=== PATIENT | male | born 1945 | race Caucasian/White ===

== ENCOUNTER 2016-10-24 09:22 | Inpatient (IN) | payer OTHER, BC ==
[2016-10-24] MEDS ORDERED: ALBUTEROL SO4 2.5/IPRATROPIUM 0.5 INH SOL 3 ML VIAL.NEB. NEB ONE ×2 (10:28→11:02)
--- NOTE | 2016-10-24 10:45 | PDOC ---
History of Present Illness <Ava Wise - Last Filed: 10/24/16 13:32> - General History Source: Patient Exam Limitations: No Limitations - History of Present Illness Initial Comments: 10/24/16 10:46 The patient is a 70 year old male with a significant past medical history of anemia, hypertension, hodgkins lymphoma, DVT (1 year ago) not currently on blood thinners, presenting to the Emergency Department with shortness of breath , wheezing, and a productive cough. The patient reports that he saw an Urgent Care center about two weeks ago and was diagnosed with bronchitis and pneumonia , and was prescribed amoxicillin and prednisone. He admits that he finished both prescriptions one week ago though he still has wheezing, a cough producing white phlegm, nausea, and decreased appetite. He also admits to chest pain at the right side exacerbated with coughing, and back pain exacerbated by coughing. He admits to having DVT about one year ago, and admits to chronic left leg swelling. The patient denies fever, or chills. Patient denies palpitations, or diaphoresis. Patient denies vomiting, or diarrhea. Patient denies headache, or blurry vision. PCP: Dr. Surendra Pinon <Terra Fregoso - Last Filed: 10/24/16 14:05> - General Chief Complaint: Shortness of Breath Stated Complaint: SOB Past History - Past Medical History Anemia: Yes Cancer: Yes (hodgkins lymphomia) HTN: Yes Liver Disease: Yes (enlarged liver/spleen) Suicide Attempt (Hx): No - Psycho/Social/Smoking Cessation Hx Anxiety: No Suicidal Ideation: No Smoking Status: No Smoking History: Never smoked Have you smoked in the past 12 months: No Number of Cigarettes Smoked Daily: 40 If you are a former smoker, when did you quit?: 15 YRS AGO Information on smoking cessation initiated: No Hx Alcohol Use: No Substance Use Type: None <Ava Wise - Last Filed: 10/24/16 13:32> <Terra Fregoso - Last Filed: 10/24/16 14:05> - Past Medical History Allergies/Adverse Reactions: Allergies Allergy/AdvReac Type Severity Reaction Status Date / Time No Known Allergies Allergy Verified 10/24/16 09:34 Home Medications: Ambulatory Orders Cyanocobalamin (Vitamin B-12) [B-12] 500 mcg PO DAILY 10/24/16 Furosemide 20 mg PO DAILY 10/24/16 Review of Systems - Review of Systems Able to Perform ROS?: Yes Comments:: 10/24/16 10:46 CONSTITUTIONAL: Present: + decreased appetite Absent: fever, chills, diaphoresis, generalized weakness, malaise HEENT: Absent: rhinorrhea, nasal congestion, throat pain, throat swelling, difficulty swallowing, mouth swelling, ear pain, eye pain, visual Changes CARDIOVASCULAR: Absent: chest pain, syncope, palpitations, irregular heart rate, lightheadedness , peripheral edema RESPIRATORY: Present: + shortness of breath, + wheezing, + productive cough Absent: dyspnea with exertion, orthopnea, stridor, hemoptysis GASTROINTESTINAL: Present: + nausea Absent: abdominal pain, abdominal distension, vomiting, diarrhea, constipation, melena, hematochezia GENITOURINARY: Absent: dysuria, frequency, urgency, hesitancy, hematuria, flank pain, genital pain MUSCULOSKELETAL: Absent: myalgia, arthralgia, joint swelling SKIN: Absent: rash, itching, pallor HEMATOLOGIC/IMMUNOLOGIC: Absent: easy bleeding, easy bruising, lymphadenopathy, frequent infections ENDOCRINE: Absent: unexplained weight gain, unexplained weight loss, heat intolerance, cold intolerance NEUROLOGIC: Absent: headache, focal weakness or paresthesias, dizziness, unsteady gait, seizure, mental status changes, bladder or bowel incontinence PSYCHIATRIC: Absent: anxiety, depression, suicidal or homicidal ideation, hallucinations. <Terra Fregoso - Last Filed: 10/24/16 14:05> *Physical Exam - Vital Signs Last Vital Signs Temp Pulse Resp BP Pulse Ox 97.5 F L 80 20 101/50 98 10/24/16 09:29 10/24/16 09:29 10/24/16 09:29 10/24/16 09:29 10/24/16 09:29 <Ava Wise - Last Filed: 10/24/16 13:32> - Vital Signs Last Vital Signs Temp Pulse Resp BP Pulse Ox 97.5 F L 80 20 101/50 98 10/24/16 09:29 10/24/16 09:29 10/24/16 09:29 10/24/16 09:29 10/24/16 09:29 - Physical Exam Comments: 10/24/16 10:47 GENERAL: Well developed, well nourished. Awake and alert. In no acute distress. HEENT: Dry mucous membranes. Normocephalic, atraumatic. PERRLA, EOMI. No conjunctival pallor. Sclera are non-icteric. Oropharynx is clear. NECK: Supple. Full ROM. No JVD. Carotid pulses 2+ and symmetric, without bruits. No thyromegaly. No lymphadenopathy. CARDIOVASCULAR: Regular rate and rhythm. No murmurs, rubs, or gallops. Distal pulses are 2+ and symmetric. PULMONARY: Bilateral wheezing, crackles at left lung base. No rales or rhonchi. ABDOMINAL: Tenderness to right sided ribs, no crepitus, no step off. Abdominal obese but nontender. Soft. Non-distended. No rebound or guarding. No organomegaly. Normoactive bowel sounds. MUSCULOSKELETAL Normal range of motion at all joints. No bony deformities or tenderness. No CVA tenderness. EXTREMITIES: No cyanosis. No clubbing. No edema. No calf tenderness. SKIN: Warm and dry. Normal capillary refill. No rashes. No jaundice. NEUROLOGICAL: Alert, awake, appropriate. Cranial nerves 2-12 intact. No deficits to light touch and temperature in face, upper extremities and lower extremities. No motor deficits in the in face, upper extremities and lower extremities. Normoreflexic in the upper and lower extremities. Normal speech. Toes are downgoing bilaterally. PSYCHIATRIC: Cooperative. Good eye contact. Appropriate mood and affect. <Terra Fregoso - Last Filed: 10/24/16 14:05> Heart Score/ECG Review #1 General ECG Interpretation: Sinus Rhythm (sinus tachycardia 123 bpm), Normal Rate, Normal Intervals, No acute ischemic changes Compared to previous ECG there are: Other (RBB , TWI V1 - V3 old compared to ) <Ava Wise - Last Filed: 10/24/16 13:32> ED Treatment Course - LABORATORY CBC & Chemistry Diagram: 10/24/16 11:35 10/24/16 11:35 - RADIOLOGY Radiology Studies Ordered: Category Date Time Status CHEST PA & LAT [RAD] Stat Radiology 10/24/16 10:20 Ordered - Medications Given in the ED: ED Medications Discontinued Medications Generic Name Dose Route Start Last Admin Trade Name Freq PRN Reason Stop Dose Admin Albuterol/Ipratropium 1 amp 10/24/16 10:28 10/24/16 10:31 Duoneb - NEB 10/24/16 10:29 1 amp ONCE ONE Administration <Ava Wise - Last Filed: 10/24/16 13:32> - LABORATORY CBC & Chemistry Diagram: 10/24/16 11:35 10/24/16 11:35 - RADIOLOGY Radiograph Interpretation: 10/24/16 12:51 Chest XRay As reviewed by Dr. Felix Ann IMPRESSION: New fluid with questionable atelectasis at the right base. There is suggestion of minimal atelectasis at the left base. The right central line persists. The mediastinum is not widened. There is no sign of infiltrate or fracture. A pneumothorax is not seen. - Medications Given in the ED: ED Medications Discontinued Medications Generic Name Dose Route Start Last Admin Trade Name Freq PRN Reason Stop Dose Admin Albuterol/Ipratropium 1 amp 10/24/16 10:28 10/24/16 10:31 Duoneb - NEB 10/24/16 10:29 1 amp ONCE ONE Administration <Terra Fregoso - Last Filed: 10/24/16 14:05> Medical Decision Making - Medical Decision Making 10/24/16 10:40 70 yo M with h/o lymphoma ( NHL) in remission, prior dVT 1 year ago ( not anticoagulated) here with cough congestion sob. pt states was seen in urgentcare 2 weeks ago and given rx for amoxicillin and steroids, which he finished 7 days ago. stilll having persistant decreased appetite, nausea no vomiting, cough productive white phlegm. ad right sided chest pain with coughing. no chest pain between coughing. had left leg swelling which is chronic since his dvt. no fevers , no chills. no other complaints. on exam awake alert. lung exam with bilateral wheezing, crackles at left base. right sided rib tenderness, no step off. cardiac exam normal. skin warm and dry. legs bilat swelling, non pitting edema differential: pna, bronchitis, recurrent DVT, sepsis, effusion chf. plan ekg labs cultures lactate cxr us left leg likley admit will d/w dr. pinon <Ava Wise - Last Filed: 10/24/16 13:32> - Medical Decision Making 10/24/16 13:01 Dr. Pinon was called at the office at 12:31. Awaiting call back. Dr. Pinon was called at the office at 12:57. Awaiting call back. Dr. Pinon returned call at 12:[address] Wise about the patient's care. <Terra Fregoso - Last Filed: 10/24/16 14:05> *DC/Admit/Observation/Transfer - Discharge Dispostion Admit: Yes <Ava Wise - Last Filed: 10/24/16 13:32> - Attestations Scribe Attestion: 10/24/16 10:47 Documentation prepared by Terra Fregoso, acting as medical records administrator for Ava Wise MD. <Terra Fregoso - Last Filed: 10/24/16 14:05> Diagnosis at time of Disposition: Bronchitis
[2016-10-24 11:47] LABS: BASOPHIL 0.5 % (0-2.0); EOSINOPHIL 0.1 % (0-4.5); MCHC 32.1 g/dl (32.0-35.9); MEAN CELL VOLUME 90.4 fl (80-96); MEAN PLT VOLUME 7.2 fl (7.5-11.1); NEUTROPHILS 80.7 % (42.8-82.8); PLATELET COUNT 234 K/MM3 (134-434); RDW 17.4 % (11.9-15.9); WHITE BLOOD COUNT 11.1 K/mm3 (4.0-10.0)
[2016-10-24 12:08] LABS: INR 1.52 (0.82-1.09); PROTHROMBIN TIME (PATIENT) 16.9 SEC (9.98-11.88)
[2016-10-24 12:11] LABS: ACTIVATED PTT 37.4 SECONDS (26.9-34.4)
[2016-10-24 12:19] LABS: ALBUMIN 2.3 g/dl (3.4-5.0); BILIRUBIN,TOTAL 1.2 mg/dL (0.2-1.0); CALCIUM 8.6 mg/dL (8.5-10.1); COCKROFT - GAULT 101.42; CREATININE 1.2 mg/dL (0.7-1.3); TOT PROT 7.4 g/dl (6.4-8.2)
[2016-10-24 12:25] LABS: TROPONIN I < 0.02 ng/ml (0.00-0.05)
[2016-10-24] MEDS ORDERED: LEVOFLOXACIN 750 MG IVPB 150 ML IVPB ONE ×2 (12:57→13:01)
[2016-10-24 15:45] VITALS: BMI 39.6
[2016-10-24] MEDS ORDERED: PNEUMOC 13-VAL CONJ-DIP CRM/PF 0.5 ML DISP.SYRIN IM ONE (15:45)
[2016-10-24] MEDS ORDERED: ACETAMINOPHEN 325 MG TABLET (FP) PO PRN (17:06)
[2016-10-24] MEDS ORDERED: FUROSEMIDE 40 MG/4 ML INJECTABLE VIAL IVPB SCH (17:15)
[2016-10-24] MEDS ORDERED: CEFTRIAXONE 1 GM in DEXTROSE 5%-WATER - 100 ML IVPB SCH (17:15)
[2016-10-24] MEDS ORDERED: CEFTRIAXONE 50 ML IVPB SCH (17:42)
[2016-10-24] MEDS: ALBUTEROL SO4 2.5/IPRATROPIUM 0.5 INH SOL 3 ML VIAL.NEB. NEB SCH (18:07)
[2016-10-24] MEDS: HEPARIN NA (PORCINE) 5,000 UNITS/ML 1ML VIAL SQ SCH (21:19)
[2016-10-25] MEDS: ALBUTEROL SO4 2.5/IPRATROPIUM 0.5 INH SOL 3 ML VIAL.NEB. NEB SCH ×3 (06:40→12:09)
[2016-10-25 07:17] LABS: BASOPHIL 0.4 % (0-2.0); EOSINOPHIL 0.1 % (0-4.5); MCH 29.9 pg (25.7-33.7); MCHC 33.7 g/dl (32.0-35.9); MEAN CELL VOLUME 88.8 fl (80-96); MEAN PLT VOLUME 7.4 fl (7.5-11.1); NEUTROPHILS 79.4 % (42.8-82.8); PLATELET COUNT 195 K/MM3 (134-434); WHITE BLOOD COUNT 9.6 K/mm3 (4.0-10.0)
[2016-10-25 07:49] LABS: ANION GAP 9 (8-16); CO2 26 mmol/L (21-32); COCKROFT - GAULT 81.66; CREATININE 1.4 mg/dL (0.7-1.3); GLUCOSE,RANDOM 108 mg/dL (74-106); MAGNESIUM 2.1 mg/dL (1.8-2.4); SGOT/AST 30 U/L (15-37); SGPT/ALT 22 U/L (12-78); TOT PROT 6.7 g/dl (6.4-8.2)
[2016-10-25 07:52] LABS: ALK PHOS 127 U/L (45-117); TROPONIN I < 0.02 ng/ml (0.00-0.05)
--- NOTE | 2016-10-25 09:02 | HP ---
Admitting History and Physical - Admission History of Present Illness: 70 year old male with a significant past medical history of anemia, hypertension , hodgkins lymphoma, DVT (1 year ago) not currently on blood thinners, presenting to the Emergency Department with shortness of breath, wheezing, and a productive cough. The patient reports that he saw an Urgent Care center about two weeks ago and was diagnosed with bronchitis and pneumonia, and was prescribed amoxicillin and prednisone. He admits that he finished both prescriptions one week ago though he still has wheezing, a cough producing white phlegm, nausea, and decreased appetite. He also admits to chest pain at the right side exacerbated with coughing, and back pain exacerbated by coughing. He admits to having DVT about one year ago, and admits to chronic left leg swelling. this am pt c/o weakness of the lower extremities with increasing difficulty in moving the legs he ststes he was feeling weak for 2 weeks requiring a walker but was able to move around--as of last night loosing sensation below the waist and unable to move his legs abdominal wall pain from moving sob better with oxygen - Past Medical History Cardiovascular: Yes: CHF (Diastolic (nl EF on echo and MUGA from 2015) with hx of SARAH and lasix treatment up to 1 month ago), HTN, Hyperlipdemia Pulmonary: Yes: COPD Hepatobiliary: Yes: Other (hepatosplenomegaly) Heme/Onc: Yes: Anemia, Cancer (lymphoma), Hypercoaguable State (h/o dvt). No: B12 Deficiency Rheumatology: Yes: Other (spinal stenosis) Endocrine: Yes: Hyperthyroidism - Smoking History Smoking history: Former smoker Have you smoked in the past 12 months: No Aproximately how many cigarettes per day: 40 If you are a former smoker, when did you quit?: 15 YRS AGO - Alcohol/Substance Use Hx Alcohol Use: No History of Substance Use: reports: None - Social History ADL: Independent Occupation: retired History of Recent Travel: No (no pets) Home Medications - Allergies Allergies/Adverse Reactions: Allergies Allergy/AdvReac Type Severity Reaction Status Date / Time No Known Allergies Allergy Verified 10/24/16 09:34 - Home Medications Home Medications: Ambulatory Orders Cyanocobalamin (Vitamin B-12) [B-12] 500 mcg PO DAILY 10/24/16 Furosemide 20 mg PO DAILY 10/24/16 Family Disease History - Family Disease History Family Disease History: Heart Disease: Father (of throat), Mother, CA: Father, Other: Son (sarcoid- (has 2 other sons, including a twin of the one who )) Review of Systems - Review of Systems Cardiovascular: reports: Chest Pain (rt sided--improved), Shortness of Breath Respiratory: reports: Cough (resolving--minimal now), SOB, SOB on Exertion Gastrointestinal: reports: Abdominal Pain (--abdominal wall --pt states when he turns) Genitourinary: reports: No Symptoms Musculoskeletal: reports: Muscle Weakness Neurological: reports: Incoordination, Unsteady Gait Physical Examination Vital Signs: Vital Signs Temperature 97.9 F 10/25/16 08:00 Pulse Rate 111 H 10/25/16 08:00 Respiratory Rate 18 10/25/16 08:00 Blood Pressure 119/59 10/25/16 08:00 O2 Sat by Pulse Oximetry (%) 98 10/24/16 21:00 Cardiovascular: Yes: S1, S2 Respiratory: Yes: Regular, CTA Bilaterally Gastrointestinal: Yes: Normal Bowel Sounds, Soft. 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 (2) Positive blood culture Assessment/Plan: abx per dr llamas repeat cultures echo Code(s): R78.81 - BACTEREMIA (3) Acute on chronic renal insufficiency Assessment/Plan: monitor Code(s): N28.9 - DISORDER OF KIDNEY AND URETER, UNSPECIFIED N18.9 - CHRONIC KIDNEY DISEASE, UNSPECIFIED (4) CHF exacerbation Assessment/Plan: will hold off on lasix cardio Code(s): I50.9 - HEART FAILURE, UNSPECIFIED Qualifiers: Congestive heart failure type: diastolic Qualified Code(s): I50.33 - Acute on chronic diastolic (congestive) heart failure (5) Lymphoma Assessment/Plan: in remission Code(s): C85.90 - NON-HODGKIN LYMPHOMA, UNSPECIFIED, UNSPECIFIED SITE (6) Weakness of both lower extremities Assessment/Plan: as above r/o abscess--- ct of ls spine neuro and ns consult Code(s): R29.898 - OT SYMPTOMS AND SIGNS INVOLVING THE MUSCULOSKELETAL SYSTEM
[2016-10-25 09:27] LABS: THYROID STIMULATING HORMONE 0.79 uIU/ml (0.358-3.74)
[2016-10-25 09:32] LABS: C-REACTIVE PROTEIN 22.1 MG/DL (0.00-0.3)
--- NOTE | 2016-10-25 09:32 | PN ---
Progress Note, Physician Chief Complaint: ID Full note dictated Experiencing generalized weakness for about 2 weeks noting that 2 weeks ago he was taken to [facility] in a wheelchair and diagnosed with PNA and given Amoxicillin and prednisone. Has chest xray done at that time. Since then SOB somewhat improved but since admission for "weakness" yesterday says he cant feel his legs and is experience " muscle pains in his abd. Also weak in his upper extremities. Denies fever chill currently. No recent travel tick bite outdoor exposure. NO alcohol use HIV risks History of Lymphoma originally here but sent to [place] where diagnosis confirmed lymph node biopsy. - Current Medication List Current Medications: Active Medications Acetaminophen (Tylenol -) 650 mg PO Q4H PRN PRN Reason: FEVER OR PAIN Last Admin: 10/24/16 21:19 Dose: 650 mg Albuterol/Ipratropium (Duoneb -) 1 amp NEB QIDR [facility] Last Admin: 10/25/16 06:40 Dose: 1 amp Furosemide (Lasix Injection -) 40 mg IVPB DAILY [facility] Last Admin: 10/24/16 18:06 Dose: 40 mg Heparin Sodium (Porcine) (Heparin -) 5,000 unit SQ BID [facility] Last Admin: 10/24/16 21:19 Dose: 5,000 unit Ceftriaxone Sodium (Rocephin 1gm Ivpb (Pre-Docked)) 50 mls @ 100 mls/hr IVPB DAILY [facility] - Objective Vital Signs: Vital Signs Temperature 97.9 F 10/25/16 08:00 Pulse Rate 111 H 10/25/16 08:00 Respiratory Rate 18 10/25/16 08:00 Blood Pressure 119/59 10/25/16 08:00 O2 Sat by Pulse Oximetry (%) 98 10/24/16 21:00 Constitutional: Yes: Obese Cardiovascular: Yes: S1, S2 Respiratory: Yes: WNL, Regular, CTA Bilaterally Gastrointestinal: Yes: WNL, Normal Bowel Sounds, Soft, Tenderness. No: Tenderness, Rebound Edema: No Neurological: Yes: Other (LE weakness bilaterally and Upper ext sensation intact ) Labs: CBC, BMP 10/25/16 06:15 10/25/16 06:15 INR, PTT INR 1.52 (0.82-1.09) H D 10/24/16 11:35 Assessment/Plan Microbiology 10/24/16 11:46 Blood - Peripheral Venous Blood Culture - Preliminary Pending Organism Laboratory Tests 10/24/16 10/25/16 10/25/16 11:35 06:15 06:15 WBC 11.1 H D Hgb 12.0 D Plt Count 234 D Lymphocytes % 11.4 D Monocytes % 7.3 ESR BUN 24 H D Creatinine 1.4 H Creat Clearance w eGFR 49.96 Total Bilirubin 1.0 AST 30 D C-Reactive Protein 22.1 H D 10/25/16 06:15 WBC Hgb Plt Count Lymphocytes % Monocytes % ESR Pending BUN Creatinine Creat Clearance w eGFR Total Bilirubin AST C-Reactive Protein Assessment Recent episode of " PNEUMONIA" has pleural effusion on CT. Presents with weakness now acute since yesterday LE unable to move and possibly "ascending" to arms rasing question of GBS. Addtionally he has a high CRP and now report of positive blood culture for gram positive cocci chains alpha strep albeit 1 bottle right now but still could be significant and raises concern for endocarditis with emboli or involvement of spine Plan Neuro consult Spinal imaging for abscess myelitis ESR and repeat blood cultures Lyme serology though low risk HANNA Vancomcyin 1.75gr now and level in am Fritz DIAZ
[2016-10-25] MEDS: HEPARIN NA (PORCINE) 5,000 UNITS/ML 1ML VIAL SQ SCH (10:30)
--- NOTE | 2016-10-25 11:07 | CONS ---
DATE OF CONSULTATION: DATE OF DICTATION: 10/25/2016 This is a 70-year-old white male who I am asked to see at the request of Dr. Hanson for bacteremia. The patient was admitted with complaints of generalized weakness yesterday and, over the course of the evening in the hospital now complaining that he is unable to move his lower extremities! At the same time, he is experiencing weakness in his upper extremities. He has a history of lymphoma, originally suspected at [facility], but confirmed by lymph node biopsy at [facility] in 2014. He is thought currently to be in remission after treatment. He is a primary patient of Dr. Hanson, who mentioned that the patient has not been back for medical followup in perhaps, 1 years' time. Two weeks ago, the patient began to experience generalized weakness associated with shortness of breath. He noted, as a result of weakness, he had to be transported to an urgent care center in [facility] in a wheelchair, where normally he ambulates without assistance. There, a chest x-ray was done. He was not admitted, but he was diagnosed with "pneumonia" and treated with a course of amoxicillin and prednisone. He is a former smoker, but denies any history of asthma or COPD. Since then, he states he felt somewhat improved, though complained of weakness throughout the last 2 weeks, for which he was admitted yesterday for further evaluation. He had no fever on admission and his white count was minimally elevated. Subsequently he did have fever and Blood cultures were obtained and now has 1 bottle out of 4 positive for an alpha streptococcus gram-positive cocci in chains. He has no history of valvular heart disease, recent dental procedures, recent travel. He lives with his and is retired. He has no outdoor exposure or history of recent tick bites and no HIV risk factors. He is unable to move his legs. He denies headaches or visual complaints or rash. He has no diarrhea PAST MEDICAL HISTORY: Lymphoma diagnosed in 2014, hypertension, history of DVT 1 year ago. MEDICATIONS: Lasix. ALLERGIES: None known. SOCIAL HISTORY: Former smoker. No history of alcohol abuse, no recent travel. Retired. FAMILY HISTORY: Reviewed and noncontributory. REVIEW OF SYSTEMS: Respiratory: Positive shortness of breath. No cough, hemoptysis. Cardiac: No chest pain, palpitations, history of murmur. Gastrointestinal: No nausea, vomiting, diarrhea, abdominal pain. Genitourinary: No dysuria, hematuria, urinary frequency. PHYSICAL EXAMINATION: General: He was a heavyset male, weighing 263 pounds, who appeared in no acute distress. Alert and oriented. Vital Signs: Temperature was 100.6 temperature maximum, currently 97.9, pulse 111, blood pressure 120/59, respirations 18. Neck: Supple without adenopathy. Lungs: Clear to percussion and auscultation. Heart: S1, S2, regular rhythm without audible murmur. Abdomen: Soft without hepatosplenomegaly. Mild abdominal tenderness noted diffusely, but no guarding or rebound. Extremities: No clubbing, cyanosis, or edema. Neurologic: Sensation in the lower extremities, but no motor strength. Has strength in the upper extremities, but disparity between left and right side with weakness noted bilaterally. The white count is 11.1, hemoglobin 12.0, platelets of 234. INR 1.52. BUN 24, creatinine 1.4. Bilirubin 1.0, alkaline phosphatase 127, CRP 22.1, total protein 7.4, albumin 2.3. Urinalysis is pending. CT of the chest shows small to moderate right pleural effusion. ASSESSMENT: A 70-year-old man presents with generalized weakness, history of "pneumonia" 2 weeks ago, treated with antibiotics and steroids, admitted now with worsening generalized weakness and now with inability to move his lower extremities with complaints of abdominal muscle tenderness and weakness as well in his upper extremities. 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 Additional considerations, however, would include bacterial etiology such as spinal abscess as the patient now has at least 1 positive blood culture for an alpha streptococcus though this could be a contaminant. His CRP is elevated and he has low-grade fevers, all of which would also be consistent A spinal embolus secondary to endocarditis is considered. He has aright pleural effusion, which may be parapneumonic if, in fact, he had recent pneumonia. Discussed with Dr. Hanson, also the case was discussed with Neurology, Dr. Gonzalez, regarding the previously-mentioned concerns including need for lumbar puncture for diagnostic purposes for GBS as well as consideration of initiation of IVIg. With regard to the blood culture, he will have an echocardiogram ordered, repeat blood cultures obtained, and be given 1.75 mg of vancomycin as a STAT dose now, to be followed by a vancomycin level tomorrow morning. A urinalysis, ESR, and HANNA and anti-Campylobacter jejuni antibodies to be ordered. LISA BOATENG M.D. BRENDON/[id number] MTDD
[2016-10-25] MEDS ORDERED: VANCOMYCIN 1,750 MG in DEXTROSE 5%-WATER - 500 ML IVPB ONE (12:00)
--- NOTE | 2016-10-25 13:04 | CON.NEURO ---
Consult Consult Specialty:: Neurology Referred by:: Dr. 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: Other (Non Hodgkins Lymphoma involving Brain (chart says meningioma but he denies this)) Cardio/Vascular: Yes: CHF (Diastolic (nl EF on echo and MUGA from 2015) with hx of SARAH and lasix treatment up to 1 month ago), HTN, Hyperlipdemia Pulmonary: Yes: COPD Hepatobiliary: Yes: Other (hepatosplenomegaly) Musculoskeletal: Yes: Chronic low back pain (lumbar radiculopathy) Rheumatology: Yes: Other (spinal stenosis) Endocrine: Yes: Hyperthyroidism Additional Medical History: history of malaria when he was in [place] - Alcohol/Substance Use Hx Alcohol Use: No History of Substance Use: reports: None - Smoking History Smoking history: Former smoker Have you smoked in the past 12 months: No Aproximately how many cigarettes per day: 40 If you are a former smoker, when did you quit?: 15 YRS AGO - Social History Usual Living Arrangement: With Spouse ADL: Independent Occupation: retired History of Recent Travel: No (no pets) Home Medications - Allergies Allergies/Adverse Reactions: Allergies Allergy/AdvReac Type Severity Reaction Status Date / Time No Known Allergies Allergy Verified 10/24/16 09:34 - Home Medications Home Medications: Ambulatory Orders Cyanocobalamin (Vitamin B-12) [B-12] 500 mcg PO DAILY 10/24/16 Furosemide 20 mg PO DAILY 10/24/16 Family Disease History - Family Disease History Family Disease History: Heart Disease: Father (of throat), Mother, [place]: Father, Other: Son (sarcoid- (has 2 other sons, including a twin of the one who )) Review of Systems - Review of Systems Genitourinary: reports: Incontinence (Cannot feel himself urinated) Neurological: reports: Numbness, Weakness Physical Exam-Neuro Vital Signs: Vital Signs Temperature 97.9 F 10/25/16 08:00 Pulse Rate 111 H 10/25/16 08:00 Respiratory Rate 18 10/25/16 08:00 Blood Pressure 119/59 10/25/16 08:00 O2 Sat by Pulse Oximetry (%) 97 10/25/16 09:00 Labs: CBC, BMP 10/25/16 06:15 10/25/16 06:15 INR, PTT INR 1.52 (0.82-1.09) H D 10/24/16 11:35 NIH Stroke Scale - Total Score NIH Stroke Scale Score: 0 Imaging - Results Cat Scan: Report Reviewed (negative), Image Reviewed Problem List - 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 Attempted LP at bedside (unsuccessfully). Would start empiric treatment with IVIG 2 gm/kg over 5 days. Order LP under fluoroscopic guidance. Please also get cytology to r/o lymphomatous meningitis. EMG/NCV ( primarily to measure F waves). Transfer to ICU. Check FVC We'll follow up with you. Thank you. 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
--- NOTE | 2016-10-25 13:31 | PROC ---
Procedure Note Procedure: Lumbar puncture at bedside Indication: R/O Guillan [place] Syndrome Informed consent obtained with nursing staff present. Rationale, risks and alternatives explained and patient had had an LP in the past and understood the procedure well. Using nursing assistance as patient is paraplegic, patient was placed in lateral position and with flexed legs and he flexed his neck forward. He denied discomfort. Using 1 % lidocaine contained in the LP kit, local anesthesia was used, though patient was relatively anesthetized at that level from his primary illness and didn't feel discomfort from the introduction of the needle. 22 g spinal needle was introduced using usual external landmarks although multiple attempts were made no CSF was obtained. The patient tolerated the procedure well and the mutual decision was made to make the next attempt using Fluoroscopically guided LP.
--- NOTE | 2016-10-25 13:37 | CONSULT ---
Consult Consult Specialty:: PULM/CCM Referred by:: PETE Reason for Consultation:: Suspected GBS - History of Present Illness Chief Complaint: SOB / weakness History of Present Illness: 70 M, anemia, hypertension, hodgkins lymphoma, DVT (1 year ago) not currently on AC. Presented to an Urgent care about 2 weeks ago for "PNA". He was given Prednisone and Augmentin. No travel history or sick contacts. No hemoptysis. Reports weakness and sensory loss in both lower extremities. There is a clinical suspicion of Guillian [place], so an LP was attempted but not successful. He was seen by Neurology and ID and will be transferred to the ICU for closer monitoring. He does report chronic low back pain. 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 (Non Hodgkins Lymphoma involving Brain (chart says meningioma but he denies this)) Cardio/Vascular: Yes: CHF (Diastolic (nl EF on echo and MUGA from 2015) with hx of SARAH and lasix treatment up to 1 month ago), HTN, Hyperlipdemia Pulmonary: Yes: COPD Hepatobiliary: Yes: Other (hepatosplenomegaly) Musculoskeletal: Yes: Chronic low back pain (lumbar radiculopathy) Rheumatology: Yes: Other (spinal stenosis) Endocrine: Yes: Hyperthyroidism Additional Medical History: history of malaria when he was in [place] - Alcohol/Substance Use Hx Alcohol Use: No History of Substance Use: reports: None - Smoking History Smoking history: Former smoker Have you smoked in the past 12 months: No Aproximately how many cigarettes per day: 40 If you are a former smoker, when did you quit?: 15 YRS AGO - Social History Usual Living Arrangement: With Spouse ADL: Independent Occupation: retired History of Recent Travel: No (no pets) Home Medications - Allergies Allergies/Adverse Reactions: Allergies Allergy/AdvReac Type Severity Reaction Status Date / Time No Known Allergies Allergy Verified 10/24/16 09:34 - Home Medications Home Medications: Ambulatory Orders Cyanocobalamin (Vitamin B-12) [B-12] 500 mcg PO DAILY 10/24/16 Furosemide 20 mg PO DAILY 10/24/16 Family Disease History - Family Disease History Family Disease History: Heart Disease: Father (of throat), Mother, CA: Father, Other: Son (sarcoid- (has 2 other sons, including a twin of the one who )) Review of Systems - Review of Systems Constitutional: reports: Chills, Fever, Lethargy, Loss of Appetite, Malaise, Weakness. denies: Night Sweats, Unintentional Wgt. Loss Eyes: reports: No Symptoms HENT: reports: No Symptoms Neck: reports: No Symptoms Cardiovascular: reports: Palpitations, Shortness of Breath. denies: Chest Pain , Edema Respiratory: reports: Cough, Snoring, SOB, SOB on Exertion. denies: Hemoptysis , Wheezing Gastrointestinal: reports: No Symptoms Genitourinary: reports: No Symptoms Musculoskeletal: reports: Muscle Pain, Muscle Weakness Integumentary: reports: No Symptoms Neurological: reports: Numbness, Parasthesia, Weakness. denies: Change in Speech, Headache Endocrine: reports: No Symptoms Hematology/Lymphatic: reports: No Symptoms Psychiatric: reports: No Symptoms Physical Exam Vital Signs: Vital Signs Temperature 97.9 F 10/25/16 08:00 Pulse Rate 111 H 10/25/16 08:00 Respiratory Rate 18 10/25/16 08:00 Blood Pressure 119/59 10/25/16 08:00 O2 Sat by Pulse Oximetry (%) 97 10/25/16 09:00 Constitutional: Yes: No Distress, Obese Eyes: Yes: Conjunctiva Clear, EOM Intact HENT: Yes: Atraumatic, Normocephalic Neck: Yes: Supple, Trachea Midline Cardiovascular: Yes: Regular Rate and Rhythm Respiratory: Yes: Cough, Diminished, On Nasal O2, Rhonchi. No: Accessory Muscle Use, Rales, Stridor, Tachypnea, Wheezes Gastrointestinal: Yes: Normal Bowel Sounds, Soft, Abdomen, Obese ...Rectal Exam: Yes: Deferred Renal/: Yes: WNL Breast(s): Yes: WNL Musculoskeletal: Yes: WNL Extremities: Yes: WNL Edema: Yes Peripheral Pulses WNL: No Integumentary: Yes: WNL Neurological: Yes: Alert, Oriented, Numbness, Paresthesia, Weakness Psychiatric: Yes: WNL, Alert, Oriented Labs: CBC, BMP 10/25/16 06:15 10/25/16 06:15 Imaging - Results Chest X-ray: Report Reviewed, Image Reviewed Cat Scan: Report Reviewed, Image Reviewed Problem List - Problems (1) Bronchitis Code(s): J40 - BRONCHITIS, NOT SPECIFIED ACUTE OR CHRONIC (2) GBS (Guillain [place] syndrome) Code(s): 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 (3) Positive blood culture Code(s): R78.81 - BACTEREMIA (4) Weakness Code(s): R53.1 - WEAKNESS (5) Weakness of both lower extremities Code(s): R29.898 - OTH SYMPTOMS AND SIGNS INVOLVING THE MUSCULOSKELETAL SYSTEM (6) Diabetes Code(s): E11.9 - TYPE 2 DIABETES MELLITUS WITHOUT COMPLICATIONS (7) Dyspnea Code(s): R06.00 - DYSPNEA, UNSPECIFIED (8) Left leg DVT Code(s): I82.402 - ACUTE EMBOLISM AND THOMBOS UNSP DEEP VEINS OF L LOW EXTREM Qualifiers: Affected thrombotic vein of extremity: femoral Chronicity: acute Qualified Code(s): I82.412 - Acute embolism and thrombosis of left femoral vein (9) Lymphoma Code(s): C85.90 - NON-HODGKIN LYMPHOMA, UNSPECIFIED, UNSPECIFIED SITE (10) Pneumonia Code(s): J18.9 - PNEUMONIA, UNSPECIFIED ORGANISM Qualifiers: Pneumonia type: due to unspecified organism Laterality: left Lung location: lower lobe of lung Qualified Code(s): J18.9 - Pneumonia, unspecified organism Assessment/Plan Follow FVC / NIF ABX per ID Noted Neuro consult -> started on IVIG O2 as needed Follow final cultures Will need further imaging studies once stable Strict I&O Transfer to ICU. Thank you. Dr Garcia CCTime 35"
[2016-10-25] MEDS ORDERED: ACETAMINOPHEN 325 MG TABLET (FP) PO PRN (14:20)
--- NOTE | 2016-10-25 15:42 | PN ---
Progress Note (short form) - Note Progress Note: NEUROSURGERY Chart reviewed Pt examined Care d/e Dr Marino earlier, who opined CIDP Bedside LP not able to obtain CSF H/o anemia, hypertension, NHL s/p chemo, DVT not currently on AC, recent ? pneumonia/bronchitis (diagnosed by UC) 2 weeks ago s/p po abx and prednisone presented with shortness of breath, wheezing, and a productive cough. had fever 2 weeks ago x1. Still wheezing, cough, nausea, and decreased appetite. Back pain exacerbated by coughing. Chronic left leg swelling. had some back pain and sciatica in the past which limited his ambulation. Since about yesterday afternoon/;evening when arriving in his room c/o numbness and weakness of the lower extremities with difficulty in moving the legs. PE: Tmax 100.6, now 97.9, VSS HEENT- NC/AT; Neck- supple; Cor- RR; Lungs- CTA; Abd-obese; + BS; Ext- B LE ankle/distal edema, negative Kaitlynn's CN- intact; Motor- UE 4+ B; B LE 0/5; Sensation- decreased LT/PP/vibration below about T4 B, but not absent; DTR- hyporeflexia B; no LTS INR 1.52, PTT 37,4; BUN 24, Cr 1.2 (yesterday was 1.2); WBC 9.3 (yesterday 11); ESR 130; CRP 22.1 Blood culture- alpha hemolytic strep CT head- mild atrophy, mild periventricular small vessel dz; no bleed, no HCP CT LS spine- osteopenia, moderate spondylosis, no acute fx, chronic L5 vertebral compression fxd; no obvious paraspinal infection/mass of intraspinal involvement LE doppler- negative for DVT CTA chest Stat T spine MRI with/without gennaro (half dose contrast) including sagittal wildlife control operator images to count level and r/o gross C and LS disease r/othoracic intramedullary vs epidural compressive pathology/stenosis Given lack of antigravity strength prognosis is extremely poor unless this is from transverse myelitis or CIDP (which would carry slightly better prognosis for recovery) D/w radiology to approve emergency MRI; D/w ICU team; D/w Dr Marino
[2016-10-25] MEDS ORDERED: ALPRAZolam 0.25 MG TABLET PO ONE (15:45)
--- NOTE | 2016-10-25 16:05 | CON.CARD ---
Consult Consult Specialty:: Cardiology Referred by:: Dr Hanson Reason for Consultation:: chf - History of Present Illness Chief Complaint: sob, weakness History of Present Illness: 70M history of anemia, hypertension, hodgkins lymphoma, DVT (1 year ago) not on AC, admitted 10/24/16 with shortness of breath, wheezing, and a productive cough also leg weakness and numbness. Being seen by neurology to rule out GB syndrome. Also noted with mildly elevated bnp. No orthopnea pnd or edema. No chest pain. 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 (Non Hodgkins Lymphoma involving Brain (chart says meningioma but he denies this)) Cardio/Vascular: Yes: CHF (Diastolic (nl EF on echo and MUGA from 2015) with hx of SARAH and lasix treatment up to 1 month ago), HTN, Hyperlipdemia Pulmonary: Yes: COPD Hepatobiliary: Yes: Other (hepatosplenomegaly) Musculoskeletal: Yes: Chronic low back pain (lumbar radiculopathy) Rheumatology: Yes: Other (spinal stenosis) Endocrine: Yes: Hyperthyroidism Additional Medical History: history of malaria when he was in [place] - Alcohol/Substance Use Hx Alcohol Use: No History of Substance Use: reports: None - Smoking History Smoking history: Former smoker Have you smoked in the past 12 months: No Aproximately how many cigarettes per day: 40 If you are a former smoker, when did you quit?: 15 YRS AGO - Social History Usual Living Arrangement: With Spouse ADL: Independent Occupation: retired History of Recent Travel: No (no pets) Home Medications - Allergies Allergies/Adverse Reactions: Allergies Allergy/AdvReac Type Severity Reaction Status Date / Time No Known Allergies Allergy Verified 10/24/16 09:34 - Home Medications Home Medications: Ambulatory Orders Cyanocobalamin (Vitamin B-12) [B-12] 500 mcg PO DAILY 10/24/16 Furosemide 20 mg PO DAILY 10/24/16 Family Disease History - Family Disease History Family Disease History: Heart Disease: Father (of throat), Mother, [place]: Father, Other: Son (sarcoid- (has 2 other sons, including a twin of the one who )) Review of Systems - Review of Systems Constitutional: reports: Lethargy Eyes: reports: No Symptoms HENT: reports: No Symptoms Neck: reports: No Symptoms Cardiovascular: reports: Shortness of Breath Respiratory: reports: Cough Vital Signs: Vital Signs Temperature 97.9 F 10/25/16 08:00 Pulse Rate 88 10/25/16 15:13 Respiratory Rate 18 10/25/16 15:13 Blood Pressure 118/50 10/25/16 15:13 O2 Sat by Pulse Oximetry (%) 98 10/25/16 15:14 Constitutional: Yes: No Distress, Calm Eyes: Yes: Conjunctiva Clear HENT: Yes: Atraumatic, Normocephalic Neck: Yes: Supple, Trachea Midline Respiratory: Yes: CTA Bilaterally Gastrointestinal: Yes: Normal Bowel Sounds, Soft Cardiovascular: Yes: Regular Rate and Rhythm JVD: No Carotid Bruit: No PMI: Non-Displaced Heart Sounds: Yes: S1, S2 Extremities: Yes: WNL Edema: No Peripheral Pulses WNL: Yes - Other Data Labs, Other Data: CBC, BMP 10/25/16 06:15 10/25/16 06:15 INR, PTT INR 1.52 (0.82-1.09) H D 10/24/16 11:35 Troponin, BNP 10/25/16 06:15 Troponin I < 0.02 Troponin, BNP 10/25/16 06:15 Troponin I < 0.02 Imaging - Results Chest X-ray: Report Reviewed (bibasliar changes.) Cat Scan: Report Reviewed (atalectasis, small effusion, no PE.) EKG: Pending Problem List - Problems (1) CHF exacerbation Assessment/Plan: mildly elevated bnp, no symptoms. Defer diuresis at present for small effusions. ECG ordered ABX per ID. Echo pending. There are no cardiac contraindications to spine surgery if there is an emergent compressive syndrome. will follow with you. Code(s): I50.9 - HEART FAILURE, UNSPECIFIED Qualifiers: Congestive heart failure type: diastolic Qualified Code(s): I50.33 - Acute on chronic diastolic (congestive) heart failure
[2016-10-25] MEDS ORDERED: PHYTONADIONE 10 MG/1 ML AMP SQ ONE (16:33)
--- NOTE | 2016-10-25 17:08 | CONS ---
DATE OF CONSULTATION: DATE OF DICTATION: 10/25/2016 REQUESTING PHYSICIAN: Surendra Hanson MD CEMENT WORKER: Jose Guadalupe Smith MD, Neurosurgery CHIEF COMPLAINT: Bilateral complete motor paraplegia. 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 He was treated at urgent care center with amoxicillin and oral steroids. His fever improved but he still has a slight cough and wheeze. He came here to the hospital with worsening wheezing and coughing yesterday again. After being admitted to his room later in the evening, he complained of worsening bilateral lower extremity numbness and weakness. He used to have some difficulty with walking and was using a walker. He subsequently became extremely weak and could not ambulate. He denies bowel or bladder incontinence previously, and presently he has diminished sensation in perineal area. Past medical history is significant for congestive heart failure, COPD, chronic lower back pain, sciatica, spinal stenosis, hyperthyroidism, malaria, non-Hodgkin lymphoma with AIRWAYS OPERATIONS SPECIALIST involvement. Current medications include Tylenol, subcutaneous heparin, and DuoNeb. There is no known drug allergy. Family history is noncontributory. In terms of social history, he used to be a smoker but has quit smoking a couple years ago. He drinks alcohol socially. Review of systems is otherwise negative for other major cardiovascular, pulmonary, gastrointestinal, genitourinary, endocrinological, neurological, or psychological problem except for the above. PHYSICAL EXAMINATION: General: He is awake and alert. He is not in acute distress. He is lying down in bed in the ICU. Vital Signs: Temperature is 97.9, previously was 100.6, blood pressure 118/50, with pulse rate of 88, O2 saturation is 98% on 3 L. HEENT: Normocephalic, atraumatic. Anicteric. Neck: Supple with no carotid bruit. Coronary: Regular rhythm. Lungs: Decreased breath sound at the bases. Abdomen: Obese but benign. Extremities: Trace distal ankle and foot edema bilaterally. There is no other sign of DVT. He has a negative Homans sign. Neurologic: He is awake, alert, oriented x3. Cranial nerves examination is intact, 2-12. Motor examination shows 4/5 strength of the upper extremities bilaterally in general. Lower extremity strength is 0/5. Sensory examination shows diminished sensation below the nipple line bilaterally to pinprick, light touch, and vibratory sensation. Deep tendon reflexes are 1+ in the upper extremity and absent in bilateral extremities. There is no pathological lower tract sign. Gait cannot be tested. Laboratory examination shows a white blood cell count to be 9.6, previously was 11.1 yesterday. ESR is 130. Hemoglobin is 10.8 and hematocrit is 32, platelet count is 195,000. INR os 1.52 and PTT is 37.4. Serum sodium is 136 and potassium is 3.9. BUN is 24 and creatinine 1.4; previously it was BUN 19 and creatinine 1.2 a day earlier. C-reactive protein is 22.1. CT scan of the head demonstrated mild cerebral atrophy with mild periventricular vessel disease. There is no acute stroke or bleed. There is no fracture. CT scan of the lumbar spine demonstrated moderate spondylosis throughout. There is osteopenia. There appeared to be a chronic L5 compression fracture, compression deformity without canal compromise, without retropulsion. There is moderate stenosis at L4-5 level greater than L3-4 and L5-S1 secondary to spondylosis, ligament hypertrophy, and facet hypertrophy. There is no spondylolisthesis. There is no obvious paraspinal mass or obvious abscess. Lower extremity Doppler is negative. Blood culture showed 1 out of 2 bottles of alpha hemolytic streptococcus. IMPRESSION: 1. Progressive bilateral lower extremity paraplegia with partial sensory preservation around T4. 2. History of non-Hodgkin lymphoma with reported central nervous system involvement. 3. Chronic obstructive pulmonary disease. 4. History of left lower extremity deep vein thrombosis. 5. Lumbar spinal stenosis. 6. Congestive heart failure. 7. Obesity. 8. Reported recent bronchitis/pneumonia. RECOMMENDATIONS: The patient presents with chronic intermittent lower back pain and sciatica. He has difficulty with ambulation in the past couple weeks. He experienced sudden worsening of his lower extremity neurological function about 24 hours earlier and presently has 0/5 motor strength in the lower extremities bilaterally. He does have some partially preserved sensory function. He has presently a white blood cell count normal. His blood culture did grow out 1 or 2 of alpha hemolytic streptococcus, and vancomycin had been reportedly ordered. ID followup is recommended. His lumbar spine CT scan does not demonstrate significant compressive pathology other than from his chronic degenerative disk disease and slight depression of L5 vertebra. An MRI of thoracic spine is recommended, given his sensory level and bilateral complete paraplegia. The differential diagnosis consists of that of compressive lesion from intrathecal/intramedullary tumor, extrinsic/ epidural compression from abscess, versus CIDP/transverse myelitis. Stat MRI of the thoracic spine with and without gadolinium has been ordered by myself and I communicated with the treating neurologist Dr Marino. As LP did not obtain CSF despite reportedly being in the right space, CSF block and cord compression is suspected. Because of slightly abnormal renal function, half dose of gadolinium has been ordered per the radiologist. I did discuss the need for the emergency MRI with the oncology radiologist earlier this afternoon. The patient is on the way down to the MRI right now. Regardless, prognosis for neurological recovery, especially motor strength recovery, is extremely poor unless this is transverse myelitis or CIDP, which could potentially respond to further aggressive medical regimen. All questions were answered at the bedside. Continued DVT prophylaxis is recommended. I spent 80+ minutes at bedside and coordinating care of this patient and communicating with treating physicians. JOSE GUADALUPE SMITH M.D. [id number] MTDD
[2016-10-25] MEDS ORDERED: ROCURONIUM BROMIDE 50 MG/5 ML VIAL ONE (17:50)
[2016-10-25] MEDS ORDERED: PROPOFOL 20 ML ONE (17:50)
[2016-10-25] MEDS ORDERED: SUCCINYLCHOLINE CHLORIDE 200 MG/10 ML VIAL ONE (17:50)
[2016-10-25] MEDS ORDERED: LIDOCAINE HCL/PF 2% SDV 5ML VIAL ONE (17:50)
[2016-10-25] MEDS ORDERED: ALBUTEROL SO4 2.5/IPRATROPIUM 0.5 INH SOL 3 ML VIAL.NEB. NEB SCH (18:00)
[2016-10-25] MEDS ORDERED: BUPIVACAINE HCL/PF 0.25% (2.5MG/ML) 10 ML VIAL ONE (18:32)
[2016-10-25] MEDS ORDERED: BACITRACIN 15 GM TUBE TOPICAL OINTMENT ONE (18:33)
[2016-10-25] MEDS ORDERED: VANCOMYCIN 1,000 MG VIAL (RESTRICTED TO ID ONLY) ONE (19:24)
[2016-10-25] MEDS ORDERED: ceFAZolin SODIUM 1 GM VIAL IVPB ONE ×2 (19:41)
[2016-10-25] MEDS ORDERED: THROMBIN (BOVINE) 5,000 UNIT VIAL TP ONE (21:30)
[2016-10-25] MEDS ORDERED: GLYCOPYRROLATE 0.2 MG/1 ML VIAL ONE ×2 (21:34)
[2016-10-25] MEDS ORDERED: NEOSTIGMINE METHYLSULFATE 0.5 MG/ML - 10 ML MDV ONE (21:34)
[2016-10-25] MEDS ORDERED: BACITRACIN 15 GM TUBE TOPICAL OINTMENT TP ONE (21:46)
[2016-10-25] MEDS ORDERED: VANCOMYCIN 1,000 MG VIAL (RESTRICTED TO ID ONLY) IVPB ONE (21:47)
[2016-10-25] MEDS ORDERED: BACITRACIN 50,000 UNITS VIAL NR ONE (21:47)
--- NOTE | 2016-10-25 21:57 | OP ---
Operative Note - Note: Operative Date: 10/25/16 Pre-Operative Diagnosis: Thoracic posterior epidural abscess with cord compression; complete motor paraplegia Operation: Partial T2 and T5, and complete T3 and T4 L hemilaminectomies for decompression and drainage of abscess; cultures, microdissection, L T4-5 allograft Findings: Epidural purulent material with cord compression Implants: graft-on 1cc Post-Operative Diagnosis: Same as Pre-op Surgeon: Jose Guadalupe Wills Anesthesiologist/ASSISTANT HVAC MECHANIC: Felix Diaz Anesthesia: General Specimens Removed: epidural abscess, tissue; fluid for gram stain, bacterial aerobic and ananerobic culture, fungal, AFB Estimated Blood Loss (mls): 250 Drains & Tubes with Location: 10 flat GUILHERME to bulb epidural Drains, Volume Out (mls): 1 Blood Volume Replaced (mls): 2 (FFP) Operative Report Dictated: Yes
[2016-10-25] MEDS ORDERED: BISACODYL 10 MG SUPP.RECT RC PRN (22:00)
[2016-10-25] MEDS ORDERED: ONDANSETRON 4 MG/2 ML VIAL IVPB PRN (22:00)
[2016-10-25] MEDS ORDERED: HEPARIN NA (PORCINE) 5,000 UNITS/ML 1ML VIAL SQ SCH (22:00)
[2016-10-25] MEDS ORDERED: ONDANSETRON 4 MG/2 ML VIAL IVPUSH PRN (22:15)
[2016-10-25] MEDS ORDERED: PROMETHAZINE HCL 25 MG/1 ML VIAL IVPUSH PRN (22:15)
[2016-10-25] MEDS ORDERED: HYDROmorphone *PCA* 10MG/50ML DISP.SYRIN PCA SCH (22:30)
[2016-10-25 23:09] LABS: MCH 29.2 pg (25.7-33.7); MCHC 32.1 g/dl (32.0-35.9); MEAN PLT VOLUME 7.7 fl (7.5-11.1); PLATELET COUNT 167 K/MM3 (134-434); RDW 17.4 % (11.9-15.9); WHITE BLOOD COUNT 8.1 K/mm3 (4.0-10.0)
[2016-10-25] MEDS: DOCUSATE SODIUM 100 MG CAPSULE (FP) PO SCH (23:12)
[2016-10-25 23:21] LABS: INR 1.32 (0.82-1.09); PROTHROMBIN TIME (PATIENT) 14.6 SEC (9.98-11.88)
[2016-10-25] MEDS: diazePAM 5 MG TABLET PO SCH (23:21)
[2016-10-25 23:24] LABS: ACTIVATED PTT 33.5 SECONDS (26.9-34.4)
[2016-10-25 23:28] LABS: CALCIUM 7.8 mg/dL (8.5-10.1); COCKROFT - GAULT 81.66; CREATININE 1.4 mg/dL (0.7-1.3)
[2016-10-26] MEDS: ALBUTEROL SO4 2.5/IPRATROPIUM 0.5 INH SOL 3 ML VIAL.NEB. NEB SCH ×4 (00:21→18:08)
[2016-10-26 06:19] LABS: BASOPHIL 0.2 % (0-2.0); EOSINOPHIL 0.4 % (0-4.5); MCH 29.5 pg (25.7-33.7); MEAN CELL VOLUME 89.4 fl (80-96); MEAN PLT VOLUME 7.8 fl (7.5-11.1); NEUTROPHILS 79.8 % (42.8-82.8); PLATELET COUNT 181 K/MM3 (134-434); RDW 17.3 % (11.9-15.9); WHITE BLOOD COUNT 7.4 K/mm3 (4.0-10.0)
[2016-10-26] MEDS: DOCUSATE SODIUM 100 MG CAPSULE (FP) PO SCH ×3 (06:30→21:14)
[2016-10-26] MEDS: diazePAM 5 MG TABLET PO SCH ×3 (06:30→21:14)
[2016-10-26 06:45] LABS: CALCIUM 8.1 mg/dL (8.5-10.1)
[2016-10-26 06:49] LABS: BILIRUBIN,TOTAL 0.5 mg/dL (0.2-1.0); CREATININE 1.2 mg/dL (0.7-1.3); TOT PROT 6.4 g/dl (6.4-8.2)
[2016-10-26 07:35] LABS: ERYTHROCYTE SEDIMENTATION RATE 130 mm/hr (0-20)
--- NOTE | 2016-10-26 07:40 | PN ---
Physical Exam: SUBJECTIVE: Patient seen and examined c/o 09/07, in back when he coughs. denies trouble breathing, chest pain, palpitations, headache, fever, nausea. has appetite. cannot feel anything from his abdomen down. on reassessment: pt was in rapid afib (125-160's), new onset. c/o chest tightness in band like distribution in lower chest, nonradiating worse with inspiration. also c/o palpitations. EKG with afib and pulsus alternans. cardizem IVpush 10mg and started on digoxin. evaluated by Dr. Salas Hanson and Dr. Wills notified. OBJECTIVE: Vital Signs Period Temp Pulse Resp BP Sys/Lloyd Pulse Ox Last 24 Hr 97.9 F-99.6 F 77-111 14-20 97-124/45-95 94-98 GENERAL: The patient is awake, alert, and fully oriented, in no acute distress. HEAD: Normal with no signs of trauma. EYES: PERRL, extraocular movements intact, sclera anicteric, conjunctiva clear. No ptosis. ENT: nares patent, oropharynx clear without exudates, moist mucous membranes. NECK: Trachea midline, full range of motion, supple. LUNGS: Breath sounds equal, quiet at bases, diffuse rales. HEART: distant heart sounds, S1, S2 without murmur, rub or gallop. ABDOMEN: obese, Soft, nontender, nondistended, normoactive bowel sounds, no guarding, no rebound. EXTREMITIES: 2+ pulses, warm, well-perfused, no edema. NEUROLOGICAL: Sensation: intact on scalp, face, neck, arms, forearms, hands, and chest upto nipple line. says sensation is weaker on left side, feels the soles of his feet. denies sensation anywhere on abdomen, thighs, anterior lower legs. Strength: right hand commissioned fire officer/shoulder extension/bicep and tricep flexion and extension 5/5, left hand commissioned fire officer/shoulder extenson/bicep and tricep flexion and extension 4/5. Motor: range of motion full on fingers, wrists, elbows and shoulders. unable to move b/l le. pigtail in place draining sero-saginous fluid lim in place Laboratory Results - last 24 hr 10/25/16 10/25/16 10/25/16 06:15 06:15 06:15 WBC RBC Hgb Hct MCV MCHC RDW Plt Count MPV Neutrophils % Lymphocytes % Monocytes % Eosinophils % Basophils % Platelet Estimate ESR 130 H INR PTT (Actin FS) Sodium 136 Potassium 3.9 Chloride 101 Carbon Dioxide 26 Anion Gap 9 BUN 24 H D Creatinine 1.4 H Creat Clearance w eGFR 49.96 Random Glucose 108 H Calcium 8.0 L Magnesium 2.1 Total Bilirubin 1.0 AST 30 D ALT 22 D Alkaline Phosphatase 127 H Troponin I < 0.02 C-Reactive Protein 22.1 H D Total Protein 6.7 Albumin 2.0 L TSH 0.79 Blood Type Antibody Screen Crossmatch 10/25/16 10/25/16 10/25/16 17:00 23:00 23:00 WBC 8.1 RBC 3.26 L Hgb 9.5 L D Hct 29.7 L MCV 91.0 MCHC 32.1 RDW 17.4 H Plt Count 167 MPV 7.7 Neutrophils % Lymphocytes % Monocytes % Eosinophils % Basophils % Platelet Estimate ESR INR PTT (Actin FS) Sodium 139 Potassium 3.8 Chloride 101 Carbon Dioxide 26 Anion Gap 12 BUN 26 H Creatinine 1.4 H Creat Clearance w eGFR Random Glucose 118 H Calcium 7.8 L Magnesium Total Bilirubin AST ALT Alkaline Phosphatase Troponin I C-Reactive Protein Total Protein Albumin TSH Blood Type O POSITIVE Antibody Screen Negative Crossmatch See Detail 10/25/16 10/25/16 10/25/16 23:00 23:00 23:00 WBC RBC Hgb Hct MCV MCHC RDW Plt Count MPV Neutrophils % Lymphocytes % Monocytes % Eosinophils % Basophils % Platelet Estimate ESR 120 H INR 1.32 H PTT (Actin FS) 33.5 Sodium Potassium Chloride Carbon Dioxide Anion Gap BUN Creatinine Creat Clearance w eGFR Random Glucose Calcium Magnesium Total Bilirubin AST ALT Alkaline Phosphatase Troponin I C-Reactive Protein 19.6 H D Total Protein Albumin TSH Blood Type Antibody Screen Crossmatch 10/26/16 10/26/16 05:20 05:20 WBC 7.4 RBC 3.12 L Hgb 9.2 L Hct 27.9 L MCV 89.4 MCHC 33.0 RDW 17.3 H Plt Count 181 MPV 7.8 Neutrophils % 79.8 Lymphocytes % 13.4 Monocytes % 6.2 Eosinophils % 0.4 D Basophils % 0.2 Platelet Estimate ESR 130 H INR PTT (Actin FS) Sodium 139 Potassium 4.1 Chloride 103 Carbon Dioxide 27 Anion Gap 9 BUN 26 H Creatinine 1.2 Creat Clearance w eGFR 59.68 Random Glucose 100 Calcium 8.1 L Magnesium Total Bilirubin 0.5 D AST 39 H D ALT 25 Alkaline Phosphatase 123 H Troponin I C-Reactive Protein Total Protein 6.4 Albumin 2.0 L TSH Blood Type Antibody Screen Crossmatch Active Medications Generic Name Dose Route Start Last Admin Trade Name Freq PRN Reason Stop Dose Admin Acetaminophen 650 mg 10/25/16 23:30 Tylenol - PO Q4H PRN FEVER OR PAIN Albuterol/Ipratropium 1 amp 10/26/16 00:00 10/26/16 06:35 Duoneb - NEB 1 amp QIDR DAMIAN Administration Bisacodyl 10 mg 10/25/16 22:00 Dulcolax Suppository - RC DAILY PRN CONSTIPATION Diazepam 5 mg 10/25/16 22:00 10/26/16 06:30 Valium - PO 5 mg Q8H DAMIAN Administration Docusate Sodium 100 mg 10/25/16 22:00 10/26/16 06:30 Colace - PO 100 mg TID DAMIAN Administration Fentanyl 50 mcg 10/25/16 22:15 Sublimaze Injection - IVPUSH 10/28/16 22:16 [id number] PRN PAIN Hydromorphone HCl 10 mg 10/25/16 22:30 10/25/16 23:13 Dilaudid Food Service Coordinator - INSTALLATION COORDINATOR 11/01/16 22:16 10 mg INSTALLATION COORDINATOR DAMIAN Administration Protocol Ondansetron HCl 4 mg 10/25/16 22:00 Zofran Injection IVPB Q6H PRN NAUSEA AND/OR VOMITING ASSESSMENT/PLAN: 70 yr old man with anemia, HTN, hx of hodgkins lymphoma, hx of DVT (1 year ago ) not on anti-coagulation presents with lower extremity weakness found to have posterior epidural abscess with cord compression with complete motor paraplegia , s/p laminectomy (10/25). Neurological - epidural abscess laminectomy (10/25) - monitor pigtail output - neuro checks - INSTALLATION COORDINATOR pump for pain control -- dilaudid - fentanyl 50 mcq ivpush q5min prn - valium 5mg po q8h damian - pending EMG/nerve conduction consult: Dr. Wills Infectious disease Alpha hemolytic strep pos in bld cx and gram pos cocci in chains in gram stain from epidural abscess - zosyn 4.5gm IVPB q8 -- start 10/26 - wound cx pending, urine cx pending consult: Dr. Brewer Cardiovascular new onset rapid Afib spontaneously converted to NSR - digoxin (0.5 stat, 0.25 x2 q6 then 0.125 daily) - avoid beta sameer given COPD hx, avoid CCB due to BP normotensive to low - avoid full dose antiocoagulation for afib due to risk of bleeding - trend trops x3 - heparin for dvt prophylaxis is okay - echo pending to r/o pericardial effusion consult: Respiratory - aggressive incentive spirometery QID to decrease atelectasis - chest xray in the AM Hematological hx of DVT - no acute DVT seen on vascular study high risk for anticoagulation, defer for 6 weeks Renal elevated cr 1.2, (10/2015 Cr of 1.0) in setting of recent CTA and elevated BUN, likely poor po intake encourage oral hydration monitor urine output GI colace po TID given opiates zofran prn for nausea q6h prn prophylaxis DVT: heparin BID 5000 unit SQ Diet: regular Visit type - Emergency Visit Emergency Visit: No - New Patient This patient is new to me today: Yes Date on this admission: 10/26/16 - Critical Care Critical Care patient: No Total Critical Care Time (in minutes): 40 Critical Care Statement: The care of this patient involved high complexity decision making to prevent further life threatening deterioration of the patient 's condition and/or to evalute & treat vital organ system(s) failure or risk of failure.
--- NOTE | 2016-10-26 08:04 | EKG ---
Test Reason : Blood Pressure : / mmHG Vent. Rate : 098 BPM Atrial Rate : 098 BPM P-R Int : 142 ms QRS Dur : 136 ms QT Int : 370 ms P-R-T Axes : 045 -28 026 degrees QTc Int : 472 ms NORMAL SINUS RHYTHM LEFTWARD AXIS RIGHT BUNDLE BRANCH BLOCK ABNORMAL ECG WHEN COMPARED WITH ECG OF 24-OCT-2016 11:21, NO SIGNIFICANT CHANGE WAS FOUND Confirmed by CLAUDIA WU MD ([id number]) on 10/26/2016 8:03:56 AM Referred By: Jaylin DICKSON Confirmed By:CLAUDIA WU MD
--- NOTE | 2016-10-26 08:04 | EKG ---
Test Reason : Blood Pressure : / mmHG Vent. Rate : 123 BPM Atrial Rate : 123 BPM P-R Int : 146 ms QRS Dur : 130 ms QT Int : 336 ms P-R-T Axes : 066 -12 041 degrees QTc Int : 481 ms SINUS TACHYCARDIA RIGHT BUNDLE BRANCH BLOCK ABNORMAL ECG WHEN COMPARED WITH ECG OF 22-NOV-2015 09:14, MINIMAL CRITERIA FOR INFERIOR INFARCT ARE NO LONGER PRESENT Confirmed by CLAUDIA WU MD ([id number]) on 10/26/2016 8:03:34 AM Referred By: Confirmed By:CLAUDIA WU MD
--- NOTE | 2016-10-26 08:29 | PN ---
Progress Note (short form) - Note Progress Note: EVENTS NOTED, chart reviewed, patient interviewed and examined S/P OR last pm- drainage of thoracic epidural abscess T2 to T5 resting comfortably he continues to be unable to move his legs no fevers Vital Signs Period Temp Pulse Resp BP Sys/Lloyd Pulse Ox Last 24 Hr 98 F-99.6 F 77-103 14-20 97-124/45-95 94-98 cor-rrr lungs clear abd soft,nt ext no edema neuro- unable to move his legs sensory level above umbilicus but has dull sensation of his feet CBC, BMP 10/26/16 05:20 10/26/16 05:20 operative cultures in MICRO pending Microbiology 10/24/16 11:46 Blood - Peripheral Venous Blood Culture - Preliminary NO GROWTH OBTAINED AFTER 24 HOURS, INCUBATION TO CONTINUE FOR 4 DAYS. 10/24/16 11:46 Blood - Peripheral Venous Blood Culture - Preliminary Alpha Hemolytic Streptococcus a/p s/p drainage of epidural abscess with cord compression strep bacteremia- only one bottle, echo pending continue vancomycin, gram stain pending, will add empiric gram negative coverage with zosyn pending abscess culture results vanco level in am d/w Dr Wills history of Hodgekins LymphomaL- off chemo and RT for last one year over 35 minutes coordinating care of this patient including microbiology/NS
[2016-10-26 08:40] LABS: C-REACTIVE PROTEIN 18.6 MG/DL (0.00-0.3)
--- NOTE | 2016-10-26 08:48 | PN ---
Progress Note (short form) - Note Progress Note: NEUROSURGERY Still not moving legs PE: Tmax 99.6, VSS HEENT- NC/AT; Neck- supple; Cor- RR; Lungs- CTA; Abd-obese; + BS; Ext- B LE ankle/distal edema, negative Kaitlynn's CN- intact; Motor- UE 4+ B; B LE 0/5; Sensation- decreased LT/PP/vibration below about T4 B, but patchy and not completely absent; DTR- hyporeflexia B; no LTS Blood culture- alpha hemolytic strep Intra-op gram stain and culture pending WBC 7.4, Hgb 9.2, hct 27.4; ESR 130 S/p emergency laminectomies for debridement and decompression Given lack of antigravity strength prognosis in face of compressive is extremely poor Transfuse PRBC D/w Dr Brewer
[2016-10-26] MEDS ORDERED: PT OWN MED DRAWER 7, Y5N ONE (09:59)
[2016-10-26] MEDS ORDERED: VANCOMYCIN 1,500 MG in DEXTROSE 5%-WATER - 500 ML IVPB SCH (10:00)
[2016-10-26] MEDS: PIPERACILLIN/TAZOB 4.5 GM/100 ML PRE-DOCKED IVPB SCH ×3 (10:11→19:05)
--- NOTE | 2016-10-26 10:14 | PN ---
Progress Note, Physician History of Present Illness: S/P EMERGENCY LAMINECTOMY UNABLE TO MOVE LEGS - Current Medication List Current Medications: Active Medications Acetaminophen (Tylenol -) 650 mg PO Q4H PRN PRN Reason: FEVER OR PAIN Albuterol/Ipratropium (Duoneb -) 1 amp NEB QIDR [facility] Last Admin: 10/26/16 06:35 Dose: 1 amp Bisacodyl (Dulcolax Suppository -) 10 mg RC DAILY PRN PRN Reason: CONSTIPATION Diazepam (Valium -) 5 mg PO Q8H [facility] Last Admin: 10/26/16 06:30 Dose: 5 mg Docusate Sodium (Colace -) 100 mg PO TID [facility] Last Admin: 10/26/16 06:30 Dose: 100 mg Fentanyl (Sublimaze Injection -) 50 mcg IVPUSH [id number] PRN PRN Reason: PAIN Stop: 10/28/16 22:16 Hydromorphone HCl (Dilaudid Pantry Chef -) 10 mg MATERIALS PLANNING ANALYST MATERIALS PLANNING ANALYST [facility] PRN Reason: Protocol Stop: 11/01/16 22:16 Last Admin: 10/25/16 23:13 Dose: 10 mg Vancomycin HCl 1,500 mg/ (Dextrose) 500 mls @ 250 mls/hr IVPB BID [facility] PRN Reason: Protocol Ondansetron HCl (Zofran Injection) 4 mg IVPB Q6H PRN PRN Reason: NAUSEA AND/OR VOMITING Piperacillin Sod/Tazobactam Sod (Zosyn 4.5gm Ivpb (Pre-Docked)) 4.5 gm IVPB Q8H -IV [facility] - Objective Vital Signs: Vital Signs Temperature 98.7 F 10/26/16 08:00 Pulse Rate 82 10/26/16 08:00 Respiratory Rate 22 10/26/16 08:00 Blood Pressure 114/51 10/26/16 08:00 O2 Sat by Pulse Oximetry (%) 94 L 10/25/16 22:15 Cardiovascular: Yes: S1, S2 Respiratory: Yes: Regular, CTA Bilaterally Gastrointestinal: Yes: Normal Bowel Sounds, Soft Edema: No Neurological: Yes: Alert, Oriented, Weakness (OF LE SENSATION PRESENT) Labs: CBC, BMP 10/26/16 05:20 10/26/16 05:20 INR, PTT INR 1.32 (0.82-1.09) H 10/25/16 23:00 Problem List - Problems (1) Epidural abscess Assessment/Plan: abx per id d/w dr irma hand sq heparin Code(s): G06.2 - EXTRADURAL AND SUBDURAL ABSCESS, UNSPECIFIED (2) Positive blood culture Assessment/Plan: abx per dr llamas repeat cultures echo Code(s): R78.81 - BACTEREMIA (3) Acute on chronic renal insufficiency Assessment/Plan: monitor Code(s): N28.9 - DISORDER OF KIDNEY AND URETER, UNSPECIFIED N18.9 - CHRONIC KIDNEY DISEASE, UNSPECIFIED (4) CHF exacerbation Assessment/Plan: will hold off on lasix cardio noted Code(s): I50.9 - HEART FAILURE, UNSPECIFIED Qualifiers: Congestive heart failure type: diastolic Qualified Code(s): I50.33 - Acute on chronic diastolic (congestive) heart failure (5) Lymphoma Assessment/Plan: in remission Code(s): C85.90 - NON-HODGKIN LYMPHOMA, UNSPECIFIED, UNSPECIFIED SITE (6) Weakness of both lower extremities Assessment/Plan: as above r/o abscess--- ct of ls spine neuro and ns consult Code(s): R29.898 - OTH SYMPTOMS AND SIGNS INVOLVING THE MUSCULOSKELETAL SYSTEM
--- NOTE | 2016-10-26 11:15 | PN ---
Teaching Attending Note Name of Resident: Zhang Altamirano ATTENDING PHYSICIAN STATEMENT I saw and evaluated the patient. I reviewed the resident's note and discussed the case with the resident. I agree with the resident's findings and plan as documented. SUBJECTIVE: Awake and alert. No CP or SOB. Still unable to move legs. No pressors. On Dilaudid INTERIOR WALL ASSEMBLER Intake & Output 10/23/16 10/24/16 10/25/16 10/26/16 23:59 23:59 23:59 23:59 Intake Total 200 3243 475 Output Total 1250 920 Balance 200 1992 - Weight 280 lb 263 lb 261 lb 3.964 oz Last Vital Signs Temp Pulse Resp BP Pulse Ox 98.7 F 82 22 114/51 94 L 10/26/16 08:00 10/26/16 08:00 10/26/16 08:00 10/26/16 08:00 10/25/16 22:15 Active Medications Acetaminophen (Tylenol -) 650 mg PO Q4H PRN PRN Reason: FEVER OR PAIN Albuterol/Ipratropium (Duoneb -) 1 amp NEB QIDR [facility] Last Admin: 10/26/16 06:35 Dose: 1 amp Bisacodyl (Dulcolax Suppository -) 10 mg RC DAILY PRN PRN Reason: CONSTIPATION Diazepam (Valium -) 5 mg PO Q8H [facility] Last Admin: 10/26/16 06:30 Dose: 5 mg Docusate Sodium (Colace -) 100 mg PO TID [facility] Last Admin: 10/26/16 06:30 Dose: 100 mg Fentanyl (Sublimaze Injection -) 50 mcg IVPUSH [id number] PRN PRN Reason: PAIN Stop: 10/28/16 22:16 Heparin Sodium (Porcine) (Heparin -) 5,000 unit SQ BID DAMIAN Hydromorphone HCl (Dilaudid Cleat Blanker -) 10 mg INTERIOR WALL ASSEMBLER INTERIOR WALL ASSEMBLER [facility] PRN Reason: Protocol Stop: 11/01/16 22:16 Last Admin: 10/25/16 23:13 Dose: 10 mg Vancomycin HCl 1,500 mg/ (Dextrose) 500 mls @ 250 mls/hr IVPB BID [facility] PRN Reason: Protocol Last Admin: 10/26/16 10:55 Dose: 250 mls/hr Ondansetron HCl (Zofran Injection) 4 mg IVPB Q6H PRN PRN Reason: NAUSEA AND/OR VOMITING Piperacillin Sod/Tazobactam Sod (Zosyn 4.5gm Ivpb (Pre-Docked)) 4.5 gm IVPB Q8H -IV [facility] Last Admin: 10/26/16 10:11 Dose: 4.5 gm General: Awake and alert Cardiovascular: Yes: S1, S2 Respiratory: Yes: Diminished at the bases Gastrointestinal: Yes: Normal Bowel Sounds, Soft Edema: No Neurological: Yes: Alert, Oriented, Weakness/Sensory loss in LE Labs: Problem List - Problems (1) Epidural abscess Assessment/Plan: Code(s): G06.2 - EXTRADURAL AND SUBDURAL ABSCESS, UNSPECIFIED (2) Positive blood culture Assessment/Plan: Code(s): R78.81 - BACTEREMIA (3) Acute on chronic renal insufficiency Assessment/Plan: Code(s): N28.9 - DISORDER OF KIDNEY AND URETER, UNSPECIFIED N18.9 - CHRONIC KIDNEY DISEASE, UNSPECIFIED (4) CHF exacerbation Assessment/Plan: Code(s): I50.9 - HEART FAILURE, UNSPECIFIED Qualifiers: Congestive heart failure type: diastolic Qualified Code(s): I50.33 - Acute on chronic diastolic (congestive) heart failure (5) Lymphoma Assessment/Plan: Code(s): C85.90 - NON-HODGKIN LYMPHOMA, UNSPECIFIED, UNSPECIFIED SITE (6) Weakness of both lower extremities Assessment/Plan: Code(s): R29.898 - OTH SYMPTOMS AND SIGNS INVOLVING THE MUSCULOSKELETAL SYSTEM PLAN: ABX per ID Normal transfusion thresholds O2 as needed Incentive Spirometry Local wound care per surgery Pain control Dr Garcia Critical care time spent in reviewing chart, evaluating patient and formulating plan 40 min Problem List - Problems (1) Bronchitis Code(s): J40 - BRONCHITIS, NOT SPECIFIED ACUTE OR CHRONIC (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 (3) Positive blood culture Code(s): R78.81 - BACTEREMIA (4) Weakness Code(s): R53.1 - WEAKNESS (5) Weakness of both lower extremities Code(s): R29.898 - OTH SYMPTOMS AND SIGNS INVOLVING THE MUSCULOSKELETAL SYSTEM (6) Diabetes Code(s): E11.9 - TYPE 2 DIABETES MELLITUS WITHOUT COMPLICATIONS (7) Dyspnea Code(s): R06.00 - DYSPNEA, UNSPECIFIED (8) Left leg DVT Code(s): I82.402 - ACUTE EMBOLISM AND THOMBOS UNSP DEEP VEINS OF L LOW EXTREM Qualifiers: Affected thrombotic vein of extremity: femoral Chronicity: acute Qualified Code(s): I82.412 - Acute embolism and thrombosis of left femoral vein (9) Lymphoma Code(s): C85.90 - NON-HODGKIN LYMPHOMA, UNSPECIFIED, UNSPECIFIED SITE (10) Pneumonia Code(s): J18.9 - PNEUMONIA, UNSPECIFIED ORGANISM Qualifiers: Pneumonia type: due to unspecified organism Laterality: left Lung location: lower lobe of lung Qualified Code(s): J18.1 - Lobar pneumonia, unspecified organism
[2016-10-26] MEDS: HEPARIN NA (PORCINE) 5,000 UNITS/ML 1ML VIAL SQ SCH ×2 (11:22→21:14)
--- NOTE | 2016-10-26 11:46 | PN ---
Progress Note (short form) - Note Progress Note: ANESTHESIOLOGY POST-OP CHECK 70M s/p thoracic laminectomy and decompression under general anesthesia POD #1. No acute complaints. NPO,lim in place. Denies N/V, pain minimal /10 and tolerable. Vital Signs Temperature 98.7 F 10/26/16 08:00 Pulse Rate 76 10/26/16 11:39 Respiratory Rate 22 10/26/16 08:00 Blood Pressure 114/51 10/26/16 08:00 O2 Sat by Pulse Oximetry (%) 96 10/26/16 11:39 Active Medications Acetaminophen (Tylenol -) 650 mg PO Q4H PRN PRN Reason: FEVER OR PAIN Albuterol/Ipratropium (Duoneb -) 1 amp NEB QIDR [facility] Last Admin: 10/26/16 11:39 Dose: 1 amp Bisacodyl (Dulcolax Suppository -) 10 mg RC DAILY PRN PRN Reason: CONSTIPATION Diazepam (Valium -) 5 mg PO Q8H [facility] Last Admin: 10/26/16 06:30 Dose: 5 mg Docusate Sodium (Colace -) 100 mg PO TID [facility] Last Admin: 10/26/16 06:30 Dose: 100 mg Fentanyl (Sublimaze Injection -) 50 mcg IVPUSH [id number] PRN PRN Reason: PAIN Stop: 10/28/16 22:16 Heparin Sodium (Porcine) (Heparin -) 5,000 unit SQ BID [facility] Last Admin: 10/26/16 11:22 Dose: 5,000 unit Hydromorphone HCl (Dilaudid Menswear Salesperson -) 10 mg FEED AND FARM MANAGEMENT ADVISER FEED AND FARM MANAGEMENT ADVISER [facility] PRN Reason: Protocol Stop: 11/01/16 22:16 Last Admin: 10/25/16 23:13 Dose: 10 mg Vancomycin HCl 1,500 mg/ (Dextrose) 500 mls @ 250 mls/hr IVPB BID [facility] PRN Reason: Protocol Last Admin: 10/26/16 10:55 Dose: 250 mls/hr Ondansetron HCl (Zofran Injection) 4 mg IVPB Q6H PRN PRN Reason: NAUSEA AND/OR VOMITING Piperacillin Sod/Tazobactam Sod (Zosyn 4.5gm Ivpb (Pre-Docked)) 4.5 gm IVPB Q8H -IV [facility] Last Admin: 10/26/16 10:11 Dose: 4.5 gm Gen: Awake, alert No apparent anesthesia complications. Pain controlled on dilaudid FEED AND FARM MANAGEMENT ADVISER - september D/C when able to switch to PO analgesics. Continue management as per primary team.
[2016-10-26] MEDS ORDERED: dilTIAZem HCL 50 MG/10 ML - 10 ML VIAL IVPUSH ONE (13:44)
[2016-10-26] MEDS ORDERED: dilTIAZem HCL 125 MG/25 ML - 25 ML VIAL ONE (13:48)
[2016-10-26] MEDS ORDERED: DIGOXIN 0.25 MG TABLET (FP) PO ONE ×2 (14:03→20:00)
--- NOTE | 2016-10-26 15:12 | PN ---
Progress Note, Physician Chief Complaint: legs immobile, numbness improving. tele with afib/RVR converted to NSR. History of Present Illness: 70M history of anemia, hypertension, hodgkins lymphoma, DVT (1 year ago) not on AC, admitted 10/24/16 with shortness of breath, wheezing, and a productive cough also leg weakness and numbness. Being seen by neurology to rule out GB syndrome. Also noted with mildly elevated bnp. No orthopnea pnd or edema. No chest pain. Found with thoracic epidural abcess, seen by neurosurgery underwent drainage and placement of catheter 10/26/16. Tele today with atrial fib new onset with RVR spontaneously converted to nsr. Bcx positive for S. Mitis. - Current Medication List Current Medications: Active Medications Acetaminophen (Tylenol -) 650 mg PO Q4H PRN PRN Reason: FEVER OR PAIN Albuterol/Ipratropium (Duoneb -) 1 amp NEB QIDR [facility] Last Admin: 10/26/16 11:39 Dose: 1 amp Bisacodyl (Dulcolax Suppository -) 10 mg RC DAILY PRN PRN Reason: CONSTIPATION Diazepam (Valium -) 5 mg PO Q8H [facility] Last Admin: 10/26/16 14:30 Dose: 5 mg Digoxin (Lanoxin -) 0.25 mg PO ONCE ONE Stop: 10/26/16 20:01 Digoxin (Lanoxin -) 0.25 mg PO ONCE ONE Stop: 10/27/16 02:01 Digoxin (Lanoxin -) 0.125 mg PO DAILY [facility] Docusate Sodium (Colace -) 100 mg PO TID [facility] Last Admin: 10/26/16 14:30 Dose: 100 mg Fentanyl (Sublimaze Injection -) 50 mcg IVPUSH [id number] PRN PRN Reason: PAIN Stop: 10/28/16 22:16 Heparin Sodium (Porcine) (Heparin -) 5,000 unit SQ BID [facility] Last Admin: 10/26/16 11:22 Dose: 5,000 unit Hydromorphone HCl (Dilaudid Machining Technician -) 10 mg SNUFF DRIER SNUFF DRIER [facility] PRN Reason: Protocol Stop: 11/01/16 22:16 Last Admin: 10/25/16 23:13 Dose: 10 mg Ondansetron HCl (Zofran Injection) 4 mg IVPB Q6H PRN PRN Reason: NAUSEA AND/OR VOMITING Piperacillin Sod/Tazobactam Sod (Zosyn 4.5gm Ivpb (Pre-Docked)) 4.5 gm IVPB Q8H -IV [facility] Last Admin: 10/26/16 10:11 Dose: 4.5 gm - Objective Vital Signs: Vital Signs Temperature 98.7 F 10/26/16 08:00 Pulse Rate 92 H 10/26/16 14:30 Respiratory Rate 22 10/26/16 08:00 Blood Pressure 114/51 10/26/16 08:00 O2 Sat by Pulse Oximetry (%) 96 10/26/16 11:39 Constitutional: Yes: No Distress, Calm Eyes: Yes: Conjunctiva Clear, EOM Intact HENT: Yes: Atraumatic, Normocephalic Neck: Yes: Supple, Trachea Midline Cardiovascular: Yes: Tachycardia Respiratory: Yes: CTA Bilaterally Gastrointestinal: Yes: Normal Bowel Sounds, Soft Extremities: Yes: WNL Edema: No Peripheral Pulses WNL: Yes Labs: CBC, BMP 10/26/16 05:20 10/26/16 05:20 INR, PTT INR 1.32 (0.82-1.09) H 10/25/16 23:00 Problem List - Problems (1) CHF exacerbation Assessment/Plan: mildly elevated bnp, no symptoms. Defer diuresis at present. ABX per ID. Echo pending. will follow with you. Code(s): I50.9 - HEART FAILURE, UNSPECIFIED Qualifiers: Congestive heart failure type: diastolic Qualified Code(s): I50.33 - Acute on chronic diastolic (congestive) heart failure (2) PAF (paroxysmal atrial fibrillation) Assessment/Plan: ECG with AF/RVR LAD/RBBB converted to nsr. Alternans was also seen. Echo is pending. No evidence of pericarditis. Dig load 0.5mg now, then 0.25mg x 2 doses q6h, then 0.125mg daily. Would defer BB given his COPD and BP is soft, would hold off on calcium blockers. Not a candidate for AC until spinal issues are completely resolved, likely at least 6 weeks as the risk of further compression from bleeding is significant. I have explained to the patient that there is a small risk of stroke but that the risk of bleeding outweigh this at present. Code(s): I48.0 - PAROXYSMAL ATRIAL FIBRILLATION
[2016-10-26] MEDS ORDERED: cefTRIAXone 2 GM/100 ML BAG (PRE-DOCKED) IVPB SCH (19:00)
[2016-10-26] MEDS ORDERED: GENTAMICIN INJECTION 90 MG in SODIUM CHLORIDE 100 ML IVPB SCH ×2 (19:00→22:00)
[2016-10-26] MEDS: cefTRIAXone 2 GM/100 ML BAG (PRE-DOCKED) IVPB SCH (19:13)
[2016-10-26] MEDS ORDERED: GENTAMICIN INJECTION 90 MG in DEXTROSE 5%-WATER - 250 ML IVPB SCH (20:00)
--- NOTE | 2016-10-26 21:16 | PN ---
Progress Note, Physician Chief Complaint: acute paraplegia, with shading sensory level, initially felt to be possible AIDP , but imaging revealed epidural abscess. Patient went to OR last night and had abscess drained and cultured (S. Mitis), on antibiotic therapy. Has regained some sensation in his legs, though still cannot move them. - Current Medication List Current Medications: Active Medications Acetaminophen (Tylenol -) 650 mg PO Q4H PRN PRN Reason: FEVER OR PAIN Albuterol/Ipratropium (Duoneb -) 1 amp NEB QIDR [facility] Last Admin: 10/26/16 18:08 Dose: 1 amp Bisacodyl (Dulcolax Suppository -) 10 mg RC DAILY PRN PRN Reason: CONSTIPATION Ceftriaxone Sodium (Rocephin 2gm Ivpb (Pre-Docked)) 2 gm IVPB Q12H [facility] PRN Reason: Protocol Last Admin: 10/26/16 19:13 Dose: 2 gm Diazepam (Valium -) 5 mg PO Q8H [facility] Last Admin: 10/26/16 14:30 Dose: 5 mg Digoxin (Lanoxin -) 0.25 mg PO ONCE ONE Stop: 10/27/16 02:01 Digoxin (Lanoxin -) 0.125 mg PO DAILY [facility] Docusate Sodium (Colace -) 100 mg PO TID [facility] Last Admin: 10/26/16 14:30 Dose: 100 mg Fentanyl (Sublimaze Injection -) 50 mcg IVPUSH [id number] PRN PRN Reason: PAIN Stop: 10/28/16 22:16 Heparin Sodium (Porcine) (Heparin -) 5,000 unit SQ BID [facility] Last Admin: 10/26/16 11:22 Dose: 5,000 unit Hydromorphone HCl (Dilaudid Work Counselor -) 10 mg TECHNICAL WRITER TECHNICAL WRITER [facility] PRN Reason: Protocol Stop: 11/01/16 22:16 Last Admin: 10/25/16 23:13 Dose: 10 mg Ondansetron HCl (Zofran Injection) 4 mg IVPB Q6H PRN PRN Reason: NAUSEA AND/OR VOMITING - Objective Vital Signs: Vital Signs Temperature 98.7 F 10/26/16 16:00 Pulse Rate 89 10/26/16 20:17 Respiratory Rate 18 10/26/16 18:00 Blood Pressure 118/55 10/26/16 18:00 O2 Sat by Pulse Oximetry (%) 96 10/26/16 11:39 ...Motor Strength: LLE (0/5), RLE (0/5) Labs: CBC, BMP 10/26/16 05:20 10/26/16 05:20 INR, PTT INR 1.32 (0.82-1.09) H 10/25/16 23:00 - ....Imaging MRI: Report Reviewed (epidural abscess) Problem List - Problems (1) Epidural abscess Assessment/Plan: Status post surgical drainage and culture. On antibiotics. For ongoing treatment and PT. Dr. Marcano to assume care tomorrow. Code(s): G06.2 - EXTRADURAL AND SUBDURAL ABSCESS, UNSPECIFIED
[2016-10-26] MEDS ORDERED: DIGOXIN 0.25 MG TABLET (FP) ONE (23:13)
[2016-10-27] MEDS ORDERED: DIGOXIN 0.25 MG TABLET (FP) PO ONE (02:00)
[2016-10-27] MEDS: diazePAM 5 MG TABLET PO SCH ×3 (05:36→22:52)
[2016-10-27] MEDS: DOCUSATE SODIUM 100 MG CAPSULE (FP) PO SCH ×3 (05:36→22:52)
[2016-10-27] MEDS: cefTRIAXone 2 GM/100 ML BAG (PRE-DOCKED) IVPB SCH ×2 (06:02→18:33)
[2016-10-27 06:21] LABS: BASOPHIL 0.3 % (0-2.0); EOSINOPHIL 1.4 % (0-4.5); MCH 29.3 pg (25.7-33.7); MCHC 32.7 g/dl (32.0-35.9); MEAN CELL VOLUME 89.5 fl (80-96); MEAN PLT VOLUME 7.9 fl (7.5-11.1); NEUTROPHILS 70.7 % (42.8-82.8); PLATELET COUNT 174 K/MM3 (134-434); RDW 17.2 % (11.9-15.9); WHITE BLOOD COUNT 7.1 K/mm3 (4.0-10.0)
[2016-10-27] MEDS: ALBUTEROL SO4 2.5/IPRATROPIUM 0.5 INH SOL 3 ML VIAL.NEB. NEB SCH ×4 (06:35→17:15)
[2016-10-27 06:54] LABS: CALCIUM 7.9 mg/dL (8.5-10.1); CREATININE 0.9 mg/dL (0.7-1.3); MAGNESIUM 2.1 mg/dL (1.8-2.4); PHOSPHOROUS 3.4 mg/dL (2.5-4.9)
--- NOTE | 2016-10-27 07:27 | PN ---
Physical Exam: SUBJECTIVE: Patient seen and examined. c/o intermittent cough with thick white sputum lower chest/upper abdominal "tightness", worse with palpation and movement denies fevers, chest pain, nausea, vomiting, headache, changes in vision. OBJECTIVE: Vital Signs Period Temp Pulse Resp BP Sys/Lloyd Pulse Ox Last 24 Hr 98.5 F-100 F 76-148 18-24 99-144/43-100 96-96 GENERAL: The patient is awake, alert, and fully oriented, in no acute distress. HEAD: Normal with no signs of trauma. EYES: PERRL, extraocular movements intact, sclera anicteric, conjunctiva clear. No ptosis. ENT: nares patent, oropharynx clear without exudates, moist mucous membranes. NECK: Trachea midline, full range of motion, supple. LUNGS: few wheezes on right apex, diffuse rhonchi b/l HEART: distant heart sounds, S1, S2 ABDOMEN: obese, Soft, nondistended, normoactive bowel sounds EXTREMITIES: 2+ pulses, warm, well-perfused, no edema. NEUROLOGICAL: Sensation: intact on scalp, face, neck, arms, forearms, hands, and chest upto nipple line. says sensation is weaker on left side, feels the soles of his feet. patchy sensation on right leg denies sensation anywhere on abdomen, thighs, anterior left leg Strength: right hand autopsy assistant/shoulder extension/bicep and tricep flexion and extension 5/5, left hand autopsy assistant/shoulder extension/bicep and tricep flexion and extension 4/5. Motor: range of motion full on fingers, wrists, elbows and shoulders. unable to move b/l le. lim in place Laboratory Results - last 24 hr 10/25/16 10/26/16 10/26/16 17:00 05:20 05:20 WBC RBC Hgb Hct MCV MCHC RDW Plt Count MPV Neutrophils % Lymphocytes % Monocytes % Eosinophils % Basophils % ESR 130 H Sodium Potassium Chloride Carbon Dioxide Anion Gap BUN Creatinine POC Glucometer Random Glucose Calcium Phosphorus Magnesium Troponin I C-Reactive Protein 18.6 H D Vancomycin Trough Blood Type O POSITIVE Antibody Screen Negative Crossmatch See Detail 10/26/16 10/26/16 10/26/16 05:28 14:20 20:50 WBC RBC Hgb Hct MCV MCHC RDW Plt Count MPV Neutrophils % Lymphocytes % Monocytes % Eosinophils % Basophils % ESR Sodium Potassium Chloride Carbon Dioxide Anion Gap BUN Creatinine POC Glucometer [id number] Random Glucose Calcium Phosphorus Magnesium Troponin I < 0.02 C-Reactive Protein Vancomycin Trough 17.688 H* Blood Type Antibody Screen Crossmatch 10/26/16 10/27/16 10/27/16 20:50 05:20 05:20 WBC 7.1 RBC 3.26 L Hgb 9.5 L Hct 29.2 L MCV 89.5 MCHC 32.7 RDW 17.2 H Plt Count 174 MPV 7.9 Neutrophils % 70.7 Lymphocytes % 21.5 D Monocytes % 6.1 Eosinophils % 1.4 D Basophils % 0.3 ESR Sodium 138 Potassium 4.3 Chloride 102 Carbon Dioxide 27 Anion Gap 9 BUN 19 H D Creatinine 0.9 D POC Glucometer Random Glucose 106 Calcium 7.9 L Phosphorus 3.4 Magnesium 2.1 Troponin I < 0.02 C-Reactive Protein Vancomycin Trough Blood Type Antibody Screen Crossmatch Active Medications Generic Name Dose Route Start Last Admin Trade Name Deanq PRN Reason Stop Dose Admin Acetaminophen 650 mg 10/25/16 23:30 Tylenol - PO Q4H PRN FEVER OR PAIN Albuterol/Ipratropium 1 amp 10/26/16 00:00 10/27/16 06:35 Duoneb - NEB 1 amp QIDR [facility] Administration Bisacodyl 10 mg 10/25/16 22:00 Dulcolax Suppository - RC DAILY PRN CONSTIPATION Ceftriaxone Sodium 2 gm 10/26/16 18:50 10/27/16 06:02 Rocephin 2gm Ivpb (Pre-Docked) IVPB 2 gm Q12H [facility] Administration Protocol Diazepam 5 mg 10/25/16 22:00 10/27/16 05:36 Valium - PO 5 mg Q8H [facility] Administration Digoxin 0.125 mg 10/27/16 10:00 Lanoxin - PO DAILY [facility] Docusate Sodium 100 mg 10/25/16 22:00 10/27/16 05:36 Colace - PO 100 mg TID [facility] Administration Fentanyl 50 mcg 10/25/16 22:15 Sublimaze Injection - IVPUSH 10/28/16 22:16 [id number] PRN PAIN Heparin Sodium (Porcine) 5,000 unit 10/26/16 10:15 05/29/17 21:14 Heparin - SQ 5,000 unit BID [facility] Administration Hydromorphone HCl 10 mg 10/25/16 22:30 10/25/16 23:13 Dilaudid Washer Off - DIRECTOR WHOLESALE 11/01/16 22:16 10 mg DIRECTOR WHOLESALE [facility] Administration Protocol Ondansetron HCl 4 mg 10/25/16 22:00 Zofran Injection IVPB Q6H PRN NAUSEA AND/OR VOMITING ASSESSMENT/PLAN: 70 yr old man with anemia, HTN, hx of hodgkins lymphoma, hx of DVT (1 year ago ) not on anti-coagulation presents with lower extremity weakness found to have posterior epidural abscess with cord compression with complete motor paraplegia , s/p laminectomy (10/25). Neurological - epidural abscess laminectomy (10/25) - pigtail removed this morning - neuro checks - DIRECTOR WHOLESALE pump for pain control -- dilaudid - fentanyl 50 mcq ivpush q5min prn - valium 5mg po q8h [facility] - pending EMG/nerve conduction, evaluated by Dr. Kelly - repeat MRI to assess cord compression, thoracic w/w.o contrast consult: Dr. Marcano consult: Dr. Wills Infectious disease strep pneumon and Strep mitis in bld cx and gram pos cocci in pairs and chains in gram stain from epidural abscess, organism pending - rocephin 2gm q12hr IVPB -- start 10/26 - strep pneumo AG positive in urine consult: Dr. Brewer Cardiovascular new onset rapid Afib spontaneously converted to NSR 10/26 - digoxin 0.125 po daily, to check levels 09/29 - avoid beta sameer given COPD hx, avoid CCB due to BP normotensive to low - avoid full dose antiocoagulation for afib due to risk of bleeding - trend trops x3 - heparin for dvt prophylaxis is okay - echo pending to r/o pericardial effusion -- ekg without consult: Respiratory - aggressive incentive spirometery QID to decrease atelectasis - right pleural effusion with loculations, parapneumonic or malignant, to be discussed with ID regarding tap - chest xray in the AM Hematological hx of DVT - no acute DVT seen on vascular study high risk for anticoagulation, defer for 6 weeks Renal Cr 0.9 improved encourage oral hydration monitor urine output, lim in place GI colace po TID given opiates zofran prn for nausea q6h prn prophylaxis DVT: heparin BID 5000 unit SQ Diet: regular Visit type - Emergency Visit Emergency Visit: No - New Patient This patient is new to me today: No - Critical Care Critical Care patient: Yes Total Critical Care Time (in minutes): 39 Critical Care Statement: The care of this patient involved high complexity decision making to prevent further life threatening deterioration of the patient 's condition and/or to evalute & treat vital organ system(s) failure or risk of failure.
--- NOTE | 2016-10-27 08:02 | PN ---
Progress Note (short form) - Note Progress Note: NEUROSURGERY Still not moving legs Some chest /epigastric pain Cardiac enzymes being drawn PE: Tmax 100, now 98/8, VSS Drain 10cc output, d/c'd HEENT- NC/AT; Neck- supple; Cor- RR; Lungs- decreased BS at bases; Abd-obese; + BS; Ext- B LE ankle/distal edema, negative Kaitlynn's CN- intact; Motor- UE 4+ B; B LE 0/5; Sensation- decreased LT/PP/vibration below about T4-5 B, more consistent sensation today; DTR- hyporeflexia B; no LTS Blood culture- streop mitis Intra-op gram stain- gram positive cocci in pairs and chains; some PMN's WBC 7.1, Hgb 9.5 S/p emergency laminectomies for debridement of abscess and cord decompression Cont PT-ROM Turn side to side SCD's On SQ heparin D/w medical team
--- NOTE | 2016-10-27 08:40 | PN ---
Physical Exam: SUBJECTIVE: Patient seen and examined Patient was lying comfartably in bed states denies chills. Tmax 100 states have no change in breathing. Able to cough. States got sensations in b/l foot but denies sensation on abdomen. Still unable to move legs wbc 7.1, neutrophil 70.7 Tmax 100 OBJECTIVE: Vital Signs Period Temp Pulse Resp BP Sys/Lloyd Pulse Ox Last 24 Hr 98.5 F-100 F 76-148 18-24 99-144/43-100 96-96 GENERAL: The patient is awake, alert, and fully oriented, in no acute distress. ENT: Ears normal, nares patent, oropharynx clear without exudates, moist mucous membranes.. LUNGS: b/l rales, no wheez, decrease air at bases. HEART: Regular rate and rhythm, S1, S2 without murmur, rub or gallop. ABDOMEN: Soft, nontender, nondistended, normoactive bowel sounds, no guarding, no rebound, no sensation EXTREMITIES: 2+ pulses, warm, no edema. SKIN: Warm, dry, Laboratory Results - last 24 hr 10/25/16 10/26/16 10/26/16 17:00 05:20 05:28 WBC RBC Hgb Hct MCV MCHC RDW Plt Count MPV Neutrophils % Lymphocytes % Monocytes % Eosinophils % Basophils % Sodium Potassium Chloride Carbon Dioxide Anion Gap BUN Creatinine POC Glucometer [phone] Random Glucose Calcium Phosphorus Magnesium Troponin I C-Reactive Protein 18.6 H D Vancomycin Trough Blood Type O POSITIVE Antibody Screen Negative Crossmatch See Detail 10/26/16 10/26/16 10/26/16 14:20 20:50 20:50 WBC RBC Hgb Hct MCV MCHC RDW Plt Count MPV Neutrophils % Lymphocytes % Monocytes % Eosinophils % Basophils % Sodium Potassium Chloride Carbon Dioxide Anion Gap BUN Creatinine POC Glucometer Random Glucose Calcium Phosphorus Magnesium Troponin I < 0.02 < 0.02 C-Reactive Protein Vancomycin Trough 17.688 H* Blood Type Antibody Screen Crossmatch 10/27/16 10/27/16 05:20 05:20 WBC 7.1 RBC 3.26 L Hgb 9.5 L Hct 29.2 L MCV 89.5 MCHC 32.7 RDW 17.2 H Plt Count 174 MPV 7.9 Neutrophils % 70.7 Lymphocytes % 21.5 D Monocytes % 6.1 Eosinophils % 1.4 D Basophils % 0.3 Sodium 138 Potassium 4.3 Chloride 102 Carbon Dioxide 27 Anion Gap 9 BUN 19 H D Creatinine 0.9 D POC Glucometer Random Glucose 106 Calcium 7.9 L Phosphorus 3.4 Magnesium 2.1 Troponin I C-Reactive Protein Vancomycin Trough Blood Type Antibody Screen Crossmatch Laboratory Tests 10/25/16 10/25/16 10/26/16 23:00 23:00 05:20 ESR 120 H C-Reactive Protein 19.6 H D 18.6 H D 10/26/16 05:20 ESR 130 H C-Reactive Protein Active Medications Generic Name Dose Route Start Last Admin Trade Name Freq PRN Reason Stop Dose Admin Acetaminophen 650 mg 10/25/16 23:30 Tylenol - PO Q4H PRN FEVER OR PAIN Albuterol/Ipratropium 1 amp 10/26/16 00:00 10/27/16 06:35 Duoneb - NEB 1 amp QIDR [facility] Administration Bisacodyl 10 mg 10/25/16 22:00 Dulcolax Suppository - RC DAILY PRN CONSTIPATION Ceftriaxone Sodium 2 gm 10/26/16 18:50 10/27/16 06:02 Rocephin 2gm Ivpb (Pre-Docked) IVPB 2 gm Q12H [facility] Administration Protocol Diazepam 5 mg 10/25/16 22:00 10/27/16 05:36 Valium - PO 5 mg Q8H [facility] Administration Digoxin 0.125 mg 10/27/16 10:00 Lanoxin - PO DAILY [facility] Docusate Sodium 100 mg 10/25/16 22:00 10/27/16 05:36 Colace - PO 100 mg TID [facility] Administration Fentanyl 50 mcg 10/25/16 22:15 Sublimaze Injection - IVPUSH 10/28/16 22:16 [id number] PRN PAIN Heparin Sodium (Porcine) 5,000 unit 10/26/16 10:15 10/26/16 21:14 Heparin - SQ 5,000 unit BID [facility] Administration Hydromorphone HCl 10 mg 10/25/16 22:30 10/25/16 23:13 Dilaudid Management Information Systems Director - STEAM CONDITIONER FILLING 11/01/16 22:16 10 mg STEAM CONDITIONER FILLING [facility] Administration Protocol Ondansetron HCl 4 mg 10/25/16 22:00 Zofran Injection IVPB Q6H PRN NAUSEA AND/OR VOMITING Microbiology 10/24/16 11:46 Blood - Peripheral Venous Blood Culture - Preliminary Pending Organism 10/24/16 11:46 Blood - Peripheral Venous Blood Culture - Preliminary Streptococcus Mitis 10/25/16 13:25 Blood - Peripheral Venous Blood Culture - Preliminary NO GROWTH OBTAINED AFTER 24 HOURS, INCUBATION TO CONTINUE FOR 4 DAYS. 10/25/16 13:10 Blood - Peripheral Venous Blood Culture - Preliminary NO GROWTH OBTAINED AFTER 24 HOURS, INCUBATION TO CONTINUE FOR 4 DAYS. 10/25/16 21:43 Abscess SALVADOR Preparation - Preliminary 10/25/16 21:43 Abscess Fungal Culture - Preliminary 10/25/16 13:10 Blood - Peripheral Venous TB Test (QFT) (TABITHA) - Preliminary 10/25/16 20:00 Urine For Antigen Detection Legionella Antigen - Final 10/25/16 21:43 Abscess Gram Stain - Final 10/25/16 21:43 Abscess AFB Smear Concentration - Preliminary 10/25/16 21:43 Abscess Mycobacterial Culture - Preliminary ASSESSMENT/PLAN:70 yr old man with anemia, HTN, hx of hodgkins lymphoma, hx of DVT (1 year ago) not on anti-coagulation presents with lower extremity weakness found to have posterior epidural abscess with cord compression with complete motor paraplegia, s/p Partial T2 and T5, and complete T3 and T4 L hemilaminectomies for decompression and drainage of abscess; cultures, microdissection, L T4-5 allograft(10/25). wbc 7.1, neutrophil 70.7 Tmax 100 afb, fungal pending gram stain gram positive cocci in pairs and chain. Visit type - Emergency Visit Emergency Visit: Yes ED Registration Date: 10/24/16 Care time: The patient presented to the Emergency Department on the above date and was hospitalized for further evaluation of their emergent condition. - New Patient This patient is new to me today: Yes Date on this admission: 10/27/16 - Critical Care Critical Care patient: Yes Total Critical Care Time (in minutes): 45 Critical Care Statement: The care of this patient involved high complexity decision making to prevent further life threatening deterioration of the patient 's condition and/or to evalute & treat vital organ system(s) failure or risk of failure.
--- NOTE | 2016-10-27 09:02 | PN ---
Progress Note, Physician History of Present Illness: S/P EMERGENCY LAMINECTOMY UNABLE TO MOVE LEGS - Current Medication List Current Medications: Active Medications Acetaminophen (Tylenol -) 650 mg PO Q4H PRN PRN Reason: FEVER OR PAIN Albuterol/Ipratropium (Duoneb -) 1 amp NEB QIDR [facility] Last Admin: 10/27/16 06:35 Dose: 1 amp Bisacodyl (Dulcolax Suppository -) 10 mg RC DAILY PRN PRN Reason: CONSTIPATION Ceftriaxone Sodium (Rocephin 2gm Ivpb (Pre-Docked)) 2 gm IVPB Q12H [facility] PRN Reason: Protocol Last Admin: 10/27/16 06:02 Dose: 2 gm Diazepam (Valium -) 5 mg PO Q8H [facility] Last Admin: 10/27/16 05:36 Dose: 5 mg Digoxin (Lanoxin -) 0.125 mg PO DAILY [facility] Docusate Sodium (Colace -) 100 mg PO TID [facility] Last Admin: 10/27/16 05:36 Dose: 100 mg Fentanyl (Sublimaze Injection -) 50 mcg IVPUSH [id number] PRN PRN Reason: PAIN Stop: 10/28/16 22:16 Heparin Sodium (Porcine) (Heparin -) 5,000 unit SQ BID [facility] Last Admin: 10/26/16 21:14 Dose: 5,000 unit Hydromorphone HCl (Dilaudid Cashier Associate -) [address] ROUTE CARRIER ROUTE CAR[facility]ER [facility] PRN Reason: Protocol Stop: 11/01/16 22:16 Last Admin: 10/25/16 23:13 Dose: 10 mg Ondansetron HCl (Zofran Injection) 4 mg IVPB Q6H PRN PRN Reason: NAUSEA AND/OR VOMITING - Objective Vital Signs: Vital Signs Temperature 98.8 F 10/27/16 06:23 Pulse Rate 96 H 10/27/16 06:23 Respiratory Rate 22 10/27/16 06:23 Blood Pressure 122/58 10/27/16 06:23 O2 Sat by Pulse Oximetry (%) 96 10/26/16 22:00 Neck: Yes: Supple Cardiovascular: Yes: Regular Rate and Rhythm Respiratory: Yes: Regular, CTA Bilaterally Gastrointestinal: Yes: Normal Bowel Sounds, Soft Edema: No Neurological: Yes: Alert, Oriented, Weakness (of the le) Labs: CBC, BMP 10/27/16 05:20 10/27/16 05:20 INR, PTT INR 1.32 (0.82-1.09) H 10/25/16 23:00 Problem List - Problems (1) Epidural abscess Assessment/Plan: abx per id d/w dr irma hand sq heparin Code(s): G06.2 - EXTRADURAL AND SUBDURAL ABSCESS, UNSPECIFIED (2) Positive blood culture Assessment/Plan: abx per dr llamas repeat cultures echo Code(s): R78.81 - BACTEREMIA (3) Acute on chronic renal insufficiency Assessment/Plan: monitor Code(s): N28.9 - DISORDER OF KIDNEY AND URETER, UNSPECIFIED N18.9 - CHRONIC KIDNEY DISEASE, UNSPECIFIED (4) CHF exacerbation Assessment/Plan: will hold off on lasix cardio noted Code(s): I50.9 - HEART FAILURE, UNSPECIFIED Qualifiers: Congestive heart failure type: diastolic Qualified Code(s): I50.33 - Acute on chronic diastolic (congestive) heart failure (5) Lymphoma Assessment/Plan: in remission Code(s): C85.90 - NON-HODGKIN LYMPHOMA, UNSPECIFIED, UNSPECIFIED SITE (6) Weakness of both lower extremities Assessment/Plan: as above r/o abscess--- ct of ls spine neuro and ns consult Code(s): R29.898 - OTH SYMPTOMS AND SIGNS INVOLVING THE MUSCULOSKELETAL SYSTEM (7) Afib Assessment/Plan: ekg follow labs no ac due to spinal surgery Code(s): I48.91 - UNSPECIFIED ATRIAL FIBRILLATION Qualifiers: Atrial fibrillation type: paroxysmal Qualified Code(s): I48.0 - Paroxysmal atrial fibrillation
--- NOTE | 2016-10-27 09:37 | CONS ---
DATE OF CONSULTATION: 10/27/2016 HISTORY OF PRESENT ILLNESS: The patient is a 70-year-old male with an extensive past medical history which includes Hodgkin's lymphoma as well as DVT, anemia, hypertension, hyperlipidemia, lumbar stenosis, who had a recent pneumonia treated as an outpatient and was admitted with difficulty breathing on October 24. Patient underwent a chest CTA which showed no evidence of pulmonary embolism. Patient was admitted and developed severe weakness in his lower extremities, buckling, and underwent evaluation which included a CT of the lumbar spine which was negative for any epidural abscess but did show L4-5 stenosis. MRI of the thoracic spine, however, revealed an extensive epidural abscess from mid T2 level to the level of T5 superior endplate. Patient was emergently taken to the operating room, undergoing surgery performed by Dr. Jose Guadalupe Wills on October 25 including partial T2 and T5 and complete T3 and T4 hemilaminectomies on the left for decompression and drainage of the abscess, cultures, microdissection, T4-5 allograft. Patient is unable to move either of his lower extremities and per Dr. Wills's note has poor prognosis. He states he can start to feel things distally in his lower extremities. Patient's blood work on admission showed borderline WBCs 9.6, hemoglobin 10.8, platelet count 195. Repeat blood work done today showed WBCs 7.1, hemoglobin stable at 9.5, platelet count 174. Chemistry is stable. BUN 19, creatinine 0.9, sodium 138, potassium 4.3, chloride 102, CO2 of 27. Patient is on IV antibiotics. He has Venodyne compression stockings for DVT prophylaxis and is also on subcutaneous heparin for DVT prophylaxis. He has suppository and Colace for bowel regimen and states overall he has very little pain but continues to have little feeling and no movement throughout his lower extremities. He has no complaints of weakness, numbness, tingling in the upper extremities, although he notes his shoulders have limited range. Patient was seen by physical therapy for exercise and bed mobility, which he requires extensive assist. REVIEW OF PAST MEDICAL AND SURGICAL HISTORY: Hodgkin's lymphoma, DVT, congestive heart failure, hypertension, hyperlipidemia, L4-5 lumbar stenosis, anemia. SOCIAL HISTORY: Lived with family in an apartment. The patient has [address] Premorbidly he was able to ambulate about 2 blocks, limited by his back condition, without device. Current function as above, extensive assistance. REVIEW OF SYSTEMS: He denies any lightheadedness, dizziness, blurry vision, double vision, nausea, vomiting, difficulty swallowing, difficulty chewing, any chest pain. He is a little short of breath with exertion. No numbness or tingling in the upper extremities. Again, some restriction in shoulder range. He has a catheter, and again no movement in the lower extremities. No complaints of fever or chills, but he cannot control his bowel or urine. PHYSICAL EXAMINATION: General: Overweight man seen lying in bed. He is in no acute distress. HEENT: Normocephalic and atraumatic. Extraocular muscles appear intact. Neck: Supple. Extremities: Without any pitting edema or calf tenderness. Neuromuscular: He is awake, alert, oriented x3. Cranial nerves II through XII appear grossly intact. He has slight limitation in his shoulder girdle, only 110-120 degrees flexion but fairly good strength within his range. He has good elbow flexion, elbow extension, and blanker operator strength at least 5-/5, but the lower extremities he has no reflexes. Toes are equivocal, decreased tone, and 0/5 movement. He also has diminished sensation from about T6 xiphoid level distally to pinprick. Skin: Unable to examine his incision in the thoracic spine, but otherwise no breakdown. No pitting edema in the lower extremities. OVERALL IMPRESSION: 1. Deficits in mobility, activities of daily living, extensive. 2. T5-T6 paraplegia. 3. Epidural abscess status post surgery as above, including hemilaminectomy and drainage. 4. Pneumonia. 5. Deconditioning. 6. Bilateral shoulder capsulitis, rule out underlying osteoarthritis. 7. Anemia. 8. History of Hodgkin's lymphoma, last chemotherapy 6 months ago. 9. History of deep vein thrombosis in the past, 1 year ago. 10. History of congestive heart failure. 11. History of hypertension. 12. Hyperlipidemia. 13. L4-5 stenosis which limited his ambulation to about 2 blocks premorbidly. PLAN/SUGGESTIONS: 1. Physical therapy to continue bedside. 2. Sit up in bed as able. 3. Agree with SCDs and subcutaneous heparin for DVT prophylaxis. 4. Pain is well controlled. 5. Neurologic and neurosurgery followup. 6. Upper extremity strengthening will be important. 7. Bowel regimen. Monitor for constipation. 8. Kuhn catheter. 9. Skin precautions. 10. Will need acute rehabilitation in acute rehabilitation facility which has spinal cord injury treatment capabilities. Thank you for this referral. RON SRIVASTAVA M.D. YONATAN/[id number]
--- NOTE | 2016-10-27 09:56 | PN ---
Teaching Attending Note Name of Resident: Jos Luu ATTENDING PHYSICIAN STATEMENT I saw and evaluated the patient. I reviewed the resident's note and discussed the case with the resident. I agree with the resident's findings and plan as documented. SUBJECTIVE: no complaints OBJECTIVE: Vital Signs Period Temp Pulse Resp BP Sys/Lloyd Pulse Ox Last 24 Hr 98.5 F-100 F 80-148 18-24 99-144/43-100 95-96 cor-rrr lungs clear abd soft,nt ext no edema, cannot move legs CBC, BMP 10/27/16 05:20 10/27/ 05:20 ASSESSMENT AND PLAN: pod#2 drainage of epidural abscess-no neurologic improvement, being evaluated by neurology and physiatry strep mitis bacteremia r/o endocarditis f/u echo f/u blood cultures history of lymphoma- suggest oncology evaluation continue ceftriaxone repeat blood cultures spep/upep quantatative immunoglobulins oncology input
[2016-10-27] MEDS ORDERED: DIGOXIN 0.125 MG TABLET (FP) PO SCH (10:00)
[2016-10-27] MEDS: HEPARIN NA (PORCINE) 5,000 UNITS/ML 1ML VIAL SQ SCH ×2 (10:01→22:52)
[2016-10-27 10:58] LABS: TROPONIN I < 0.02 ng/ml (0.00-0.05)
--- NOTE | 2016-10-27 12:30 | PN ---
Teaching Attending Note Name of Resident: Zhang Altamirano ATTENDING PHYSICIAN STATEMENT I saw and evaluated the patient. I reviewed the resident's note and discussed the case with the resident. I agree with the resident's findings and plan as documented. SUBJECTIVE: Pt seen and examined in the ICU. Epidural drain removed this AM. Still no movement lower extremities. No fevers recorded. Does report discomfort right back/rib region. OBJECTIVE: Last Vital Signs Temp Pulse Resp BP Pulse Ox 98.8 F 92 H 18 138/60 96 10/27/16 06:23 10/27/16 11:19 10/27/16 08:00 10/27/16 08:00 10/27/16 11:19 Intake & Output 10/24/16 10/25/16 10/26/16 10/27/16 23:59 23:59 23:59 23:59 Intake Total 200 3243 1725 300 Output Total 1250 1950 1610 Balance 200 1992 -1309 Weight 280 lb 263 lb 261 lb 3.964 oz 265 lb 3.457 oz Gen: NAD at rest Heart: RRR Lung: decreased breath sounds right base Abd: soft, nontender Ext: no edema CBC, BMP 10/27/16 05:20 10/27/16 05:20 Active Medications Acetaminophen (Tylenol -) 650 mg PO Q4H PRN PRN Reason: FEVER OR PAIN Albuterol/Ipratropium (Duoneb -) 1 amp NEB QIDR [facility] Last Admin: 10/27/16 06:35 Dose: 1 amp Bisacodyl (Dulcolax Suppository -) 10 mg RC DAILY PRN PRN Reason: CONSTIPATION Ceftriaxone Sodium (Rocephin 2gm Ivpb (Pre-Docked)) 2 gm IVPB Q12H [facility] PRN Reason: Protocol Last Admin: 10/27/16 06:02 Dose: 2 gm Diazepam (Valium -) 5 mg PO Q8H [facility] Last Admin: 10/27/16 05:36 Dose: 5 mg Digoxin (Lanoxin -) 0.125 mg PO DAILY [facility] Last Admin: 10/27/16 10:00 Dose: 0.125 mg Docusate Sodium (Colace -) 100 mg PO TID [facility] Last Admin: 10/27/16 05:36 Dose: 100 mg Fentanyl (Sublimaze Injection -) 50 mcg IVPUSH [id number] PRN PRN Reason: PAIN Stop: 10/28/16 22:16 Heparin Sodium (Porcine) (Heparin -) 5,000 unit SQ BID [facility] Last Admin: 10/27/16 10:01 Dose: 5,000 unit Hydromorphone HCl (Dilaudid Political Science Professor -) 10 mg ASSEMBLER SEMICONDUCTOR ASSEMBLER SEMICONDUCTOR [facility] PRN Reason: Protocol Stop: 11/01/16 22:16 Last Admin: 10/25/16 23:13 Dose: 10 mg Ondansetron HCl (Zofran Injection) 4 mg IVPB Q6H PRN PRN Reason: NAUSEA AND/OR VOMITING ASSESSMENT AND PLAN: Strep Bacteremia Lower Extremity Weakness Epidural Abscess with Cord Compression s/p Hemilaminectomy Hodgkin's Lymphoma h/o DVT Right Pleural Effusion - continue antibiotics per ID - f/u cultures - neuro checks - will discuss with ID regarding sampling pleural fluid - pain control - incentive spirometry - DVT prophylaxis - rehab/PT critical care time spent in reviewing chart, evaluating patient and formulating plan 35 min
--- NOTE | 2016-10-27 13:50 | OP ---
DATE OF OPERATION: 10/25/2016 PREOPERATIVE DIAGNOSES: 1. Chronic obstructive pulmonary disease. 2. 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 3. History of left lower extremity deep venous thrombosis. 4. Obesity. 5. Progressive paraplegia secondary to posterior thoracic acute epidural abscess with cord compression. POSTOPERATIVE DIAGNOSES: 1. Chronic obstructive pulmonary disease. 2. 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 3. History of left lower extremity deep venous thrombosis. 4. Obesity. 5. Progressive paraplegia secondary to posterior thoracic acute epidural abscess with cord compression. ATTENDING SURGEON: Jose Guadalupe Wills MD PROCEDURE: 1. Posterior thoracic partial left-sided essential hemilaminectomy at T2 and T5 and left hemilaminectomy at T3 and T4 for spinal cord decompression and evacuation of epidural abscess ([id number], [id number], [id number], [id number]). 2. Microsurgical dissection with operative microscope and microsurgical technique (99109). 3. Operative fluoroscopy for localization (13798-15). 4. Posterior thoracic left-sided bony fusion with 1 cc of Giana (52988). ANESTHESIA: General endotracheal. ANESTHESIOLOGIST: Felix Diaz MD ESTIMATED BLOOD LOSS: Was 450 mL. TRANSFUSIONS: Two units FFP. FINDINGS: Posterior epidural abscess/purulent material, which was sent for Gram stain culture, fungal and AFB cultures as well as soft tissue for pathology. INDICATION: The patient is a 70-year-old male with a history of multiple medical issues including congestive heart failure, COPD, lower extremity DVT, non- Hodgkin lymphoma with EXPRESSIVE THERAPIST involvement, who was recently treated for presumed bronchitis/pneumonia at an outside facility with oral antibiotic and steroids, who has been experiencing difficulty with ambulation. He was admitted for recurrent cough. The patient also had prior lower back pain and sciatica. He started experiencing progressive weakness and numbness of bilateral lower extremities over the last 24 hours and was initially diagnosed with CIDP. Further evaluation included, after Neurosurgery input, a thoracic spine MRI with and without gadolinium. The MRI revealed paraspinal inflammation of the upper thoracic spine as well as an epidural abscess posteriorly from the bottom to the top of T5. The patient was completely paraplegic from a motor standpoint and had partial sensory preservation. Emergent surgery was recommended given the findings. The patient and the both understand that with emergency evacuation of the epidural abscess is carried out , he is not likely to regain neurological function. However, in order to treat this effectively, the abscess was recommended to be debrided and evacuated. The risks for the procedure include but were not limited to bleeding, infection, dural tear with CFS leak, neurological injury, persistent paralysis, increased thromboembolic risk such as DVT and MT and other risks of general anesthesia. The patient understands indications for the procedure, procedure in detail, risks, benefits and alternatives for his treatment and wished to proceed with surgery. PLan was to decompression the left side and central portion of the spinal canal without taking down much of spinous processes or interspenous ligament in order to preserve stabilization given the extent of infection, including anterior vertebral column. No guarantee was given for a favorable outcome. PROCEDURE IN DETAIL: After the patient was taken to the operating room, he was placed in supine position. After general anesthesia was induced, Kuhn catheter was also inserted. The patient was then turned into a prone position on the Pepe frame. All pressure points checked and padded. The posterior thoracic region was cleaned with alcohol and prepped with Betadine. Fluoroscopic images localized the incision to be approximately the bottom of T2 to the top of mid-T5. A skin incision was opened with a No. 10 blade, subperiosteal dissection was carried out with electrocautery and periosteal elevator. Paraspinal venous oozing and bleeding were noted, and were controlled with bipolar electrocautery. Two self-retaining retractors were inserted. AP fluoroscopic imaging was obtained, confirming the exposure to be on the top of T2-3 interlaminar space down to about mid-T5. At this point, a partial left T3 and T4 hemilaminectomy was carried out. Even before completing laminectomy, the purulent material started to ooze out, and specimen was sent for a Gram stain, culture, bacterial as well as fungal AFB cultures. Spot tissue was obtained for permanent pathology. The decompression consisted of the central portion of the spinal canal as well as left-sided hemilaminectomy. The spinous processes and interspinous ligaments were preserved to maintain stability of the thoracic spine. The epidural space was explored with a dental tool as well as a blunt nerve hook. Central portion of spinous processes at these levels were undercut with Kerrison rongeurs. After cultures were obtained and decompression was completed from the bottom of T2 to top mid- T5, the wound was irrigated with a copious amount of antibiotic-containing irrigation, which contained both bacitracin as well as vancomycin. Epidural hemostasis was obtained with bipolar electrocautery and thrombin-soaked powder Gelfoam. The wound was inspected and irrigated. Micorsurgical dissection was carried out with operating microscope and microsurgical techniques. Further exploration with microsugrical instruments did not discover additional epidural abscess material. Once the wound was thoroughly irrigated, hemostasis was then obtained with bipolar electrocautery. At this point, retractors were removed. A piece of Surgicel was laid at the epidural space. Because the patient had preoperative T2 hyperintensity at T2 toT4 vertebral body as well as paraspinal inflammation, 1 mL of Giana bone graft was placed on the left side over the T4 -5 proximal transverse processes. This was after the area was decorticated with drill. A No. 10 GUILHERME drain was left in the epidural space, which came out through a separate stab incision. Posterior thoracic fascia was closed with 0 Vicryl suture. Subcutaneous fascia was closed with 3-0 Vicryl sutures. Skin was closed with 4- 0 Vicryl subcuticuar. Steri-Strips and sterile occlusive dressing were applied. The patient tolerated the procedure well and was turned to supine position and extubated. He remained completely paraplegic from a motor standpoint and he had spotty sensory preservation below about T4. All needle and lap counts were correct. The OR timeout procedure was followed. Patient received 1 dose of 2gm of Ancef prior to the procedure. Kareem [id number] MTDD
--- NOTE | 2016-10-27 14:07 | EKG ---
Test Reason : Blood Pressure : / mmHG Vent. Rate : 085 BPM Atrial Rate : 085 BPM P-R Int : 156 ms QRS Dur : 132 ms QT Int : 356 ms P-R-T Axes : 017 -31 025 degrees QTc Int : 423 ms NORMAL SINUS RHYTHM LEFT AXIS DEVIATION RIGHT BUNDLE BRANCH BLOCK ABNORMAL ECG WHEN COMPARED WITH ECG OF 26-OCT-2016 13:39, SINUS RHYTHM HAS REPLACED ATRIAL FIBRILLATION VENT. RATE HAS DECREASED BY 61 BPM T WAVE VARIATION Confirmed by GANGA SEGURA MD ([id number]) on 10/27/2016 2:06:33 PM Referred By: INOCENTE MORRELL Confirmed By:GANGA SEGURA MD
--- NOTE | 2016-10-27 14:16 | EKG ---
Test Reason : Blood Pressure : / mmHG Vent. Rate : 146 BPM Atrial Rate : 129 BPM P-R Int : 000 ms QRS Dur : 134 ms QT Int : 342 ms P-R-T Axes : 000 -36 019 degrees QTc Int : 532 ms ATRIAL FIBRILLATION WITH RAPID VENTRICULAR RESPONSE LEFT AXIS DEVIATION RIGHT BUNDLE BRANCH BLOCK ABNORMAL ECG WHEN COMPARED WITH ECG OF 25-OCT-2016 10:24, ATRIAL FIBRILLATION HAS REPLACED SINUS RHYTHM VENT. RATE HAS INCREASED BY 48 BPM T WAVE VARIATION Confirmed by GANGA SEGURA MD ([id number]) on 10/27/2016 2:15:48 PM Referred By: Confirmed By:GANGA SEGURA MD
--- NOTE | 2016-10-27 16:34 | PN ---
Progress Note, Physician Chief Complaint: Telem Brief burst of regular SVT 130 BPM for a few sec. No further Afib. History of Present Illness: 70M history of anemia, hypertension, hodgkins lymphoma, DVT (1 year ago) not on AC, admitted 10/24/16 with shortness of breath, wheezing, and a productive cough also leg weakness and numbness. Being seen by neurology to rule out GB syndrome. Also noted with mildly elevated bnp. No orthopnea pnd or edema. No chest pain. Found with thoracic epidural abcess, seen by neurosurgery underwent drainage and placement of catheter 10/26/16. Tele with atrial fib new onset with RVR spontaneously converted to nsr. Bcx positive for S. Mitis. - Current Medication List Current Medications: Active Medications Acetaminophen (Tylenol -) 650 mg PO Q4H PRN PRN Reason: FEVER OR PAIN Albuterol/Ipratropium (Duoneb -) 1 amp NEB QIDR [facility] Last Admin: 10/27/16 11:10 Dose: 1 amp Bisacodyl (Dulcolax Suppository -) 10 mg RC DAILY PRN PRN Reason: CONSTIPATION Ceftriaxone Sodium (Rocephin 2gm Ivpb (Pre-Docked)) 2 gm IVPB Q12H [facility] PRN Reason: Protocol Last Admin: 10/27/16 06:02 Dose: 2 gm Diazepam (Valium -) 5 mg PO Q8H [facility] Last Admin: 10/27/16 05:36 Dose: 5 mg Digoxin (Lanoxin -) 0.125 mg PO DAILY [facility] Last Admin: 10/27/16 10:00 Dose: 0.125 mg Docusate Sodium (Colace -) 100 mg PO TID [facility] Last Admin: 10/27/16 05:36 Dose: 100 mg Fentanyl (Sublimaze Injection -) 50 mcg IVPUSH [id number] PRN PRN Reason: PAIN Stop: 10/28/16 22:16 Heparin Sodium (Porcine) (Heparin -) 5,000 unit SQ BID [facility] Last Admin: 10/27/16 10:01 Dose: 5,000 unit Hydromorphone HCl (Dilaudid Administrative Intern -) 10 mg MARKET RESEARCH SPECIALIST MARKET RESEARCH SPECIALIST [facility]IAN PRN Reason: Protocol Stop: 11/01/16 22:16 Last Admin: 10/25/16 23:13 Dose: 10 mg Ondansetron HCl (Zofran Injection) 4 mg IVPB Q6H PRN PRN Reason: NAUSEA AND/OR VOMITING - Objective Vital Signs: Vital Signs Temperature 98.8 F 10/27/16 06:23 Pulse Rate 90 10/27/16 13:53 Respiratory Rate 18 10/27/16 13:53 Blood Pressure 131/62 10/27/16 13:53 O2 Sat by Pulse Oximetry (%) 96 10/27/16 11:19 Constitutional: Yes: Well Nourished Eyes: Yes: WNL HENT: Yes: WNL Neck: Yes: WNL Cardiovascular: Yes: WNL Respiratory: Yes: WNL Gastrointestinal: Yes: WNL Edema: No Peripheral Pulses WNL: No Labs: CBC, BMP 10/27/16 05:20 10/27/16 05:20 INR, PTT INR 1.32 (0.82-1.09) H 10/25/16 23:00 - ....Imaging Chest X-ray: Report Reviewed MRI: Image Reviewed Problem List - Problems (1) PAF (paroxysmal atrial fibrillation) Assessment/Plan: converted to nsr. Alternans was also seen--Now resolved. Echo is pending. No evidence of pericarditis. Dig 0.125mg daily. Would defer BB given his COPD. Check Dig level in 4-5 days If Afib recurrs and poorly controlled-Options are IV Diltiazem drip or Amiodarone IV if rates are poorly controlled. Not a candidate for AC until spinal issues are completely resolved, likely at least 6 weeks as the risk of further compression from bleeding is significant. I have explained to the patient that there is a small risk of stroke but that the risk of bleeding outweigh this at present. Code(s): I48.0 - PAROXYSMAL ATRIAL FIBRILLATION (2) CHF exacerbation Assessment/Plan: (1) CHF exacerbation Assessment/Plan: mildly elevated bnp, no symptoms. Defer diuresis at present. Echo pending. will follow with you. Code(s): I50.9 - HEART FAILURE, UNSPECIFIED Qualifiers: Congestive heart failure type: diastolic Qualified Code(s): I50.33 - Acute on chronic diastolic (congestive) heart failure
[2016-10-28] MEDS: ALBUTEROL SO4 2.5/IPRATROPIUM 0.5 INH SOL 3 ML VIAL.NEB. NEB SCH ×4 (05:36→18:27)
[2016-10-28] MEDS: DOCUSATE SODIUM 100 MG CAPSULE (FP) PO SCH ×3 (06:20→22:04)
[2016-10-28] MEDS: diazePAM 5 MG TABLET PO SCH ×3 (06:20→22:04)
[2016-10-28] MEDS: cefTRIAXone 2 GM/100 ML BAG (PRE-DOCKED) IVPB SCH ×2 (06:21→18:36)
[2016-10-28 07:06] LABS: BASOPHIL 0.5 % (0-2.0); EOSINOPHIL 1.1 % (0-4.5); MCH 29.1 pg (25.7-33.7); MCHC 32.6 g/dl (32.0-35.9); MEAN CELL VOLUME 89.4 fl (80-96); MEAN PLT VOLUME 7.6 fl (7.5-11.1); NEUTROPHILS 64.5 % (42.8-82.8); PLATELET COUNT 165 K/MM3 (134-434); RDW 17.1 % (11.9-15.9); WHITE BLOOD COUNT 6.4 K/mm3 (4.0-10.0)
--- NOTE | 2016-10-28 07:07 | PN ---
Progress Note, Physician Chief Complaint: ID ICu followup for this 70 year old male who I saw in consult several days ago for fever and "paralysis" of the LE. 10/11 he had been seen in [facility] with diagnosis of acute bronchitis treated with Augmentin and steroids. I spoke wit the MD who saw him yesterday. Now day 3 multiple laminectomies for epidural abscesses secondary to gram positive bacteremia. He is on Ceftriaxone and unable to move his leg at this point. MRI yesterday shows spinal edema with fluid. Interestingly he has 2 differnt gram positives in blood Strep pneumoniae with positive urine antigen and Strep Mitis a definate abscess former. - Current Medication List Current Medications: Active Medications Acetaminophen (Tylenol -) 650 mg PO Q4H PRN PRN Reason: FEVER OR PAIN Albuterol/Ipratropium (Duoneb -) 1 amp NEB QIDR [facility] Last Admin: 10/28/16 05:36 Dose: 1 amp Bisacodyl (Dulcolax Suppository -) 10 mg RC DAILY PRN PRN Reason: CONSTIPATION Ceftriaxone Sodium (Rocephin 2gm Ivpb (Pre-Docked)) 2 gm IVPB Q12H [facility] PRN Reason: Protocol Last Admin: 10/28/16 06:21 Dose: 2 gm Diazepam (Valium -) 5 mg PO Q8H [facility] Last Admin: 10/28/16 06:20 Dose: 5 mg Digoxin (Lanoxin -) 0.125 mg PO DAILY [facility] Last Admin: 10/27/16 10:00 Dose: 0.125 mg Docusate Sodium (Colace -) 100 mg PO TID [facility] Last Admin: 10/28/16 06:20 Dose: 100 mg Fentanyl (Sublimaze Injection -) 50 mcg IVPUSH [id number] PRN PRN Reason: PAIN Stop: 10/28/16 22:16 Heparin Sodium (Porcine) (Heparin -) 5,000 unit SQ BID [facility] Last Admin: 10/27/16 22:52 Dose: 5,000 unit Hydromorphone HCl (Dilaudid Aerodynamicist -) 10 mg MEMBER SERVICE SPECIALIST MEMBER SERVICE SPECIALIST [facility]IAN PRN Reason: Protocol Stop: 11/01/16 22:16 Last Admin: 10/25/16 23:13 Dose: 10 mg Ondansetron HCl (Zofran Injection) 4 mg IVPB Q6H PRN PRN Reason: NAUSEA AND/OR VOMITING - Objective Vital Signs: Vital Signs Temperature 99.2 F 10/28/16 02:00 Pulse Rate 86 10/28/16 04:00 Respiratory Rate 22 10/28/16 04:00 Blood Pressure 102/51 10/28/16 04:00 O2 Sat by Pulse Oximetry (%) 94 L 10/27/16 22:00 Constitutional: Yes: No Distress, Other (Congested) Neck: Yes: WNL, Supple Cardiovascular: Yes: Regular Rate and Rhythm, S1, S2. No: Murmur Respiratory: Yes: Rhonchi Gastrointestinal: Yes: WNL, Normal Bowel Sounds, Soft. No: Tenderness, Tenderness, Rebound Edema: No Neurological: Yes: Other (Compete paralysis of LE) Labs: INR, PTT INR 1.32 (0.82-1.09) H 10/25/16 23:00 Problem List - Problems (1) Epidural abscess Code(s): G06.2 - EXTRADURAL AND SUBDURAL ABSCESS, UNSPECIFIED (2) Weakness of both lower extremities Code(s): R29.898 - OTH SYMPTOMS AND SIGNS INVOLVING THE MUSCULOSKELETAL SYSTEM (3) Pneumococcal bacteremia Code(s): R78.81 - BACTEREMIA Assessment/Plan Microbiology 10/25/16 21:43 Abscess Gram Stain - Final 10/24/16 11:46 Blood - Peripheral Venous Blood Culture - Final Streptococcus Mitis 10/25/16 21:43 Abscess Wound Culture - Preliminary Pending Organism 10/25/16 13:25 Blood - Peripheral Venous Blood Culture - Preliminary NO GROWTH OBTAINED AFTER 48 HOURS, INCUBATION TO CONTINUE FOR 3 DAYS. 10/25/16 13:10 Blood - Peripheral Venous Blood Culture - Preliminary NO GROWTH OBTAINED AFTER 48 HOURS, INCUBATION TO CONTINUE FOR 3 DAYS. 10/24/16 11:46 Blood - Peripheral Venous Blood Culture - Preliminary Streptococcus Pneumoniae Pending Organism Laboratory Tests 10/25/16 10/26/16 10/27/16 23:00 05:20 05:20 WBC 7.1 Hgb 9.5 L Hct 29.2 L Plt Count 174 ESR 130 H INR 1.32 H BUN Creatinine IgG IgA IgM MCKENZIE M-Dale 10/27/16 10/28/16 05:20 05:50 WBC Hgb Hct Plt Count ESR INR BUN 19 H D Creatinine 0.9 D IgG Pending IgA Pending IgM Pending MCKENZIE M-Dale Pending Assessment Non Hodgkins lymphoma post chemo 6 months ago Gram positive bacteremia Pneumococcal and Strep Mitis infection Right plerual effusion Paralysis Plan Continue Ceftriaxone 1 gram q12H Check gammaglobulins levels Hematology evaluation for residual chemotherapy Await spinal culture ? Fritz DIAZ ICU critical care time 40 minutes spent talking with [facility] care MD resident and reviewing chart examining patient Fritz DIAZ
[2016-10-28] MEDS ORDERED: AMIODARONE HCL 150 MG/3 ML VIAL IVPUSH ONE ×2 (07:32→08:36)
--- NOTE | 2016-10-28 07:34 | PN ---
Physical Exam: SUBJECTIVE: Patient seen and examined resting comfortably in bed. s/o cough with phlegm but feels unable to clear his throat or bring it up. denies chest pain, palpitations, abdominal pain. Underwent repeat MRI yesterday showing edema TTecho; cannot r/o vegetation. no pericardial effusion. This morning had rapid afib started at 7AM, HR 140-160's Pt asymptomatic. Amiodarone 150mg IVpush x2, Dig 0.25ivpush x2 with transient improvement, HR avg 130-145's OBJECTIVE: Vital Signs Period Temp Pulse Resp BP Sys/Lloyd Pulse Ox Last 24 Hr 99 F-99.3 F 84-112 18-28 99-139/51-99 94-96 GENERAL: The patient is awake, alert, and fully oriented, in no acute distress. HEAD: Normal with no signs of trauma. EYES: PERRL, extraocular movements intact, sclera anicteric, conjunctiva clear. No ptosis. ENT: , oropharynx clear without exudates, moist mucous membranes. NECK: Trachea midline, full range of motion, supple. LUNGS: quiet at bases, diffuse rhonchi b/l apices. HEART: distant heart sounds, S1, S2 ABDOMEN: obese, Soft, nondistended, normoactive bowel sounds EXTREMITIES: 2+ pulses, warm, well-perfused, no edema. NEUROLOGICAL: Sensation: intact on scalp, face, neck, arms, forearms, hands, and chest upto nipple line. says sensation is weaker on left side, feels the soles of his b/l feet. patchy sensation on right and left leg by knee denies sensation anywhere on abdomen Strength: right hand anodiser/shoulder extension/bicep and tricep flexion and extension 4/5, left hand anodiser/shoulder extension/bicep and tricep flexion and extension 4/5. Motor: range of motion full on fingers, wrists, elbows and shoulders. unable to move b/l le. lim in place Laboratory Results - last 24 hr 10/26/16 10/26/16 10/27/16 05:20 05:20 10:15 WBC RBC Hgb Hct MCV MCHC RDW Plt Count MPV Neutrophils % Lymphocytes % Monocytes % Eosinophils % Basophils % Creatine Kinase Creatine Kinase Index CK-MB (CK-2) CK-MB (CK-2) Rel Index Troponin I Random Vancomycin 10.703 HANNA Screen Negative Lyme Screen IgG & IgM <0.91 10/27/16 10/27/16 10/28/16 10:15 10:15 05:50 WBC 6.4 RBC 3.46 L Hgb 10.1 L Hct 31.0 L MCV 89.4 MCHC 32.6 RDW 17.1 H Plt Count 165 MPV 7.6 Neutrophils % 64.5 Lymphocytes % 26.2 D Monocytes % 7.7 Eosinophils % 1.1 Basophils % 0.5 Creatine Kinase 290 D Creatine Kinase Index 0.9 CK-MB (CK-2) 2.486 CK-MB (CK-2) Rel Index Cancelled Troponin I < 0.02 Random Vancomycin HANNA Screen Lyme Screen IgG & IgM Active Medications Generic Name Dose Route Start Last Admin Trade Name Freq PRN Reason Stop Dose Admin Acetaminophen 650 mg 10/25/16 23:30 Tylenol - PO Q4H PRN FEVER OR PAIN Albuterol/Ipratropium 1 amp 10/26/16 00:00 10/28/16 05:36 Duoneb - NEB 1 amp QIDR [facility]ELLEY Administration Amiodarone HCl 150 mg 10/28/16 07:32 Cordarone Injection - IVPUSH 10/28/16 07:33 ONCE ONE Bisacodyl 10 mg 10/25/16 22:00 Dulcolax Suppository - RC DAILY PRN CONSTIPATION Ceftriaxone Sodium 2 gm 10/26/16 18:50 10/28/16 06:21 Rocephin 2gm Ivpb (Pre-Docked) IVPB 2 gm Q12H [facility] Administration Protocol Diazepam 5 mg 10/25/16 22:00 10/28/16 06:20 Valium - PO 5 mg Q8H [facility] Administration Digoxin 0.125 mg 10/27/16 10:00 10/27/16 10:00 Lanoxin - PO 0.125 mg DAILY [facility]LEY Administration Docusate Sodium 100 mg 10/25/16 22:00 10/28/16 06:20 Colace - PO 100 mg TID [facility] Administration Fentanyl 50 mcg 10/25/16 22:15 Sublimaze Injection - IVPUSH 10/28/16 22:16 [id number] PRN PAIN Heparin Sodium (Porcine) 5,000 unit 10/26/16 10:15 10/27/16 22:52 Heparin - SQ 5,000 unit BID [facility] Administration Hydromorphone HCl 10 mg 10/25/16 22:30 10/25/16 23:13 Dilaudid Co Founder And Chairman - CARGO BROKER 11/01/16 22:16 10 mg CARGO BROKER KELLEY Administration Protocol Ondansetron HCl 4 mg 10/25/16 22:00 Zofran Injection IVPB Q6H PRN NAUSEA AND/OR VOMITING ASSESSMENT/PLAN: 70 yr old man with anemia, HTN, hx of hodgkins lymphoma, hx of DVT (1 year ago ) not on anti-coagulation presents with lower extremity weakness found to have posterior epidural abscess with cord compression with complete motor paraplegia , s/p laminectomy (10/25). Neurological - epidural abscess laminectomy (10/25) - neuro checks pain control - fentanyl 50 mcq ivpush q5min prn - valium 5mg po q8h kelley - oxycodone - pending EMG/nerve conduction, evaluated by Dr. Kelly - repeat MRI with spinal cord edema within left lateral half of spinal canal, recurrent epideural fluid at T4. no furhter neurosurgical intervention at this time consult: Dr. Marcano consult: Dr. Wills Infectious disease strep pneumon and Strep mitis in bld cx and gram pos cocci in pairs and chains in gram stain from epidural abscess, organism pending - rocephin 2gm q12hr IVPB -- start 10/26 - strep pneumo AG positive in urine consult: Dr. Brewer Cardiovascular new onset rapid Afib again this morning, recurrent paroxysmal -- amdiodarone drip 1mg/min for 6hr, 0.5mg/min for 18 hours - was on diltiaziam drip from 12pm - 5pm - digoxin 0.125 po - dc'd due to interaction with amiodarone - avoid beta sameer given COPD hx, - avoid full dose antiocoagulation for afib due to risk of bleeding - heparin for dvt prophylaxis is okay - echo without pericardial effusion/cannot r/o vegetation, -- would defer JILL due to labile saturation and afib, likely unstable consult: Respiratory - aggressive incentive spirometery QID to decrease atelectasis, chest PT, 2lpm nasal cannula - maintian sat O2 >90% - right pleural effusion with loculations, parapneumonic or malignant, to be discussed with ID regarding tap - chest xray in the AM Hematological hx of DVT - no acute DVT seen on vascular study high risk for anticoagulation, defer for [address] Cheney consulted regarding chemotherapy Renal Cr 0.9 improved encourage oral hydration monitor urine output, lim in place GI colace po TID given opiates zofran prn for nausea q6h prn prophylaxis DVT: heparin BID 5000 unit SQ Diet: regular Visit type - Emergency Visit Emergency Visit: No - New Patient This patient is new to me today: No - Critical Care Critical Care patient: Yes Total Critical Care Time (in minutes): 45 Critical Care Statement: The care of this patient involved high complexity decision making to prevent further life threatening deterioration of the patient 's condition and/or to evalute & treat vital organ system(s) failure or risk of failure.
[2016-10-28 07:38] LABS: ALBUMIN 1.8 g/dl (3.4-5.0); ANION GAP 6 (8-16); BILIRUBIN,TOTAL 0.2 mg/dL (0.2-1.0); CALCIUM 7.7 mg/dL (8.5-10.1); CO2 28 mmol/L (21-32); COCKROFT - GAULT 128; CREATININE 0.9 mg/dL (0.7-1.3); GLUCOSE,RANDOM 126 mg/dL (74-106); SGOT/AST 67 U/L (15-37); SGPT/ALT 33 U/L (12-78); TOT PROT 6.3 g/dl (6.4-8.2)
[2016-10-28 07:39] LABS: ALK PHOS 158 U/L (45-117)
--- NOTE | 2016-10-28 08:10 | PN ---
Progress Note (short form) - Note Progress Note: NEUROSURGERY POD #2 In Afib PE: Tmax 99.2, now 98/8, VSS Drain out HEENT- NC/AT; Neck- supple; Cor- RR; Lungs- decreased BS at bases; Abd-obese; + BS; Ext- B LE ankle/distal edema, negative Kaitlynn's CN- intact; Motor- UE 4+ B; B LE 0/5; Sensation- decreased LT/PP below about T4- 5 B, but more consistent sensation and somewhat improved; DTR- hyporeflexia B; no LTS WBC 6.4 Blood culture- strep mitis/strep pneumo Intra-op gram stain- gram positive cocci in pairs and chains; some PMN's; organism pending MRI: postop changes as expected; some edema of cord; T4 osteo and T4-5 discitis S/p emergency laminectomies for debridement of abscess and cord decompression In AFib Cardiology f/u Cont PT-ROM; encourage pt movements Turn side to side SCD's On SQ heparin Prognosis for motor recovery extremely poor as advised pre-operatively given complete motor paraplegia pre-op
--- NOTE | 2016-10-28 09:02 | PN ---
Progress Note, Physician History of Present Illness: S/P EMERGENCY LAMINECTOMY UNABLE TO MOVE LEGS - Current Medication List Current Medications: Active Medications Acetaminophen (Tylenol -) 650 mg PO Q4H PRN PRN Reason: FEVER OR PAIN Albuterol/Ipratropium (Duoneb -) 1 amp NEB QIDR [facility] Last Admin: 10/28/16 05:36 Dose: 1 amp Bisacodyl (Dulcolax Suppository -) 10 mg RC DAILY PRN PRN Reason: CONSTIPATION Ceftriaxone Sodium (Rocephin 2gm Ivpb (Pre-Docked)) 2 gm IVPB Q12H [facility] PRN Reason: Protocol Last Admin: 10/28/16 06:21 Dose: 2 gm Diazepam (Valium -) 5 mg PO Q8H [facility] Last Admin: 10/28/16 06:20 Dose: 5 mg Digoxin (Lanoxin -) 0.125 mg PO DAILY [facility] Last Admin: 10/27/16 10:00 Dose: 0.125 mg Docusate Sodium (Colace -) 100 mg PO TID [facility] Last Admin: 10/28/16 06:20 Dose: 100 mg Fentanyl (Sublimaze Injection -) 50 mcg IVPUSH [id number] PRN PRN Reason: PAIN Stop: 10/28/16 22:16 Heparin Sodium (Porcine) (Heparin -) 5,000 unit SQ BID [facility] Last Admin: 10/27/16 22:52 Dose: 5,000 unit Hydromorphone HCl (Dilaudid Cook Seafood -) 10 mg PARADICHLOROBENZENE MACHINE OPERATOR PARADICHLOROBENZENE MACHINE OPERATOR [facility] PRN Reason: Protocol Stop: 11/01/16 22:16 Last Admin: 10/25/16 23:13 Dose: 10 mg Ondansetron HCl (Zofran Injection) 4 mg IVPB Q6H PRN PRN Reason: NAUSEA AND/OR VOMITING - Objective Vital Signs: Vital Signs Temperature 99 F 10/28/16 06:00 Pulse Rate 143 H 10/28/16 07:30 Respiratory Rate 18 10/28/16 07:30 Blood Pressure 94/59 10/28/16 07:30 O2 Sat by Pulse Oximetry (%) 94 L 10/27/16 22:00 Neck: Yes: Supple Cardiovascular: Yes: Tachycardia, S1, S2 Respiratory: Yes: Regular, On Nasal O2, Rhonchi Gastrointestinal: Yes: Normal Bowel Sounds, Soft Edema: No Neurological: Yes: Alert, Oriented, Other (unable to move legs) Labs: CBC, BMP 10/28/16 05:50 10/28/16 05:50 INR, PTT INR 1.32 (0.82-1.09) H 10/25/16 23:00 Problem List - Problems (1) Epidural abscess Assessment/Plan: abx per id d/w dr solis start sq heparin continue with iv abx Code(s): G06.2 - EXTRADURAL AND SUBDURAL ABSCESS, UNSPECIFIED (2) Positive blood culture Assessment/Plan: abx per dr llamas repeat cultures echo noted--will d/w cardio Code(s): R78.81 - BACTEREMIA (3) Acute on chronic renal insufficiency Assessment/Plan: monitor Code(s): N28.9 - DISORDER OF KIDNEY AND URETER, UNSPECIFIED N18.9 - CHRONIC KIDNEY DISEASE, UNSPECIFIED (4) CHF exacerbation Assessment/Plan: will hold off on lasix cardio noted Code(s): I50.9 - HEART FAILURE, UNSPECIFIED Qualifiers: Congestive heart failure type: diastolic Qualified Code(s): I50.33 - Acute on chronic diastolic (congestive) heart failure (5) Lymphoma Assessment/Plan: in remission oncology consult Code(s): C85.90 - NON-HODGKIN LYMPHOMA, UNSPECIFIED, UNSPECIFIED SITE (6) Weakness of both lower extremities Assessment/Plan: as above due abscess---abx ct of ls spine neuro and ns consult Code(s): R29.898 - OTH SYMPTOMS AND SIGNS INVOLVING THE MUSCULOSKELETAL SYSTEM (7) Afib Assessment/Plan: ekg follow labs no ac due to spinal surgery dig now s/p amiodorone x 2--may need drip Code(s): I48.91 - UNSPECIFIED ATRIAL FIBRILLATION Qualifiers: Atrial fibrillation type: paroxysmal Qualified Code(s): I48.0 - Paroxysmal atrial fibrillation
[2016-10-28] MEDS ORDERED: DIGOXIN 0.5 MG/2 ML AMPUL ONE (09:11)
[2016-10-28] MEDS ORDERED: DIGOXIN 0.5 MG/2 ML AMPUL IVPUSH ONE (09:15)
[2016-10-28 09:25] LABS: ERYTHROCYTE SEDIMENTATION RATE 124 mm/hr (0-20)
[2016-10-28] MEDS ORDERED: dilTIAZem HCL 50 MG/10 ML - 10 ML VIAL IVPUSH ONE ×3 (11:26→11:45)
[2016-10-28] MEDS ORDERED: dilTIAZem HCL 125 MG/25 ML - 25 ML VIAL ONE (11:26)
--- NOTE | 2016-10-28 13:28 | PATH ---
Surgical Pathology Report Patient Name: DON CHADWICK Med. Rec. #: [id number] /Age/Gender: 1945 (Age: 70) / M Account: [id number] Location: ICU FINANCIAL ANALYST ACCOUNTANT Taken: 10/23/2016 Received: 10/27/2016 Reported: 10/28/2016 Physicians: Kareem Faustin M.D. Specimen(s) Received EPIDURAL TISSUE ABSCESS Clinical History Epidural abscess paraplegia Final Diagnosis EPIDURAL TISSUE ABSCESS: BENIGN FIBROFATTY TISSUE WITH ACUTE AND CHRONIC INFLAMMATION. SMALL FRAGMENTS OF NECROTIC APPEARING BONE. Electronically Signed Steve Caba M.D. Gross Description Received in formalin labeled "epidural tissue abscess" is a 1.0 x 0.8 x 0.3 cm aggregate of doyle soft tissue fragments. The specimen is entirely submitted in one cassette. /10/27/201610/27/2016
[2016-10-28] MEDS ORDERED: DILTIAZEM INJECTION 125 MG in DEXTROSE 5%-WATER - 100 ML IVPB SCH (13:30)
[2016-10-28] MEDS: HEPARIN NA (PORCINE) 5,000 UNITS/ML 1ML VIAL SQ SCH ×2 (13:33→22:04)
--- NOTE | 2016-10-28 13:45 | PN ---
Teaching Attending Note Name of Resident: Zhang Altamirano ATTENDING PHYSICIAN STATEMENT I saw and evaluated the patient. I reviewed the resident's note and discussed the case with the resident. I agree with the resident's findings and plan as documented. SUBJECTIVE: Pt seen and examined in the ICU. Back in rapid atrial fibrillation this AM. Denies shortness of breath, chest pain or palpitations. No improvement in bilateral LE motor deficits, sensation intact. OBJECTIVE: Last Vital Signs Temp Pulse Resp BP Pulse Ox 98.4 F 126 H 22 110/65 94 L 10/28/16 10:00 10/28/16 13:34 10/28/16 12:00 10/28/16 13:34 10/27/16 22:00 Intake & Output 10/25/16 10/26/16 10/27/16 10/28/16 23:59 23:59 23:59 23:59 Intake Total 3243 1725 800 600 Output Total 1250 1950 2910 900 Balance 1992 -225 -2109 Weight 263 lb 261 lb 3.964 oz 265 lb 3.457 oz 269 lb 13.533 oz Gen: NAD at rest Heart: tachycardic, irregular Lung: decreased breath sounds at bases Abd: soft, nontender Ext: no edema CBC, BMP 10/28/16 05:50 10/28/16 05:50 Active Medications Acetaminophen (Tylenol -) 650 mg PO Q4H PRN PRN Reason: FEVER OR PAIN Albuterol/Ipratropium (Duoneb -) 1 amp NEB QIDR [facility] Last Admin: 10/28/16 11:20 Dose: 1 amp Bisacodyl (Dulcolax Suppository -) 10 mg RC DAILY PRN PRN Reason: CONSTIPATION Ceftriaxone Sodium (Rocephin 2gm Ivpb (Pre-Docked)) 2 gm IVPB Q12H [facility] PRN Reason: Protocol Last Admin: 10/28/16 06:21 Dose: 2 gm Diazepam (Valium -) 5 mg PO Q8H [facility] Last Admin: 10/28/16 06:20 Dose: 5 mg Digoxin (Lanoxin -) 0.125 mg PO DAILY [facility] Last Admin: 10/27/16 10:00 Dose: 0.125 mg Docusate Sodium (Colace -) 100 mg PO TID [facility] Last Admin: 10/28/16 06:20 Dose: 100 mg Fentanyl (Sublimaze Injection -) 50 mcg IVPUSH [id number] PRN PRN Reason: PAIN Stop: 10/28/16 22:16 Heparin Sodium (Porcine) (Heparin -) 5,000 unit SQ BID [facility] Last Admin: 10/28/16 13:33 Dose: 5,000 unit Hydromorphone HCl (Dilaudid Cage Tender -) 10 mg COMMUNITY OUTREACH SPECIALIST COMMUNITY OUTREACH SPECIALIST [facility] PRN Reason: Protocol Stop: 11/01/16 22:16 Last Admin: 10/25/16 23:13 Dose: 10 mg Diltiazem HCl 125 mg/ Dextrose 125 mls @ 5 mls/hr IVPB TITR DAMIAN; 5 MG/HR PRN Reason: Protocol Last Admin: 10/28/16 13:34 Dose: 15 mls/hr Ondansetron HCl (Zofran Injection) 4 mg IVPB Q6H PRN PRN Reason: NAUSEA AND/OR VOMITING ASSESSMENT AND PLAN: Strep Bacteremia Lower Extremity Weakness Epidural Abscess with Cord Compression s/p Hemilaminectomy Hodgkin's Lymphoma h/o DVT Right Pleural Effusion - minimal response to cardizem IVP, will start cardizem gtt - continue antibiotics per ID - f/u cultures - neuro checks - performed bedside ultrasound, small right sided pleural effusion present, can sample pleural fluid if pt febrile or with persistent leukocytosis - ?JILL - pain control - incentive spirometry - DVT prophylaxis - rehab/PT - continue ICU monitoring critical care time spent in reviewing chart, evaluating patient and formulating plan 35 min
[2016-10-28] MEDS ORDERED: oxyCODONE HCL 5 MG TABLET PO PRN (14:23)
--- NOTE | 2016-10-28 14:25 | PN ---
Progress Note (short form) - Note Progress Note: Pain Management Note: Patient is s/p T 2-5 laminectomy evacuation of abscess under general anesthesia post op day 3, ROVING TECHNICIAN for post op pain. Patient is tolerating PO, will discontinue ROVING TECHNICIAN and initiate oral analgesics. Dept of anesthesia will sign off care at this time.
--- NOTE | 2016-10-28 15:53 | PN ---
Progress Note, Physician Chief Complaint: Rapid Afib this AM. Hemodynamically well tolerated with mild Chest pain. Now on Diltiazem drip 15mg/hr with HR 90-110 Echo with TDS but probably normal EF. History of Present Illness: 70M history of anemia, hypertension, hodgkins lymphoma, DVT (1 year ago) not on AC, admitted 10/24/16 with shortness of breath, wheezing, and a productive cough also leg weakness and numbness. Being seen by neurology to rule out GB syndrome. Also noted with mildly elevated bnp. No orthopnea pnd or edema. No chest pain. Found with thoracic epidural abcess, seen by neurosurgery underwent drainage and placement of catheter 10/26/16. Tele with atrial fib new onset with RVR spontaneously converted to nsr. Bcx positive for S. Mitis. - Current Medication List Current Medications: Active Medications Acetaminophen (Tylenol -) 650 mg PO Q4H PRN PRN Reason: FEVER OR PAIN Albuterol/Ipratropium (Duoneb -) 1 amp NEB QIDR [facility] Last Admin: 10/28/16 11:20 Dose: 1 amp Bisacodyl (Dulcolax Suppository -) 10 mg RC DAILY PRN PRN Reason: CONSTIPATION Ceftriaxone Sodium (Rocephin 2gm Ivpb (Pre-Docked)) 2 gm IVPB Q12H [facility] PRN Reason: Protocol Last Admin: 10/28/16 06:21 Dose: 2 gm Diazepam (Valium -) 5 mg PO Q8H [facility] Last Admin: 10/28/16 15:27 Dose: 5 mg Digoxin (Lanoxin -) 0.125 mg PO DAILY [facility] Last Admin: 10/27/16 10:00 Dose: 0.125 mg Docusate Sodium (Colace -) 100 mg PO TID [facility] Last Admin: 10/28/16 15:27 Dose: 100 mg Fentanyl (Sublimaze Injection -) 50 mcg IVPUSH [id number] PRN PRN Reason: PAIN Stop: 10/28/16 22:16 Heparin Sodium (Porcine) (Heparin -) 5,000 unit SQ BID [facility] Last Admin: 10/28/16 13:33 Dose: 5,000 unit Diltiazem HCl 125 mg/ Dextrose 125 mls @ 5 mls/hr IVPB TITR DAMIAN; 5 MG/HR PRN Reason: Protocol Last Admin: 10/28/16 13:34 Dose: 15 mls/hr Ondansetron HCl (Zofran Injection) 4 mg IVPB Q6H PRN PRN Reason: NAUSEA AND/OR VOMITING Oxycodone HCl (Roxicodone -) 5 mg PO Q3H PRN PRN Reason: MODERATE PAIN Oxycodone HCl (Roxicodone -) 10 mg PO Q3H PRN PRN Reason: SEVERE PAIN - Objective Vital Signs: Vital Signs Temperature 99.4 F 10/28/16 15:00 Pulse Rate 110 H 10/28/16 14:00 Respiratory Rate 23 10/28/16 14:00 Blood Pressure 105/74 10/28/16 14:00 O2 Sat by Pulse Oximetry (%) 88 L 10/28/16 09:00 Constitutional: Yes: Well Nourished, No Distress Neck: Yes: WNL Cardiovascular: Yes: Tachycardia Respiratory: Yes: WNL Gastrointestinal: Yes: WNL Edema: Yes Labs: CBC, BMP 10/28/16 05:50 10/28/16 05:50 INR, PTT INR 1.32 (0.82-1.09) H 10/25/16 23:00 - ....Imaging Chest X-ray: Report Reviewed Problem List - Problems (1) PAF (paroxysmal atrial fibrillation) Assessment/Plan: Recurrent Afib now rate controlled. New onset. Start IV Amiodarone IV 1mg/min x 6 hours then 0.5mg/min x18 hours. DC digoxin. Not a candidate for AC until spinal issues are completely resolved, likely at least 6 weeks as the risk of further compression from bleeding is significant. I have explained to the patient that there is a small risk of stroke but that the risk of bleeding outweigh this at present. Code(s): I48.0 - PAROXYSMAL ATRIAL FIBRILLATION (2) CHF exacerbation Assessment/Plan: Previous Echocardiogram and MUGA scan showed normal LV function. Current echo limited but likely normal. Mildly hypoxic and CXR with atelectasis. Code(s): I50.9 - HEART FAILURE, UNSPECIFIED Qualifiers: Congestive heart failure type: diastolic Qualified Code(s): I50.33 - Acute on chronic diastolic (congestive) heart failure
[2016-10-28] MEDS ORDERED: AMIODARONE HCL INJECTION 450 MG in DEXTROSE 5%-WATER - 241 ML IVPB SCH ×2 (16:30→22:30)
[2016-10-28] MEDS: oxyCODONE HCL 5 MG TABLET PO PRN (22:04)
[2016-10-29] MEDS: oxyCODONE HCL 5 MG TABLET PO PRN ×4 (01:38→21:48)
[2016-10-29] MEDS: ALBUTEROL SO4 2.5/IPRATROPIUM 0.5 INH SOL 3 ML VIAL.NEB. NEB SCH ×4 (05:39→17:00)
[2016-10-29] MEDS: diazePAM 5 MG TABLET PO SCH ×3 (06:03→21:47)
[2016-10-29] MEDS: DOCUSATE SODIUM 100 MG CAPSULE (FP) PO SCH ×3 (06:04→21:46)
[2016-10-29] MEDS: cefTRIAXone 2 GM/100 ML BAG (PRE-DOCKED) IVPB SCH ×2 (06:04→18:28)
--- NOTE | 2016-10-29 07:07 | PN ---
Physical Exam: SUBJECTIVE: Patient seen and examined lying comfortably in bed states breathing has improved. no movement in legs. tmax 99.4 OBJECTIVE: Vital Signs Period Temp Pulse Resp BP Sys/Lloyd Pulse Ox Last 24 Hr 98.4 F-99.4 F 92-162 18-24 94-130/42-74 88-89 GENERAL: The patient is awake, alert, and fully oriented, in no acute distress. ENT: oropharynx clear without exudates, moist mucous membranes.. LUNGS: b/l rales, no wheez, b/l air entry present HEART:s1s2 normal irregular ABDOMEN: Soft, nontender, nondistended, normoactive bowel sounds, no guarding, no rebound, no sensation EXTREMITIES: 2+ pulses, warm, no edema. SKIN: Warm, dry, Laboratory Results - last 24 hr 10/25/16 10/28/16 10/28/16 17:00 05:50 05:50 WBC 6.4 RBC 3.46 L Hgb 10.1 L Hct 31.0 L MCV 89.4 MCHC 32.6 RDW 17.1 H Plt Count 165 MPV 7.6 Neutrophils % 64.5 Lymphocytes % 26.2 D Monocytes % 7.7 Eosinophils % 1.1 Basophils % 0.5 ESR 124 H Sodium 136 Potassium 4.2 Chloride 102 Carbon Dioxide 28 Anion Gap 6 L BUN 19 H Creatinine 0.9 Creat Clearance w eGFR > 60 Random Glucose 126 H Calcium 7.7 L Total Bilirubin 0.2 D AST 67 H D ALT 33 D Alkaline Phosphatase 158 H D Total Protein 6.3 L Albumin 1.8 L Sihbr-7-Ozcomdipn (%) Eqoqx-8-Iojtybcmz (%) Beta Globulins (%) Gamma Globulins (%) M-Dale % Ref Test Comments Crossmatch See Detail 10/28/16 05:50 WBC RBC Hgb Hct MCV MCHC RDW Plt Count MPV Neutrophils % Lymphocytes % Monocytes % Eosinophils % Basophils % ESR Sodium Potassium Chloride Carbon Dioxide Anion Gap BUN Creatinine Creat Clearance w eGFR Random Glucose Calcium Total Bilirubin AST ALT Alkaline Phosphatase Total Protein Albumin Sisbb-9-Ddmurroeo (%) Cancelled Igngi-8-Jintzbksl (%) Cancelled Beta Globulins (%) Cancelled Gamma Globulins (%) Cancelled M-Dale % Cancelled Ref Test Comments Cancelled Crossmatch Active Medications Generic Name Dose Route Start Last Admin Trade Name Freq PRN Reason Stop Dose Admin Acetaminophen 650 mg 10/25/16 23:30 Tylenol - PO Q4H PRN FEVER OR PAIN Albuterol/Ipratropium 1 amp 10/26/16 00:00 10/29/16 05:39 Duoneb - NEB 1 amp QIDR [facility] Administration Bisacodyl 10 mg 10/25/16 22:00 Dulcolax Suppository - RC DAILY PRN CONSTIPATION Ceftriaxone Sodium 2 gm 10/26/16 18:50 10/29/16 06:04 Rocephin 2gm Ivpb (Pre-Docked) IVPB 2 gm Q12H [facility] Administration Protocol Diazepam 5 mg 10/25/16 22:00 10/29/16 06:03 Valium - PO 5 mg Q8H [facility] Administration Docusate Sodium 100 mg 10/25/16 22:00 10/29/16 06:04 Colace - PO Not Given TID [facility] Heparin Sodium (Porcine) 5,000 unit 10/26/16 10:15 10/28/16 22:04 Heparin - SQ 5,000 unit BID [facility] Administration Amiodarone HCl 450 mg/ 250 mls @ 16.66 mls/hr 10/28/16 22:30 10/29/16 01:39 Dextrose IVPB 10/29/16 16:29 16.66 mls/hr TITR [facility] Administration 0.5 MG/MIN Ondansetron HCl 4 mg 10/25/16 22:00 Zofran Injection IVPB Q6H PRN NAUSEA AND/OR VOMITING Oxycodone HCl 5 mg 10/28/16 14:23 10/29/16 01:38 Roxicodone - PO 5 mg Q3H PRN Administration MODERATE PAIN Oxycodone HCl 10 mg 10/28/16 14:23 Roxicodone - PO Q3H PRN SEVERE PAIN Microbiology 10/28/16 06:16 Blood - Peripheral Venous Blood Culture - Preliminary NO GROWTH OBTAINED AFTER 24 HOURS, INCUBATION TO CONTINUE FOR 4 DAYS. 10/28/16 05:50 Blood - Peripheral Venous Blood Culture - Preliminary NO GROWTH OBTAINED AFTER 24 HOURS, INCUBATION TO CONTINUE FOR 4 DAYS. 10/24/16 11:46 Blood - Peripheral Venous Blood Culture - Preliminary Streptococcus Pneumoniae Streptococcus Pneumoniae#2 10/25/16 21:43 Abscess Gram Stain - Final 10/25/16 21:43 Abscess Wound Culture - Preliminary Streptococcus Pneumoniae 10/25/16 13:25 Blood - Peripheral Venous Blood Culture - Preliminary NO GROWTH OBTAINED AFTER 72 HOURS, INCUBATION TO CONTINUE FOR 2 DAYS. 10/25/16 13:10 Blood - Peripheral Venous Blood Culture - Preliminary NO GROWTH OBTAINED AFTER 72 HOURS, INCUBATION TO CONTINUE FOR 2 DAYS. 10/25/16 21:43 Abscess AFB Smear Concentration - Final 10/25/16 21:43 Abscess Mycobacterial Culture - Preliminary 10/24/16 11:46 Blood - Peripheral Venous Blood Culture - Final Streptococcus Mitis 10/25/16 21:03 Urine - Urine Kuhn Urine Culture - Final NO GROWTH OBTAINED 10/26/16 14:00 Urine - Urine Kuhn Legionella Antigen - Final 10/26/16 14:00 Urine - Urine Kuhn Streptococcus pneumoniae Antigen (M - Final 10/25/16 21:43 Abscess SALVADOR Preparation - Preliminary 10/25/16 21:43 Abscess Fungal Culture - Preliminary 10/25/16 13:10 Blood - Peripheral Venous TB Test (QFT) (TABITHA) - Preliminary 10/25/16 20:00 Urine For Antigen Detection Legionella Antigen - Final ASSESSMENT/PLAN: 70 yr old man with anemia, HTN, hx of lymphoma, hx of DVT (1 year ago) not on anti-coagulation presents with lower extremity weakness found to have posterior epidural abscess Streptococcal bacteremia Strep Mitis/ Pneumoniae Epidural abscess Non hodghkin lymphoma Atrial fibrillation Plan Continue on IV ceftriaxone 2gm daily Hematology evaluation Check gamma globulins Visit type - Emergency Visit Emergency Visit: Yes ED Registration Date: 10/24/16 Care time: The patient presented to the Emergency Department on the above date and was hospitalized for further evaluation of their emergent condition. - New Patient This patient is new to me today: No - Critical Care Critical Care patient: No
--- NOTE | 2016-10-29 07:18 | PN ---
Teaching Attending Note Name of Resident: Jos Luu ATTENDING PHYSICIAN STATEMENT I saw and evaluated the patient. I reviewed the resident's note and discussed the case with the resident. I agree with the resident's findings and plan as documented. SUBJECTIVE:Continues on Ceftriaxone Not much change if any in his recovery of neurologic function Amazingly both the blood and his spinal culture Strep Pneumo! Though not reportable quite rare OBJECTIVE: ASSESSMENT AND PLAN: Selected Entries 10/28/16 10/28/16 15:00 18:00 Temperature 99.4 F Pulse Rate 109 H Respiratory 20 Rate Blood Pressure 130/42 Microbiology 10/25/16 21:43 Abscess Gram Stain - Final 10/24/16 11:46 Blood - Peripheral Venous Blood Culture - Final Streptococcus Mitis 10/25/16 21:43 Abscess Wound Culture - Preliminary Streptococcus Pneumoniae 10/24/16 11:46 Blood - Peripheral Venous Blood Culture - Preliminary Streptococcus Pneumoniae Streptococcus Pneumoniae#2 Laboratory Tests 10/28/16 10/28/16 10/28/16 05:50 05:50 05:50 WBC 6.4 Hgb 10.1 L Hct 31.0 L ESR 124 H Total Bilirubin 0.2 D Alkaline Phosphatase 158 H D Urine Total Protein Pending Urine PEP Interpret Pending IgG Pending IgA Pending IgM Pending MCKENZIE M-Dale Pending Assessment Streptocococcal bacteremia Strep Mitis/ Pneumoniae Epidural abscess Non Hodgkins Lymphoma Atrial fibrillation Plan Continue antibiotics Hematology evaluation Moniter neuro status Check gamma globulins ? Significance of MRI brain findings persistant lymphoma vs residual Fritz DIAZ Problem List - Problems (1) Epidural abscess Code(s): G06.2 - EXTRADURAL AND SUBDURAL ABSCESS, UNSPECIFIED (2) Weakness of both lower extremities Code(s): R29.898 - OTH SYMPTOMS AND SIGNS INVOLVING THE MUSCULOSKELETAL SYSTEM (3) Pneumococcal bacteremia Code(s): R78.81 - BACTEREMIA
[2016-10-29 08:43] LABS: MCHC 32.4 g/dl (32.0-35.9); MEAN CELL VOLUME 89.5 fl (80-96); MEAN PLT VOLUME 7.2 fl (7.5-11.1); PLATELET COUNT 186 K/MM3 (134-434); RDW 17.2 % (11.9-15.9); WHITE BLOOD COUNT 6.7 K/mm3 (4.0-10.0)
--- NOTE | 2016-10-29 09:18 | PN ---
Progress Note (short form) - Note Progress Note: NEUROSURGERY POD #3 In Afib PE: Tmax 99.2, VSS HEENT- NC/AT; Neck- supple; Cor- RR; Lungs- decreased BS at bases; Abd-obese; + BS; Ext- B LE ankle/distal edema, negative Kaitlynn's Wound- some serosangrenous drainage- changed per RN CN- intact; Motor- UE 4+ B; B LE 0/5; Sensation- decreased LT/PP below about T4- 5 B, but more consistent sensation; DTR- hyporeflexia B; no LTS WBC 6.7 Blood culture- strep mitis/strep pneumo Intra-op gram stain- strep pneumoniae WBC 6.7; Hgb 10.5 MRI: postop changes as expected; some edema of cord; T4 osteo and T4-5 discitis S/p emergency laminectomies for debridement of abscess and cord decompression In AFib Cardiology f/u Cont PT-ROM; encourage pt movements Turn side to side SCD's Cont SQ heparin Prognosis for motor recovery extremely poor Care d/w ID
[2016-10-29 09:24] LABS: CALCIUM 8.2 mg/dL (8.5-10.1); COCKROFT - GAULT 118.91; MAGNESIUM 1.9 mg/dL (1.8-2.4); PHOSPHOROUS 3.1 mg/dL (2.5-4.9)
[2016-10-29] MEDS: HEPARIN NA (PORCINE) 5,000 UNITS/ML 1ML VIAL SQ SCH ×2 (09:46→21:47)
--- NOTE | 2016-10-29 10:33 | PN ---
Progress Note, Physician Chief Complaint: awake alert in ICU on amiodarone drip for afib alert talking not able to move legs has sensation in legs no sensation for bowel and bladder movements - Current Medication List Current Medications: Active Medications Acetaminophen (Tylenol -) 650 mg PO Q4H PRN PRN Reason: FEVER OR PAIN Albuterol/Ipratropium (Duoneb -) 1 amp NEB QIDR [facility] Last Admin: 10/29/16 05:39 Dose: 1 amp Bisacodyl (Dulcolax Suppository -) 10 mg RC DAILY PRN PRN Reason: CONSTIPATION Ceftriaxone Sodium (Rocephin 2gm Ivpb (Pre-Docked)) 2 gm IVPB Q12H [facility] PRN Reason: Protocol Last Admin: 10/29/16 06:04 Dose: 2 gm Diazepam (Valium -) 5 mg PO Q8H [facility] Last Admin: 10/29/16 06:03 Dose: 5 mg Docusate Sodium (Colace -) 100 mg PO TID [facility] Last Admin: 10/29/16 06:04 Dose: Not Given Heparin Sodium (Porcine) (Heparin -) 5,000 unit SQ BID [facility] Last Admin: 10/29/16 09:46 Dose: 5,000 unit Amiodarone HCl 450 mg/ (Dextrose) 250 mls @ 16.66 mls/hr IVPB TITR [facility] PRN Reason: 0.5 MG/MIN Stop: 10/29/16 16:29 Last Admin: 10/29/16 01:39 Dose: 16.66 mls/hr Ondansetron HCl (Zofran Injection) 4 mg IVPB Q6H PRN PRN Reason: NAUSEA AND/OR VOMITING Oxycodone HCl (Roxicodone -) 5 mg PO Q3H PRN PRN Reason: MODERATE PAIN Last Admin: 10/29/16 07:57 Dose: 5 mg Oxycodone HCl (Roxicodone -) 10 mg PO Q3H PRN PRN Reason: SEVERE PAIN - Objective Vital Signs: Vital Signs Temperature 99.0 F 10/29/16 10:00 Pulse Rate 97 H 10/29/16 10:00 Respiratory Rate 24 10/29/16 10:00 Blood Pressure 110/54 10/29/16 10:00 O2 Sat by Pulse Oximetry (%) 96 10/29/16 08:00 Constitutional: Yes: Calm Cardiovascular: Yes: Regular Rate and Rhythm, Pulse Irregular, S1, S2 Respiratory: Yes: CTA Bilaterally Gastrointestinal: Yes: Normal Bowel Sounds, Soft Genitourinary: Yes: Kuhn Present Extremities: Yes: Other (scd) Edema: No Neurological: Yes: Weakness, Other (no motor strenght in LE has sensation in legs upper motor strength intact hyporeflexia) Labs: CBC, BMP 10/29/16 08:25 10/29/16 08:25 INR, PTT INR 1.32 (0.82-1.09) H 10/25/16 23:00 Problem List - Problems (1) Afib Assessment/Plan: icu monitoring for now for rate control while on iv drip iv amiodarone cardio on board Code(s): I48.91 - UNSPECIFIED ATRIAL FIBRILLATION Qualifiers: Atrial fibrillation type: paroxysmal Qualified Code(s): I48.0 - Paroxysmal atrial fibrillation (2) Epidural abscess Assessment/Plan: s/p emergent laminectomies for cord compression iv abx Code(s): G06.2 - EXTRADURAL AND SUBDURAL ABSCESS, UNSPECIFIED (3) Pneumococcal bacteremia Assessment/Plan: iv abx rocephin ID on board tmax 99.1 ESR elevated Code(s): R78.81 - BACTEREMIA (4) Lymphoma Assessment/Plan: heme consult pending Code(s): C85.90 - NON-HODGKIN LYMPHOMA, UNSPECIFIED, UNSPECIFIED SITE (5) Weakness of both lower extremities Assessment/Plan: PT for ROM exercises of legs frequent turn and position] scd and dvt ppx will need acute rehab possible [facility] eval when ready for discharge Code(s): R29.898 - OTH SYMPTOMS AND SIGNS INVOLVING THE MUSCULOSKELETAL SYSTEM
--- NOTE | 2016-10-29 12:13 | PN ---
Teaching Attending Note Name of Resident: Zhang Altamirano ATTENDING PHYSICIAN STATEMENT I saw and evaluated the patient. I reviewed the resident's note and discussed the case with the resident. I agree with the resident's findings and plan as documented. SUBJECTIVE: Pt seen and examined in the ICU. Remains in atrial fibrillation but rates better controlled. Denies shortness of breath, chest pain or palpitations. Started on amiodarone load by cardiology. No improvement in lower extremity motor function but he reports increased sensation. OBJECTIVE: Last Vital Signs Temp Pulse Resp BP Pulse Ox 99.0 F 104 H 26 H 124/71 96 10/29/16 12:00 10/29/16 12:00 10/29/16 12:00 10/29/16 12:00 10/29/16 08:00 Intake & Output 10/26/16 10/27/16 10/28/16 10/29/16 23:59 23:59 23:59 23:59 Intake Total 5827 421 0273 615.4 Output Total 1950 2910 1800 500 Balance -225 -2110 446 115.4 Weight 261 lb 3.964 oz 265 lb 3.457 oz 269 lb 13.533 oz 273 lb 9 oz Gen: NAD at rest Heart: tachycardic, irregular Lung: bilateral rhonchi Abd: soft, nontender Ext: no edema CBC, BMP 10/29/16 08:25 10/29/16 08:25 Active Medications Acetaminophen (Tylenol -) 650 mg PO Q4H PRN PRN Reason: FEVER OR PAIN Albuterol/Ipratropium (Duoneb -) 1 amp NEB QIDR [facility] Last Admin: 10/29/16 05:39 Dose: 1 amp Bisacodyl (Dulcolax Suppository -) 10 mg RC DAILY PRN PRN Reason: CONSTIPATION Ceftriaxone Sodium (Rocephin 2gm Ivpb (Pre-Docked)) 2 gm IVPB Q12H [facility] PRN Reason: Protocol Last Admin: 10/29/16 06:04 Dose: 2 gm Diazepam (Valium -) 5 mg PO Q8H [facility] Last Admin: 10/29/16 06:03 Dose: 5 mg Docusate Sodium (Colace -) 100 mg PO TID [facility] Last Admin: 10/29/16 06:04 Dose: Not Given Heparin Sodium (Porcine) (Heparin -) 5,000 unit SQ BID [facility] Last Admin: 10/29/16 09:46 Dose: 5,000 unit Amiodarone HCl 450 mg/ (Dextrose) 250 mls @ 16.66 mls/hr IVPB TITR [facility] PRN Reason: 0.5 MG/MIN Stop: 10/29/16 16:29 Last Admin: 10/29/16 01:39 Dose: 16.66 mls/hr Ondansetron HCl (Zofran Injection) 4 mg IVPB Q6H PRN PRN Reason: NAUSEA AND/OR VOMITING Oxycodone HCl (Roxicodone -) 5 mg PO Q3H PRN PRN Reason: MODERATE PAIN Last Admin: 10/29/16 07:57 Dose: 5 mg Oxycodone HCl (Roxicodone -) 10 mg PO Q3H PRN PRN Reason: SEVERE PAIN ASSESSMENT AND PLAN: Strep Bacteremia Lower Extremity Paralysis Epidural Abscess with Cord Compression s/p Hemilaminectomy Hodgkin's Lymphoma h/o DVT Right Pleural Effusion - rate/rhythm control per cardiology - continue antibiotics per ID - neuro checks - performed bedside ultrasound, small right sided pleural effusion present, can sample pleural fluid if pt febrile or with persistent leukocytosis - pain control - incentive spirometry - DVT prophylaxis - rehab/PT - can monitor on telemetry critical care time spent in reviewing chart, evaluating patient and formulating plan 35 min
[2016-10-29 12:48] LABS: PLATELET ESTIMATE ADEQUATE (NORMAL)
--- NOTE | 2016-10-29 13:34 | CONSULT ---
Consult - text type - Consultation Consultation Note: 70 M, anemia, hypertension, hodgkins lymphoma, DVT (1 year ago) not currently on AC. Presented to Urgent care about 2 weeks ago for "PNA". He was given Prednisone and Augmentin. Reports weakness and sensory loss in both lower extremities. He underwent emergent laminectomies T2-5 for epidural abscess from strep. pneumoniae He is currently still not able to move his lower extremities. Denies any pain/gi/gu/resp. 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) s/p chemotherapy [facility] Cardio/Vascular: Yes: CHF (Diastolic (nl EF on echo and MUGA from 2015) with hx of SARAH and lasix treatment up to 1 month ago), HTN, Hyperlipdemia Pulmonary: Yes: COPD Hepatobiliary: Yes: Other (hepatosplenomegaly) Musculoskeletal: Yes: Chronic low back pain (lumbar radiculopathy) Rheumatology: Yes: Other (spinal stenosis) Endocrine: Yes: Hyperthyroidism Additional Medical History: history of malaria when he was in [place] - Smoking History Smoking history: Former smoker - Social History Usual Living Arrangement: With Spouse ADL: Independent Occupation: retired Home Medications - Allergies Allergies/Adverse Reactions: Allergies Allergy/AdvReac Type Severity Reaction Status Date / Time No Known Allergies Allergy Verified 10/24/16 09:34 - Home Medications Home Medications: Ambulatory Orders Cyanocobalamin (Vitamin B-12) [B-12] 500 mcg PO DAILY 10/24/16 Furosemide 20 mg PO DAILY 10/24/16 Active Medications Generic Name Dose Route Start Last Admin Trade Name Freq PRN Reason Stop Dose Admin Acetaminophen 650 mg 10/25/16 23:30 Tylenol - PO Q4H PRN FEVER OR PAIN Albuterol/Ipratropium 1 amp 10/26/16 00:00 10/29/16 17:00 Duoneb - NEB 1 amp QIDR [facility] Administration Amiodarone HCl 400 mg 10/29/16 17:30 10/29/16 17:31 Cordarone - PO 400 mg TID [facility] Administration Bisacodyl 10 mg 10/25/16 22:00 Dulcolax Suppository - RC DAILY PRN CONSTIPATION Ceftriaxone Sodium 2 gm 10/26/16 18:50 10/29/16 18:28 Rocephin 2gm Ivpb (Pre-Docked) IVPB 2 gm Q12H [facility] Administration Protocol Diazepam 5 mg 10/25/16 22:00 10/29/16 13:33 Valium - PO 5 mg Q8H [facility] Administration Docusate Sodium 100 mg 10/25/16 22:00 10/29/16 13:35 Colace - PO Not Given TID [facility] Heparin Sodium (Porcine) 5,000 unit 10/26/16 10:15 10/29/16 09:46 Heparin - SQ 5,000 unit BID [facility] Administration Ondansetron HCl 4 mg 10/25/16 22:00 Zofran Injection IVPB Q6H PRN NAUSEA AND/OR VOMITING Oxycodone HCl 5 mg 10/28/16 14:23 10/29/16 13:33 Roxicodone - PO 5 mg Q3H PRN Administration MODERATE PAIN Oxycodone HCl 10 mg 10/28/16 14:23 Roxicodone - PO Q3H PRN SEVERE PAIN Family Disease History - Family Disease History Family Disease History: Heart Disease: Father (of throat), Mother, CA: Father, Other: Son (sarcoid- (has 2 other sons, including a twin of the one who )) Physical Exam Vital Signs: Last Vital Signs Temp Pulse Resp BP Pulse Ox 99.0 F 88 19 117/50 97 10/29/16 18:00 10/29/16 18:00 10/29/16 18:00 10/29/16 18:00 10/29/16 13:40 Neck: Supple Cor: RSR, No murmurs, No gallops Lungs: Clear to P&A Abd: Soft, Normal bowel sounds, No organomegaly Ext:No significant edema Abnormal Lab Results 10/25/16 10/28/16 10/29/16 17:00 05:50 08:25 RBC 3.61 L Hgb 10.5 L Hct 32.3 L RDW 17.2 H MPV 7.2 L Eosinophils % 5.0 H D Anion Gap BUN Random Glucose Calcium IgG 1696 H IgM 194 H Crossmatch See Detail 10/29/16 08:25 RBC Hgb Hct RDW MPV Eosinophils % Anion Gap 6 L BUN 20 H Random Glucose 124 H Calcium 8.2 L IgG IgM Crossmatch Imaging - Results Chest X-ray: Report Reviewed, Image Reviewed Cat Scan: Report Reviewed, Image Reviewed A/P 70 y/o patient with Hodgkins lymphoma with h/o cavernous sinus, pituitary involvement, s//p chemotherapy completed > 6months ago, also with h/o DVT, not on a/c, obesity, CHF comes in with paralysis, spidural abscessses, s/ p laminectomies, strep. pneumonia bacterremia and abscesses h/o hodgkins with cavenous sinus and pituitary involvement in 2014, s/p ABVD/ .SCAR. CT scans show improved retroperitoneal adenopathy/small mediastinal nodes. RML lung nodules and sclerosis of bones no obvious active disease -- will needs PET- CT outpatient given CT findings s/ o residual vs treated disease immunosuppressed due to prior chemotherapy ? cellular/humoral deficiencies related to hodgkins h/o DVT 1yr. ago. Was not on a/c and currenly unable to initiate due to spine surgery [id number]--not flushed for > 6months. will getIR study --fluoroscopy , to check its patency prior to use. Will need to check cx from [place]
--- NOTE | 2016-10-29 13:51 | PN ---
Physical Exam: SUBJECTIVE: Patient seen and examined denies palpitations, chest pain, headache, changes in vision. Has good appetite. c/o intermittent productive cough and trouble clearing his throat. OBJECTIVE: Vital Signs Period Temp Pulse Resp BP Sys/Lloyd Pulse Ox Last 24 Hr 99.0 F-99.4 F 92-115 20-30 101-130/42-74 89-97 GENERAL: The patient is awake, alert, and fully oriented, in no acute distress. HEAD: Normal with no signs of trauma. EYES: PERRL, extraocular movements intact, sclera anicteric, conjunctiva clear. No ptosis. ENT: , oropharynx clear without exudates, moist mucous membranes. NECK: Trachea midline, full range of motion, supple. LUNGS: quiet at bases, diffuse rhonchi throughout. HEART: distant heart sounds, S1, S2 ABDOMEN: obese, Soft, nondistended, normoactive bowel sounds EXTREMITIES: 2+ DP and radial pulses, warm, well-perfused, no edema. NEUROLOGICAL: Sensation: intact on scalp, face, neck, arms, forearms, hands, and chest upto nipple line. says sensation is weaker on left side, feels the soles of his b/l feet. 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 Motor: range of motion full on fingers, wrists, elbows and shoulders. unable to move b/l le. lim in place SKIN: erythemaous sacrum, incision dressing changed today, site is CDI without drainage, mild erythema, steristrips in place Laboratory Results - last 24 hr 10/25/16 10/28/16 10/29/16 17:00 05:50 08:25 WBC 6.7 RBC 3.61 L Hgb 10.5 L Hct 32.3 L MCV 89.5 MCHC 32.4 RDW 17.2 H Plt Count 186 MPV 7.2 L Neutrophils % 66.0 Lymphocytes % 24.0 Monocytes % 4.0 Eosinophils % 5.0 H D Myelocytes 1 D Differential Comment Manual diff done Platelet Estimate Adequate Sodium Potassium Chloride Carbon Dioxide Anion Gap BUN Creatinine Random Glucose Calcium Phosphorus Magnesium Divrw-1-Qnhnqwgex (%) Cancelled Mwwje-3-Orjnzcpfk (%) Cancelled Beta Globulins (%) Cancelled Gamma Globulins (%) Cancelled M-Dale % Cancelled IgG 1696 H IgA 405 IgM 194 H Ref Test Comments Cancelled Crossmatch See Detail 10/29/16 08:25 WBC RBC Hgb Hct MCV MCHC RDW Plt Count MPV Neutrophils % Lymphocytes % Monocytes % Eosinophils % Myelocytes Differential Comment Platelet Estimate Sodium 137 Potassium 4.3 Chloride 100 Carbon Dioxide 31 Anion Gap 6 L BUN 20 H Creatinine 1.0 Random Glucose 124 H Calcium 8.2 L Phosphorus 3.1 Magnesium 1.9 Rnwle-1-Lkjqxbpat (%) Fmilu-5-Jyhnnfczf (%) Beta Globulins (%) Gamma Globulins (%) M-Dale % IgG IgA IgM Ref Test Comments Crossmatch Active Medications Generic Name Dose Route Start Last Admin Trade Name Freq PRN Reason Stop Dose Admin Acetaminophen 650 mg 10/25/16 23:30 Tylenol - PO Q4H PRN FEVER OR PAIN Albuterol/Ipratropium 1 amp 10/26/16 00:00 10/29/16 11:40 Duoneb - NEB 1 amp QIDR [facility] Administration Bisacodyl 10 mg 10/25/16 22:00 Dulcolax Suppository - RC DAILY PRN CONSTIPATION Ceftriaxone Sodium 2 gm 10/26/16 18:50 10/29/16 06:04 Rocephin 2gm Ivpb (Pre-Docked) IVPB 2 gm Q12H [facility] Administration Protocol Diazepam 5 mg 10/25/16 22:00 10/29/16 13:33 Valium - PO 5 mg Q8H [facility] Administration Docusate Sodium 100 mg 10/25/16 22:00 10/29/16 13:35 Colace - PO Not Given TID [facility] Heparin Sodium (Porcine) 5,000 unit 10/26/16 10:15 10/29/16 09:46 Heparin - SQ 5,000 unit BID [facility] Administration Amiodarone HCl 450 mg/ 250 mls @ 16.66 mls/hr 10/28/16 22:30 10/29/16 01:39 Dextrose IVPB 10/29/16 16:29 16.66 mls/hr TITR [facility] Administration 0.5 MG/MIN Ondansetron HCl 4 mg 10/25/16 22:00 Zofran Injection IVPB Q6H PRN NAUSEA AND/OR VOMITING Oxycodone HCl 5 mg 10/28/16 14:23 10/29/16 13:33 Roxicodone - PO 5 mg Q3H PRN Administration MODERATE PAIN Oxycodone HCl 10 mg 10/28/16 14:23 Roxicodone - PO Q3H PRN SEVERE PAIN Microbiology 10/25/16 13:25 Blood Culture - Preliminary Blood - Peripheral Venous NO GROWTH OBTAINED AFTER 96 HOURS, INCUBATION TO CONTINUE FOR 1 DAYS. 10/25/16 13:10 Blood Culture - Preliminary Blood - Peripheral Venous NO GROWTH OBTAINED AFTER 96 HOURS, INCUBATION TO CONTINUE FOR 1 DAYS. 10/25/16 21:43 Gram Stain - Final Abscess Wound Culture - Final Streptococcus Pneumoniae 10/24/16 11:46 Blood Culture - Preliminary Blood - Peripheral Venous Streptococcus Pneumoniae Streptococcus Pneumoniae#2 10/25/16 13:10 TB Test (QFT) (TABITHA) - Final Blood - Peripheral Venous 10/28/16 06:16 Blood Culture - Preliminary Blood - Peripheral Venous NO GROWTH OBTAINED AFTER 24 HOURS, INCUBATION TO CONTINUE FOR 4 DAYS. 10/28/16 05:50 Blood Culture - Preliminary Blood - Peripheral Venous NO GROWTH OBTAINED AFTER 24 HOURS, INCUBATION TO CONTINUE FOR 4 DAYS. 10/25/16 21:43 AFB Smear Concentration - Final Abscess Mycobacterial Culture - Preliminary ASSESSMENT/PLAN: 70 yr old man with anemia, HTN, hx of hodgkins lymphoma, hx of DVT (1 year ago ) not on anti-coagulation presents with lower extremity weakness found to have posterior epidural abscess with cord compression with complete motor paraplegia , s/p laminectomy (10/25). - EMG will not be conducted, not indicated Neurological - epidural abscess laminectomy (10/25) - neuro checks - Physical therapy pain control - fentanyl 50 mcq ivpush q5min prn - valium 5mg po q8h kelley - oxycodone consult: Dr. Marcano consult: Dr. Wills Infectious disease strep pneumon and Strep mitis in bld cx and epidural abscess - rocephin 2gm q12hr IVPB -- start 10/26 consult: Dr. Brewer Cardiovascular new onset Afib, recurrent paroxysmal -- amdiodarone drip 0.5mg/min for 18 hours - to be completed later today, appears to have converted on the monitor this afternoon. - avoid beta sameer given COPD hx - avoid full dose antiocoagulation for afib due to risk of bleeding - heparin for dvt prophylaxis is okay - echo without pericardial effusion/cannot r/o vegetation, -- would defer JILL due to labile oxygen saturation and afib, likely unstable consult: Respiratory - aggressive incentive spirometery QID to decrease atelectasis, chest PT with caution to avoid incision site and spine, - 2lpm nasal cannula, titr to maintian sat O2 >90% - right pleural effusion with loculations, parapneumonic or malignant, to be discussed with ID regarding tap - chest xray in the AM Hematological hx of DVT - no acute DVT seen on vascular study high risk of bleed for anticoagulation, defer for [address] Cheney consulted regarding chemotherapy Renal encourage oral hydration monitor urine output, lim in place to prevent contact dermatitis from urinary incontinence GI colace po TID given opiates zofran prn for nausea q6h prn prophylaxis DVT: heparin BID 5000 unit SQ Diet: regular Visit type - Emergency Visit Emergency Visit: No - New Patient This patient is new to me today: No - Critical Care Critical Care patient: Yes Total Critical Care Time (in minutes): 36 Critical Care Statement: The care of this patient involved high complexity decision making to prevent further life threatening deterioration of the patient 's condition and/or to evalute & treat vital organ system(s) failure or risk of failure.
--- NOTE | 2016-10-29 15:45 | PN ---
Progress Note, Physician Chief Complaint: Cardiology follow up Afib converted to NSR today. Echo with TDS but probably normal EF. Prior MUGA [id number] was normal History of Present Illness: 70M history of anemia, hypertension, hodgkins lymphoma, DVT (1 year ago) not on AC, admitted 10/24/16 with shortness of breath, wheezing, and a productive cough also leg weakness and numbness. Being seen by neurology to rule out GB syndrome. Also noted with mildly elevated bnp. No orthopnea pnd or edema. No chest pain. Found with thoracic epidural abcess, seen by neurosurgery underwent drainage and placement of catheter 10/26/16. Tele with atrial fib new onset with RVR spontaneously converted to nsr. Bcx positive for Strep Pneumo. - Current Medication List Current Medications: Active Medications Acetaminophen (Tylenol -) 650 mg PO Q4H PRN PRN Reason: FEVER OR PAIN Albuterol/Ipratropium (Duoneb -) 1 amp NEB QIDR [facility] Last Admin: 10/29/16 11:40 Dose: 1 amp Bisacodyl (Dulcolax Suppository -) 10 mg RC DAILY PRN PRN Reason: CONSTIPATION Ceftriaxone Sodium (Rocephin 2gm Ivpb (Pre-Docked)) 2 gm IVPB Q12H [facility] PRN Reason: Protocol Last Admin: 10/29/16 06:04 Dose: 2 gm Diazepam (Valium -) 5 mg PO Q8H [facility] Last Admin: 10/29/16 13:33 Dose: 5 mg Docusate Sodium (Colace -) 100 mg PO TID [facility] Last Admin: 10/29/16 13:35 Dose: Not Given Heparin Sodium (Porcine) (Heparin -) 5,000 unit SQ BID [facility] Last Admin: 10/29/16 09:46 Dose: 5,000 unit Amiodarone HCl 450 mg/ (Dextrose) 250 mls @ 16.66 mls/hr IVPB TITR [facility] PRN Reason: 0.5 MG/MIN Stop: 10/29/16 16:29 Last Admin: 10/29/16 01:39 Dose: 16.66 mls/hr Ondansetron HCl (Zofran Injection) 4 mg IVPB Q6H PRN PRN Reason: NAUSEA AND/OR VOMITING Oxycodone HCl (Roxicodone -) 5 mg PO Q3H PRN PRN Reason: MODERATE PAIN Last Admin: 10/29/16 13:33 Dose: 5 mg Oxycodone HCl (Roxicodone -) 10 mg PO Q3H PRN PRN Reason: SEVERE PAIN - Objective Vital Signs: Vital Signs Temperature 99.1 F 10/29/16 14:00 Pulse Rate 89 10/29/16 14:00 Respiratory Rate 24 10/29/16 14:00 Blood Pressure 76/64 10/29/16 14:00 O2 Sat by Pulse Oximetry (%) 97 10/29/16 13:40 Constitutional: Yes: No Distress Eyes: Yes: WNL HENT: Yes: WNL Neck: Yes: WNL Cardiovascular: Yes: WNL, Regular Rate and Rhythm Respiratory: Yes: On Nasal O2, Rhonchi Gastrointestinal: Yes: WNL Edema: No Labs: CBC, BMP 10/29/16 08:25 10/29/16 08:25 INR, PTT INR 1.32 (0.82-1.09) H 10/25/16 23:00 - ....Imaging Chest X-ray: Report Reviewed Problem List - Problems (1) PAF (paroxysmal atrial fibrillation) Assessment/Plan: Converted to NSR. Complete Amiodarone IV followed by Amiodarone 400mg PO TID. Follow LFT Continue telemetry monitoring Not a candidate for AC until spinal issues are completely resolved, and ok with neurosurgery/neurology. Code(s): I48.0 - PAROXYSMAL ATRIAL FIBRILLATION (2) CHF exacerbation Assessment/Plan: Previous Echocardiogram and MUGA scan showed normal LV function. Current echo limited but likely normal. Mildly hypoxic and CXR with atelectasis. Code(s): I50.9 - HEART FAILURE, UNSPECIFIED Qualifiers: Congestive heart failure type: diastolic Qualified Code(s): I50.33 - Acute on chronic diastolic (congestive) heart failure
[2016-10-29] MEDS: AMIODARONE HCL 200 MG TABLET (FP) PO SCH ×2 (17:31→21:47)
[2016-10-29] MEDS ORDERED: AMIODARONE HCL 200 MG TABLET (FP) PO SCH (18:00)
[2016-10-29] MEDS: ACETAMINOPHEN 325 MG TABLET (FP) PO PRN (21:48)
[2016-10-30 00:07] LABS: A/G RATIO 0.5 (0.7-1.7); ALBUMIN 2.1 g/dL (2.9-4.4); GLOBULIN, TOTAL 4.2 g/dL (2.2-3.9); TOTAL PROTEIN 6.3 g/dL (6.0-8.5)
[2016-10-30] MEDS: ALBUTEROL SO4 2.5/IPRATROPIUM 0.5 INH SOL 3 ML VIAL.NEB. NEB SCH ×5 (00:10→23:57)
[2016-10-30] MEDS: DOCUSATE SODIUM 100 MG CAPSULE (FP) PO SCH ×3 (05:45→21:28)
[2016-10-30] MEDS: AMIODARONE HCL 200 MG TABLET (FP) PO SCH ×3 (05:45→21:28)
[2016-10-30] MEDS: diazePAM 5 MG TABLET PO SCH ×3 (05:46→21:29)
[2016-10-30] MEDS: cefTRIAXone 2 GM/100 ML BAG (PRE-DOCKED) IVPB SCH ×2 (06:02→18:33)
[2016-10-30 06:28] LABS: BASOPHIL 0.6 % (0-2.0); EOSINOPHIL 3.1 % (0-4.5); MCH 29.3 pg (25.7-33.7); MCHC 32.6 g/dl (32.0-35.9); MEAN CELL VOLUME 89.8 fl (80-96); MEAN PLT VOLUME 7.4 fl (7.5-11.1); NEUTROPHILS 65.2 % (42.8-82.8); PLATELET COUNT 170 K/MM3 (134-434); RDW 16.7 % (11.9-15.9); WHITE BLOOD COUNT 5.3 K/mm3 (4.0-10.0)
[2016-10-30 06:57] LABS: ALBUMIN 1.7 g/dl (3.4-5.0); ANION GAP 8 (8-16); CALCIUM 8.2 mg/dL (8.5-10.1); CO2 30 mmol/L (21-32); COCKROFT - GAULT 119.49; GLUCOSE,RANDOM 128 mg/dL (74-106); MAGNESIUM 1.9 mg/dL (1.8-2.4); PHOSPHOROUS 3.7 mg/dL (2.5-4.9); SGOT/AST 50 U/L (15-37); SGPT/ALT 33 U/L (12-78)
[2016-10-30 06:58] LABS: ALK PHOS 127 U/L (45-117); BILIRUBIN,TOTAL 0.3 mg/dL (0.2-1.0); TOT PROT 6.3 g/dl (6.4-8.2)
[2016-10-30] MEDS: oxyCODONE HCL 5 MG TABLET PO PRN ×2 (07:25→12:09)
--- NOTE | 2016-10-30 07:25 | PN ---
Progress Note, Physician Chief Complaint: ID Congested bust no SOB Rate controlled Hematology note reviewed regarding immunosurpression of lymphoma and chemotherapy as predisposing factor for infection with encapsulated bacteria Strep Pneumo. Ceftriaxone - Current Medication List Current Medications: Active Medications Acetaminophen (Tylenol -) 650 mg PO Q4H PRN PRN Reason: FEVER OR PAIN Last Admin: 10/29/16 21:48 Dose: 650 mg Albuterol/Ipratropium (Duoneb -) 1 amp NEB QIDR [facility] Last Admin: 10/30/16 06:24 Dose: 1 amp Amiodarone HCl (Cordarone -) 400 mg PO TID [facility] Last Admin: 10/30/16 05:45 Dose: 400 mg Bisacodyl (Dulcolax Suppository -) 10 mg RC DAILY PRN PRN Reason: CONSTIPATION Ceftriaxone Sodium (Rocephin 2gm Ivpb (Pre-Docked)) 2 gm IVPB Q12H [facility] PRN Reason: Protocol Last Admin: 10/30/16 06:02 Dose: 2 gm Diazepam (Valium -) 5 mg PO Q8H [facility] Last Admin: 10/30/16 05:46 Dose: 5 mg Docusate Sodium (Colace -) 100 mg PO TID [facility] Last Admin: 10/30/16 05:45 Dose: 100 mg Heparin Sodium (Porcine) (Heparin -) 5,000 unit SQ BID [facility] Last Admin: 10/29/16 21:47 Dose: 5,000 unit Ondansetron HCl (Zofran Injection) 4 mg IVPB Q6H PRN PRN Reason: NAUSEA AND/OR VOMITING Oxycodone HCl (Roxicodone -) 5 mg PO Q3H PRN PRN Reason: MODERATE PAIN Last Admin: 10/29/16 21:48 Dose: 5 mg Oxycodone HCl (Roxicodone -) 10 mg PO Q3H PRN PRN Reason: SEVERE PAIN - Objective Vital Signs: Vital Signs Temperature 98.2 F 10/30/16 06:00 Pulse Rate 80 10/30/16 06:00 Respiratory Rate 18 10/30/16 06:00 Blood Pressure 109/54 10/30/16 06:00 O2 Sat by Pulse Oximetry (%) 97 10/29/16 20:00 Constitutional: Yes: Well Nourished, No Distress, Obese HENT: Yes: WNL, Atraumatic Neck: Yes: WNL, Supple Cardiovascular: Yes: Regular Rate and Rhythm, S1, S2. No: Murmur Respiratory: Yes: WNL, Regular, CTA Bilaterally, Rhonchi. No: SOB Gastrointestinal: Yes: WNL, Normal Bowel Sounds, Soft. No: Tenderness, Tenderness, Rebound Edema: No Neurological: Yes: Other (Some sensation but no obvius motor function LE) Labs: CBC, BMP 10/30/16 05:10 10/30/16 05:10 INR, PTT INR 1.32 (0.82-1.09) H 10/25/16 23:00 Problem List - Problems (1) Epidural abscess Code(s): G06.2 - EXTRADURAL AND SUBDURAL ABSCESS, UNSPECIFIED (2) Weakness of both lower extremities Code(s): R29.898 - OTH SYMPTOMS AND SIGNS INVOLVING THE MUSCULOSKELETAL SYSTEM (3) Pneumococcal bacteremia Code(s): R78.81 - BACTEREMIA Assessment/Plan Laboratory Tests 10/28/16 10/30/16 10/30/16 05:50 05:10 05:10 WBC 5.3 Hgb 10.2 L Hct 31.4 L Plt Count 170 BUN 22 H Creatinine 1.0 Total Bilirubin 0.3 D Alkaline Phosphatase 127 H Total Protein 6.3 L Albumin 1.7 L IgG 1696 H IgA 405 IgM 194 H Assessment Polymicrobial bacteremia gram positive Strep Mitis and Strep Pneumo with seeding to spine Epidural abscess thoracic level strep Pneumo S?P multiple laminectomies day 5 post PAF rate controlled Chemotherapy for Lymphoma in the recent past Chest congestion Plan Continue IV therapy Ceftriaxone will obviously require assisted treatment probably total 8 weeks. Monitoring neuro status for return motor function Critical care time spent 35 minutes Fritz DIAZ
--- NOTE | 2016-10-30 07:30 | PN ---
Progress Note (short form) - Note Progress Note: NEUROSURGERY POD #4 Some incisional pain Sitting up in bed PE: Tmax 99.1, VSS HEENT- NC/AT; Neck- supple; Cor- RR; Lungs- decreased BS at bases; Abd-obese; + BS; Ext- B LE ankle/distal edema, negative Kaitlynn's Wound- some serosangrenous drainage- changed per RN CN- intact; Motor- UE 4+ B; B LE 0/5; Sensation- decreased LT/PP below about T4- 5 B, but more consistent sensation; DTR- hyporeflexia B Blood culture- strep mitis/strep pneumo Intra-op gram stain/cx- strep pneumoniae WBC 5.3; Hgb 10.2 S/p emergency laminectomies for debridement of abscess and cord decompression In sinus Cont PT-ROM; encourage pt movements On ceftriaxone - 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
[2016-10-30] MEDS ORDERED: ACETAMINOPHEN 1000 MG/100 ML VIAL (NON FORMULARY) IVPB PRN (09:04)
--- NOTE | 2016-10-30 09:04 | PN ---
Progress Note, Physician History of Present Illness: S/P EMERGENCY LAMINECTOMY UNABLE TO MOVE LEGS C/O CHEST PAIN 10/07 NO SOB ON OXYGEN - Current Medication List Current Medications: Active Medications Acetaminophen (Tylenol -) 650 mg PO Q4H PRN PRN Reason: FEVER OR PAIN Last Admin: 10/29/16 21:48 Dose: 650 mg Albuterol/Ipratropium (Duoneb -) 1 amp NEB QIDR [facility] Last Admin: 10/30/16 06:24 Dose: 1 amp Amiodarone HCl (Cordarone -) 400 mg PO TID [facility] Last Admin: 10/30/16 05:45 Dose: 400 mg Bisacodyl (Dulcolax Suppository -) 10 mg RC DAILY PRN PRN Reason: CONSTIPATION Ceftriaxone Sodium (Rocephin 2gm Ivpb (Pre-Docked)) 2 gm IVPB Q12H [facility] PRN Reason: Protocol Last Admin: 10/30/16 06:02 Dose: 2 gm Diazepam (Valium -) 5 mg PO Q8H [facility] Last Admin: 10/30/16 05:46 Dose: 5 mg Docusate Sodium (Colace -) 100 mg PO TID [facility] Last Admin: 10/30/16 05:45 Dose: 100 mg Heparin Sodium (Porcine) (Heparin -) 5,000 unit SQ BID [facility] Last Admin: 10/29/16 21:47 Dose: 5,000 unit Ondansetron HCl (Zofran Injection) 4 mg IVPB Q6H PRN PRN Reason: NAUSEA AND/OR VOMITING Oxycodone HCl (Roxicodone -) 5 mg PO Q3H PRN PRN Reason: MODERATE PAIN Last Admin: 10/30/16 07:25 Dose: 5 mg Oxycodone HCl (Roxicodone -) 10 mg PO Q3H PRN PRN Reason: SEVERE PAIN - Objective Vital Signs: Vital Signs Temperature 98.2 F 10/30/16 06:00 Pulse Rate 80 10/30/16 06:00 Respiratory Rate 18 10/30/16 06:00 Blood Pressure 109/54 10/30/16 06:00 O2 Sat by Pulse Oximetry (%) 97 10/29/16 20:00 Cardiovascular: Yes: Regular Rate and Rhythm Respiratory: Yes: Diminished, On Nasal O2 Gastrointestinal: Yes: Normal Bowel Sounds, Soft Edema: No Neurological: Yes: Alert, Oriented, Weakness (UNABLE TO MOVE LEGS ABLE TO FEEL) Labs: CBC, BMP 10/30/16 05:10 10/30/16 05:10 INR, PTT INR 1.32 (0.82-1.09) H 10/25/16 23:00 Problem List - Problems (1) Epidural abscess Assessment/Plan: abx per id d/w dr solis start sq heparin continue with iv abx Code(s): G06.2 - EXTRADURAL AND SUBDURAL ABSCESS, UNSPECIFIED (2) Positive blood culture Assessment/Plan: abx per dr llamas repeat cultures echo noted--will d/w cardio Code(s): R78.81 - BACTEREMIA (3) Acute on chronic renal insufficiency Assessment/Plan: monitor Code(s): N28.9 - DISORDER OF KIDNEY AND URETER, UNSPECIFIED N18.9 - CHRONIC KIDNEY DISEASE, UNSPECIFIED (4) CHF exacerbation Assessment/Plan: will hold off on lasix cardio noted Code(s): I50.9 - HEART FAILURE, UNSPECIFIED Qualifiers: Congestive heart failure type: diastolic Qualified Code(s): I50.33 - Acute on chronic diastolic (congestive) heart failure (5) Lymphoma Assessment/Plan: in remission oncology consult Code(s): C85.90 - NON-HODGKIN LYMPHOMA, UNSPECIFIED, UNSPECIFIED SITE (6) Weakness of both lower extremities Assessment/Plan: as above due abscess---abx ct of ls spine neuro and ns consult Code(s): R29.898 - OTH SYMPTOMS AND SIGNS INVOLVING THE MUSCULOSKELETAL SYSTEM (7) Afib Assessment/Plan: follow labs no ac due to spinal surgery ON amiodorone Code(s): I48.91 - UNSPECIFIED ATRIAL FIBRILLATION Qualifiers: Atrial fibrillation type: paroxysmal Qualified Code(s): I48.0 - Paroxysmal atrial fibrillation (8) Chest pain Assessment/Plan: follow ce ekg d-dimer duplex of le Code(s): R07.9 - CHEST PAIN, UNSPECIFIED
--- NOTE | 2016-10-30 09:38 | EKG ---
Test Reason : Blood Pressure : / mmHG Vent. Rate : 079 BPM Atrial Rate : 079 BPM P-R Int : 172 ms QRS Dur : 136 ms QT Int : 388 ms P-R-T Axes : 022 -26 034 degrees QTc Int : 444 ms NORMAL SINUS RHYTHM RIGHT BUNDLE BRANCH BLOCK ABNORMAL ECG WHEN COMPARED WITH ECG OF 27-OCT-2016 09:18, NO SIGNIFICANT CHANGE WAS FOUND Confirmed by TERESA PEARCE MD ([id number]) on 10/30/2016 9:37:45 AM Referred By: Confirmed By:TERESA PEARCE MD
[2016-10-30] MEDS: HEPARIN NA (PORCINE) 5,000 UNITS/ML 1ML VIAL SQ SCH ×2 (10:04→21:29)
--- NOTE | 2016-10-30 14:34 | PN ---
Teaching Attending Note Name of Resident: Niya Blakely ATTENDING PHYSICIAN STATEMENT I saw and evaluated the patient. I reviewed the resident's note and discussed the case with the resident. I agree with the resident's findings and plan as documented. SUBJECTIVE: Patient seen and examined in the ICU. Awake and alert. Denies shortness of breath, chest pain or palpitations. No improvement in lower extremity motor function. OBJECTIVE: Intake & Output 10/27/16 10/28/16 10/29/16 10/30/16 23:59 23:59 23:59 23:59 Intake Total 800 2246 1805.3 500 Output Total 2910 1800 1000 800 Balance -2110 446 805.3 -300 Weight 265 lb 3.457 oz 269 lb 13.533 oz 273 lb 9 oz 274 lb 14.4 oz Last Vital Signs Temp Pulse Resp BP Pulse Ox 98.0 F 80 22 104/52 99 10/30/16 14:00 10/30/16 14:00 10/30/16 14:00 10/30/16 14:00 10/30/16 08:00 Active Medications Acetaminophen (Tylenol -) 650 mg PO Q4H PRN PRN Reason: FEVER OR PAIN Last Admin: 10/29/16 21:48 Dose: 650 mg Acetaminophen (Ofirmev Injection -) 1,000 mg IVPB Q6H PRN PRN Reason: FEVER OR PAIN Stop: 10/31/16 03:05 Albuterol/Ipratropium (Duoneb -) 1 amp NEB QIDR [facility] Last Admin: 10/30/16 11:15 Dose: 1 amp Amiodarone HCl (Cordarone -) 400 mg PO TID [facility] Last Admin: 10/30/16 13:29 Dose: 400 mg Bisacodyl (Dulcolax Suppository -) 10 mg RC DAILY PRN PRN Reason: CONSTIPATION Ceftriaxone Sodium (Rocephin 2gm Ivpb (Pre-Docked)) 2 gm IVPB Q12H [facility] PRN Reason: Protocol Last Admin: 10/30/16 06:02 Dose: 2 gm Diazepam (Valium -) 5 mg PO Q8H [facility] Last Admin: 10/30/16 05:46 Dose: 5 mg Docusate Sodium (Colace -) 100 mg PO TID [facility] Last Admin: 10/30/16 13:30 Dose: 100 mg Heparin Sodium (Porcine) (Heparin -) 5,000 unit SQ BID [facility] Last Admin: 10/30/16 10:04 Dose: 5,000 unit Ondansetron HCl (Zofran Injection) 4 mg IVPB Q6H PRN PRN Reason: NAUSEA AND/OR VOMITING Oxycodone HCl (Roxicodone -) 5 mg PO Q3H PRN PRN Reason: MODERATE PAIN Last Admin: 10/30/16 12:09 Dose: 5 mg Oxycodone HCl (Roxicodone -) 10 mg PO Q3H PRN PRN Reason: SEVERE PAIN Gen: Awake and alert Heart: tachycardic, irregular Lung: bilateral rhonchi Abd: soft, nontender Ext: (+) edema Laboratory Results - last 24 hr 10/28/16 10/30/16 10/30/16 05:50 05:10 05:10 WBC 5.3 RBC 3.49 L Hgb 10.2 L Hct 31.4 L MCV 89.8 MCHC 32.6 RDW 16.7 H Plt Count 170 MPV 7.4 L Neutrophils % 65.2 Lymphocytes % 22.9 Monocytes % 8.2 D Eosinophils % 3.1 Basophils % 0.6 D-Dimer Sodium 137 Potassium 4.5 Chloride 99 Carbon Dioxide 30 Anion Gap 8 BUN 22 H Creatinine 1.0 Creat Clearance w eGFR > 60 Random Glucose 128 H Calcium 8.2 L Phosphorus 3.7 Magnesium 1.9 Total Bilirubin 0.3 D AST 50 H D ALT 33 Alkaline Phosphatase 127 H Troponin I Prot Electrophoresis Serum Total Protein 6.3 Total Protein 6.3 L Albumin 2.1 L 1.7 L Globulin 4.2 H Albumin/Globulin Ratio 0.5 L Tphgw-5-Iluvatktx 0.5 H Nrvri-3-Sxfbgaaex 0.9 Beta Globulins 1.0 Gamma Globulins 1.9 H [facility]CK[facility] M-Dale 10/30/16 10/30/16 09:50 09:50 WBC RBC Hgb Hct MCV MCHC RDW Plt Count MPV Neutrophils % Lymphocytes % Monocytes % Eosinophils % Basophils % D-Dimer 5200 H Sodium Potassium Chloride Carbon Dioxide Anion Gap BUN Creatinine Creat Clearance w eGFR Random Glucose Calcium Phosphorus Magnesium Total Bilirubin AST ALT Alkaline Phosphatase Troponin I < 0.02 Prot Electrophoresis Serum Total Protein Total Protein Albumin Globulin Albumin/Globulin Ratio Dnrax-7-Lpqxpupdz Idcku-5-Wydjfpxwb Beta Globulins Gamma Globulins [facility] M-Dale ASSESSMENT AND PLAN: Strep Bacteremia Lower Extremity Paralysis Epidural Abscess with Cord Compression s/p Hemilaminectomy Hodgkin's Lymphoma h/o DVT Right Pleural Effusion - rate/rhythm control per cardiology - continue antibiotics per ID - neuro checks - pain control - incentive spirometry - DVT prophylaxis - rehab/PT - Telemetry monitoring - Check LE US - For CT chest Dr Garcia critical care time spent in reviewing chart, evaluating patient and formulating plan 35 min Problem List - Problems (1) Bronchitis Code(s): J40 - BRONCHITIS, NOT SPECIFIED ACUTE OR CHRONIC (2) Positive blood culture Code(s): R78.81 - BACTEREMIA (3) Weakness Code(s): R53.1 - WEAKNESS (4) Weakness of both lower extremities Code(s): R29.898 - OTH SYMPTOMS AND SIGNS INVOLVING THE MUSCULOSKELETAL SYSTEM (5) Diabetes Code(s): E11.9 - TYPE 2 DIABETES MELLITUS WITHOUT COMPLICATIONS (6) Dyspnea Code(s): R06.00 - DYSPNEA, UNSPECIFIED (7) Left leg DVT Code(s): I82.402 - ACUTE EMBOLISM AND THOMBOS UNSP DEEP VEINS OF L LOW EXTREM Qualifiers: Qualified Code(s): I82.412 - Acute embolism and thrombosis of left femoral vein (8) Lymphoma Code(s): C85.90 - NON-HODGKIN LYMPHOMA, UNSPECIFIED, UNSPECIFIED SITE (9) Pneumonia Code(s): J18.9 - PNEUMONIA, UNSPECIFIED ORGANISM Qualifiers: Qualified Code(s): J18.1 - Lobar pneumonia, unspecified organism
--- NOTE | 2016-10-30 14:53 | PN ---
Physical Exam: SUBJECTIVE: Patient seen and examined. He is complaining of pain of left side of the back and shoulder, radiating to chest. He states it started overnight, it 's constant, dull, 5/10. He denies SOB, palpitations, abdominal pain. OBJECTIVE: Vital Signs Period Temp Pulse Resp BP Sys/Lloyd Pulse Ox Last 24 Hr 97.5 F-99.0 F 80-90 18-24 104-133/50-73 97-99 GENERAL: The patient is awake, alert, and fully oriented, in no acute distress. HEAD: Normal with no signs of trauma. EYES: PERRL, extraocular movements intact, sclera anicteric, conjunctiva clear. No ptosis. ENT: oropharynx clear without exudates, moist mucous membranes. NECK: Trachea midline, full range of motion, supple. LUNGS: coarse breath sounds bilaterally, no accessory muscle use. HEART: normal S1, S2, no murmurs, rubs ABDOMEN: obese, soft, nondistended, normoactive bowel sounds, no guarding EXTREMITIES: warm, well-perfused, no edema. NEUROLOGICAL: No facial asymmetry, no tongue deviation, Sensation:decreased in lower extremities, no sensation in lower back Strength: 5/5 in upper extremities, 0/5 in LE B/L. Not able to hold urine/BMs. SKIN: erythemaous sacrum, incision dressing applied, no drainage Laboratory Results - last 24 hr 10/28/16 10/30/16 10/30/16 05:50 05:10 05:10 WBC 5.3 RBC 3.49 L Hgb 10.2 L Hct 31.4 L MCV 89.8 MCHC 32.6 RDW 16.7 H Plt Count 170 MPV 7.4 L Neutrophils % 65.2 Lymphocytes % 22.9 Monocytes % 8.2 D Eosinophils % 3.1 Basophils % 0.6 D-Dimer Sodium 137 Potassium 4.5 Chloride 99 Carbon Dioxide 30 Anion Gap 8 BUN 22 H Creatinine 1.0 Creat Clearance w eGFR > 60 Random Glucose 128 H Calcium 8.2 L Phosphorus 3.7 Magnesium 1.9 Total Bilirubin 0.3 D AST 50 H D ALT 33 Alkaline Phosphatase 127 H Troponin I Prot Electrophoresis Serum Total Protein 6.3 Total Protein 6.3 L Albumin 2.1 L 1.7 L Globulin 4.2 H Albumin/Globulin Ratio 0.5 L Lskna-6-Mtyylhbvn 0.5 H Wghrm-3-Bfxkpgfle 0.9 Beta Globulins 1.0 Gamma Globulins 1.9 H MCKENZIE M-Dale 10/30/16 10/30/16 09:50 09:50 WBC RBC Hgb Hct MCV MCHC RDW Plt Count MPV Neutrophils % Lymphocytes % Monocytes % Eosinophils % Basophils % D-Dimer 5200 H Sodium Potassium Chloride Carbon Dioxide Anion Gap BUN Creatinine Creat Clearance w eGFR Random Glucose Calcium Phosphorus Magnesium Total Bilirubin AST ALT Alkaline Phosphatase Troponin I < 0.02 Prot Electrophoresis Serum Total Protein Total Protein Albumin Globulin Albumin/Globulin Ratio Brtkj-4-Vlzqtyprq Xktbl-8-Cwezswtil Beta Globulins Gamma Globulins [facility] M-Dale Active Medications Generic Name Dose Route Start Last Admin Trade Name Freq PRN Reason Stop Dose Admin Acetaminophen 650 mg 10/25/16 23:30 10/29/16 21:48 Tylenol - PO 650 mg Q4H PRN Administration FEVER OR PAIN Acetaminophen 1,000 mg 10/30/16 09:04 Ofirmev Injection - IVPB 10/31/16 03:05 Q6H PRN FEVER OR PAIN Albuterol/Ipratropium 1 amp 10/26/16 00:00 10/30/16 11:15 Duoneb - NEB 1 amp QIDR [facility] Administration Amiodarone HCl 400 mg 10/29/16 17:30 10/30/16 13:29 Cordarone - PO 400 mg TID [facility] Administration Bisacodyl 10 mg 10/25/16 22:00 Dulcolax Suppository - RC DAILY PRN CONSTIPATION Ceftriaxone Sodium 2 gm 10/26/16 18:50 10/30/16 06:02 Rocephin 2gm Ivpb (Pre-Docked) IVPB 2 gm Q12H [facility] Administration Protocol Diazepam 5 mg 10/25/16 22:00 10/30/16 05:46 Valium - PO 5 mg Q8H [facility] Administration Docusate Sodium 100 mg 10/25/16 22:00 10/30/16 13:30 Colace - PO 100 mg TID [facility] Administration Heparin Sodium (Porcine) 5,000 unit 10/26/16 10:15 10/30/16 10:04 Heparin - SQ 5,000 unit BID [facility] Administration Ondansetron HCl 4 mg 10/25/16 22:00 Zofran Injection IVPB Q6H PRN NAUSEA AND/OR VOMITING Oxycodone HCl 5 mg 10/28/16 14:23 10/30/16 12:09 Roxicodone - PO 5 mg Q3H PRN Administration MODERATE PAIN Oxycodone HCl 10 mg 10/28/16 14:23 Roxicodone - PO Q3H PRN SEVERE PAIN Microbiology 10/24/16 11:46 Blood - Peripheral Venous Blood Culture - Final Streptococcus Pneumoniae Streptococcus Pneumoniae#2 10/25/16 13:25 Blood - Peripheral Venous Blood Culture - Final NO GROWTH AFTER 5 DAYS INCUBATION 10/25/16 13:10 Blood - Peripheral Venous Blood Culture - Final NO GROWTH AFTER 5 DAYS INCUBATION 10/28/16 06:16 Blood - Peripheral Venous Blood Culture - Preliminary NO GROWTH OBTAINED AFTER 48 HOURS, INCUBATION TO CONTINUE FOR 3 DAYS. 10/28/16 05:50 Blood - Peripheral Venous Blood Culture - Preliminary NO GROWTH OBTAINED AFTER 48 HOURS, INCUBATION TO CONTINUE FOR 3 DAYS. 10/25/16 21:43 Abscess Gram Stain - Final 10/25/16 21:43 Abscess Wound Culture - Final Streptococcus Pneumoniae 10/25/16 13:10 Blood - Peripheral Venous TB Test (QFT) (TABITHA) - Final 10/25/16 21:43 Abscess AFB Smear Concentration - Final 10/25/16 21:43 Abscess Mycobacterial Culture - Preliminary 10/24/16 11:46 Blood - Peripheral Venous Blood Culture - Final Streptococcus Mitis 10/25/16 21:03 Urine - Urine Lim Urine Culture - Final NO GROWTH OBTAINED 10/26/16 14:00 Urine - Urine Lim Legionella Antigen - Final 10/26/16 14:00 Urine - Urine Lim Streptococcus pneumoniae Antigen (M - Final 10/25/16 21:43 Abscess SALVADOR Preparation - Preliminary 10/25/16 21:43 Abscess Fungal Culture - Preliminary 10/25/16 20:00 Urine For Antigen Detection Legionella Antigen - Final ASSESSMENT/PLAN: 70 yr old man with anemia, HTN, hx of hodgkins lymphoma, hx of DVT (1 year ago ) not on anti-coagulation presents with lower extremity weakness found to have posterior epidural abscess with cord compression with complete motor paraplegia , s/p laminectomy (10/25). Neurological epidural abscess s/p laminectomy (10/25) neuro checks valium 5mg po q8h [facility] oxycodone for pain Neurosurgery consulted Infectious disease blood cultures Strep Pneumoniae and Strep mitis cont rocephin 2gm q12hr IVPB no fever, chills, leukocytosis Cardiovascular new onset paroxysmal Afib: continue Amiodarone 400 mg TID avoid beta blockers due to h/o COPD avoid AC for afib due to risk of bleeding, Heparin SQ only CTA chest done today to r/o PE, visualized possible partial SVC obstruction, Vascular surgery: Dr Castillo consultation ordered troponins ordered today negative, EKG no changes when compared to previous one Echocardiogram and MUGA scan no gross abnormalities continue cardiac monitoring Respiratory CXR: pleural effusion and atelectasis continue abx, incentive spirometry, PT, duoneb continue Oxygen Supplementation Hematological hx of DVT, repeated dupplex US of lower extremities which was negative for DVT Onclogy consulted h/o of Hodgkin Lymphoma treated with chemotherapy Renal monitor urine output lim in place GI colace po TID given opiates zofran prn for nausea q6h prn DVT PPX: heparin BID 5000 unit SQ Diet: regular Disposition: monitor in ICU today, possible transfer to telemetry tomorrow Visit type - Emergency Visit Emergency Visit: Yes ED Registration Date: 10/24/16 Care time: The patient presented to the Emergency Department on the above date and was hospitalized for further evaluation of their emergent condition. - New Patient This patient is new to me today: Yes Date on this admission: 10/30/16 - Critical Care Critical Care patient: Yes Total Critical Care Time (in minutes): 45 Critical Care Statement: The care of this patient involved high complexity decision making to prevent further life threatening deterioration of the patient 's condition and/or to evalute & treat vital organ system(s) failure or risk of failure.
--- NOTE | 2016-10-30 16:52 | PN ---
Progress Note, Physician Chief Complaint: Cardiology follow up Afib converted to NSR Echo with TDS but probably normal EF. Prior MUGA [id number] was normal History of Present Illness: 70M history of anemia, hypertension, hodgkins lymphoma, DVT (1 year ago) not on AC, admitted 10/24/16 with shortness of breath, wheezing, and a productive cough also leg weakness and numbness. Being seen by neurology to rule out GB syndrome. Also noted with mildly elevated bnp. No orthopnea pnd or edema. No chest pain. Found with thoracic epidural abcess, seen by neurosurgery underwent drainage and placement of catheter 10/26/16. Tele with atrial fib new onset with RVR Bcx positive for Strep Pneumo. - Current Medication List Current Medications: Active Medications Acetaminophen (Tylenol -) 650 mg PO Q4H PRN PRN Reason: FEVER OR PAIN Last Admin: 10/29/16 21:48 Dose: 650 mg Acetaminophen (Ofirmev Injection -) 1,000 mg IVPB Q6H PRN PRN Reason: FEVER OR PAIN Stop: 10/31/16 03:05 Albuterol/Ipratropium (Duoneb -) 1 amp NEB QIDR [facility] Last Admin: 10/30/16 11:15 Dose: 1 amp Amiodarone HCl (Cordarone -) 400 mg PO TID [facility] Last Admin: 10/30/16 13:29 Dose: 400 mg Bisacodyl (Dulcolax Suppository -) 10 mg [facility] DAILY PRN PRN Reason: CONSTIPATION Ceftriaxone Sodium (Rocephin 2gm Ivpb (Pre-Docked)) 2 gm IVPB Q12H [facility] PRN Reason: Protocol Last Admin: 10/30/16 06:02 Dose: 2 gm Diazepam (Valium -) 5 mg PO Q8H [facility] Last Admin: 10/30/16 05:46 Dose: 5 mg Docusate Sodium (Colace -) 100 mg PO TID [facility] Last Admin: 10/30/16 13:30 Dose: 100 mg Heparin Sodium (Porcine) (Heparin -) 5,000 unit SQ BID [facility] Last Admin: 10/30/16 10:04 Dose: 5,000 unit Ondansetron HCl (Zofran Injection) 4 mg IVPB Q6H PRN PRN Reason: NAUSEA AND/OR VOMITING Oxycodone HCl (Roxicodone -) 5 mg PO Q3H PRN PRN Reason: MODERATE PAIN Last Admin: 10/30/16 12:09 Dose: 5 mg Oxycodone HCl (Roxicodone -) 10 mg PO Q3H PRN PRN Reason: SEVERE PAIN - Objective Vital Signs: Vital Signs Temperature 97.1 F L 10/30/16 16:00 Pulse Rate 80 10/30/16 16:00 Respiratory Rate 22 10/30/16 16:00 Blood Pressure 116/52 10/30/16 16:00 O2 Sat by Pulse Oximetry (%) 99 10/30/16 08:00 Constitutional: Yes: No Distress Eyes: Yes: WNL HENT: Yes: Atraumatic, Normocephalic Neck: Yes: Supple, Trachea Midline Cardiovascular: Yes: Regular Rate and Rhythm Respiratory: Yes: Regular, CTA Bilaterally Gastrointestinal: Yes: Normal Bowel Sounds, Soft Extremities: Yes: WNL Edema: No Labs: CBC, BMP 10/30/16 05:10 10/30/16 05:10 INR, PTT INR 1.32 (0.82-1.09) H 10/25/16 23:00 - ....Imaging Cat Scan: Report Reviewed Problem List - Problems (1) PAF (paroxysmal atrial fibrillation) Assessment/Plan: Remains in NSR. Continue Amiodarone 400mg TID for 5 days followed by Amiodarone 400mg daily. Follow LFT Continue telemetry monitoring Not a candidate for AC until spinal issues are completely resolved, and ok with neurosurgery/neurology. Code(s): I48.0 - PAROXYSMAL ATRIAL FIBRILLATION (2) CHF exacerbation Assessment/Plan: CT chest from 10/30/16 reviewed No PE but possible partial SVC obstruction. Previous Echocardiogram and MUGA scan showed normal LV function. Current echo limited but likely normal. Pleural effusion with atelectasis and possible PNA. Code(s): I50.9 - HEART FAILURE, UNSPECIFIED Qualifiers: Qualified Code(s): I50.33 - Acute on chronic diastolic (congestive) heart failure
[2016-10-31] MEDS: ACETAMINOPHEN 325 MG TABLET (FP) PO PRN (02:36)
[2016-10-31] MEDS: oxyCODONE HCL 5 MG TABLET PO PRN ×2 (02:37→09:45)
[2016-10-31] MEDS: ALBUTEROL SO4 2.5/IPRATROPIUM 0.5 INH SOL 3 ML VIAL.NEB. NEB SCH ×3 (06:07→17:50)
[2016-10-31] MEDS: AMIODARONE HCL 200 MG TABLET (FP) PO SCH ×3 (06:21→22:43)
[2016-10-31] MEDS: diazePAM 5 MG TABLET PO SCH ×3 (06:21→22:43)
[2016-10-31] MEDS: DOCUSATE SODIUM 100 MG CAPSULE (FP) PO SCH ×3 (06:22→22:42)
[2016-10-31] MEDS: cefTRIAXone 2 GM/100 ML BAG (PRE-DOCKED) IVPB SCH ×2 (06:22→18:30)
[2016-10-31 06:32] LABS: BASOPHIL 0.6 % (0-2.0); EOSINOPHIL 2.3 % (0-4.5); MCHC 32.3 g/dl (32.0-35.9); MEAN CELL VOLUME 89.8 fl (80-96); MEAN PLT VOLUME 7.6 fl (7.5-11.1); NEUTROPHILS 65.9 % (42.8-82.8); PLATELET COUNT 215 K/MM3 (134-434); WHITE BLOOD COUNT 5.4 K/mm3 (4.0-10.0)
[2016-10-31 06:54] LABS: CALCIUM 8.4 mg/dL (8.5-10.1)
[2016-10-31 06:56] LABS: COCKROFT - GAULT 120.32; PHOSPHOROUS 4.1 mg/dL (2.5-4.9)
--- NOTE | 2016-10-31 08:20 | PN ---
Progress Note, Physician History of Present Illness: S/P EMERGENCY LAMINECTOMY UNABLE TO MOVE LEGS NO CHEST PAIN NO SOB ON OXYGEN - Current Medication List Current Medications: Active Medications Acetaminophen (Tylenol -) 650 mg PO Q4H PRN PRN Reason: FEVER OR PAIN Last Admin: 10/31/16 02:36 Dose: 650 mg Albuterol/Ipratropium (Duoneb -) 1 amp NEB QIDR [facility] Last Admin: 10/31/16 06:07 Dose: 1 amp Amiodarone HCl (Cordarone -) 400 mg PO TID [facility] Last Admin: 10/31/16 06:21 Dose: 400 mg Bisacodyl (Dulcolax Suppository -) 10 mg RC DAILY PRN PRN Reason: CONSTIPATION Ceftriaxone Sodium (Rocephin 2gm Ivpb (Pre-Docked)) 2 gm IVPB Q12H [facility] PRN Reason: Protocol Last Admin: 10/31/16 06:22 Dose: 2 gm Diazepam (Valium -) 5 mg PO Q8H [facility] Last Admin: 10/31/16 06:21 Dose: 5 mg Docusate Sodium (Colace -) 100 mg PO TID [facility] Last Admin: 10/31/16 06:22 Dose: 100 mg Furosemide (Lasix Injection -) 40 mg IVPUSH DAILY [facility] Heparin Sodium (Porcine) (Heparin -) 5,000 unit SQ BID [facility] Last Admin: 10/30/16 21:29 Dose: 5,000 unit Ondansetron HCl (Zofran Injection) 4 mg IVPB Q6H PRN PRN Reason: NAUSEA AND/OR VOMITING Oxycodone HCl (Roxicodone -) 5 mg PO Q3H PRN PRN Reason: MODERATE PAIN Last Admin: 10/31/16 02:37 Dose: 5 mg Oxycodone HCl (Roxicodone -) 10 mg PO Q3H PRN PRN Reason: SEVERE PAIN - Objective Vital Signs: Vital Signs Temperature 99 F 10/31/16 06:00 Pulse Rate 94 H 10/31/16 06:00 Respiratory Rate 18 10/31/16 06:00 Blood Pressure 121/68 10/31/16 06:00 O2 Sat by Pulse Oximetry (%) 99 10/30/16 20:00 Cardiovascular: Yes: S1, S2 Respiratory: Yes: Diminished, Rales (AT THE BASES), Rhonchi Gastrointestinal: Yes: Normal Bowel Sounds, Soft Edema: Yes Labs: CBC, BMP 10/31/16 05:20 10/31/16 05:20 INR, PTT INR 1.32 (0.82-1.09) H 10/25/16 23:00 Problem List - Problems (1) Epidural abscess Assessment/Plan: abx per id d/w dr solis start sq heparin continue with iv abx Code(s): G06.2 - EXTRADURAL AND SUBDURAL ABSCESS, UNSPECIFIED (2) Positive blood culture Assessment/Plan: abx per dr llamas repeat cultures echo noted-- Microbiology 10/24/16 11:46 Blood - Peripheral Venous Blood Culture - Final Streptococcus Pneumoniae Streptococcus Pneumoniae#2 10/24/16 11:46 Blood - Peripheral Venous Blood Culture - Final Streptococcus Mitis 10/28/16 06:16 Blood - Peripheral Venous Blood Culture - Preliminary NO GROWTH OBTAINED AFTER 72 HOURS, INCUBATION TO CONTINUE FOR 2 DAYS. 10/28/16 05:50 Blood - Peripheral Venous Blood Culture - Preliminary NO GROWTH OBTAINED AFTER 72 HOURS, INCUBATION TO CONTINUE FOR 2 DAYS. Code(s): R78.81 - BACTEREMIA (3) Acute on chronic renal insufficiency Assessment/Plan: monitor Laboratory Tests 10/25/16 10/28/16 10/31/16 06:15 05:50 05:20 Creatinine 1.4 H 0.9 1.0 Code(s): N28.9 - DISORDER OF KIDNEY AND URETER, UNSPECIFIED N18.9 - CHRONIC KIDNEY DISEASE, UNSPECIFIED (4) CHF exacerbation Assessment/Plan: LASIX --START TODAY cardio noted Code(s): I50.9 - HEART FAILURE, UNSPECIFIED Qualifiers: Qualified Code(s): I50.33 - Acute on chronic diastolic (congestive) heart failure (5) Lymphoma Assessment/Plan: in remission oncology consult Code(s): C85.90 - NON-HODGKIN LYMPHOMA, UNSPECIFIED, UNSPECIFIED SITE (6) Weakness of both lower extremities Assessment/Plan: as above due abscess---abx ct of ls spine neuro and ns consult Code(s): R29.898 - OTH SYMPTOMS AND SIGNS INVOLVING THE MUSCULOSKELETAL SYSTEM (7) Afib Assessment/Plan: follow labs no ac due to spinal surgery ON amiodorone Code(s): I48.91 - UNSPECIFIED ATRIAL FIBRILLATION Qualifiers: Qualified Code(s): I48.0 - Paroxysmal atrial fibrillation (8) Chest pain Assessment/Plan: PARTIAL SVC OBSTRUCTION DIURETICS CTA NEGATIVE FOR PE--PARTIAL SVC CE NEG Code(s): R07.9 - CHEST PAIN, UNSPECIFIED
--- NOTE | 2016-10-31 08:47 | PN ---
Progress Note (short form) - Note Progress Note: NEUROSURGERY POD #5 Some incisional pain Tolerating po + BM PE: Tmax 99, VSS HEENT- NC/AT; Neck- supple; Cor- RR; Lungs- decreased BS at bases; Abd-obese; + BS; Ext- B LE ankle/distal edema, negative Kaitlynn's Wound- some serosangrenous drainage- changed per RN CN- intact; Motor- UE 4+ B; B LE 0/5; Sensation- decreased LT/PP below about T4- 5 B; DTR- hyporeflexia B Blood culture- strep mitis/strep pneumo Intra-op cx- strep pneumoniae WBC 5.4, blood culture 5-31 negative to date S/p emergency laminectomies for debridement of abscess and cord decompression Cont PT-ROM; encourage pt movements On ceftriaxone - prison tx needed DVT prophylaxis: SCD's and SQ heparin Prognosis for motor recovery extremely poor Floor care Incentive spirometry
--- NOTE | 2016-10-31 09:07 | PN ---
Progress Note (short form) - Note Progress Note: Seen and examined in the ICU afebrile Still w/ LE weakness CTA and LE dopplers negative for DVT/PE large effusion on right lasix started Active Medications Acetaminophen (Tylenol -) 650 mg PO Q4H PRN PRN Reason: FEVER OR PAIN Last Admin: 10/31/16 02:36 Dose: 650 mg Albuterol/Ipratropium (Duoneb -) 1 amp NEB QIDR [facility] Last Admin: 10/31/16 06:07 Dose: 1 amp Amiodarone HCl (Cordarone -) 400 mg PO TID [facility] Last Admin: 10/31/16 06:21 Dose: 400 mg Bisacodyl (Dulcolax Suppository -) 10 mg RC DAILY PRN PRN Reason: CONSTIPATION Ceftriaxone Sodium (Rocephin 2gm Ivpb (Pre-Docked)) 2 gm IVPB Q12H [facility] PRN Reason: Protocol Last Admin: 10/31/16 06:22 Dose: 2 gm Diazepam (Valium -) 5 mg PO Q8H [facility] Last Admin: 10/31/16 06:21 Dose: 5 mg Docusate Sodium (Colace -) 100 mg PO TID [facility] Last Admin: 10/31/16 06:22 Dose: 100 mg Furosemide (Lasix Injection -) 40 mg IVPUSH DAILY [facility] Heparin Sodium (Porcine) (Heparin -) 5,000 unit SQ BID [facility] Last Admin: 10/30/16 21:29 Dose: 5,000 unit Ondansetron HCl (Zofran Injection) 4 mg IVPB Q6H PRN PRN Reason: NAUSEA AND/OR VOMITING Oxycodone HCl (Roxicodone -) 5 mg PO Q3H PRN PRN Reason: MODERATE PAIN Last Admin: 10/31/16 02:37 Dose: 5 mg Oxycodone HCl (Roxicodone -) 10 mg PO Q3H PRN PRN Reason: SEVERE PAIN Vital Signs Period Temp Pulse Resp BP Sys/Lloyd Pulse Ox Last 24 Hr 97.1 F-99 F 80-100 18-23 104-133/52-78 99-99 Intake & Output 10/28/16 10/29/16 10/30/16 10/31/16 23:59 23:59 23:59 23:59 Intake Total 2246 1805.3 1250 50 Output Total 1800 1000 1700 800 Balance 446 805.3 -450 -750 Weight 122.4 kg 124.086 kg 124.693 kg 125.554 kg Exam: Neuro: awake, alert. unable to move LE. + sensation HEENT: PERRL CV: RRR Pulm: diminished in bases Abd: obese, SNTND, +BS Ext: WWP +2 pulses CBCD WBC 5.4 K/mm3 (4.0-10.0) 10/31/16 05:20 RBC 3.54 M/mm3 (4.00-5.60) L 10/31/16 05:20 Hgb 10.3 GM/dL (11.7-16.9) L 10/31/16 05:20 Hct 31.8 % (35.4-49) L 10/31/16 05:20 MCV 89.8 fl (80-96) 10/31/16 05:20 MCHC 32.3 g/dl (32.0-35.9) 10/31/16 05:20 RDW 17.0 % (11.9-15.9) H 10/31/16 05:20 Plt Count 215 K/MM3 (134-434) D 10/31/16 05:20 MPV 7.6 fl (7.5-11.1) 10/31/16 05:20 CMP Sodium 136 mmol/L (136-145) 10/31/16 05:20 Potassium 4.6 mmol/L (3.5-5.1) 10/31/16 05:20 Chloride 100 mmol/L (98-107) 10/31/16 05:20 Carbon Dioxide 30 mmol/L (21-32) 10/31/16 05:20 Anion Gap 6 (8-16) L 10/31/16 05:20 BUN 24 mg/dL (7-18) H 10/31/16 05:20 Creatinine 1.0 mg/dL (0.7-1.3) 10/31/16 05:20 Creat Clearance w eGFR > 60 (>60) 10/30/16 05:10 Random Glucose 115 mg/dL (74-106) H 10/31/16 05:20 Calcium 8.4 mg/dL (8.5-10.1) L 10/31/16 05:20 Total Bilirubin 0.3 mg/dL (0.2-1.0) D 10/30/16 05:10 AST 50 U/L (15-37) H D 10/30/16 05:10 ALT 33 U/L (12-78) 10/30/16 05:10 Alkaline Phosphatase 127 U/L (45-117) H 10/30/16 05:10 Total Protein 6.3 g/dl (6.4-8.2) L 10/30/16 05:10 Albumin 1.7 g/dl (3.4-5.0) L 10/30/16 05:10 CARDIAC ENZYMES Creatine Kinase 290 IU/L (39-308) D 10/27/16 10:15 Troponin I < 0.02 ng/ml (0.00-0.05) 10/30/16 09:50 Microbiology 10/28/16 06:16 Blood - Peripheral Venous Blood Culture - Preliminary NO GROWTH OBTAINED AFTER 72 HOURS, INCUBATION TO CONTINUE FOR 2 DAYS. 10/28/16 05:50 Blood - Peripheral Venous Blood Culture - Preliminary NO GROWTH OBTAINED AFTER 72 HOURS, INCUBATION TO CONTINUE FOR 2 DAYS. 10/24/16 11:46 Blood - Peripheral Venous Blood Culture - Final Streptococcus Pneumoniae Streptococcus Pneumoniae#2 10/25/16 13:25 Blood - Peripheral Venous Blood Culture - Final NO GROWTH AFTER 5 DAYS INCUBATION 10/25/16 13:10 Blood - Peripheral Venous Blood Culture - Final NO GROWTH AFTER 5 DAYS INCUBATION 10/25/16 21:43 Abscess Gram Stain - Final 10/25/16 21:43 Abscess Wound Culture - Final Streptococcus Pneumoniae 10/25/16 13:10 Blood - Peripheral Venous TB Test (QFT) (TABITHA) - Final 10/25/16 21:43 Abscess AFB Smear Concentration - Final 10/25/16 21:43 Abscess Mycobacterial Culture - Preliminary 10/24/16 11:46 Blood - Peripheral Venous Blood Culture - Final Streptococcus Mitis 10/25/16 21:03 Urine - Urine Kuhn Urine Culture - Final NO GROWTH OBTAINED 10/26/16 14:00 Urine - Urine Kuhn Legionella Antigen - Final 10/26/16 14:00 Urine - Urine Kuhn Streptococcus pneumoniae Antigen (M - Final 10/25/16 21:43 Abscess SALVADOR Preparation - Preliminary 10/25/16 21:43 Abscess Fungal Culture - Preliminary 10/25/16 20:00 Urine For Antigen Detection Legionella Antigen - Final CTA: reviewed -- neg PE, right effusion ? SVT narrowing CXR: reviewed -- right effusion LE dopplers reviewed-- neg DVT ASSESSMENT AND PLAN: Strep Bacteremia Lower Extremity Paralysis Epidural Abscess with Cord Compression s/p Hemilaminectomy Hodgkin's Lymphoma h/o DVT Right Pleural Effusion - rate/rhythm control per cardiology - continue antibiotics per ID - neuro checks - pain control - incentive spirometry - DVT prophylaxis - rehab/PT - Telemetry monitoring Stable for surgical floor transfer Kathy SMARTP Pulm/CCM CCT: 35m
--- NOTE | 2016-10-31 09:35 | PN ---
Progress Note, Physician History of Present Illness: Awake, alert C/O back pain, relieved with analgesics No c/o fever/ chills Afebrile WBC WNL - Current Medication List Current Medications: Active Medications Acetaminophen (Tylenol -) 650 mg PO Q4H PRN PRN Reason: FEVER OR PAIN Last Admin: 10/31/16 02:36 Dose: 650 mg Albuterol/Ipratropium (Duoneb -) 1 amp NEB QIDR [facility] Last Admin: 10/31/16 06:07 Dose: 1 amp Amiodarone HCl (Cordarone -) 400 mg PO TID [facility] Last Admin: 10/31/16 06:21 Dose: 400 mg Bisacodyl (Dulcolax Suppository -) 10 mg RC DAILY PRN PRN Reason: CONSTIPATION Ceftriaxone Sodium (Rocephin 2gm Ivpb (Pre-Docked)) 2 gm IVPB Q12H [facility] PRN Reason: Protocol Last Admin: 10/31/16 06:22 Dose: 2 gm Diazepam (Valium -) 5 mg PO Q8H [facility] Last Admin: 10/31/16 06:21 Dose: 5 mg Docusate Sodium (Colace -) 100 mg PO TID [facility] Last Admin: 10/31/16 06:22 Dose: 100 mg Furosemide (Lasix Injection -) 40 mg IVPUSH DAILY [facility] Heparin Sodium (Porcine) (Heparin -) 5,000 unit SQ BID [facility] Last Admin: 10/30/16 21:29 Dose: 5,000 unit Ondansetron HCl (Zofran Injection) 4 mg IVPB Q6H PRN PRN Reason: NAUSEA AND/OR VOMITING Oxycodone HCl (Roxicodone -) 5 mg PO Q3H PRN PRN Reason: MODERATE PAIN Last Admin: 10/31/16 02:37 Dose: 5 mg Oxycodone HCl (Roxicodone -) 10 mg PO Q3H PRN PRN Reason: SEVERE PAIN - Objective Vital Signs: Vital Signs Temperature 99 F 10/31/16 06:00 Pulse Rate 94 H 10/31/16 06:00 Respiratory Rate 18 10/31/16 06:00 Blood Pressure 121/68 10/31/16 06:00 O2 Sat by Pulse Oximetry (%) 99 10/30/16 20:00 Constitutional: Yes: No Distress, Obese Eyes: Yes: Conjunctiva Clear Cardiovascular: Yes: Regular Rate and Rhythm, S1, S2 Respiratory: Yes: Diminished Gastrointestinal: Yes: Normal Bowel Sounds, Soft, Abdomen, Obese. No: Tenderness Edema: Yes Edema: LUE: 1+, RUE: 1+, LLE: 1+, RLE: 1+ Labs: CBC, BMP 10/31/16 05:20 10/31/16 05:20 INR, PTT INR 1.32 (0.82-1.09) H 10/25/16 23:00 Assessment/Plan Polymicrobial bacteremia Epidural abscess s/p laminectomy POD #6 Paraplegia Hx Hodgkin's lymphoma Continue ceftriaxone 2gm IVPB q24h
[2016-10-31] MEDS ORDERED: PT OWN MED DRAWER 7, Y5N ONE (09:44)
[2016-10-31] MEDS: HEPARIN NA (PORCINE) 5,000 UNITS/ML 1ML VIAL SQ SCH ×2 (09:45→22:43)
[2016-10-31] MEDS: FUROSEMIDE 40 MG/4 ML INJECTABLE VIAL IVPUSH SCH (09:45)
[2016-10-31] MEDS: POLYETHYLENE GLYCOL 3350 119 GM BTL PO SCH ×2 (13:16→22:43)
--- NOTE | 2016-10-31 14:02 | PN ---
Progress Note (short form) - Note Progress Note: 70 M, anemia, hypertension, hodgkins lymphoma, DVT (1 year ago) not currently on AC. Presented to Urgent care about 2 weeks ago for "PNA". He was given Prednisone and Augmentin. 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) s/p chemotherapy at [place] Cardio/Vascular: Yes: CHF (Diastolic (nl EF on echo and MUGA from 2015) with hx of SARAH and lasix treatment up to 1 month ago), HTN, Hyperlipdemia Pulmonary: Yes: COPD Hepatobiliary: Yes: Other (hepatosplenomegaly) Musculoskeletal: Yes: Chronic low back pain (lumbar radiculopathy) Rheumatology: Yes: Other (spinal stenosis) Endocrine: Yes: Hyperthyroidism Additional Medical History: history of malaria when he was in [place] - Smoking History Smoking history: Former smoker - Social History Usual Living Arrangement: With Spouse ADL: Independent Occupation: retired Home Medications - Allergies Allergies/Adverse Reactions: Allergies Allergy/AdvReac Type Severity Reaction Status Date / Time No Known Allergies Allergy Verified 10/24/16 09:34 - Home Medications Home Medications: Ambulatory Orders Cyanocobalamin (Vitamin B-12) [B-12] 500 mcg PO DAILY 10/24/16 Furosemide 20 mg PO DAILY 10/24/16 Active Medications Generic Name Dose Route Start Last Admin Trade Name Freq PRN Reason Stop Dose Admin Acetaminophen 650 mg 10/25/16 23:30 Tylenol - PO Q4H PRN FEVER OR PAIN Albuterol/Ipratropium 1 amp 10/26/16 00:00 10/29/16 17:00 Duoneb - NEB 1 amp QIDR [facility] Administration Amiodarone HCl 400 mg 10/29/16 17:30 10/29/16 17:31 Cordarone - PO 400 mg TID [facility] Administration Bisacodyl 10 mg 10/25/16 22:00 Dulcolax Suppository - RC DAILY PRN CONSTIPATION Ceftriaxone Sodium 2 gm 10/26/16 18:50 10/29/16 18:28 Rocephin 2gm Ivpb (Pre-Docked) IVPB 2 gm Q12H [facility] Administration Protocol Diazepam 5 mg 10/25/16 22:00 10/29/16 13:33 Valium - PO 5 mg Q8H [facility] Administration Docusate Sodium 100 mg 10/25/16 22:00 10/29/16 13:35 Colace - PO Not Given TID [facility] Heparin Sodium (Porcine) 5,000 unit 10/26/16 10:15 10/29/16 09:46 Heparin - SQ 5,000 unit BID [facility] Administration Ondansetron HCl 4 mg 10/25/16 22:00 Zofran Injection IVPB Q6H PRN NAUSEA AND/OR VOMITING Oxycodone HCl 5 mg 10/28/16 14:23 10/29/16 13:33 Roxicodone - PO 5 mg Q3H PRN Administration MODERATE PAIN Oxycodone HCl 10 mg 10/28/16 14:23 Roxicodone - PO Q3H PRN SEVERE PAIN Family Disease History - Family Disease History Family Disease History: Heart Disease: Father (of throat), Mother, CA: Father, Other: Son (sarcoid- (has 2 other sons, including a twin of the one who )) Physical Exam Vital Signs: Vital Signs Period Temp Pulse Resp BP Sys/Lloyd Pulse Ox Last 24 Hr 97.1 F-99 F 80-104 18-26 93-141/52-78 94-100 Neck: Supple Cor: RSR, No murmurs, No gallops Lungs: Clear to P&A Abd: Soft, Normal bowel sounds, No organomegaly Ext:No significant edema CBC, BMP 10/31/16 05:20 10/31/16 05:20 Imaging - Results Chest X-ray: Report Reviewed, Image Reviewed Cat Scan: Report Reviewed, Image Reviewed A/P 70 y/o patient with Hodgkins lymphoma with h/o cavernous sinus, pituitary involvement, s//p chemotherapy completed > 6months ago, also with h/o DVT, not on a/c, obesity, CHF comes in with paralysis, spidural abscessses, s/ p laminectomies, strep. pneumonia bacterremia and abscesses h/o hodgkins with cavenous sinus and pituitary involvement in 2014, s/p ABVD/ .SCAR. CT scans show improved retroperitoneal adenopathy/small mediastinal nodes. RML lung nodules and sclerosis of bones no obvious active disease -- will needs PET- CT outpatient given CT findings s/ o residual vs treated disease immunosuppressed due to prior chemotherapy ? cellular/humoral deficiencies related to hodgkins h/o DVT 1yr. ago. Was not on a/c and currently unable to initiate due to spine surgery recent CT shows SVC narrowing/ partial occlusion with no evidence of mass or compression or clots ?port-a-cath please consult vascular surgery to see whether needs to be removed.
[2016-11-01] MEDS: ALBUTEROL SO4 2.5/IPRATROPIUM 0.5 INH SOL 3 ML VIAL.NEB. NEB SCH ×5 (00:13→23:34)
[2016-11-01 06:06] LABS: BASOPHIL 0.6 % (0-2.0); EOSINOPHIL 2.2 % (0-4.5); MCH 29.1 pg (25.7-33.7); MCHC 32.5 g/dl (32.0-35.9); MEAN CELL VOLUME 89.7 fl (80-96); MEAN PLT VOLUME 7.2 fl (7.5-11.1); NEUTROPHILS 64.4 % (42.8-82.8); PLATELET COUNT 217 K/MM3 (134-434); RDW 17.6 % (11.9-15.9); WHITE BLOOD COUNT 5.9 K/mm3 (4.0-10.0)
[2016-11-01] MEDS: DOCUSATE SODIUM 100 MG CAPSULE (FP) PO SCH ×3 (06:09→21:43)
[2016-11-01] MEDS: AMIODARONE HCL 200 MG TABLET (FP) PO SCH ×3 (06:09→21:43)
[2016-11-01] MEDS: diazePAM 5 MG TABLET PO SCH ×3 (06:09→21:44)
[2016-11-01] MEDS: cefTRIAXone 2 GM/100 ML BAG (PRE-DOCKED) IVPB SCH ×2 (06:10→17:56)
[2016-11-01 06:34] LABS: CALCIUM 8.1 mg/dL (8.5-10.1); CREATININE 1.2 mg/dL (0.7-1.3); PHOSPHOROUS 5.4 mg/dL (2.5-4.9)
[2016-11-01] MEDS ORDERED: PT OWN MED DRAWER 7, Y5N ONE (08:27)
[2016-11-01] MEDS: HEPARIN NA (PORCINE) 5,000 UNITS/ML 1ML VIAL SQ SCH ×2 (09:10→21:43)
[2016-11-01] MEDS: FUROSEMIDE 40 MG/4 ML INJECTABLE VIAL IVPUSH SCH (09:10)
--- NOTE | 2016-11-01 09:39 | PN ---
Progress Note (short form) - Note Progress Note: NEUROSURGERY POD #6 Some incisional pain Tolerating po No new complaint PE: AF, VSS HEENT- NC/AT; Neck- supple; Cor- RR; Lungs- decreased BS at bases; Abd-obese; + BS; Ext- B LE ankle/distal edema Wound- no drainage, dressing c/d/i CN- intact; Motor- UE 4+ B; B LE 0/5; Sensation- decreased LT/PP below about T4- 5 B; DTR- hyporeflexia B Blood culture- strep mitis/strep pneumo Intra-op cx- strep pneumoniae Blood culture - negative to date S/p emergency laminectomies for debridement of abscess and cord decompression Cont PT-ROM; encourage pt movements On ceftriaxone per ID- group home tx needed DVT prophylaxis: SCD's and SQ heparin Prognosis for motor recovery extremely poor Incentive spirometry D/w Dr Beal Floor care
--- NOTE | 2016-11-01 10:14 | PN ---
Progress Note, Physician History of Present Illness: S/P EMERGENCY LAMINECTOMY UNABLE TO MOVE LEGS NO CHEST PAIN NO SOB ON OXYGEN C/O COUGH - Current Medication List Current Medications: Active Medications Acetaminophen (Tylenol -) 650 mg PO Q4H PRN PRN Reason: FEVER OR PAIN Last Admin: 10/31/16 02:36 Dose: 650 mg Albuterol/Ipratropium (Duoneb -) 1 amp NEB QIDR [facility] Last Admin: 11/01/16 06:00 Dose: 1 amp Amiodarone HCl (Cordarone -) 400 mg PO TID [facility] Last Admin: 11/01/16 06:09 Dose: 400 mg Bisacodyl (Dulcolax Suppository -) 10 mg RC DAILY PRN PRN Reason: CONSTIPATION Last Admin: 10/31/16 22:44 Dose: 10 mg Ceftriaxone Sodium (Rocephin 2gm Ivpb (Pre-Docked)) 2 gm IVPB Q12H [facility] PRN Reason: Protocol Last Admin: 11/01/16 06:10 Dose: 2 gm Diazepam (Valium -) 5 mg PO Q8H [facility] Last Admin: 11/01/16 06:09 Dose: 5 mg Docusate Sodium (Colace -) 100 mg PO TID [facility] Last Admin: 11/01/16 06:09 Dose: 100 mg Furosemide (Lasix Injection -) 40 mg IVPUSH DAILY [facility] Last Admin: 11/01/16 09:10 Dose: 40 mg Heparin Sodium (Porcine) (Heparin -) 5,000 unit SQ BID [facility] Last Admin: 11/01/16 09:10 Dose: 5,000 unit Ondansetron HCl (Zofran Injection) 4 mg IVPB Q6H PRN PRN Reason: NAUSEA AND/OR VOMITING Last Admin: 10/31/16 18:53 Dose: 4 mg Oxycodone HCl (Roxicodone -) 5 mg PO Q3H PRN PRN Reason: MODERATE PAIN Last Admin: 10/31/16 09:45 Dose: 5 mg Oxycodone HCl (Roxicodone -) 10 mg PO Q3H PRN PRN Reason: SEVERE PAIN Last Admin: 10/31/16 18:11 Dose: 10 mg Polyethylene Glycol (Miralax (For Daily Use) -) 17 gm PO BID [facility] Last Admin: 10/31/16 22:43 Dose: 17 grams - Objective Vital Signs: Vital Signs Temperature 97.9 F 11/01/16 09:48 Pulse Rate 94 H 11/01/16 09:48 Respiratory Rate 24 11/01/16 09:48 Blood Pressure 102/55 11/01/16 08:00 O2 Sat by Pulse Oximetry (%) 90 L 11/01/16 08:00 Cardiovascular: Yes: S1, S2 Respiratory: Yes: Diminished, Rhonchi Gastrointestinal: Yes: Normal Bowel Sounds, Soft Edema: Yes Labs: CBC, BMP 11/01/16 05:15 11/01/16 05:15 INR, PTT INR 1.32 (0.82-1.09) H 10/25/16 23:00 Problem List - Problems (1) Epidural abscess Assessment/Plan: abx per id ON sq heparin continue with iv abx Code(s): G06.2 - EXTRADURAL AND SUBDURAL ABSCESS, UNSPECIFIED (2) Positive blood culture Assessment/Plan: abx per dr llamas repeat cultures echo noted-- Microbiology 10/24/16 11:46 Blood - Peripheral Venous Blood Culture - Final Streptococcus Pneumoniae Streptococcus Pneumoniae#2 10/24/16 11:46 Blood - Peripheral Venous Blood Culture - Final Streptococcus Mitis 10/28/16 06:16 Blood - Peripheral Venous Blood Culture - Preliminary NO GROWTH OBTAINED AFTER 72 HOURS, INCUBATION TO CONTINUE FOR 2 DAYS. 10/28/16 05:50 Blood - Peripheral Venous Blood Culture - Preliminary NO GROWTH OBTAINED AFTER 72 HOURS, INCUBATION TO CONTINUE FOR 2 DAYS. Code(s): R78.81 - BACTEREMIA (3) Acute on chronic renal insufficiency Assessment/Plan: monitor Laboratory Tests 10/25/16 10/28/16 10/31/16 06:15 05:50 05:20 Creatinine 1.4 H 0.9 1.0 Code(s): N28.9 - DISORDER OF KIDNEY AND URETER, UNSPECIFIED N18.9 - CHRONIC KIDNEY DISEASE, UNSPECIFIED (4) CHF exacerbation Assessment/Plan: LASIX --START TODAY FOLLOW CXR Code(s): I50.9 - HEART FAILURE, UNSPECIFIED Qualifiers: Qualified Code(s): I50.33 - Acute on chronic diastolic (congestive) heart failure (5) Lymphoma Assessment/Plan: in remission oncology consult Code(s): C85.90 - NON-HODGKIN LYMPHOMA, UNSPECIFIED, UNSPECIFIED SITE (6) Weakness of both lower extremities Assessment/Plan: as above due abscess---abx ct of ls spine neuro and ns consult Code(s): R29.898 - OTH SYMPTOMS AND SIGNS INVOLVING THE MUSCULOSKELETAL SYSTEM (7) Afib Assessment/Plan: follow labs no ac due to spinal surgery ON amiodorone Code(s): I48.91 - UNSPECIFIED ATRIAL FIBRILLATION Qualifiers: Qualified Code(s): I48.0 - Paroxysmal atrial fibrillation (8) Chest pain Assessment/Plan: PARTIAL SVC OBSTRUCTION DIURETICS CTA NEGATIVE FOR PE--PARTIAL SVC CE NEG Code(s): R07.9 - CHEST PAIN, UNSPECIFIED
[2016-11-01] MEDS: POLYETHYLENE GLYCOL 3350 119 GM BTL PO SCH ×2 (10:31→21:43)
[2016-11-01] MEDS: oxyCODONE HCL 5 MG TABLET PO PRN ×2 (10:40→23:05)
--- NOTE | 2016-11-01 11:32 | PN ---
Progress Note, Physician History of Present Illness: Awake, alert Seated in bed C/O back pain, relieved with analgesics Afebrile WBC WNL - Current Medication List Current Medications: Active Medications Acetaminophen (Tylenol -) 650 mg PO Q4H PRN PRN Reason: FEVER OR PAIN Last Admin: 10/31/16 02:36 Dose: 650 mg Albuterol/Ipratropium (Duoneb -) 1 amp NEB QIDR [facility] Last Admin: 11/01/16 06:00 Dose: 1 amp Amiodarone HCl (Cordarone -) 400 mg PO TID [facility] Last Admin: 11/01/16 06:09 Dose: 400 mg Bisacodyl (Dulcolax Suppository -) 10 mg RC DAILY PRN PRN Reason: CONSTIPATION Last Admin: 10/31/16 22:44 Dose: 10 mg Ceftriaxone Sodium (Rocephin 2gm Ivpb (Pre-Docked)) 2 gm IVPB Q12H [facility] PRN Reason: Protocol Last Admin: 11/01/16 06:10 Dose: 2 gm Diazepam (Valium -) 5 mg PO Q8H [facility] Last Admin: 11/01/16 06:09 Dose: 5 mg Docusate Sodium (Colace -) 100 mg PO TID [facility] Last Admin: 11/01/16 06:09 Dose: 100 mg Furosemide (Lasix Injection -) 40 mg IVPUSH DAILY [facility] Last Admin: 11/01/16 09:10 Dose: 40 mg Heparin Sodium (Porcine) (Heparin -) 5,000 unit SQ BID [facility] Last Admin: 11/01/16 09:10 Dose: 5,000 unit Ondansetron HCl (Zofran Injection) 4 mg IVPB Q6H PRN PRN Reason: NAUSEA AND/OR VOMITING Last Admin: 10/31/16 18:53 Dose: 4 mg Oxycodone HCl (Roxicodone -) 5 mg PO Q3H PRN PRN Reason: MODERATE PAIN Last Admin: 11/01/16 10:40 Dose: 5 mg Oxycodone HCl (Roxicodone -) 10 mg PO Q3H PRN PRN Reason: SEVERE PAIN Last Admin: 10/31/16 18:11 Dose: 10 mg Polyethylene Glycol (Miralax (For Daily Use) -) 17 gm PO BID [facility] Last Admin: 11/01/16 10:31 Dose: 17 grams - Objective Vital Signs: Vital Signs Temperature 97.9 F 11/01/16 10:44 Pulse Rate 96 H 11/01/16 10:44 Respiratory Rate 16 11/01/16 10:44 Blood Pressure 115/76 11/01/16 10:44 O2 Sat by Pulse Oximetry (%) 95 11/01/16 10:34 Constitutional: Yes: No Distress, Obese Eyes: Yes: Conjunctiva Clear Cardiovascular: Yes: Regular Rate and Rhythm, S1 Respiratory: Yes: CTA Bilaterally Gastrointestinal: Yes: Normal Bowel Sounds, Soft, Abdomen, Obese. No: Tenderness Edema: Yes Integumentary: Yes: Other (Surgical wound no erythema/ drainage) Labs: CBC, BMP 11/01/16 05:15 11/01/16 05:15 INR, PTT INR 1.32 (0.82-1.09) H 10/25/16 23:00 Assessment/Plan Polymicrobial bacteremia Epidural abscess s/p laminectomy POD # 7 Paraplegia Hx Hodgkin's lymphoma Continue ceftriaxone 2gm IVPB q24h
[2016-11-01] MEDS ORDERED: PNEUMOC 13-VAL CONJ-DIP CRM/PF 0.5 ML DISP.SYRIN IM ONE (12:03)
[2016-11-01] MEDS ORDERED: SODIUM PHOSPHATE/NA BIPHOS 133 ML ENEMA PR ONE ×4 (12:03→18:23)
[2016-11-01] MEDS ORDERED: SENNOSIDES 8.6MG TABLET (FP) PO PRN ×2 (12:05→18:23)
--- NOTE | 2016-11-01 12:10 | PN ---
Progress Note (short form) - Note Progress Note: PULM / CCM POD#7: s/p Hemilaminectomy -Seen and examined in the ICU -a-febrile -NAD -Cheery -Remains unable to move LE Active Medications Acetaminophen (Tylenol -) 650 mg PO Q4H PRN PRN Reason: FEVER OR PAIN Last Admin: 10/31/16 02:36 Dose: 650 mg Albuterol/Ipratropium (Duoneb -) 1 amp NEB QIDR [facility] Last Admin: 11/01/16 11:35 Dose: 1 amp Amiodarone HCl (Cordarone -) 400 mg PO TID [facility] Last Admin: 11/01/16 06:09 Dose: 400 mg Bisacodyl (Dulcolax Suppository -) 10 mg RC DAILY PRN PRN Reason: CONSTIPATION Last Admin: 10/31/16 22:44 Dose: 10 mg Ceftriaxone Sodium (Rocephin 2gm Ivpb (Pre-Docked)) 2 gm IVPB Q12H [facility] PRN Reason: Protocol Last Admin: 11/01/16 06:10 Dose: 2 gm Diazepam (Valium -) 5 mg PO Q8H [facility] Last Admin: 11/01/16 06:09 Dose: 5 mg Docusate Sodium (Colace -) 100 mg PO TID [facility] Last Admin: 11/01/16 06:09 Dose: 100 mg Furosemide (Lasix Injection -) 40 mg IVPUSH DAILY [facility] Last Admin: 11/01/16 09:10 Dose: 40 mg Heparin Sodium (Porcine) (Heparin -) 5,000 unit SQ BID [facility] Last Admin: 11/01/16 09:10 Dose: 5,000 unit Ondansetron HCl (Zofran Injection) 4 mg IVPB Q6H PRN PRN Reason: NAUSEA AND/OR VOMITING Last Admin: 10/31/16 18:53 Dose: 4 mg Oxycodone HCl (Roxicodone -) 5 mg PO Q3H PRN PRN Reason: MODERATE PAIN Last Admin: 11/01/16 10:40 Dose: 5 mg Oxycodone HCl (Roxicodone -) 10 mg PO Q3H PRN PRN Reason: SEVERE PAIN Last Admin: 10/31/16 18:11 Dose: 10 mg Pneumococcal 13-Valent Conj Vacc (Prevnar 13 Syringe -) 0.5 ml IM .ONCE ONE Stop: 11/01/16 12:04 Polyethylene Glycol (Miralax (For Daily Use) -) 17 gm PO BID [facility] Last Admin: 11/01/16 10:31 Dose: 17 grams Senna (Senna -) 2 tab PO HS PRN PRN Reason: CONSTIPATION V/S Period Temp Pulse Resp BP Sys/Lloyd Pulse Ox Last 24 Hr 97.7 F-99.4 F 84-102 16-24 94-119/52-83 90-100 I's & O's 10/29/16 10/30/16 10/31/16 11/01/16 23:59 23:59 23:59 23:59 Intake Total 1805.3 1250 1360 150 Output Total 1000 1700 2500 1000 Balance 805.3 -450 -1140 -850 Weight 124.086 kg 124.693 kg 125.554 kg 125.6 kg EXAM: GEN: Elderly man, CA+OX3, NAD, Friendly HEENT: PERRL, an-icteric, MMM Pulm: coarse, diminished in bases CV: nml S1 S2, RRR, unable to appreciate any G/M/R Abd: + BS, obese, S/S N/T N/D X4Q Ext: + Pulses, WPPX4, trace peripheral edema Neuro: awake, alert. unable to move LE. + sensation CBC, BMP 11/01/16 05:15 11/01/16 05:15 MICRO 10/28/16 06:16 Blood - Peripheral Venous Blood Culture - Preliminary NO GROWTH OBTAINED AFTER 96 HOURS, INCUBATION TO CONTINUE FOR 1 DAYS. 10/28/16 05:50 Blood - Peripheral Venous Blood Culture - Preliminary NO GROWTH OBTAINED AFTER 96 HOURS, INCUBATION TO CONTINUE FOR 1 DAYS. 10/24/16 11:46 Blood - Peripheral Venous Blood Culture - Final Streptococcus Pneumoniae Streptococcus Pneumoniae#2 10/25/16 13:25 Blood - Peripheral Venous Blood Culture - Final NO GROWTH AFTER 5 DAYS INCUBATION 10/25/16 13:10 Blood - Peripheral Venous Blood Culture - Final NO GROWTH AFTER 5 DAYS INCUBATION 10/25/16 21:43 Abscess Gram Stain - Final 10/25/16 21:43 Abscess Wound Culture - Final Streptococcus Pneumoniae 10/25/16 13:10 Blood - Peripheral Venous TB Test (QFT) (TABITHA) - Final 10/25/16 21:43 Abscess AFB Smear Concentration - Final 10/25/16 21:43 Abscess Mycobacterial Culture - Preliminary 10/24/16 11:46 Blood - Peripheral Venous Blood Culture - Final Streptococcus Mitis 10/25/16 21:03 Urine - Urine Kuhn Urine Culture - Final NO GROWTH OBTAINED 10/26/16 14:00 Urine - Urine Kuhn Legionella Antigen - Final 10/26/16 14:00 Urine - Urine Kuhn Streptococcus pneumoniae Antigen (M - Final 10/25/16 21:43 Abscess SALVADOR Preparation - Preliminary 10/25/16 21:43 Abscess Fungal Culture - Preliminary 10/25/16 20:00 Urine For Antigen Detection Legionella Antigen - Final STUDIES TO NOTE: CXR 6/: R side Basilar effusion, otherwise clear (MY Read). CTA /2: reviewed--> neg PE, right effusion ? SVT narrowing LE dopplers /2: reviewed--> neg DVT ASSESS: POD#7: s/p Hemilaminectomy Lower Extremity Paralysis Epidural Abscess with Cord Compression Strep Bacteremia Hodgkin's Lymphoma Right Pleural Effusion PLAN: - IS - CPT - NEBS - rate/rhythm control per cardiology - continue antibiotics per ID - neuro checks - pain control - incentive spirometry - Gentle diuresis - Aggressive BR: colace, Senna, Dulcolax & Fleet enema's QD - rehab/PT - Telemetry monitoring - Transfer --> Med Surg - DVT prophylaxis Kennedy Trevizo, [facility] [id number] Pulm/[facility] CCT: 36m
--- NOTE | 2016-11-01 13:19 | PN ---
Progress Note (short form) - Note Progress Note: 70 M, anemia, hypertension, hodgkins lymphoma, DVT (1 year ago) not currently on AC. Presented to Urgent care about 2 weeks ago for "PNA". He was given Prednisone and Augmentin. 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) s/p chemotherapy at [facility]/Vascular: Yes: CHF (Diastolic (nl EF on echo and MUGA from 2015) with hx of SARAH and lasix treatment up to 1 month ago), HTN, Hyperlipdemia Pulmonary: Yes: COPD Hepatobiliary: Yes: Other (hepatosplenomegaly) Musculoskeletal: Yes: Chronic low back pain (lumbar radiculopathy) Rheumatology: Yes: Other (spinal stenosis) Endocrine: Yes: Hyperthyroidism Additional Medical History: history of malaria when he was in [place] Home Medications - Allergies Allergies/Adverse Reactions: Allergies Allergy/AdvReac Type Severity Reaction Status Date / Time No Known Allergies Allergy Verified 10/24/16 09:34 - Home Medications Home Medications: Ambulatory Orders Cyanocobalamin (Vitamin B-12) [B-12] 500 mcg PO DAILY 10/24/16 Furosemide 20 mg PO DAILY 10/24/16 Active Medications Generic Name Dose Route Start Last Admin Trade Name Freq PRN Reason Stop Dose Admin Acetaminophen 650 mg 10/25/16 23:30 10/31/16 02:36 Tylenol - PO 650 mg Q4H PRN Administration FEVER OR PAIN Albuterol/Ipratropium 1 amp 10/26/16 00:00 11/01/16 11:35 Duoneb - NEB 1 amp QIDR [facility] Administration Amiodarone HCl 400 mg 10/29/16 17:30 11/01/16 06:09 Cordarone - PO 400 mg TID [facility] Administration Bisacodyl 10 mg 10/25/16 22:00 10/31/16 22:44 Dulcolax Suppository - RC 10 mg DAILY PRN Administration CONSTIPATION Ceftriaxone Sodium 2 gm 10/26/16 18:50 11/01/16 06:10 Rocephin 2gm Ivpb (Pre-Docked) IVPB 2 gm Q12H [facility] Administration Protocol Diazepam 5 mg 10/25/16 22:00 11/01/16 06:09 Valium - PO 5 mg Q8H [facility] Administration Docusate Sodium 100 mg 10/25/16 22:00 11/01/16 06:09 Colace - PO 100 mg TID [facility] Administration Furosemide 40 mg 10/31/16 10:00 11/01/16 09:10 Lasix Injection - IVPUSH 40 mg DAILY [facility] Administration Heparin Sodium (Porcine) 5,000 unit 10/26/16 10:15 11/01/16 09:10 Heparin - SQ 5,000 unit BID [facility] Administration Ondansetron HCl 4 mg 10/25/16 22:00 10/31/16 18:53 Zofran Injection IVPB 4 mg Q6H PRN Administration NAUSEA AND/OR VOMITING Oxycodone HCl 5 mg 10/28/16 14:23 11/01/16 10:40 Roxicodone - PO 5 mg Q3H PRN Administration MODERATE PAIN Oxycodone HCl 10 mg 10/28/16 14:23 10/31/16 18:11 Roxicodone - PO 10 mg Q3H PRN Administration SEVERE PAIN Pneumococcal 13-Valent Conj Vacc 0.5 ml 11/01/16 12:03 Prevnar 13 Syringe - IM 11/01/16 12:04 .ONCE ONE Polyethylene Glycol 17 gm 10/31/16 11:15 11/01/16 10:31 Miralax (For Daily Use) - PO 17 grams BID [facility] Administration Senna 2 tab 11/01/16 12:05 Senna - PO HS PRN CONSTIPATION Physical Exam Vital Signs: Vital Signs Period Temp Pulse Resp BP Sys/Lloyd Pulse Ox Last 24 Hr 97.7 F-99.4 F 84-102 16-24 94-119/52-83 90-100 Neck: Supple Cor: RSR, No murmurs, No gallops Lungs: Clear to P&A Abd: Soft, Normal bowel sounds, No organomegaly Ext:No significant edema CBC, BMP 11/01/16 05:15 11/01/16 05:15 A/P 70 y/o patient with Hodgkins lymphoma with h/o cavernous sinus, pituitary involvement, s//p chemotherapy completed > 6months ago, also with h/o DVT, not on a/c, obesity, CHF comes in with paralysis, spidural abscessses, s/ p laminectomies, strep. pneumonia bacterremia and abscesses h/o hodgkins with cavenous sinus and pituitary involvement in 2015, s/p ABVD/ .SCAR. CT scans show improved retroperitoneal adenopathy/small mediastinal nodes. RML lung nodules and sclerosis of bones no obvious active disease -- will needs PET- CT outpatient given CT findings s/ o residual vs treated disease immunosuppressed due to prior chemotherapy ? cellular/humoral deficiencies related to hodgkins h/o DVT 1yr. ago. Was not on a/c and currently unable to initiate due to spine surgery recent CT shows SVC narrowing/ partial occlusion with no evidence of mass or compression or clots - ?port-a-cath presence please consult vascular surgery to see whether needs to be removed.
[2016-11-01] MEDS ORDERED: ACETAMINOPHEN 325 MG TABLET (FP) PO PRN (18:23)
[2016-11-01] MEDS ORDERED: ONDANSETRON 4 MG/2 ML VIAL IVPB PRN (18:23)
[2016-11-01] MEDS ORDERED: oxyCODONE HCL 5 MG TABLET PO PRN (18:23)
[2016-11-01] MEDS ORDERED: BISACODYL 10 MG SUPP.RECT RC PRN (18:23)
[2016-11-02] MEDS: diazePAM 5 MG TABLET PO SCH ×3 (05:35→21:12)
[2016-11-02] MEDS: AMIODARONE HCL 200 MG TABLET (FP) PO SCH ×3 (05:35→21:12)
[2016-11-02] MEDS: DOCUSATE SODIUM 100 MG CAPSULE (FP) PO SCH ×3 (05:35→21:12)
[2016-11-02 06:16] LABS: MCH 29.1 pg (25.7-33.7); MCHC 32.6 g/dl (32.0-35.9); MEAN CELL VOLUME 89.3 fl (80-96); MEAN PLT VOLUME 7.1 fl (7.5-11.1); PLATELET COUNT 211 K/MM3 (134-434); RDW 16.9 % (11.9-15.9); WHITE BLOOD COUNT 5.7 K/mm3 (4.0-10.0)
[2016-11-02] MEDS: ALBUTEROL SO4 2.5/IPRATROPIUM 0.5 INH SOL 3 ML VIAL.NEB. NEB SCH ×3 (06:36→17:22)
[2016-11-02 06:41] LABS: CALCIUM 8.1 mg/dL (8.5-10.1); COCKROFT - GAULT 115.73; PHOSPHOROUS 3.9 mg/dL (2.5-4.9)
--- NOTE | 2016-11-02 07:32 | PN ---
Progress Note, Physician Chief Complaint: ID Today is day 8 post op multiple thoracic laminectomies for thoracic epidural abscesses hematogenous origin Strep polymicrobial bacteremia in the setting of Lymphoma and chemotherapy this past year. Currently stable post op and Getting Ceftriaxone 2 grs daily He is afebrile in no distress and no complaints - Current Medication List Current Medications: Active Medications Acetaminophen (Tylenol -) 650 mg PO Q4H PRN PRN Reason: FEVER OR PAIN Albuterol/Ipratropium (Duoneb -) 1 amp NEB QIDR [facility] Last Admin: 11/02/16 06:36 Dose: 1 amp Amiodarone HCl (Cordarone -) 400 mg PO TID [facility] Last Admin: 11/02/16 05:35 Dose: 400 mg Bisacodyl (Dulcolax Suppository -) 10 mg RC DAILY PRN PRN Reason: CONSTIPATION Ceftriaxone Sodium (Rocephin 2gm Ivpb (Pre-Docked)) 2 gm IVPB BID [facility] PRN Reason: Protocol Diazepam (Valium -) 5 mg PO TID [facility] Last Admin: 11/02/16 05:35 Dose: 5 mg Docusate Sodium (Colace -) 100 mg PO TID [facility] Last Admin: 11/02/16 05:35 Dose: 100 mg Furosemide (Lasix Injection -) 40 mg IVPUSH DAILY [facility] Heparin Sodium (Porcine) (Heparin -) 5,000 unit SQ BID [facility] Last Admin: 11/01/16 21:43 Dose: 5,000 unit Ondansetron HCl (Zofran Injection) 4 mg IVPB Q6H PRN PRN Reason: NAUSEA AND/OR VOMITING Oxycodone HCl (Roxicodone -) 5 mg PO Q3H PRN PRN Reason: MODERATE PAIN Last Admin: 11/01/16 23:05 Dose: 5 mg Oxycodone HCl (Roxicodone -) 10 mg PO Q3H PRN PRN Reason: SEVERE PAIN Polyethylene Glycol (Miralax (For Daily Use) -) 17 gm PO BID [facility] Last Admin: 11/01/16 21:43 Dose: 17 grams Senna (Senna -) 2 tab PO HS PRN PRN Reason: CONSTIPATION - Objective Vital Signs: Vital Signs Temperature 98 F 11/02/16 06:00 Pulse Rate 81 11/02/16 06:00 Respiratory Rate 18 11/02/16 06:00 Blood Pressure 118/60 11/02/16 06:00 O2 Sat by Pulse Oximetry (%) 97 11/01/16 22:00 Constitutional: Yes: No Distress, Calm, Obese Eyes: Yes: WNL, Conjunctiva Clear, EOM Intact HENT: Yes: WNL, Atraumatic Cardiovascular: Yes: Regular Rate and Rhythm, S1, S2. No: Gallop, Murmur, Rub Respiratory: Yes: WNL, Regular, CTA Bilaterally, Diminished. No: Rales, Rhonchi Gastrointestinal: Yes: WNL, Soft. No: Hepatomegaly, Splenomegaly, Tenderness, Tenderness, Rebound Extremities: No: Cold, Cool, Cyanosis Edema: Yes Labs: CBC, BMP 11/02/16 05:20 11/02/16 05:20 INR, PTT INR 1.32 (0.82-1.09) H 10/25/16 23:00 Problem List - Problems (1) Epidural abscess Code(s): G06.2 - EXTRADURAL AND SUBDURAL ABSCESS, UNSPECIFIED (2) Weakness of both lower extremities Code(s): R29.898 - OTH SYMPTOMS AND SIGNS INVOLVING THE MUSCULOSKELETAL SYSTEM (3) Pneumococcal bacteremia Code(s): R78.81 - BACTEREMIA Assessment/Plan Microbiology 10/28/16 06:16 Blood - Peripheral Venous Blood Culture - Final NO GROWTH AFTER 5 DAYS INCUBATION 10/28/16 05:50 Blood - Peripheral Venous Blood Culture - Final NO GROWTH AFTER 5 DAYS INCUBATION 10/25/16 21:43 Abscess Gram Stain - Final 10/25/16 21:43 Abscess Wound Culture - Final Streptococcus Pneumoniae 10/24/16 11:46 Blood - Peripheral Venous Blood Culture - Final Streptococcus Pneumoniae Streptococcus Pneumoniae#2 10/24/16 11:46 Blood - Peripheral Venous Blood Culture - Final Streptococcus Mitis Laboratory Tests 10/28/16 11/02/16 11/02/16 05:50 05:20 05:20 WBC 5.7 Hgb 9.8 L Plt Count 211 ESR 124 H BUN 26 H Creatinine 1.0 Assessment Multiple epidural absesses with neuro deficit paralysis LE Polymicrobial gram positive bacteremia Strep pneumo and Strep Mitis History of lymphoma Hodgkins post chemotherapy pituitary and intrabd involvement Day 8 post laminectomies Plan Ceftriaxone 2 grs daily to complete 8 total weeks treatment with antibiotic 39 minutes spent providing critical care review of management Fritz DIAZ
--- NOTE | 2016-11-02 08:25 | PN ---
Progress Note (short form) - Note Progress Note: NEUROSURGERY POD #7 Some incisional pain Tolerating po No new complaint PE: Tmax 98.4, AF, VSS HEENT- NC/AT; Neck- supple; Cor- RR; Lungs- decreased BS at bases; Abd-obese; + BS; Ext- B LE ankle/distal edema Wound- no drainage, dressing c/d/i CN- intact; Motor- UE 4+ B; B LE 0/5; Sensation- decreased LT/PP below about T4- 5 B; DTR- hyporeflexia B WBC 5.4 Blood culture- strep mitis/strep pneumo Intra-op cx- strep pneumoniae Initial blood cutlure- strep mitis and strep pneumo Blood culture 5- negative to date S/p emergency laminectomies for debridement of abscess and cord decompression Cont PT-ROM; encourage pt movements On ceftriaxone per ID- 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
[2016-11-02] MEDS ORDERED: PT OWN MED DRAWER 7, Y5N ONE (08:53)
[2016-11-02] MEDS: CEFTRIAXONE 100 ML IVPB SCH (09:22)
[2016-11-02] MEDS: POLYETHYLENE GLYCOL 3350 119 GM BTL PO SCH ×2 (09:22→21:13)
[2016-11-02] MEDS: FUROSEMIDE 40 MG/4 ML INJECTABLE VIAL IVPUSH SCH (09:22)
[2016-11-02] MEDS: HEPARIN NA (PORCINE) 5,000 UNITS/ML 1ML VIAL SQ SCH ×2 (09:22→21:12)
--- NOTE | 2016-11-02 09:34 | PN ---
Progress Note, Physician History of Present Illness: S/P EMERGENCY LAMINECTOMY UNABLE TO MOVE LEGS NO CHEST PAIN NO SOB ON OXYGEN C/O COUGH - Current Medication List Current Medications: Active Medications Acetaminophen (Tylenol -) 650 mg PO Q4H PRN PRN Reason: FEVER OR PAIN Albuterol/Ipratropium (Duoneb -) 1 amp NEB QIDR [facility] Last Admin: 11/02/16 06:36 Dose: 1 amp Amiodarone HCl (Cordarone -) 400 mg PO TID [facility] Stop: 11/06/16 21:59 Bisacodyl (Dulcolax Suppository -) 10 mg RC DAILY PRN PRN Reason: CONSTIPATION Diazepam (Valium -) 5 mg PO TID [facility] Last Admin: 11/02/16 05:35 Dose: 5 mg Docusate Sodium (Colace -) 100 mg PO TID [facility] Last Admin: 11/02/16 05:35 Dose: 100 mg Furosemide (Lasix Injection -) 40 mg IVPUSH DAILY [facility] Last Admin: 11/02/16 09:22 Dose: 40 mg Heparin Sodium (Porcine) (Heparin -) 5,000 unit SQ BID [facility] Last Admin: 11/02/16 09:22 Dose: 5,000 unit Ceftriaxone Sodium (Rocephin 2gm Ivpb (Pre-Docked)) 100 mls @ 200 mls/hr IVPB DAILY [facility] Last Admin: 11/02/16 09:22 Dose: 200 mls/hr Ondansetron HCl (Zofran Injection) 4 mg IVPB Q6H PRN PRN Reason: NAUSEA AND/OR VOMITING Oxycodone HCl (Roxicodone -) 5 mg PO Q3H PRN PRN Reason: MODERATE PAIN Last Admin: 11/01/16 23:05 Dose: 5 mg Oxycodone HCl (Roxicodone -) 10 mg PO Q3H PRN PRN Reason: SEVERE PAIN Polyethylene Glycol (Miralax (For Daily Use) -) 17 gm PO BID [facility] Last Admin: 11/02/16 09:22 Dose: 17 grams Senna (Senna -) 2 tab PO HS PRN PRN Reason: CONSTIPATION - Objective Vital Signs: Vital Signs Temperature 98.6 F 11/02/16 08:45 Pulse Rate 88 11/02/16 08:45 Respiratory Rate 26 H 11/02/16 08:45 Blood Pressure 117/53 11/02/16 08:45 O2 Sat by Pulse Oximetry (%) 97 11/01/16 22:00 Cardiovascular: Yes: Regular Rate and Rhythm Respiratory: Yes: On Nasal O2, Rhonchi Gastrointestinal: Yes: Normal Bowel Sounds, Soft Neurological: Yes: Weakness, Other (UNABLE TO MOVE LEGS) Labs: CBC, BMP 11/02/16 05:20 11/02/16 05:20 INR, PTT INR 1.32 (0.82-1.09) H 10/25/16 23:00 Problem List - Problems (1) Epidural abscess Assessment/Plan: abx per id--on ceftriaxone ON sq heparin continue with iv abx Code(s): G06.2 - EXTRADURAL AND SUBDURAL ABSCESS, UNSPECIFIED (2) Positive blood culture Assessment/Plan: abx per dr llamas repeat cultures echo noted-- Microbiology 10/24/16 11:46 Blood - Peripheral Venous Blood Culture - Final Streptococcus Pneumoniae Streptococcus Pneumoniae#2 10/24/16 11:46 Blood - Peripheral Venous Blood Culture - Final Streptococcus Mitis 10/28/16 06:16 Blood - Peripheral Venous Blood Culture - Preliminary NO GROWTH OBTAINED AFTER 72 HOURS, INCUBATION TO CONTINUE FOR 2 DAYS. 10/28/16 05:50 Blood - Peripheral Venous Blood Culture - Preliminary NO GROWTH OBTAINED AFTER 72 HOURS, INCUBATION TO CONTINUE FOR 2 DAYS. Code(s): R78.81 - BACTEREMIA (3) Acute on chronic renal insufficiency Assessment/Plan: monitor Laboratory Tests 10/25/16 10/28/16 10/31/16 06:15 05:50 05:20 Creatinine 1.4 H 0.9 1.0 Code(s): N28.9 - DISORDER OF KIDNEY AND URETER, UNSPECIFIED N18.9 - CHRONIC KIDNEY DISEASE, UNSPECIFIED (4) CHF exacerbation Assessment/Plan: LASIX --START TODAY FOLLOW CXR Code(s): I50.9 - HEART FAILURE, UNSPECIFIED Qualifiers: Qualified Code(s): I50.33 - Acute on chronic diastolic (congestive) heart failure (5) Lymphoma Assessment/Plan: in remission oncology consult Code(s): C85.90 - NON-HODGKIN LYMPHOMA, UNSPECIFIED, UNSPECIFIED SITE (6) Weakness of both lower extremities Assessment/Plan: as above due abscess---abx ct of ls spine neuro and ns consult Code(s): R29.898 - OTH SYMPTOMS AND SIGNS INVOLVING THE MUSCULOSKELETAL SYSTEM (7) Afib Assessment/Plan: follow labs no ac due to spinal surgery ON amiodorone Code(s): I48.91 - UNSPECIFIED ATRIAL FIBRILLATION Qualifiers: Qualified Code(s): I48.0 - Paroxysmal atrial fibrillation (8) Chest pain Assessment/Plan: PARTIAL SVC OBSTRUCTION DIURETICS CTA NEGATIVE FOR PE--PARTIAL SVC CE NEG Code(s): R07.9 - CHEST PAIN, UNSPECIFIED
[2016-11-02] MEDS ORDERED: cefTRIAXone 2 GM/100 ML BAG (PRE-DOCKED) IVPB SCH (10:00)
--- NOTE | 2016-11-02 12:12 | PN ---
Teaching Attending Note Name of Resident: Zhang Altamirano ATTENDING PHYSICIAN STATEMENT I saw and evaluated the patient. I reviewed the resident's note and discussed the case with the resident. I agree with the resident's findings and plan as documented. SUBJECTIVE: Patient seen and examined in the ICU. Awake and alert. Denies shortness of breath, chest pain or palpitations. No improvement in lower extremity motor function. Reports having some mild improvement in sensation on his abdominal wall. Intake & Output 10/30/16 10/31/16 11/01/16 11/02/16 23:59 23:59 23:59 23:59 Intake Total 1250 1360 1270 200 Output Total 1700 2500 3000 500 Balance -450 -1140 -1730 -300 Weight 274 lb 14.4 oz 276 lb 12.8 oz 276 lb 14.4 oz 266 lb 4 oz Last Vital Signs Temp Pulse Resp BP Pulse Ox 98.6 F 90 24 112/55 95 11/02/16 08:45 11/02/16 11:59 11/02/16 11:30 11/02/16 11:30 11/02/16 11:59 Active Medications Acetaminophen (Tylenol -) 650 mg PO Q4H PRN PRN Reason: FEVER OR PAIN Albuterol/Ipratropium (Duoneb -) 1 amp NEB QIDR [facility] Last Admin: 11/02/16 11:57 Dose: 1 amp Amiodarone HCl (Cordarone -) 400 mg PO TID [facility] Stop: 11/06/16 21:59 Bisacodyl (Dulcolax Suppository -) 10 mg RC DAILY PRN PRN Reason: CONSTIPATION Diazepam (Valium -) 5 mg PO TID [facility] Last Admin: 11/02/16 05:35 Dose: 5 mg Docusate Sodium (Colace -) 100 mg PO TID [facility] Last Admin: 11/02/16 05:35 Dose: 100 mg Furosemide (Lasix Injection -) 40 mg IVPUSH DAILY [facility] Last Admin: 11/02/16 09:22 Dose: 40 mg Heparin Sodium (Porcine) (Heparin -) 5,000 unit SQ BID [facility] Last Admin: 11/02/16 09:22 Dose: 5,000 unit Ceftriaxone Sodium (Rocephin 2gm Ivpb (Pre-Docked)) 100 mls @ 200 mls/hr IVPB DAILY [facility] Last Admin: 11/02/16 09:22 Dose: 200 mls/hr Ondansetron HCl (Zofran Injection) 4 mg IVPB Q6H PRN PRN Reason: NAUSEA AND/OR VOMITING Oxycodone HCl (Roxicodone -) 5 mg PO Q3H PRN PRN Reason: MODERATE PAIN Last Admin: 11/01/16 23:05 Dose: 5 mg Oxycodone HCl (Roxicodone -) 10 mg PO Q3H PRN PRN Reason: SEVERE PAIN Polyethylene Glycol (Miralax (For Daily Use) -) 17 gm PO BID [facility] Last Admin: 11/02/16 09:22 Dose: 17 grams Senna (Senna -) 2 tab PO HS PRN PRN Reason: CONSTIPATION Gen: Awake and alert Heart: tachycardic, irregular Lung: bilateral rhonchi Abd: soft, obese, nontender Ext: (+) edema Laboratory Results - last 24 hr 11/02/16 11/02/16 05:20 05:20 WBC 5.7 RBC 3.37 L Hgb 9.8 L Hct 30.1 L MCV 89.3 MCHC 32.6 RDW 16.9 H Plt Count 211 MPV 7.1 L Sodium 136 Potassium 4.2 Chloride 95 L Carbon Dioxide 32 Anion Gap 9 BUN 26 H Creatinine 1.0 Random Glucose 131 H Calcium 8.1 L Phosphorus 3.9 D Magnesium 2.0 Problem List - Problems (1) Bronchitis Code(s): J40 - BRONCHITIS, NOT SPECIFIED ACUTE OR CHRONIC (2) Positive blood culture Code(s): R78.81 - BACTEREMIA (3) Weakness Code(s): R53.1 - WEAKNESS (4) Weakness of both lower extremities Code(s): R29.898 - OTH SYMPTOMS AND SIGNS INVOLVING THE MUSCULOSKELETAL SYSTEM (5) Diabetes Code(s): E11.9 - TYPE 2 DIABETES MELLITUS WITHOUT COMPLICATIONS (6) Dyspnea Code(s): R06.00 - DYSPNEA, UNSPECIFIED (7) Left leg DVT Code(s): I82.402 - ACUTE EMBOLISM AND THOMBOS UNSP DEEP VEINS OF L LOW EXTREM Qualifiers: Qualified Code(s): I82.412 - Acute embolism and thrombosis of left femoral vein (8) Lymphoma Code(s): C85.90 - NON-HODGKIN LYMPHOMA, UNSPECIFIED, UNSPECIFIED SITE (9) Pneumonia Code(s): J18.9 - PNEUMONIA, UNSPECIFIED ORGANISM Qualifiers: Qualified Code(s): J18.1 - Lobar pneumonia, unspecified organism ASSESSMENT AND PLAN: Strep Bacteremia Lower Extremity Paralysis Epidural Abscess with Cord Compression s/p Hemilaminectomy Hodgkin's Lymphoma h/o DVT Right Pleural Effusion - rate/rhythm control per cardiology - continue antibiotics per ID - neuro checks - pain control - incentive spirometry - DVT prophylaxis - rehab/PT - Telemetry monitoring Dr Garcia critical care time spent in reviewing chart, evaluating patient and formulating plan 35 min Problem List - Problems (1) Bronchitis Code(s): J40 - BRONCHITIS, NOT SPECIFIED ACUTE OR CHRONIC (2) Positive blood culture Code(s): R78.81 - BACTEREMIA (3) Weakness Code(s): R53.1 - WEAKNESS (4) Weakness of both lower extremities Code(s): R29.898 - OTH SYMPTOMS AND SIGNS INVOLVING THE MUSCULOSKELETAL SYSTEM (5) Diabetes Code(s): E11.9 - TYPE 2 DIABETES MELLITUS WITHOUT COMPLICATIONS (6) Dyspnea Code(s): R06.00 - DYSPNEA, UNSPECIFIED (7) Left leg DVT Code(s): I82.402 - ACUTE EMBOLISM AND THOMBOS UNSP DEEP VEINS OF L LOW EXTREM Qualifiers: Qualified Code(s): I82.412 - Acute embolism and thrombosis of left femoral vein (8) Lymphoma Code(s): C85.90 - NON-HODGKIN LYMPHOMA, UNSPECIFIED, UNSPECIFIED SITE (9) Pneumonia Code(s): J18.9 - PNEUMONIA, UNSPECIFIED ORGANISM Qualifiers: Qualified Code(s): J18.1 - Lobar pneumonia, unspecified organism
[2016-11-02] MEDS: oxyCODONE HCL 5 MG TABLET PO PRN (14:21)
--- NOTE | 2016-11-02 18:16 | PN ---
Progress Note, Physician Chief Complaint: Remains in sinus rhythm History of Present Illness: 70M history of anemia, hypertension, hodgkins lymphoma, DVT (1 year ago) not on AC, admitted 10/24/16 with shortness of breath, wheezing, and a productive cough also leg weakness and numbness. Being seen by neurology to rule out GB syndrome. Also noted with mildly elevated bnp. No orthopnea pnd or edema. No chest pain. Found with thoracic epidural abcess, seen by neurosurgery underwent drainage and placement of catheter 10/26/16. Tele with atrial fib new onset with RVR Bcx positive for Strep Pneumo. Afib converted to NSR Echo with TDS but probably normal EF. Prior MUGA [id number] was normal - Current Medication List Current Medications: Active Medications Acetaminophen (Tylenol -) 650 mg PO Q4H PRN PRN Reason: FEVER OR PAIN Last Admin: 11/02/16 14:20 Dose: 650 mg Albuterol/Ipratropium (Duoneb -) 1 amp NEB QIDR [facility] Last Admin: 11/02/16 17:22 Dose: 1 amp Amiodarone HCl (Cordarone -) 400 mg PO TID [facility] Stop: 11/06/16 21:59 Last Admin: 11/02/16 14:03 Dose: 400 mg Bisacodyl (Dulcolax Suppository -) 10 mg RC DAILY PRN PRN Reason: CONSTIPATION Diazepam (Valium -) 5 mg PO TID [facility] Last Admin: 11/02/16 14:03 Dose: 5 mg Docusate Sodium (Colace -) 100 mg PO TID [facility] Last Admin: 11/02/16 14:03 Dose: 100 mg Furosemide (Lasix Injection -) 40 mg IVPUSH DAILY [facility] Last Admin: 11/02/16 09:22 Dose: 40 mg Heparin Sodium (Porcine) (Heparin -) 5,000 unit SQ BID [facility] Last Admin: 11/02/16 09:22 Dose: 5,000 unit Ceftriaxone Sodium (Rocephin 2gm Ivpb (Pre-Docked)) 100 mls @ 200 mls/hr IVPB DAILY [facility] Last Admin: 11/02/16 09:22 Dose: 200 mls/hr Ondansetron HCl (Zofran Injection) 4 mg IVPB Q6H PRN PRN Reason: NAUSEA AND/OR VOMITING Oxycodone HCl (Roxicodone -) 5 mg PO Q3H PRN PRN Reason: MODERATE PAIN Last Admin: 11/02/16 14:21 Dose: 5 mg Oxycodone HCl (Roxicodone -) 10 mg PO Q3H PRN PRN Reason: SEVERE PAIN Polyethylene Glycol (Miralax (For Daily Use) -) 17 gm PO BID [facility] Last Admin: 11/02/16 09:22 Dose: 17 grams Senna (Senna -) 2 tab PO HS PRN PRN Reason: CONSTIPATION - Objective Vital Signs: Vital Signs Temperature 98.4 F 11/02/16 15:36 Pulse Rate 78 11/02/16 15:36 Respiratory Rate 21 11/02/16 15:36 Blood Pressure 125/60 11/02/16 15:36 O2 Sat by Pulse Oximetry (%) 95 11/02/16 11:59 Constitutional: Yes: No Distress HENT: Yes: Atraumatic Neck: Yes: Supple, Trachea Midline Cardiovascular: Yes: Regular Rate and Rhythm, S1, S2. No: JVD, Murmur Respiratory: Yes: Diminished (bibasilar rales) Gastrointestinal: Yes: Normal Bowel Sounds, Soft Edema: No Labs: CBC, BMP 11/02/16 05:20 11/02/16 05:20 INR, PTT INR 1.32 (0.82-1.09) H 10/25/16 23:00 Assessment/Plan 70M history of anemia, hypertension, hodgkins lymphoma, DVT (1 year ago) not on AC, admitted 10/24/16 with shortness of breath, wheezing, and a productive cough also leg weakness and numbness. Being seen by neurology to rule out GB syndrome. Also noted with mildly elevated bnp. No orthopnea pnd or edema. No chest pain. Found with thoracic epidural abcess, seen by neurosurgery underwent drainage and placement of catheter 10/26/16. Tele with atrial fib new onset with RVR Bcx positive for Strep Pneumo. Afib converted to NSR Echo with TDS but probably normal EF. Prior MUGA [id number] was normal 1) Afib remains in sinus rhythm On amiodarone 400mg po tid. Would clarify how many days has been on this regimen and after 5 days change to daily. No AC at this time. Would be started on anticoagulation in the future when deemed safe from neurosurgery perspective 2) CHF on daily IV lasix
--- NOTE | 2016-11-02 20:09 | PN ---
Physical Exam: SUBJECTIVE: Patient seen and examined c/o productive cough of thick white sputum, continues to have trouble initiating strong cough. improved sensation on abdomen. positional pain in back. denies chest pain, fever, n/v, difficulty breathing. OBJECTIVE: Vital Signs Period Temp Pulse Resp BP Sys/Lloyd Pulse Ox Last 24 Hr 97.9 F-98.6 F 78-98 18-26 108-131/47-68 92-97 EYES: PERRL, extraocular movements intact, sclera anicteric, conjunctiva clear. No ptosis. ENT: oropharynx clear without exudates, moist mucous membranes. NECK: Trachea midline, full range of motion, supple. LUNGS: quiet at bases, diffuse rhonchi throughout. HEART: distant heart sounds, S1, S2 ABDOMEN: obese, Soft, nondistended, normoactive bowel sounds EXTREMITIES: 2+ DP and radial pulses, warm, well-perfused, no edema. NEUROLOGICAL: Sensation: intact on scalp, face, neck, arms, forearms, hands, chest, abdomen upto umbilicus, feels the soles of his b/l feet. patchy sensation on right and left leg throughout Strength: right hand cage manager/shoulder extension/bicep and tricep flexion and extension 4/5, left hand cage manager/shoulder extension/bicep and tricep flexion and extension 4/5. Motor: range of motion full on fingers, wrists, elbows and shoulders. unable to move b/l le at hip/knee/ankle/toes. lim in place SKIN: erythemaous sacrum and back without skin breakdown, incision dressing is CDI covered in tegaderm, Laboratory Results - last 24 hr 11/02/16 11/02/16 05:20 05:20 WBC 5.7 RBC 3.37 L Hgb 9.8 L Hct 30.1 L MCV 89.3 MCHC 32.6 RDW 16.9 H Plt Count 211 MPV 7.1 L Sodium 136 Potassium 4.2 Chloride 95 L Carbon Dioxide 32 Anion Gap 9 BUN 26 H Creatinine 1.0 Random Glucose 131 H Calcium 8.1 L Phosphorus 3.9 D Magnesium 2.0 Active Medications Generic Name Dose Route Start Last Admin Trade Name Freq PRN Reason Stop Dose Admin Acetaminophen 650 mg 11/01/16 18:23 11/02/16 14:20 Tylenol - PO 650 mg Q4H PRN Administration FEVER OR PAIN Albuterol/Ipratropium 1 amp 11/02/16 00:00 11/02/16 17:22 Duoneb - NEB 1 amp QIDR [facility] Administration Amiodarone HCl 400 mg 11/02/16 08:07 11/02/16 14:03 Cordarone - PO 11/06/16 21:59 400 mg TID [facility] Administration Bisacodyl 10 mg 11/01/16 18:23 Dulcolax Suppository - RC DAILY PRN CONSTIPATION Diazepam 5 mg 11/01/16 22:00 11/02/16 14:03 Valium - PO 5 mg TID [facility] Administration Docusate Sodium 100 mg 11/01/16 22:00 11/02/16 14:03 Colace - PO 100 mg TID [facility] Administration Furosemide 40 mg 11/02/16 10:00 11/02/16 09:22 Lasix Injection - IVPUSH 40 mg DAILY [facility] Administration Heparin Sodium (Porcine) 5,000 unit 11/01/16 22:00 11/02/16 09:22 Heparin - SQ 5,000 unit BID [facility] Administration Ceftriaxone Sodium 100 mls @ 200 mls/hr 11/02/16 10:00 11/02/16 09:22 Rocephin 2gm Ivpb (Pre-Docked) IVPB 200 mls/hr DAILY [facility] Administration Ondansetron HCl 4 mg 11/01/16 18:23 Zofran Injection IVPB Q6H PRN NAUSEA AND/OR VOMITING Oxycodone HCl 5 mg 11/01/16 18:23 11/02/16 14:21 Roxicodone - PO 5 mg Q3H PRN Administration MODERATE PAIN Oxycodone HCl 10 mg 11/01/16 18:23 Roxicodone - PO Q3H PRN SEVERE PAIN Polyethylene Glycol 17 gm 11/01/16 22:00 11/02/16 09:22 Miralax (For Daily Use) - PO 17 grams BID [facility] Administration Senna 2 tab 11/01/16 18:23 Senna - PO HS PRN CONSTIPATION ASSESSMENT/PLAN: 70 yr old man with anemia, HTN, hx of hodgkins lymphoma, hx of DVT (1 year ago ) not on anti-coagulation presents with lower extremity weakness found to have posterior epidural abscess with cord compression with complete motor paraplegia , s/p laminectomy (10/25). Neurological - epidural abscess laminectomy (10/25) - neuro checks - Physical therapy - to train with resistance bands to increase upper arm strength, discussed with physical therapist pain control - oxycodone consult: Dr. Marcano consult: Dr. Wills Infectious disease strep pneumon and Strep mitis in bld cx and epidural abscess - rocephin 2gm q12hr IVPB -- start 10/26 to continue for 8 weeks consult: Dr. Brewer Cardiovascular new onset Afib, recurrent paroxysmal - currently in NSR -- amiodarone 400mg TID for 5 days, initiated 6/4 PM then daily - avoid beta sameer given COPD hx - avoid full dose antiocoagulation for afib due to risk of bleeding - heparin for dvt prophylaxis is okay - echo without pericardial effusion/cannot r/o vegetation, -- would defer JILL due to labile oxygen saturation and afib, likely unstable consult: Respiratory - aggressive incentive spirometery QID to decrease atelectasis, chest PT with caution to avoid incision site and spine - 2lpm nasal cannula, titr to maintian sat O2 >90% - right pleural effusion with loculations, parapneumonic or malignant, defer tap at this time. - lasix to duirese effusions Hematological hx of DVT - no acute DVT seen on vascular study, repeat vascualy study negative for DVT, chest CTA negative for PE high risk of bleed for anticoagulation, defer for [address] Cheney consulted regarding chemotherapy - port will require fluoroscopic eval to determine patency if it needs to be accessed. Renal encourage oral hydration monitor urine output, lim in place to prevent contact dermatitis from urinary incontinence GI colace po TID given opiates zofran prn for nausea q6h prn prophylaxis DVT: heparin BID 5000 unit SQ Diet: regular Visit type - Emergency Visit Emergency Visit: No - New Patient This patient is new to me today: No - Critical Care Critical Care patient: Yes Total Critical Care Time (in minutes): 40 Critical Care Statement: The care of this patient involved high complexity decision making to prevent further life threatening deterioration of the patient 's condition and/or to evalute & treat vital organ system(s) failure or risk of failure.
--- NOTE | 2016-11-02 22:40 | PN ---
Progress Note (short form) - Note Progress Note: PAtient seen and examined no specific complaints. Reports better senstion over lower ext. no improvement in motor strength AFVSS Cor: RSR, No murmurs, No gallops Lungs: Clear to P&A Abd: Soft, Normal bowel sounds, No organomegaly Ext:No significant edema Labs examined a/p 70 y/o patient with Hodgkins lymphoma with h/o cavernous sinus, pituitary involvement, s//p chemotherapy completed > 6months ago, also with h/o DVT, not on a/c, obesity, CHF comes in with paralysis, spidural abscessses, s/ p laminectomies, strep. pneumonia bacterremia and abscesses h/o hodgkins with cavenous sinus and pituitary involvement in 2014, s/p ABVD/ .SCAR. CT scans show improved retroperitoneal adenopathy/small mediastinal nodes. RML lung nodules and sclerosis of bones no obvious active disease -- will needs PET- CT outpatient given CT findings s/ o residual vs treated disease immunosuppressed due to prior chemotherapy ? cellular/humoral deficiencies related to hodgkins h/o DVT 1yr. ago. Was not on a/c and currenly unable to initiate due to spine surgery [id number]--not flushed for > 6months. also CTA showing partial SVC occlusion and collaterals--? chronic thrombosis of SVC will discuss with IR /ID and pulmonary about need for intervening with port at this time. Unable to anticoagulate due to recent spine surgery
[2016-11-03] MEDS: ALBUTEROL SO4 2.5/IPRATROPIUM 0.5 INH SOL 3 ML VIAL.NEB. NEB SCH ×4 (00:06→17:07)
[2016-11-03] MEDS: oxyCODONE HCL 5 MG TABLET PO PRN ×2 (03:49→20:41)
[2016-11-03] MEDS: diazePAM 5 MG TABLET PO SCH ×3 (06:03→21:28)
[2016-11-03] MEDS: DOCUSATE SODIUM 100 MG CAPSULE (FP) PO SCH ×3 (06:03→21:28)
[2016-11-03] MEDS: AMIODARONE HCL 200 MG TABLET (FP) PO SCH ×3 (06:03→21:28)
--- NOTE | 2016-11-03 07:51 | PN ---
Physical Exam: SUBJECTIVE: Patient seen and examined. continues to have productive cough, no change in phlegm consistency has good appetite, denies abdominal pain, chest pain, sob, fevers, pruritus. OBJECTIVE: Vital Signs Period Temp Pulse Resp BP Sys/Lloyd Pulse Ox Last 24 Hr 97.9 F-98.6 F 78-98 18-26 94-125/49-65 92-95 EYES: PERRL, extraocular movements intact, sclera anicteric, conjunctiva clear. No ptosis. ENT: oropharynx clear without exudates, moist mucous membranes. NECK: Trachea midline, full range of motion, supple. LUNGS: quiet at bases, diffuse rhonchi throughout. HEART: distant heart sounds, S1, S2 ABDOMEN: obese, Soft, nondistended, normoactive bowel sounds EXTREMITIES: 2+ DP and radial pulses, warm, well-perfused, no edema. NEUROLOGICAL: Sensation: intact on scalp, face, neck, arms, forearms, hands, chest, abdomen upto umbilicus, feels the soles of his b/l feet. patchy sensation on right and left leg throughout Strength: right hand iron carrier/shoulder extension/bicep and tricep flexion and extension 4/5, left hand iron carrier/shoulder extension/bicep and tricep flexion and extension 4/5. Motor: range of motion full on fingers, wrists, elbows and shoulders. unable to move b/l le at hip/knee/ankle/toes. lim in place SKIN: incision dressing is CDI covered in tegaderm. swelling around incision site; nontender/skin intact. diffuse erythematous macular red rash extending across back, lower abdomen, face(nasal bridge and cheeks) and b/l legs. Active Medications Generic Name Dose Route Start Last Admin Trade Name Freq PRN Reason Stop Dose Admin Acetaminophen 650 mg 11/01/16 18:23 11/02/16 14:20 Tylenol - PO 650 mg Q4H PRN Administration FEVER OR PAIN Albuterol/Ipratropium 1 amp 11/02/16 00:00 11/03/16 06:59 Duoneb - NEB 1 amp QIDR [facility] Administration Amiodarone HCl 400 mg 11/02/16 08:07 11/03/16 06:03 Cordarone - PO 11/06/16 21:59 400 mg TID [facility] Administration Bisacodyl 10 mg 11/01/16 18:23 Dulcolax Suppository - RC DAILY PRN CONSTIPATION Diazepam 5 mg 11/01/16 22:00 11/03/16 06:03 Valium - PO 5 mg TID [facility] Administration Docusate Sodium 100 mg 11/01/16 22:00 11/03/16 06:03 Colace - PO 100 mg TID [facility] Administration Furosemide 40 mg 11/02/16 10:00 11/02/16 09:22 Lasix Injection - IVPUSH 40 mg DAILY [facility] Administration Heparin Sodium (Porcine) 5,000 unit 11/01/16 22:00 11/02/16 21:12 Heparin - SQ 5,000 unit BID [facility] Administration Ceftriaxone Sodium 100 mls @ 200 mls/hr 11/02/16 10:00 11/02/16 09:22 Rocephin 2gm Ivpb (Pre-Docked) IVPB 200 mls/hr DAILY [facility] Administration Ondansetron HCl 4 mg 11/01/16 18:23 Zofran Injection IVPB Q6H PRN NAUSEA AND/OR VOMITING Oxycodone HCl 5 mg 11/01/16 18:23 11/03/16 03:49 Roxicodone - PO 5 mg Q3H PRN Administration MODERATE PAIN Oxycodone HCl 10 mg 11/01/16 18:23 Roxicodone - PO Q3H PRN SEVERE PAIN Polyethylene Glycol 17 gm 11/01/16 22:00 11/02/16 21:13 Miralax (For Daily Use) - PO Not Given BID [facility] Senna 2 tab 11/01/16 18:23 Senna - PO HS PRN CONSTIPATION ASSESSMENT/PLAN: 70 yr old man with anemia, HTN, hx of hodgkins lymphoma, hx of DVT (1 year ago ) not on anti-coagulation presents with lower extremity weakness found to have posterior epidural abscess with cord compression with complete motor paraplegia , s/p laminectomy (10/25). Neurological - epidural abscess laminectomy (10/25) - neuro checks - Physical therapy - to train with resistance bands to increase upper arm strength, discussed with physical therapist pain control - oxycodone consult: Dr. Marcano consult: Dr. Wills Infectious disease strep pneumon and Strep mitis in bld cx and epidural abscess - Vancomycin to be initiated - rocephin 2gm q12hr IVPB 10/26-11/03 dc'd due to rash consult: Dr. Brewer Cardiovascular currently in NSR, paraoxysmal Afib -- amiodarone 400mg TID for 5 days, initiated 6/4 PM then daily -- amdiodarone 400mg TID ends 11/06, start daily on 11/07 - avoid beta sameer given COPD hx - heparin for dvt prophylaxis is okay consult: Respiratory - aggressive incentive spirometery QID to decrease atelectasis, chest PT with caution to avoid incision site and spine - 2lpm nasal cannula, titr to maintian sat O2 >90% - right pleural effusion with loculations, parapneumonic or malignant, defer tap at this time. - lasix to duirese effusions, daily 40mg IVPP lasix Hematological hx of DVT - no acute DVT seen on vascular study, repeat vascular study negative for DVT, chest CTA negative for PE Dr. Cheney consulted regarding chemotherapy - port will require fluoroscopic eval to determine patency if it needs to be accessed. 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 will attempt to reach primary oncology team, if the port will not be used and they are okay with removing it, plan to remove Renal monitor urine output, lim in place for I&O lasix daily GI colace po TID given opiates zofran prn for nausea q6h prn prophylaxis DVT: heparin BID 5000 unit SQ Diet: regular Visit type - Emergency Visit Emergency Visit: No - New Patient This patient is new to me today: No - Critical Care Critical Care patient: Yes Total Critical Care Time (in minutes): 38 Critical Care Statement: The care of this patient involved high complexity decision making to prevent further life threatening deterioration of the patient 's condition and/or to evalute & treat vital organ system(s) failure or risk of failure.
--- NOTE | 2016-11-03 08:21 | PN ---
Progress Note (short form) - Note Progress Note: NEUROSURGERY POD #8 Some incisional pain but less Tolerating po; appetite not great Taking Ensure No new complaint PE: Tmax 98.4, AF, VSS HEENT- NC/AT; Neck- supple; Cor- RR; Lungs- decreased BS at bases; Abd-obese; + BS; Ext- B LE ankle/distal edema Wound dressing c/d/i; mild swelling as expected postop CN- intact; Motor- UE 4+ B; B LE 0/5; Sensation- decreased LT/PP below about T4- 5 B; DTR- hyporeflexia B S/p emergency laminectomies for debridement of strep pneumoniae abscess and cord decompression Cont PT-ROM; encourage pt movements On ceftriaxone for prison tx DVT prophylaxis: SCD's and SQ heparin care adn future needs d/w nephew per and pt request
--- NOTE | 2016-11-03 08:25 | PN ---
Progress Note, Physician History of Present Illness: S/P EMERGENCY LAMINECTOMY UNABLE TO MOVE LEGS NO CHEST PAIN NO SOB ON OXYGEN C/O COUGH - Current Medication List Current Medications: Active Medications Acetaminophen (Tylenol -) 650 mg PO Q4H PRN PRN Reason: FEVER OR PAIN Last Admin: 11/02/16 14:20 Dose: 650 mg Albuterol/Ipratropium (Duoneb -) 1 amp NEB QIDR [facility] Last Admin: 11/03/16 06:59 Dose: 1 amp Amiodarone HCl (Cordarone -) 400 mg PO TID [facility] Stop: 11/06/16 21:59 Last Admin: 11/03/16 06:03 Dose: 400 mg Bisacodyl (Dulcolax Suppository -) 10 mg RC DAILY PRN PRN Reason: CONSTIPATION Diazepam (Valium -) 5 mg PO TID [facility] Last Admin: 11/03/16 06:03 Dose: 5 mg Docusate Sodium (Colace -) 100 mg PO TID [facility] Last Admin: 11/03/16 06:03 Dose: 100 mg Furosemide (Lasix Injection -) 40 mg IVPUSH DAILY [facility] Last Admin: 11/02/16 09:22 Dose: 40 mg Heparin Sodium (Porcine) (Heparin -) 5,000 unit SQ BID [facility] Last Admin: 11/02/16 21:12 Dose: 5,000 unit Ceftriaxone Sodium (Rocephin 2gm Ivpb (Pre-Docked)) 100 mls @ 200 mls/hr IVPB DAILY [facility] Last Admin: 11/02/16 09:22 Dose: 200 mls/hr Ondansetron HCl (Zofran Injection) 4 mg IVPB Q6H PRN PRN Reason: NAUSEA AND/OR VOMITING Oxycodone HCl (Roxicodone -) 5 mg PO Q3H PRN PRN Reason: MODERATE PAIN Last Admin: 11/03/16 03:49 Dose: 5 mg Oxycodone HCl (Roxicodone -) 10 mg PO Q3H PRN PRN Reason: SEVERE PAIN Polyethylene Glycol (Miralax (For Daily Use) -) 17 gm PO BID [facility] Last Admin: 11/02/16 21:13 Dose: Not Given Senna (Senna -) 2 tab PO HS PRN PRN Reason: CONSTIPATION - Objective Vital Signs: Vital Signs Temperature 98.0 F 11/03/16 06:00 Pulse Rate 84 11/03/16 06:00 Respiratory Rate 18 11/03/16 06:00 Blood Pressure 94/49 11/03/16 06:00 O2 Sat by Pulse Oximetry (%) 95 11/02/16 20:07 Cardiovascular: Yes: Regular Rate and Rhythm Respiratory: Yes: Regular, CTA Bilaterally Gastrointestinal: Yes: Normal Bowel Sounds, Soft Labs: CBC, BMP 11/02/16 05:20 11/02/16 05:20 INR, PTT INR 1.32 (0.82-1.09) H 10/25/16 23:00 Problem List - Problems (1) Epidural abscess Assessment/Plan: abx per id--on ceftriaxone ON sq heparin continue with iv abx Code(s): G06.2 - EXTRADURAL AND SUBDURAL ABSCESS, UNSPECIFIED (2) Positive blood culture Assessment/Plan: abx per dr llamsa repeat cultures echo noted-- Microbiology 10/24/16 11:46 Blood - Peripheral Venous Blood Culture - Final Streptococcus Pneumoniae Streptococcus Pneumoniae#2 10/24/16 11:46 Blood - Peripheral Venous Blood Culture - Final Streptococcus Mitis 10/28/16 06:16 Blood - Peripheral Venous Blood Culture - Preliminary NO GROWTH OBTAINED AFTER 72 HOURS, INCUBATION TO CONTINUE FOR 2 DAYS. 10/28/16 05:50 Blood - Peripheral Venous Blood Culture - Preliminary NO GROWTH OBTAINED AFTER 72 HOURS, INCUBATION TO CONTINUE FOR 2 DAYS. Code(s): R78.81 - BACTEREMIA (3) Acute on chronic renal insufficiency Assessment/Plan: monitor Laboratory Tests 10/25/16 10/28/16 10/31/16 06:15 05:50 05:20 Creatinine 1.4 H 0.9 1.0 Code(s): N28.9 - DISORDER OF KIDNEY AND URETER, UNSPECIFIED N18.9 - CHRONIC KIDNEY DISEASE, UNSPECIFIED (4) CHF exacerbation Assessment/Plan: LASIX -- FOLLOW CXR Code(s): I50.9 - HEART FAILURE, UNSPECIFIED Qualifiers: Qualified Code(s): I50.33 - Acute on chronic diastolic (congestive) heart failure (5) Lymphoma Assessment/Plan: in remission oncology consult Code(s): C85.90 - NON-HODGKIN LYMPHOMA, UNSPECIFIED, UNSPECIFIED SITE (6) Weakness of both lower extremities Assessment/Plan: as above due abscess---abx ct of ls spine neuro and ns consult Code(s): R29.898 - OTH SYMPTOMS AND SIGNS INVOLVING THE MUSCULOSKELETAL SYSTEM (7) Afib Assessment/Plan: follow labs no ac due to spinal surgery ON amiodorone Code(s): I48.91 - UNSPECIFIED ATRIAL FIBRILLATION Qualifiers: Qualified Code(s): I48.0 - Paroxysmal atrial fibrillation (8) Chest pain Assessment/Plan: PARTIAL SVC OBSTRUCTION DIURETICS CTA NEGATIVE FOR PE--PARTIAL SVC CE NEG Code(s): R07.9 - CHEST PAIN, UNSPECIFIED
--- NOTE | 2016-11-03 10:09 | PN ---
Progress Note (short form) - Note Progress Note: noted to have progressive rash denies pruritis resting comfortably, moist cough Vital Signs Period Temp Pulse Resp BP Sys/Lloyd Pulse Ox Last 24 Hr 97.9 F-98.4 F 78-99 18-24 94-125/49-65 94-96 cor-rrr lungs bilateral rhonchi abd soft,nt ext no edema +dressing on back skin- diffuse maculopapular rash- back, thighs, legs, flanks +lim CBC, BMP 11/02/16 05:20 11/02/16 05:20 Microbiology 10/28/16 06:16 Blood - Peripheral Venous Blood Culture - Final NO GROWTH AFTER 5 DAYS INCUBATION 10/28/16 05:50 Blood - Peripheral Venous Blood Culture - Final NO GROWTH AFTER 5 DAYS INCUBATION 10/24/16 11:46 Blood - Peripheral Venous Blood Culture - Final Streptococcus Pneumoniae Streptococcus Pneumoniae#2 10/25/16 13:25 Blood - Peripheral Venous Blood Culture - Final NO GROWTH AFTER 5 DAYS INCUBATION 10/25/16 13:10 Blood - Peripheral Venous Blood Culture - Final NO GROWTH AFTER 5 DAYS INCUBATION 10/25/16 21:43 Abscess Gram Stain - Final 10/25/16 21:43 Abscess Wound Culture - Final Streptococcus Pneumoniae 10/25/16 13:10 Blood - Peripheral Venous TB Test (QFT) (TABITHA) - Final 10/25/16 21:43 Abscess AFB Smear Concentration - Final 10/25/16 21:43 Abscess Mycobacterial Culture - Preliminary 10/24/16 11:46 Blood - Peripheral Venous Blood Culture - Final Streptococcus Mitis 10/25/16 21:03 Urine - Urine Lim Urine Culture - Final NO GROWTH OBTAINED 10/26/16 14:00 Urine - Urine Lim Legionella Antigen - Final 10/26/16 14:00 Urine - Urine Lim Streptococcus pneumoniae Antigen (M - Final 10/25/16 21:43 Abscess SALVADOR Preparation - Preliminary 10/25/16 21:43 Abscess Fungal Culture - Preliminary 10/25/16 20:00 Urine For Antigen Detection Legionella Antigen - Final a/p Diffuse rash- most likely ceftriaxone- will d/c and start vancomycin check level in am strep bacteremia= pneumoniae and mitis- switch to vancomycin s/p drainage of epidural abscess with cord compression-POD #9 still unable to move his legs history of Hodgkins LymphomaL- off chemo and RT for last 6 months
[2016-11-03] MEDS: HEPARIN NA (PORCINE) 5,000 UNITS/ML 1ML VIAL SQ SCH ×2 (10:34→21:28)
[2016-11-03] MEDS: FUROSEMIDE 40 MG/4 ML INJECTABLE VIAL IVPUSH SCH (10:34)
[2016-11-03] MEDS: POLYETHYLENE GLYCOL 3350 119 GM BTL PO SCH ×2 (10:48→21:31)
[2016-11-03] MEDS: CEFTRIAXONE 100 ML IVPB SCH (10:50)
--- NOTE | 2016-11-03 11:51 | PN ---
Teaching Attending Note Name of Resident: Zhang Altamirano ATTENDING PHYSICIAN STATEMENT I saw and evaluated the patient. I reviewed the resident's note and discussed the case with the resident. I agree with the resident's findings and plan as documented. SUBJECTIVE: Patient seen and examined in the ICU. Awake and alert. Denies shortness of breath, chest pain or palpitations. No improvement in lower extremity motor function. Noted slight rash from yesterday is spreading. Intake & Output 10/31/16 11/01/16 11/02/16 11/03/16 23:59 23:59 23:59 23:59 Intake Total 1360 1270 750 250 Output Total 2500 3000 2400 250 Balance -1140 -1730 -1650 0 Weight 276 lb 12.8 oz 276 lb 14.4 oz 266 lb 4 oz 264 lb 4 oz Last Vital Signs Temp Pulse Resp BP Pulse Ox 98.4 F 85 29 H 128/67 94 L 11/03/16 10:00 11/03/16 10:00 11/03/16 10:00 11/03/16 10:00 11/03/16 09:38 Active Medications Acetaminophen (Tylenol -) 650 mg PO Q4H PRN PRN Reason: FEVER OR PAIN Last Admin: 11/02/16 14:20 Dose: 650 mg Albuterol/Ipratropium (Duoneb -) 1 amp NEB QIDR [facility] Last Admin: 11/03/16 11:37 Dose: 1 amp Amiodarone HCl (Cordarone -) 400 mg PO TID [facility] Stop: 11/06/16 21:59 Last Admin: 11/03/16 06:03 Dose: 400 mg Bisacodyl (Dulcolax Suppository -) 10 mg RC DAILY PRN PRN Reason: CONSTIPATION Diazepam (Valium -) 5 mg PO TID [facility] Last Admin: 11/03/16 06:03 Dose: 5 mg Docusate Sodium (Colace -) 100 mg PO TID [facility] Last Admin: 11/03/16 06:03 Dose: 100 mg Furosemide (Lasix Injection -) 40 mg IVPUSH DAILY [facility] Last Admin: 11/03/16 10:34 Dose: 40 mg Heparin Sodium (Porcine) (Heparin -) 5,000 unit SQ BID [facility] Last Admin: 11/03/16 10:34 Dose: 5,000 unit Vancomycin HCl 1,500 mg/ (Dextrose) 500 mls @ 250 mls/hr IVPB BID [facility] PRN Reason: Protocol Ondansetron HCl (Zofran Injection) 4 mg IVPB Q6H PRN PRN Reason: NAUSEA AND/OR VOMITING Oxycodone HCl (Roxicodone -) 5 mg PO Q3H PRN PRN Reason: MODERATE PAIN Last Admin: 11/03/16 03:49 Dose: 5 mg Oxycodone HCl (Roxicodone -) 10 mg PO Q3H PRN PRN Reason: SEVERE PAIN Polyethylene Glycol (Miralax (For Daily Use) -) 17 gm PO BID [facility] Last Admin: 11/03/16 10:48 Dose: 17 grams Senna (Senna -) 2 tab PO HS PRN PRN Reason: CONSTIPATION Gen: Awake and alert Heart: tachycardic, irregular Lung: bilateral rhonchi Abd: soft, obese, nontender Ext: (+) edema Skin: diffuse rash Problem List - Problems (1) Bronchitis Code(s): J40 - BRONCHITIS, NOT SPECIFIED ACUTE OR CHRONIC (2) Positive blood culture Code(s): R78.81 - BACTEREMIA (3) Weakness Code(s): R53.1 - WEAKNESS (4) Weakness of both lower extremities Code(s): R29.898 - OTH SYMPTOMS AND SIGNS INVOLVING THE MUSCULOSKELETAL SYSTEM (5) Diabetes Code(s): E11.9 - TYPE 2 DIABETES MELLITUS WITHOUT COMPLICATIONS (6) Dyspnea Code(s): R06.00 - DYSPNEA, UNSPECIFIED (7) Left leg DVT Code(s): I82.402 - ACUTE EMBOLISM AND THOMBOS UNSP DEEP VEINS OF L LOW EXTREM Qualifiers: Qualified Code(s): I82.412 - Acute embolism and thrombosis of left femoral vein (8) Lymphoma Code(s): C85.90 - NON-HODGKIN LYMPHOMA, UNSPECIFIED, UNSPECIFIED SITE (9) Pneumonia Code(s): J18.9 - PNEUMONIA, UNSPECIFIED ORGANISM Qualifiers: Qualified Code(s): J18.1 - Lobar pneumonia, unspecified organism ASSESSMENT AND PLAN: Strep Bacteremia Lower Extremity Paralysis Epidural Abscess with Cord Compression s/p Hemilaminectomy Hodgkin's Lymphoma h/o DVT Right Pleural Effusion - rate/rhythm control per cardiology - continue antibiotics per ID - neuro checks - pain control - incentive spirometry - DVT prophylaxis - rehab/PT - ABX change to Vancomycin due to rash - Telemetry monitoring Dr Garcia critical care time spent in reviewing chart, evaluating patient and formulating plan 35 min Problem List - Problems (1) Bronchitis Code(s): J40 - BRONCHITIS, NOT SPECIFIED ACUTE OR CHRONIC (2) Positive blood culture Code(s): R78.81 - BACTEREMIA (3) Weakness Code(s): R53.1 - WEAKNESS (4) Weakness of both lower extremities Code(s): R29.898 - OTH SYMPTOMS AND SIGNS INVOLVING THE MUSCULOSKELETAL SYSTEM (5) Diabetes Code(s): E11.9 - TYPE 2 DIABETES MELLITUS WITHOUT COMPLICATIONS (6) Dyspnea Code(s): R06.00 - DYSPNEA, UNSPECIFIED (7) Left leg DVT Code(s): I82.402 - ACUTE EMBOLISM AND THOMBOS UNSP DEEP VEINS OF L LOW EXTREM Qualifiers: Qualified Code(s): I82.412 - Acute embolism and thrombosis of left femoral vein (8) Lymphoma Code(s): C85.90 - NON-HODGKIN LYMPHOMA, UNSPECIFIED, UNSPECIFIED SITE (9) Pneumonia Code(s): J18.9 - PNEUMONIA, UNSPECIFIED ORGANISM Qualifiers: Qualified Code(s): J18.1 - Lobar pneumonia, unspecified organism
[2016-11-03] MEDS: VANCOMYCIN 1,500 MG in DEXTROSE 5%-WATER - 500 ML IVPB SCH ×2 (12:32→21:28)
--- NOTE | 2016-11-03 12:38 | PN ---
Progress Note (short form) - Note Progress Note: Vascular Surgery Pt seen and examined. CTA reviewed of chest. Pt has svc narrowing with collateral formation. Pt does not have increased swelling of bilateral upper ext. No increased venous markings on chest. SVC narrowing or possible partial occlusion with collaterals. This makes the process chronic. Pt is eligible to get PICC line for assisted antibiotics for spine abscess tx. No need for intervention at this time. Andrea Castillo DO
--- NOTE | 2016-11-03 16:39 | PN ---
Progress Note (short form) - Note Progress Note: Patient seen and examined Strep sepsis -- now on vancomycin per I.D. No significant pain COUGH-NON PRODUCTIVE Rash- likely antibiotic related No motor recovery some sensory recovery Last Vital Signs Temp Pulse Resp BP Pulse Ox 98.6 F 94 H 29 H 96/60 94 L 11/03/16 14:00 11/03/16 14:00 11/03/16 14:00 11/03/16 14:00 11/03/16 09:38 HEENT: SAGAR, EOM Intact Oropharynx: No thrush, No mucositis Cor: RSR, No murmurs, No gallops Lungs: poor inspiratory effort,rhonchi Abd: Soft, Normal bowel sounds, No organomegaly Ext:No significant edema SCD CBC, BMP 11/02/16 05:20 11/02/16 05:20 Current Medications Generic Name Dose Route Start Last Admin Trade Name Freq PRN Reason Stop Dose Admin Acetaminophen 650 mg 11/01/16 18:23 11/02/16 14:20 Tylenol - PO 650 mg Q4H PRN Administration FEVER OR PAIN Albuterol/Ipratropium 1 amp 11/02/16 00:00 11/03/16 11:37 Duoneb - NEB 1 amp QIDR [facility] Administration Amiodarone HCl 400 mg 11/02/16 08:07 11/03/16 14:48 Cordarone - PO 11/06/16 21:59 400 mg TID [facility] Administration Bisacodyl 10 mg 11/01/16 18:23 Dulcolax Suppository - RC DAILY PRN CONSTIPATION Diazepam 5 mg 11/01/16 22:00 11/03/16 14:48 Valium - PO 5 mg TID [facility] Administration Docusate Sodium 100 mg 11/01/16 22:00 11/03/16 14:48 Colace - PO 100 mg TID [facility] Administration Furosemide 40 mg 11/02/16 10:00 11/03/16 10:34 Lasix Injection - IVPUSH 40 mg DAILY [facility] Administration Heparin Sodium (Porcine) 5,000 unit 11/01/16 22:00 11/03/16 10:34 Heparin - SQ 5,000 unit BID [facility] Administration Vancomycin HCl 1,500 mg/ 500 mls @ 250 mls/hr 11/03/16 11:30 11/03/16 12:32 Dextrose IVPB 250 mls/hr BID [facility] Administration Protocol Ondansetron HCl 4 mg 11/01/16 18:23 11/03/16 14:48 Zofran Injection IVPB 4 mg Q6H PRN Administration NAUSEA AND/OR VOMITING Oxycodone HCl 5 mg 11/01/16 18:23 11/03/16 03:49 Roxicodone - PO 5 mg Q3H PRN Administration MODERATE PAIN Oxycodone HCl 10 mg 11/01/16 18:23 Roxicodone - PO Q3H PRN SEVERE PAIN Polyethylene Glycol 17 gm 11/01/16 22:00 11/03/16 10:48 Miralax (For Daily Use) - PO 17 grams BID [facility] Administration Senna 2 tab 11/01/16 18:23 Senna - PO HS PRN CONSTIPATION Impression:: History of Hodgkins s/p chemotherapy completed in August 2015 presents with weakness, strep bacteremia, pneumonia, epidural abscesses, s/p surgery. Has motor deficit LE's and sensory deficit which is minimally recovered. On antibiotics per I.D. Immunoglobulin levels are adequate as is WBC count. Plan: Ongoing treatment per critical care , I.D. team.
[2016-11-03] MEDS ORDERED: FUROSEMIDE 40 MG/4 ML INJECTABLE VIAL IVPUSH ONE (16:43)
[2016-11-04] MEDS: ALBUTEROL SO4 2.5/IPRATROPIUM 0.5 INH SOL 3 ML VIAL.NEB. NEB SCH ×4 (00:10→18:01)
[2016-11-04] MEDS ORDERED: PT OWN MED DRAWER 7, Y5N ONE (05:15)
[2016-11-04] MEDS: DOCUSATE SODIUM 100 MG CAPSULE (FP) PO SCH ×3 (05:30→21:35)
[2016-11-04] MEDS: AMIODARONE HCL 200 MG TABLET (FP) PO SCH ×3 (05:30→21:36)
[2016-11-04] MEDS: diazePAM 5 MG TABLET PO SCH ×3 (05:30→21:35)
[2016-11-04] MEDS: oxyCODONE HCL 5 MG TABLET PO PRN ×3 (06:05→21:36)
[2016-11-04] MEDS ORDERED: BISACODYL 10 MG SUPP.RECT RC PRN (06:25)
[2016-11-04] MEDS ORDERED: ONDANSETRON 4 MG/2 ML VIAL IVPB PRN (06:25)
[2016-11-04] MEDS ORDERED: SENNOSIDES 8.6MG TABLET (FP) PO PRN (06:25)
[2016-11-04] MEDS ORDERED: ACETAMINOPHEN 325 MG TABLET (FP) PO PRN (06:25)
[2016-11-04 06:45] LABS: CALCIUM 8.5 mg/dL (8.5-10.1)
[2016-11-04 06:46] LABS: COCKROFT - GAULT 103.9; CREATININE 1.1 mg/dL (0.7-1.3)
[2016-11-04] MEDS ORDERED: ALBUTEROL SO4 2.5/IPRATROPIUM 0.5 INH SOL 3 ML VIAL.NEB. NEB ONE ×2 (07:07→10:59)
--- NOTE | 2016-11-04 07:10 | PN ---
Progress Note, Physician Chief Complaint: ID ICU follow up for this 70 year old male with Hodgkins disease pituitary and intrabd involvement now day 11 spinal surgery for multiple epidural abscesses along thoracic level wiath laminectomies. Paralysis LE appears permanent at this point. yesterday developed beta lactam rash and switched to Vancomycin. Currently dyspneic so not transferred - Current Medication List Current Medications: Active Medications Acetaminophen (Tylenol -) 650 mg PO Q4H PRN PRN Reason: FEVER OR PAIN Albuterol/Ipratropium (Duoneb -) 1 amp NEB QIDR [facility] Amiodarone HCl (Cordarone -) 400 mg PO TID [facility] Stop: 11/06/16 21:59 Last Admin: 11/04/16 05:30 Dose: 400 mg Bisacodyl (Dulcolax Suppository -) 10 mg RC DAILY PRN PRN Reason: CONSTIPATION Diazepam (Valium -) 5 mg PO TID [facility] Docusate Sodium (Colace -) 100 mg PO TID [facility] Furosemide (Lasix Injection -) 40 mg IVPUSH DAILY [facility] Heparin Sodium (Porcine) (Heparin -) 5,000 unit SQ BID [facility] Vancomycin HCl 1,500 mg/ (Dextrose) 500 mls @ 250 mls/hr IVPB BID [facility] PRN Reason: Protocol Last Admin: 11/03/16 21:28 Dose: 250 mls/hr Ondansetron HCl (Zofran Injection) 4 mg IVPB Q6H PRN PRN Reason: NAUSEA AND/OR VOMITING Oxycodone HCl (Roxicodone -) 5 mg PO Q3H PRN PRN Reason: MODERATE PAIN Oxycodone HCl (Roxicodone -) 10 mg PO Q3H PRN PRN Reason: SEVERE PAIN Polyethylene Glycol (Miralax (For Daily Use) -) 17 gm PO BID [facility] Senna (Senna -) 2 tab PO HS PRN PRN Reason: CONSTIPATION - Objective Vital Signs: Vital Signs Temperature 98.1 F 11/04/16 06:00 Pulse Rate 88 11/04/16 06:00 Respiratory Rate 20 11/04/16 06:00 Blood Pressure 120/67 11/04/16 06:00 O2 Sat by Pulse Oximetry (%) 92 L 11/03/16 21:00 Constitutional: Yes: Mild Distress, Moderate Distress, Obese Eyes: Yes: WNL, Conjunctiva Clear HENT: Yes: WNL, Atraumatic Neck: Yes: WNL, Supple Cardiovascular: Yes: Regular Rate and Rhythm, S1, S2 Respiratory: Yes: WNL, Regular, CTA Bilaterally, Diminished Gastrointestinal: Yes: WNL, Normal Bowel Sounds, Soft. No: Splenomegaly, Tenderness, Tenderness, Rebound Edema: Yes Integumentary: Yes: Rash, Other (Difuse mac pap rash abd legs neck) Labs: CBC, BMP 11/02/16 05:20 11/04/16 05:15 INR, PTT INR 1.32 (0.82-1.09) H 10/25/16 23:00 Problem List - Problems (1) Epidural abscess Code(s): G06.2 - EXTRADURAL AND SUBDURAL ABSCESS, UNSPECIFIED (2) Weakness of both lower extremities Code(s): R29.898 - OTH SYMPTOMS AND SIGNS INVOLVING THE MUSCULOSKELETAL SYSTEM (3) Pneumococcal bacteremia Code(s): R78.81 - BACTEREMIA Assessment/Plan Microbiology 10/24/16 11:46 Blood - Peripheral Venous Blood Culture - Final Streptococcus Pneumoniae Streptococcus Pneumoniae#2 10/24/16 11:46 Blood - Peripheral Venous Blood Culture - Final Streptococcus Mitis Laboratory Tests 10/28/16 10/28/16 11/02/16 05:50 05:50 05:20 WBC 5.7 Hgb 9.8 L Hct 30.1 L Plt Count 211 ESR 124 H BUN Creatinine IgG 1696 H IgA 405 IgM 194 H 11/04/16 05:15 WBC Hgb Hct Plt Count ESR BUN 25 H Creatinine 1.1 IgG IgA IgM Assessment Epidural abscesses throracic level Post multiple laminectomies day 11 post op Polymicrobial bacteremia Strep pneumo Strep Mitis Hodgkins lymphoma post chemotherapy Neuro impairment paralysis LE Hypoxemia not PE per CT thorax Beta lactam rash Plan Continue Vancomycin as ordered Check vanco trough levels Difficult to dose Vanco given body weight ESR and CRP repeat Critical care time spent today 37 minutes Fritz DIAZ
--- NOTE | 2016-11-04 07:23 | PN ---
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
--- NOTE | 2016-11-04 07:58 | PN ---
Progress Note, Physician - Current Medication List Current Medications: Active Medications Acetaminophen (Tylenol -) 650 mg PO Q4H PRN PRN Reason: FEVER OR PAIN Albuterol/Ipratropium (Duoneb -) 1 amp NEB QIDR [facility] Amiodarone HCl (Cordarone -) 400 mg PO TID [facility] Stop: 11/06/16 21:59 Last Admin: 11/04/16 05:30 Dose: 400 mg Bisacodyl (Dulcolax Suppository -) 10 mg RC DAILY PRN PRN Reason: CONSTIPATION Diazepam (Valium -) 5 mg PO TID [facility] Docusate Sodium (Colace -) 100 mg PO TID [facility] Furosemide (Lasix Injection -) 40 mg IVPUSH DAILY [facility] Heparin Sodium (Porcine) (Heparin -) 5,000 unit SQ BID [facility] Vancomycin HCl 1,500 mg/ (Dextrose) 500 mls @ 250 mls/hr IVPB BID [facility] PRN Reason: Protocol Last Admin: 11/03/16 21:28 Dose: 250 mls/hr Ondansetron HCl (Zofran Injection) 4 mg IVPB Q6H PRN PRN Reason: NAUSEA AND/OR VOMITING Oxycodone HCl (Roxicodone -) 5 mg PO Q3H PRN PRN Reason: MODERATE PAIN Oxycodone HCl (Roxicodone -) 10 mg PO Q3H PRN PRN Reason: SEVERE PAIN Polyethylene Glycol (Miralax (For Daily Use) -) 17 gm PO BID [facility] Senna (Senna -) 2 tab PO HS PRN PRN Reason: CONSTIPATION - Objective Vital Signs: Vital Signs Temperature 98.1 F 11/04/16 06:00 Pulse Rate 88 11/04/16 06:00 Respiratory Rate 20 11/04/16 06:00 Blood Pressure 120/67 11/04/16 06:00 O2 Sat by Pulse Oximetry (%) 92 L 11/03/16 21:00 Labs: CBC, BMP 11/02/16 05:20 11/04/16 05:15 INR, PTT INR 1.32 (0.82-1.09) H 10/25/16 23:00 Problem List - Problems (1) Epidural abscess Code(s): G06.2 - EXTRADURAL AND SUBDURAL ABSCESS, UNSPECIFIED (2) Positive blood culture Code(s): R78.81 - BACTEREMIA (3) Acute on chronic renal insufficiency Code(s): N28.9 - DISORDER OF KIDNEY AND URETER, UNSPECIFIED N18.9 - CHRONIC KIDNEY DISEASE, UNSPECIFIED (4) CHF exacerbation Code(s): I50.9 - HEART FAILURE, UNSPECIFIED Qualifiers: Qualified Code(s): I50.33 - Acute on chronic diastolic (congestive) heart failure (5) Lymphoma Code(s): C85.90 - NON-HODGKIN LYMPHOMA, UNSPECIFIED, UNSPECIFIED SITE (6) Weakness of both lower extremities Code(s): R29.898 - OTH SYMPTOMS AND SIGNS INVOLVING THE MUSCULOSKELETAL SYSTEM (7) Afib Code(s): I48.91 - UNSPECIFIED ATRIAL FIBRILLATION Qualifiers: Qualified Code(s): I48.0 - Paroxysmal atrial fibrillation (8) Chest pain Code(s): R07.9 - CHEST PAIN, UNSPECIFIED
[2016-11-04 08:14] LABS: MCH 29.8 pg (25.7-33.7); MCHC 33.2 g/dl (32.0-35.9); MEAN CELL VOLUME 89.8 fl (80-96); MEAN PLT VOLUME 7.1 fl (7.5-11.1); PLATELET COUNT 225 K/MM3 (134-434); RDW 17.3 % (11.9-15.9); WHITE BLOOD COUNT 6.6 K/mm3 (4.0-10.0)
[2016-11-04 08:34] LABS: ARTERIAL BLD GAS O2 SATURATION 85.8 % (90-98.9); ARTERIAL BLOOD GAS BASE EXCESS 8.6 meq/l (-2-2); ARTERIAL BLOOD GAS HCO3 34.3 meq/L (22-26); ARTERIAL BLOOD GAS PO2 53.8 mmHg (70-100); ARTERIAL BLOOD GAS pH 7.41 (7.35-7.45)
[2016-11-04 08:35] LABS: ALLENS TEST POSITIVE; ART PUNCT SITE RIGHT RADIAL; LPM/O2% 50%; PT. ON O2? YES; TYPE OF O2 VENTIMASK
[2016-11-04] MEDS: HEPARIN NA (PORCINE) 5,000 UNITS/ML 1ML VIAL SQ SCH ×2 (09:27→21:35)
[2016-11-04] MEDS ORDERED: FUROSEMIDE 40 MG/4 ML INJECTABLE VIAL IVPUSH SCH (10:00)
[2016-11-04] MEDS: VANCOMYCIN 1,500 MG in DEXTROSE 5%-WATER - 500 ML IVPB SCH (10:10)
[2016-11-04 11:03] LABS: METAMYELOCYTE 2 % (0-2); PLATELET ESTIMATE ADEQUATE (NORMAL)
[2016-11-04 11:04] LABS: ANISOCYTOSIS 1+
[2016-11-04 11:18] LABS: ERYTHROCYTE SEDIMENTATION RATE 110 mm/hr (0-20)
--- NOTE | 2016-11-04 11:53 | PN ---
Physical Exam: SUBJECTIVE: Patient seen and examined. says intermittently he feels a shooting pain down his right leg and thought he saw one of his right toes move. denies sob, chest pain, lightheadednes. has intermittent productive cough with occasional trouble bringing up the phlegm. yesterday evening pt's sat was appprox 85-90's on nasal cannula, venti mask 50% with some imporvement to 92's, no difficulty breathing last night. this morning pt's saturation on venti 50% <90%, placed on non-rebreather with minimal improvement. Bipap initiated. discussed possible need for intubation, pt is unsure about being intubated, discussion intiated with , they will discuss, not ready to make a decision at this time. OBJECTIVE: Vital Signs Period Temp Pulse Resp BP Sys/Lloyd Pulse Ox Last 24 Hr 98 F-98.7 F 86-96 20-29 96-120/52-79 87-92 EYES: PERRL, extraocular movements intact, sclera anicteric, conjunctiva clear. No ptosis. ENT: oropharynx clear without exudates, moist mucous membranes. NECK: Trachea midline, full range of motion, supple. LUNGS: quiet afrom midlung to base on left and quiet base on right. scattered wheezes and rhonchi on upper lobes. HEART: distant heart sounds, S1, S2 ABDOMEN: obese, Soft, nondistended, normoactive bowel sounds EXTREMITIES: 2+ DP and radial pulses, warm, well-perfused, no edema. NEUROLOGICAL: Sensation: intact on scalp, face, neck, arms, forearms, hands, chest, abdomen, feels the soles of his b/l feet. patchy sensation on right and left leg throughout Strength: right hand coke burner/shoulder extension/bicep and tricep flexion and extension 4/5, left hand coke burner/shoulder extension/bicep and tricep flexion and extension 4/5. Motor: range of motion full on fingers, wrists, elbows and shoulders. unable to move b/l le at hip/knee/ankle/toes. lim in place SKIN: incision dressing is CDI covered in tegaderm. swelling around incision site; nontender/skin intact. rash decreased on face, legs and abdomen, less erythematous. Laboratory Results - last 24 hr 11/04/16 11/04/1617 05:15 05:15 05:15 WBC 6.6 RBC 3.57 L Hgb 10.6 L Hct 32.0 L MCV 89.8 MCHC 33.2 RDW 17.3 H Plt Count 225 MPV 7.1 L Neutrophils % 75.0 Lymphocytes % 11.0 D Monocytes % 2.0 L Eosinophils % 6.0 H D Metamyelocytes 2 D Myelocytes 3 H D Differential Comment Manual diff done Reactive Lymphocytes 1 D Platelet Estimate Adequate Basophilic Stippling 1+ Anisocytosis 1+ ESR 110 H Puncture Site ABG pH ABG pCO2 at Pt Temp ABG pO2 at Pt Temp ABG HCO3 ABG O2 Sat (Measured) ABG O2 Content ABG Base Excess Santos Test O2 Delivery Device Oxygen Flow Rate PEEP Sodium 134 L Potassium 4.0 Chloride 92 L Carbon Dioxide 38 H Anion Gap 4 L BUN 25 H Creatinine 1.1 Random Glucose 119 H Calcium 8.5 C-Reactive Protein Cancelled TSH 11/04/16 11/04/16 05:15 08:28 WBC RBC Hgb Hct MCV MCHC RDW Plt Count MPV Neutrophils % Lymphocytes % Monocytes % Eosinophils % Metamyelocytes Myelocytes Differential Comment Reactive Lymphocytes Platelet Estimate Basophilic Stippling Anisocytosis ESR Puncture Site Right radial ABG pH 7.41 ABG pCO2 at Pt Temp 55.0 H D ABG pO2 at Pt Temp 53.8 L D ABG HCO3 34.3 H ABG O2 Sat (Measured) 85.8 L ABG O2 Content 12.6 L ABG Base Excess 8.6 H Santos Test Positive O2 Delivery Device Ventimask Oxygen Flow Rate 50% PEEP 0.0 Sodium Potassium Chloride Carbon Dioxide Anion Gap BUN Creatinine Random Glucose Calcium C-Reactive Protein TSH Cancelled Active Medications Generic Name Dose Route Start Last Admin Trade Name Freq PRN Reason Stop Dose Admin Acetaminophen 650 mg 11/04/16 06:25 Tylenol - PO Q4H PRN FEVER OR PAIN Albuterol/Ipratropium 1 amp 11/04/16 12:00 Duoneb - NEB QIDR [facility] Amiodarone HCl 400 mg 11/02/16 08:07 11/04/16 05:30 Cordarone - PO 11/06/16 21:59 400 mg TID [facility] Administration Bisacodyl 10 mg 11/04/16 06:25 Dulcolax Suppository - RC DAILY PRN CONSTIPATION Diazepam 5 mg 11/04/16 14:00 Valium - PO TID [facility] Docusate Sodium 100 mg 11/04/16 14:00 Colace - PO TID [facility] Furosemide 40 mg 11/04/16 10:00 11/04/16 09:27 Lasix Injection - IVPUSH 40 mg DAILY [facility] Administration Heparin Sodium (Porcine) 5,000 unit 11/04/16 10:00 11/04/16 09:27 Heparin - SQ 5,000 unit BID [facility] Administration Vancomycin HCl 1,500 mg/ 500 mls @ 250 mls/hr 11/03/16 11:30 11/04/16 10:10 Dextrose IVPB 250 mls/hr BID [facility] Administration Protocol Ondansetron HCl 4 mg 11/04/16 06:25 Zofran Injection IVPB Q6H PRN NAUSEA AND/OR VOMITING Oxycodone HCl 5 mg 11/04/16 06:25 11/04/16 09:36 Roxicodone - PO 5 mg Q3H PRN Administration MODERATE PAIN Oxycodone HCl 10 mg 11/04/16 06:25 Roxicodone - PO Q3H PRN SEVERE PAIN Polyethylene Glycol 17 gm 11/04/16 10:00 Miralax (For Daily Use) - PO BID [facility] Senna 2 tab 11/04/16 06:25 Senna - PO HS PRN CONSTIPATION ASSESSMENT/PLAN: 70 yr old man with anemia, HTN, hx of hodgkins lymphoma, hx of DVT (1 year ago ) not on anti-coagulation presents with lower extremity weakness found to have posterior epidural abscess with cord compression with complete motor paraplegia , s/p laminectomy (10/25). Respiratory Hypoxic hypercapnic respiratory distress - placed on bipap with improvement, maintain on bipap, close monitoring. - keep npo while on bipap. - concern for PE, recent duplex and CTA on wednesday were negative. repeat duplex was negative, patient unstable for transport for CTA and likely will not tolerate laying flat. - chest PT with caution to avoid incision site and spine - lasix to duirese effusions, 60mg IVPush lasix Neurological - epidural abscess laminectomy (10/25) - neuro checks - Physical therapy - to train with resistance bands to increase upper arm strength, discussed with physical therapist pain control - oxycodone consult: Dr. Marcano consult: Dr. Wills Infectious disease strep pneumon and Strep mitis in bld cx and epidural abscess - Vancomycin to be initiated, Vanc level today 19, vanc dose changed to daily, repeat level tomorrow consult: Dr. Brewer Cardiovascular currently in NSR, paraoxysmal Afib -- amiodarone 400mg TID for 5 days, initiated 6/4 PM then daily -- amdiodarone 400mg TID ends 11/06, start daily on 11/07 - avoid beta sameer given COPD hx - heparin for dvt prophylaxis is okay consult: Hematological hx of DVT - no acute DVT seen on vascular study, repeat vascular study negative for DVT, chest CTA negative for PE Dr. Cheney consulted regarding chemotherapy - port will require fluoroscopic eval to determine patency if it needs to be accessed. 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 will attempt to reach primary oncology team, if the port will not be used and they are okay with removing it, plan to remove Johana Tariq MD [facility] oncologist [phone]. Renal monitor urine output, lim in place for I&O lasix GI colace po TID given opiates zofran prn for nausea q6h prn prophylaxis DVT: heparin BID 5000 unit SQ Diet: NPO while on bipap Dispo - pt to remain in ICU until respiratory distress resolved Visit type - Emergency Visit Emergency Visit: No - New Patient This patient is new to me today: No - Critical Care Critical Care patient: Yes Total Critical Care Time (in minutes): 45 Critical Care Statement: The care of this patient involved high complexity decision making to prevent further life threatening deterioration of the patient 's condition and/or to evalute & treat vital organ system(s) failure or risk of failure.
--- NOTE | 2016-11-04 12:02 | PN ---
Teaching Attending Note Name of Resident: Zhang Altamirano ATTENDING PHYSICIAN STATEMENT I saw and evaluated the patient. I reviewed the resident's note and discussed the case with the resident. I agree with the resident's findings and plan as documented. SUBJECTIVE: Pt seen and examined in the ICU. Persistently hypoxic even on NRB. Denies shortness of breath. No significant cough or chest pain. No fevers or chills. OBJECTIVE: Last Vital Signs Temp Pulse Resp BP Pulse Ox 98 F 96 H 20 118/78 87 L 11/04/16 10:00 11/04/16 10:54 11/04/16 10:00 11/04/16 10:00 11/04/16 10:54 Intake & Output 11/01/16 11/02/16 11/03/16 11/04/16 23:59 23:59 23:59 23:59 Intake Total 5602 750 2053 740 Output Total 3000 2400 1150 800 Balance -1730 -1650 700 -60 Weight 276 lb 14.4 oz 266 lb 4 oz 264 lb 4 oz 263 lb 1.6 oz Gen: mildly tachypneic at rest Heart: RRR Lung: bronchial breath sounds left side 2/3 up Abd: soft, obese, nontender Ext: + edema CBC, BMP 11/04/16 05:15 11/04/16 05:15 Active Medications Acetaminophen (Tylenol -) 650 mg PO Q4H PRN PRN Reason: FEVER OR PAIN Albuterol/Ipratropium (Duoneb -) 1 amp NEB QIDR [facility] Amiodarone HCl (Cordarone -) 400 mg PO TID [facility] Stop: 11/06/16 21:59 Last Admin: 11/04/16 05:30 Dose: 400 mg Bisacodyl (Dulcolax Suppository -) 10 mg RC DAILY PRN PRN Reason: CONSTIPATION Diazepam (Valium -) 5 mg PO TID [facility] Docusate Sodium (Colace -) 100 mg PO TID [facility] Furosemide (Lasix Injection -) 40 mg IVPUSH DAILY [facility] Last Admin: 11/04/16 09:27 Dose: 40 mg Heparin Sodium (Porcine) (Heparin -) 5,000 unit SQ BID [facility] Last Admin: 11/04/16 09:27 Dose: 5,000 unit Vancomycin HCl 1,500 mg/ (Dextrose) 500 mls @ 250 mls/hr IVPB BID [facility] PRN Reason: Protocol Last Admin: 11/04/16 10:10 Dose: 250 mls/hr Ondansetron HCl (Zofran Injection) 4 mg IVPB Q6H PRN PRN Reason: NAUSEA AND/OR VOMITING Oxycodone HCl (Roxicodone -) 5 mg PO Q3H PRN PRN Reason: MODERATE PAIN Last Admin: 11/04/16 09:36 Dose: 5 mg Oxycodone HCl (Roxicodone -) 10 mg PO Q3H PRN PRN Reason: SEVERE PAIN Polyethylene Glycol (Miralax (For Daily Use) -) 17 gm PO BID [facility] Senna (Senna -) 2 tab PO HS PRN PRN Reason: CONSTIPATION ASSESSMENT AND PLAN: Acute Hypoxic Respiratory Failure Atelectasis Strep Bacteremia Lower Extremity Paralysis Epidural Abscess with Cord Compression s/p Hemilaminectomy Hodgkin's Lymphoma h/o DVT Right Pleural Effusion - O2 to keep SpO2 >90% - BiPAP for persistent hypoxia - rate/rhythm control - continue antibiotics per ID - neuro checks - repeat LE dopplers - pain control - incentive spirometry - DVT prophylaxis - rehab/PT - continue ICU monitoring critical care time spent in reviewing chart, evaluating patient and formulating plan 35 min
[2016-11-04] MEDS ORDERED: FUROSEMIDE 40 MG/4 ML INJECTABLE VIAL IVPUSH ONE (12:45)
[2016-11-04 13:23] LABS: THYROID STIMULATING HORMONE 4.5 uIU/ml (0.358-3.74)
[2016-11-04] MEDS: FUROSEMIDE 40 MG/4 ML INJECTABLE VIAL IVPUSH SCH (14:25)
[2016-11-04] MEDS: POLYETHYLENE GLYCOL 3350 119 GM BTL PO SCH ×2 (15:45→21:35)
[2016-11-04 17:44] LABS: C-REACTIVE PROTEIN 8.8 MG/DL (0.00-0.3)
[2016-11-05] MEDS: ALBUTEROL SO4 2.5/IPRATROPIUM 0.5 INH SOL 3 ML VIAL.NEB. NEB SCH ×5 (00:23→23:53)
[2016-11-05] MEDS: diazePAM 5 MG TABLET PO SCH ×3 (05:26→22:34)
[2016-11-05] MEDS: FUROSEMIDE 40 MG/4 ML INJECTABLE VIAL IVPUSH SCH ×2 (05:26→13:44)
[2016-11-05] MEDS: DOCUSATE SODIUM 100 MG CAPSULE (FP) PO SCH ×3 (05:26→22:33)
[2016-11-05] MEDS: AMIODARONE HCL 200 MG TABLET (FP) PO SCH ×3 (05:27→22:34)
[2016-11-05] MEDS: oxyCODONE HCL 5 MG TABLET PO PRN ×2 (05:27→16:54)
--- NOTE | 2016-11-05 06:43 | PN ---
Progress Note, Physician Chief Complaint: ID Clinically stable overnight from standpoint of respiratory status. Lasix being given on bid basis. Vancomycin given after he developed beta lactam rash This was reduced to once daily dosing based on level - Current Medication List Current Medications: Active Medications Acetaminophen (Tylenol -) 650 mg PO Q4H PRN PRN Reason: FEVER OR PAIN Albuterol/Ipratropium (Duoneb -) 1 amp NEB QIDR [facility] Last Admin: 11/05/16 06:18 Dose: 1 amp Amiodarone HCl (Cordarone -) 400 mg PO TID [facility] Stop: 11/06/16 21:59 Last Admin: 11/05/16 05:27 Dose: 400 mg Bisacodyl (Dulcolax Suppository -) 10 mg RC DAILY PRN PRN Reason: CONSTIPATION Diazepam (Valium -) 5 mg PO TID [facility] Last Admin: 11/05/16 05:26 Dose: 5 mg Docusate Sodium (Colace -) 100 mg PO TID [facility] Last Admin: 11/05/16 05:26 Dose: 100 mg Furosemide (Lasix Injection -) 40 mg IVPUSH BID@0600,1400 [facility] Last Admin: 11/05/16 05:26 Dose: 40 mg Heparin Sodium (Porcine) (Heparin -) 5,000 unit SQ BID [facility] Last Admin: 11/04/16 21:35 Dose: 5,000 unit Vancomycin HCl 1,500 mg/ (Dextrose) 500 mls @ 250 mls/hr IVPB DAILY [facility] Ondansetron HCl (Zofran Injection) 4 mg IVPB Q6H PRN PRN Reason: NAUSEA AND/OR VOMITING Oxycodone HCl (Roxicodone -) 5 mg PO Q3H PRN PRN Reason: MODERATE PAIN Last Admin: 11/05/16 05:27 Dose: 5 mg Oxycodone HCl (Roxicodone -) 10 mg PO Q3H PRN PRN Reason: SEVERE PAIN Polyethylene Glycol (Miralax (For Daily Use) -) 17 gm PO BID [facility] Last Admin: 11/04/16 21:35 Dose: 17 gm Senna (Senna -) 2 tab PO HS PRN PRN Reason: CONSTIPATION - Objective Vital Signs: Vital Signs Temperature 99.3 F 11/05/16 06:00 Pulse Rate 90 11/05/16 06:00 Respiratory Rate 19 11/05/16 06:00 Blood Pressure 112/49 11/05/16 06:00 O2 Sat by Pulse Oximetry (%) 94 L 11/05/16 05:30 Constitutional: Yes: Mild Distress, Obese, Other (Venti mask) HENT: Yes: WNL, Atraumatic Neck: Yes: WNL, Supple Cardiovascular: Yes: Regular Rate and Rhythm, S1, S2. No: Gallop, Murmur, Rub Respiratory: Yes: WNL, Regular, CTA Bilaterally. No: Rales, Rhonchi Gastrointestinal: Yes: WNL, Normal Bowel Sounds, Soft. No: Tenderness, Tenderness, Rebound Edema: No Labs: CBC, BMP 11/04/16 05:15 11/04/16 05:15 INR, PTT INR 1.32 (0.82-1.09) H 10/25/16 23:00 Problem List - Problems (1) Epidural abscess Code(s): G06.2 - EXTRADURAL AND SUBDURAL ABSCESS, UNSPECIFIED (2) Weakness of both lower extremities Code(s): R29.898 - OTH SYMPTOMS AND SIGNS INVOLVING THE MUSCULOSKELETAL SYSTEM (3) Pneumococcal bacteremia Code(s): R78.81 - BACTEREMIA Assessment/Plan Microbiology 10/25/16 21:43 Abscess Gram Stain - Final 10/25/16 21:43 Abscess Wound Culture - Final Streptococcus Pneumoniae 10/24/16 11:46 Blood - Peripheral Venous Blood Culture - Final Streptococcus Pneumoniae Streptococcus Pneumoniae#2 10/24/16 11:46 Blood - Peripheral Venous Blood Culture - Final Streptococcus Mitis Laboratory Tests 10/25/16 10/26/16 11/04/16 23:00 20:50 05:15 WBC Hgb Hct Plt Count ESR INR 1.32 H BUN 25 H Creatinine 1.1 Vancomycin Trough 17.688 H* 11/04/16 05:15 WBC 6.6 Hgb 10.6 L Hct 32.0 L Plt Count 225 ESR 110 H INR BUN Creatinine Vancomycin Trough Assessment Post laminectomies for epidural abscesses Strep pneumo and Strep Mitis bacteremia Strep pneumo epidural abscess thoracic levels Hodgkins disease treated chemotherapy SOB PE/ DVT ruled out Currently being treated for CHF with lasix Beta lactam rash on exam Ceftriaxone Plan Once respirator status stabilizes he could have PICC line inserted for long therm therapy Vanco Note is CRP is coming down now 8. Rehab bedside PT 38 minutes critical care time spent Fritz DIAZ
[2016-11-05 07:25] LABS: CALCIUM 8.5 mg/dL (8.5-10.1); COCKROFT - GAULT 103.65; CREATININE 1.1 mg/dL (0.7-1.3)
--- NOTE | 2016-11-05 08:57 | PN ---
Physical Exam: SUBJECTIVE: Patient seen and examined decreased appetite. was unable to tolerate bipap overnight, slept with non-rebreather on. c/o bipap pressures being to high. denies sob, chest pain, palpitations. OBJECTIVE: Vital Signs Period Temp Pulse Resp BP Sys/Lloyd Pulse Ox Last 24 Hr 97.8 F-99.3 F 84-97 19-24 98-134/49-78 87-95 EYES: PERRL, extraocular movements intact, sclera anicteric, conjunctiva clear. ENT: oropharynx clear without exudates, moist mucous membranes. NECK: Trachea midline, full range of motion, supple. LUNGS: quiet from midlung to base on left and quiet base on right. scattered wheezes and rhonchi on upper lobes. HEART: distant heart sounds, S1, S2 ABDOMEN: obese, Soft, nondistended, normoactive bowel sounds EXTREMITIES: 2+ DP and radial pulses, warm, well-perfused, no edema. NEUROLOGICAL: Sensation: intact on scalp, face, neck, arms, forearms, hands, chest, abdomen, feels the soles of his b/l feet. patchy sensation on right and left leg throughout Motor: range of motion full on fingers, wrists, elbows and shoulders. unable to move b/l le at hip/knee/ankle/toes. lim in place SKIN: incision dressing is CDI covered in tegaderm. swelling around incision site; nontender/skin intact. rash decreased on face, legs and abdomen, less erythematous, continues to decrease Laboratory Results - last 24 hr 11/04/16 11/04/16 11/04/16 05:15 05:15 12:50 Neutrophils % 75.0 Lymphocytes % 11.0 D Monocytes % 2.0 L Eosinophils % 6.0 H D Metamyelocytes 2 D Myelocytes 3 H D Differential Comment Manual diff done Reactive Lymphocytes 1 D Platelet Estimate Adequate Basophilic Stippling 1+ Anisocytosis 1+ ESR 110 H Sodium Potassium Chloride Carbon Dioxide Anion Gap BUN Creatinine Random Glucose Calcium C-Reactive Protein 8.8 H D B-Natriuretic Peptide 366.77 H TSH 4.50 H D 11/05/16 05:10 Neutrophils % Lymphocytes % Monocytes % Eosinophils % Metamyelocytes Myelocytes Differential Comment Reactive Lymphocytes Platelet Estimate Basophilic Stippling Anisocytosis ESR Sodium 134 L Potassium 3.8 Chloride 90 L Carbon Dioxide 37 H Anion Gap 7 L BUN 26 H Creatinine 1.1 Random Glucose 119 H Calcium 8.5 C-Reactive Protein B-Natriuretic Peptide TSH Active Medications Generic Name Dose Route Start Last Admin Trade Name Amy PRN Reason Stop Dose Admin Acetaminophen 650 mg 11/04/16 06:25 Tylenol - PO Q4H PRN FEVER OR PAIN Albuterol/Ipratropium 1 amp 11/04/16 12:00 11/05/16 06:18 Duoneb - NEB 1 amp QIDR [facility] Administration Amiodarone HCl 400 mg 11/02/16 08:07 11/05/16 05:27 Cordarone - PO 11/06/16 21:59 400 mg TID [facility] Administration Bisacodyl 10 mg 11/04/16 06:25 Dulcolax Suppository - RC DAILY PRN CONSTIPATION Diazepam 5 mg 11/04/16 14:00 11/05/16 05:26 Valium - PO 5 mg TID [facility] Administration Docusate Sodium 100 mg 11/04/16 14:00 11/05/16 05:26 Colace - PO 100 mg TID [facility] Administration Furosemide 40 mg 11/04/16 14:00 11/05/16 05:26 Lasix Injection - IVPUSH 40 mg BID@0600,1400 [facility] Administration Heparin Sodium (Porcine) 5,000 unit 11/04/16 10:00 11/04/16 21:35 Heparin - SQ 5,000 unit BID [facility] Administration Vancomycin HCl 1,500 mg/ 500 mls @ 250 mls/hr 11/05/16 10:00 Dextrose IVPB DAILY [facility] Ondansetron HCl 4 mg 11/04/16 06:25 Zofran Injection IVPB Q6H PRN NAUSEA AND/OR VOMITING Oxycodone HCl 5 mg 11/04/16 06:25 11/05/16 05:27 Roxicodone - PO 5 mg Q3H PRN Administration MODERATE PAIN Oxycodone HCl 10 mg 11/04/16 06:25 Roxicodone - PO Q3H PRN SEVERE PAIN Polyethylene Glycol 17 gm 11/04/16 10:00 11/04/16 21:35 Miralax (For Daily Use) - PO 17 gm BID [facility] Administration Senna 2 tab 11/04/16 06:25 Senna - PO HS PRN CONSTIPATION ABG Results ABG pH 7.41 (7.35-7.45) 11/04/16 08:28 ABG pCO2 at Pt Temp 55.0 mmHg (35-45) H D 11/04/16 08:28 ABG pO2 at Pt Temp 53.8 mmHg (70-100) L D 11/04/16 08:28 ABG HCO3 34.3 meq/L (22-26) H 11/04/16 08:28 ABG O2 Sat (Measured) 85.8 % (90-98.9) L 11/04/16 08: ABG O2 Content 12.6 % vol (15-22) L 11/04/16 08:28 ABG Base Excess 8.6 meq/l (-2-2) H 11/04/16 08:28 ASSESSMENT/PLAN: 70 yr old man with anemia, HTN, hx of hodgkins lymphoma, hx of DVT (1 year ago ) not on anti-coagulation presents with lower extremity weakness found to have posterior epidural abscess with cord compression with complete motor paraplegia , s/p laminectomy (10/25), now with respiratory distress Respiratory Hypoxic hypercapnic respiratory distress - caused by atelectasis due to prolonged immobility, pleural effusion increased seen on cxy or CHF seen with elevated BNP(recent echo with normal LVFxn) - placed on bipap with improvement, maintain on bipap, 01/01/100%/12. - concern for PE, recent duplex and CTA on wednesday were negative. repeat duplex was negative, patient unstable for transport for CTA and likely will not tolerate laying flat. - chest PT with caution to avoid incision site and spine - lasix to duirese effusions, 40mg BID lasix IVPUSH Neurological - epidural abscess laminectomy (10/25) - neuro checks - Physical therapy - to train with resistance bands to increase upper arm strength pain control - oxycodone consult: Dr. Marcano consult: Dr. Wills consult: Dr. mlaagon Infectious disease strep pneumon and Strep mitis in bld cx and epidural abscess - Vancomycin 1,500mg IVPB daily consult: Dr. Brewer Cardiovascular currently in NSR, paraoxysmal Afib -- amiodarone 400mg TID for 5 days, initiated 6/4 PM then daily -- amdiodarone 400mg TID ends 11/06, start daily on 11/07 - avoid beta sameer given COPD hx - heparin for dvt prophylaxis is okay CHF - (BNP elevated with trend down) - duirese with lasix consult: Hematological hx of DVT - no acute DVT seen on vascular study, repeat vascular study negative for DVT, chest CTA negative for PE Dr. Cheney consulted regarding chemotherapy - port will require fluoroscopic eval to determine patency if it needs to be accessed. 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 will attempt to reach primary oncology team, if the port will not be used and they are okay with removing it, plan to remove Rolanda Tariq MD [facility] oncologist [phone]. - defer at this time given hypoxic respiratory failure Renal monitor urine output, lim in place for I&O lasix GI colace po TID given opiates zofran prn for nausea q6h prn prophylaxis DVT: heparin BID 5000 unit SQ Diet: regular Dispo - pt to remain in ICU until respiratory distress resolved Visit type - Emergency Visit Emergency Visit: No - New Patient This patient is new to me today: No - Critical Care Critical Care patient: Yes Total Critical Care Time (in minutes): 41 Critical Care Statement: The care of this patient involved high complexity decision making to prevent further life threatening deterioration of the patient 's condition and/or to evalute & treat vital organ system(s) failure or risk of failure.
[2016-11-05] MEDS ORDERED: PT OWN MED DRAWER 7, Y5N ONE (09:17)
[2016-11-05] MEDS: HEPARIN NA (PORCINE) 5,000 UNITS/ML 1ML VIAL SQ SCH ×2 (09:27→22:35)
[2016-11-05] MEDS: POLYETHYLENE GLYCOL 3350 119 GM BTL PO SCH ×2 (09:28→22:33)
[2016-11-05] MEDS: VANCOMYCIN 1,500 MG in DEXTROSE 5%-WATER - 500 ML IVPB SCH (09:29)
[2016-11-05] MEDS ORDERED: VANCOMYCIN 1 GRAM (PRE-DOCKED) 1,000 MG/250 ML BAG IVPB SCH (10:00)
--- NOTE | 2016-11-05 12:06 | PN ---
Progress Note (short form) - Note Progress Note: NEUROSURGERY POD #10 Some incisional pain Tolerating po No new complaint PE: Tmax 99.3, AF, VSS HEENT- NC/AT; Neck- supple; Cor- RR; Lungs- decreased BS at bases; Abd-obese; + BS; Ext- B LE ankle/distal edema Wound dressing c/d/i CN- intact; Motor- UE 4+ B; B LE 0/5; Sensation- decreased LT/PP below about T4- 5 B; DTR- hyporeflexia B LE doppler- negative for DVT S/p emergency laminectomies for debridement of strep pneumoniae abscess and cord decompression Cont PT-ROM On Vanco for helper maintenance cleaning tx per ID (rash with ceftriaxone) On lasix and bipap DVT prophylaxis: SCD's and SQ heparin Acute rehab if possible
--- NOTE | 2016-11-05 12:43 | PN ---
Teaching Attending Note Name of Resident: Zhang Altamirano ATTENDING PHYSICIAN STATEMENT I saw and evaluated the patient. I reviewed the resident's note and discussed the case with the resident. I agree with the resident's findings and plan as documented. SUBJECTIVE: Patient seen and examined in the ICU. Awake and alert. Currently on 100% NRBM. Significant increase in O2 requirements over the past few days. Reported NIPPV was too forceful. CXR: Bilateral pleural effusions / vascular congestion Intake & Output 11/02/16 11/03/16 11/04/16 11/05/16 23:59 23:59 23:59 23:59 Intake Total 750 1850 2050 240 Output Total 2400 1150 2900 200 Balance -1650 700 -850 40 Weight 266 lb 4 oz 264 lb 4 oz 263 lb 1.6 oz 262 lb 4.8 oz Last Vital Signs Temp Pulse Resp BP Pulse Ox 98.9 F 90 18 110/45 96 11/05/16 10:00 11/05/16 12:00 11/05/16 12:00 11/05/16 12:00 11/05/16 11:59 Active Medications Acetaminophen (Tylenol -) 650 mg PO Q4H PRN PRN Reason: FEVER OR PAIN Albuterol/Ipratropium (Duoneb -) 1 amp NEB QIDR [facility] Last Admin: 11/05/16 12:01 Dose: 1 amp Amiodarone HCl (Cordarone -) 400 mg PO TID [facility] Stop: 11/06/16 21:59 Last Admin: 11/05/16 05:27 Dose: 400 mg Bisacodyl (Dulcolax Suppository -) 10 mg RC DAILY PRN PRN Reason: CONSTIPATION Diazepam (Valium -) 5 mg PO TID [facility] Last Admin: 11/05/16 05:26 Dose: 5 mg Docusate Sodium (Colace -) 100 mg PO TID [facility] Last Admin: 11/05/16 05:26 Dose: 100 mg Furosemide (Lasix Injection -) 40 mg IVPUSH BID@0600,1400 [facility] Last Admin: 11/05/16 05:26 Dose: 40 mg Heparin Sodium (Porcine) (Heparin -) 5,000 unit SQ BID [facility] Last Admin: 11/05/16 09:27 Dose: 5,000 unit Vancomycin HCl 1,500 mg/ (Dextrose) 500 mls @ 250 mls/hr IVPB DAILY [facility] Last Admin: 11/05/16 09:29 Dose: 250 mls/hr Ondansetron HCl (Zofran Injection) 4 mg IVPB Q6H PRN PRN Reason: NAUSEA AND/OR VOMITING Oxycodone HCl (Roxicodone -) 5 mg PO Q3H PRN PRN Reason: MODERATE PAIN Last Admin: 11/05/16 05:27 Dose: 5 mg Oxycodone HCl (Roxicodone -) 10 mg PO Q3H PRN PRN Reason: SEVERE PAIN Polyethylene Glycol (Miralax (For Daily Use) -) 17 gm PO BID [facility] Last Admin: 11/05/16 09:28 Dose: 17 gm Senna (Senna -) 2 tab PO HS PRN PRN Reason: CONSTIPATION Gen: Awake and alert Heart: tachycardic Lung: bilateral rhonchi Abd: soft, obese, nontender Ext: (+) edema Skin: Improving rash Laboratory Results - last 24 hr 11/04/16 11/04/16 11/05/16 05:15 12:50 05:10 ESR 121 H Sodium Potassium Chloride Carbon Dioxide Anion Gap BUN Creatinine Random Glucose Calcium C-Reactive Protein 8.8 H D B-Natriuretic Peptide 366.77 H TSH 4.50 H D 11/05/16 05:10 ESR Sodium 134 L Potassium 3.8 Chloride 90 L Carbon Dioxide 37 H Anion Gap 7 L BUN 26 H Creatinine 1.1 Random Glucose 119 H Calcium 8.5 C-Reactive Protein B-Natriuretic Peptide TSH Problem List - Problems (1) Bronchitis Code(s): J40 - BRONCHITIS, NOT SPECIFIED ACUTE OR CHRONIC (2) Positive blood culture Code(s): R78.81 - BACTEREMIA (3) Weakness Code(s): R53.1 - WEAKNESS (4) Weakness of both lower extremities Code(s): R29.898 - OTH SYMPTOMS AND SIGNS INVOLVING THE MUSCULOSKELETAL SYSTEM (5) Diabetes Code(s): E11.9 - TYPE 2 DIABETES MELLITUS WITHOUT COMPLICATIONS (6) Dyspnea Code(s): R06.00 - DYSPNEA, UNSPECIFIED (7) Left leg DVT Code(s): I82.402 - ACUTE EMBOLISM AND THOMBOS UNSP DEEP VEINS OF L LOW EXTREM Qualifiers: Qualified Code(s): I82.412 - Acute embolism and thrombosis of left femoral vein (8) Lymphoma Code(s): C85.90 - NON-HODGKIN LYMPHOMA, UNSPECIFIED, UNSPECIFIED SITE (9) Pneumonia Code(s): J18.9 - PNEUMONIA, UNSPECIFIED ORGANISM Qualifiers: Qualified Code(s): J18.1 - Lobar pneumonia, unspecified organism ASSESSMENT AND PLAN: Strep Bacteremia Lower Extremity Paralysis Epidural Abscess with Cord Compression s/p Hemilaminectomy Hodgkin's Lymphoma h/o DVT Right Pleural Effusion / vascular congestion - NIPPV support as tolerated - Increase Lasix to BID - rate/rhythm control per cardiology - continue antibiotics per ID - neuro checks - pain control - incentive spirometry - DVT prophylaxis - Vanco - ICU monitoring due to tenuous respiratory status Dr Garcia critical care time spent in reviewing chart, evaluating patient and formulating plan 35 min Problem List - Problems (1) Bronchitis Code(s): J40 - BRONCHITIS, NOT SPECIFIED ACUTE OR CHRONIC (2) Positive blood culture Code(s): R78.81 - BACTEREMIA (3) Weakness Code(s): R53.1 - WEAKNESS (4) Weakness of both lower extremities Code(s): R29.898 - OTH SYMPTOMS AND SIGNS INVOLVING THE MUSCULOSKELETAL SYSTEM (5) Diabetes Code(s): E11.9 - TYPE 2 DIABETES MELLITUS WITHOUT COMPLICATIONS (6) Dyspnea Code(s): R06.00 - DYSPNEA, UNSPECIFIED (7) Left leg DVT Code(s): I82.402 - ACUTE EMBOLISM AND THOMBOS UNSP DEEP VEINS OF L LOW EXTREM Qualifiers: Affected thrombotic vein of extremity: femoral Chronicity: acute Qualified Code(s): I82.412 - Acute embolism and thrombosis of left femoral vein (8) Lymphoma Code(s): C85.90 - NON-HODGKIN LYMPHOMA, UNSPECIFIED, UNSPECIFIED SITE (9) Pneumonia Code(s): J18.9 - PNEUMONIA, UNSPECIFIED ORGANISM Qualifiers: Pneumonia type: due to unspecified organism Laterality: left Lung location: lower lobe of lung Qualified Code(s): J18.1 - Lobar pneumonia, unspecified organism
--- NOTE | 2016-11-05 12:59 | PN ---
Progress Note, Physician Chief Complaint: seen in ICU on NRB 100% mask hypoxic lasix bid awake alert - Current Medication List Current Medications: Active Medications Acetaminophen (Tylenol -) 650 mg PO Q4H PRN PRN Reason: FEVER OR PAIN Albuterol/Ipratropium (Duoneb -) 1 amp NEB QIDR REPLACED BY [facility] Last Admin: 11/05/16 12:01 Dose: 1 amp Amiodarone HCl (Cordarone -) 400 mg PO TID [facility] Stop: 11/06/16 21:59 Last Admin: 11/05/16 05:27 Dose: 400 mg Bisacodyl (Dulcolax Suppository -) 10 mg RC DAILY PRN PRN Reason: CONSTIPATION Diazepam (Valium -) 5 mg PO TID [facility]PL[facility]ED [facility] Last Admin: 11/05/16 05:26 Dose: 5 mg Docusate Sodium (Colace -) 100 mg PO TID [facility]PL[facility] Last Admin: 11/05/16 05:26 Dose: 100 mg Furosemide (Lasix Injection -) 40 mg IVPUSH BID@0600,1400 REPLACED BY [facility] Last Admin: 11/05/16 05:26 Dose: 40 mg Heparin Sodium (Porcine) (Heparin -) 5,000 unit SQ BID [facility]PL[facility] Last Admin: 11/05/16 09:27 Dose: 5,000 unit Vancomycin HCl 1,500 mg/ (Dextrose) 500 mls @ 250 mls/hr IVPB DAILY REPLACED BY [facility] Last Admin: 11/05/16 09:29 Dose: 250 mls/hr Ondansetron HCl (Zofran Injection) 4 mg IVPB Q6H PRN PRN Reason: NAUSEA AND/OR VOMITING Oxycodone HCl (Roxicodone -) 5 mg PO Q3H PRN PRN Reason: MODERATE PAIN Last Admin: 11/05/16 05:27 Dose: 5 mg Oxycodone HCl (Roxicodone -) 10 mg PO Q3H PRN PRN Reason: SEVERE PAIN Polyethylene Glycol (Miralax (For Daily Use) -) 17 gm PO BID REPLACED BY [facility] Last Admin: 11/05/16 09:28 Dose: 17 gm Senna (Senna -) 2 tab PO HS PRN PRN Reason: CONSTIPATION - Objective Vital Signs: Vital Signs Temperature 98.9 F 11/05/16 10:00 Pulse Rate 90 11/05/16 12:00 Respiratory Rate 18 11/05/16 12:00 Blood Pressure 110/45 11/05/16 12:00 O2 Sat by Pulse Oximetry (%) 96 11/05/16 11:59 Constitutional: Yes: Calm Cardiovascular: Yes: Tachycardia, S1, S2 Respiratory: Yes: Rhonchi, Other (on NRB) Gastrointestinal: Yes: Soft Neurological: Yes: Alert, Oriented ...Motor Strength: LLE (no motor strength), RLE Psychiatric: Yes: Alert, Oriented Labs: CBC, BMP 11/04/16 05:15 11/05/16 05:10 INR, PTT INR 1.32 (0.82-1.09) H 10/25/16 23:00 Problem List - Problems (1) Weakness of both lower extremities Assessment/Plan: apreicate HENNY note PT for ROM exercises of legs frequent turn and position] scd and dvt ppx will need acute rehab possible [facility] eval when ready for discharge Code(s): R29.898 - OTH SYMPTOMS AND SIGNS INVOLVING THE MUSCULOSKELETAL SYSTEM (2) Afib Assessment/Plan: po amiodarone Code(s): I48.91 - UNSPECIFIED ATRIAL FIBRILLATION Qualifiers: Atrial fibrillation type: paroxysmal Qualified Code(s): I48.0 - Paroxysmal atrial fibrillation (3) Epidural abscess Assessment/Plan: s/p emergent laminectomies for cord compression iv abx for strept bacteremia changed to vancomycin sec to betalactam rash Code(s): G06.2 - EXTRADURAL AND SUBDURAL ABSCESS, UNSPECIFIED (4) Pneumococcal bacteremia Assessment/Plan: iv abx rocephin stoped sec to rash and change to vancomycin iv continue iv abx CRP tredning down Code(s): R78.81 - BACTEREMIA (5) Lymphoma Assessment/Plan: heme consult appreciated Code(s): C85.90 - NON-HODGKIN LYMPHOMA, UNSPECIFIED, UNSPECIFIED SITE (6) Pleural effusion Assessment/Plan: iv lasix bid for effusion BIPAP as tolerated Code(s): J90 - PLEURAL EFFUSION, NOT ELSEWHERE CLASSIFIED (7) Hypoxia Assessment/Plan: bipap iv lasix Code(s): R09.02 - HYPOXEMIA
--- NOTE | 2016-11-05 13:05 | PN ---
Progress Note (short form) - Note Progress Note: Physical Medicine and Rehabilitation Patient seen bedside and comfortable. No SOB but on Bipap. Patient has no pain but continues to have plegia in lower limbs. Some sensation at times in lower limbs. Bowel moving. No problems with upper limbs Exam obese man lying in bed NAD Ext SCDs no calf tenderness Skin no rash N/M full motor power in upper limbs, 5/5 lower limbs no active movement 0/5 full passive ROM in lower limbs and active ROM in upper limbs sensation T5/6 level diminished distal to xiphoid A/P 1. Epidural abscess s/p T2-T5 surgery with paraplegia - continue physical therapy, when able sit up in bed, strength UEs, will need Acute Rehab 2. Increased risk DVT - SCDs, Heparin SQ Paddy Kelly MD
[2016-11-05] MEDS: LYTES/YERBA SANTA 240 ML BOTTLE MM SCH (17:55)
--- NOTE | 2016-11-05 18:47 | PN ---
Progress Note (short form) - Note Progress Note: PAtient seen and examined no specific complaints. Reports better senstion over lower ext. no improvement in motor strength On BIPAP Last Vital Signs Temp Pulse Resp BP Pulse Ox 98.9 F 85 18 122/53 100 11/05/16 22:00 11/06/16 00:43 11/06/16 00:43 11/06/16 00:43 11/06/16 03:31 Cor: RSR, No murmurs, No gallops. CTA ant. Lungs: Clear to P&A Abd: Soft, Normal bowel sounds, No organomegaly Ext:No significant edema Labs examined a/p 70 y/o patient with Hodgkins lymphoma with h/o cavernous sinus, pituitary involvement, s//p chemotherapy completed > 6months ago, also with h/o DVT, not on a/c, obesity, CHF comes in with paralysis, spidural abscessses, s/ p laminectomies, strep. pneumonia bacterremia and abscesses h/o hodgkins with cavenous sinus and pituitary involvement in 2014, s/p ABVD/ .SCAR. CT scans show improved retroperitoneal adenopathy/small mediastinal nodes. RML lung nodules and sclerosis of bones no obvious active disease -- will needs PET- CT outpatient given CT findings s/ o residual vs treated disease immunosuppressed due to prior chemotherapy ? cellular/humoral deficiencies related to hodgkins h/o DVT 1yr. ago. Was not on a/c and currenly unable to initiate due to spine surgery [id number]--not flushed for > 6months. also CTA showing partial SVC occlusion and collaterals--? chronic thrombosis of SVC Unable to anticoagulate due to recent spine surgery Being treated for CHF for port removal and PICC placement once resp. status stabilized discussed with patient/ at bed side
[2016-11-06] MEDS: ALBUTEROL SO4 2.5/IPRATROPIUM 0.5 INH SOL 3 ML VIAL.NEB. NEB SCH ×3 (05:31→19:00)
[2016-11-06] MEDS: DOCUSATE SODIUM 100 MG CAPSULE (FP) PO SCH ×3 (05:37→22:24)
[2016-11-06] MEDS: FUROSEMIDE 40 MG/4 ML INJECTABLE VIAL IVPUSH SCH ×2 (05:38→13:38)
[2016-11-06] MEDS: AMIODARONE HCL 200 MG TABLET (FP) PO SCH ×2 (05:38→13:38)
[2016-11-06] MEDS: diazePAM 5 MG TABLET PO SCH ×3 (05:38→22:23)
[2016-11-06 06:08] LABS: BASOPHIL 0.2 % (0-2.0); EOSINOPHIL 2.2 % (0-4.5); MCHC 32.7 g/dl (32.0-35.9); MEAN CELL VOLUME 88.9 fl (80-96); MEAN PLT VOLUME 7.1 fl (7.5-11.1); NEUTROPHILS 78.5 % (42.8-82.8); PLATELET COUNT 252 K/MM3 (134-434); RDW 17.3 % (11.9-15.9); WHITE BLOOD COUNT 8.8 K/mm3 (4.0-10.0)
[2016-11-06 06:28] LABS: CALCIUM 8.1 mg/dL (8.5-10.1); CREATININE 0.9 mg/dL (0.7-1.3); MAGNESIUM 1.9 mg/dL (1.8-2.4); PHOSPHOROUS 3.4 mg/dL (2.5-4.9)
--- NOTE | 2016-11-06 07:36 | PN ---
Progress Note, Physician Chief Complaint: ID Vancomycin continues Seen by rehab MD - Current Medication List Current Medications: Active Medications Acetaminophen (Tylenol -) 650 mg PO Q4H PRN PRN Reason: FEVER OR PAIN Albuterol/Ipratropium (Duoneb -) 1 amp NEB QIDR [facility] Last Admin: 11/06/16 05:31 Dose: 1 amp Amiodarone HCl (Cordarone -) 400 mg PO TID [facility] Stop: 11/06/16 21:59 Last Admin: 11/06/16 05:38 Dose: 400 mg Bisacodyl (Dulcolax Suppository -) 10 mg RC DAILY PRN PRN Reason: CONSTIPATION Diazepam (Valium -) 5 mg PO TID [facility] Last Admin: 11/06/16 05:38 Dose: 5 mg Docusate Sodium (Colace -) 100 mg PO TID [facility] Last Admin: 11/06/16 05:37 Dose: Not Given Furosemide (Lasix Injection -) 40 mg IVPUSH BID@0600,1400 [facility] Last Admin: 11/06/16 05:38 Dose: 40 mg Heparin Sodium (Porcine) (Heparin -) 5,000 unit SQ BID [facility] Last Admin: 11/05/16 22:35 Dose: 5,000 unit Vancomycin HCl 1,500 mg/ (Dextrose) 500 mls @ 250 mls/hr IVPB DAILY [facility] Last Admin: 11/05/16 09:29 Dose: 250 mls/hr Ondansetron HCl (Zofran Injection) 4 mg IVPB Q6H PRN PRN Reason: NAUSEA AND/OR VOMITING Oxycodone HCl (Roxicodone -) 5 mg PO Q3H PRN PRN Reason: MODERATE PAIN Last Admin: 11/05/16 05:27 Dose: 5 mg Oxycodone HCl (Roxicodone -) 10 mg PO Q3H PRN PRN Reason: SEVERE PAIN Last Admin: 11/05/16 16:54 Dose: 10 mg Polyethylene Glycol (Miralax (For Daily Use) -) 17 gm PO BID [facility] Last Admin: 11/05/16 22:33 Dose: Not Given Saliva Substitute (Mouthkote Solution -) 1 applic MM DAILY [facility] Last Admin: 11/05/16 17:55 Dose: 1 applic Senna (Senna -) 2 tab PO HS PRN PRN Reason: CONSTIPATION - Objective Vital Signs: Vital Signs Temperature 98.8 F 11/06/16 06:04 Pulse Rate 73 11/06/16 06:04 Respiratory Rate 18 11/06/16 06:04 Blood Pressure 106/52 11/06/16 06:04 O2 Sat by Pulse Oximetry (%) 100 11/06/16 03:31 Constitutional: Yes: Well Nourished, No Distress Eyes: Yes: WNL, Conjunctiva Clear HENT: Yes: WNL, Atraumatic Neck: Yes: WNL, Supple Cardiovascular: Yes: S1, S2. No: Murmur Respiratory: Yes: WNL, Regular, CTA Bilaterally Gastrointestinal: Yes: WNL, Normal Bowel Sounds, Soft. No: Tenderness, Tenderness, Rebound Edema: No Integumentary: Yes: Rash Neurological: Yes: Other (Paraysis LE) Labs: CBC, BMP 11/06/16 05:00 11/06/16 05:00 INR, PTT INR 1.32 (0.82-1.09) H 10/25/16 23:00 Problem List - Problems (1) Epidural abscess Code(s): G06.2 - EXTRADURAL AND SUBDURAL ABSCESS, UNSPECIFIED (2) Weakness of both lower extremities Code(s): R29.898 - OTH SYMPTOMS AND SIGNS INVOLVING THE MUSCULOSKELETAL SYSTEM (3) Pneumococcal bacteremia Code(s): R78.81 - BACTEREMIA Assessment/Plan Microbiology 10/24/16 11:46 Blood - Peripheral Venous Blood Culture - Final Streptococcus Pneumoniae Streptococcus Pneumoniae#2 10/24/16 11:46 Blood - Peripheral Venous Blood Culture - Final Streptococcus Mitis Laboratory Tests 11/05/16 11/06/16 11/06/16 05:10 05:00 05:00 WBC 8.8 D Hgb 9.8 L Hct 30.0 L Plt Count 252 ESR 121 H BUN 23 H Creatinine 0.9 Assessment Epidural abscesses thoracic level Strep Mitis Strep Pneumo bacteremia with hematogenous epidural abscess S/P laminectomy SOB ? CHF related Pleural effusion moderate Hodgkins disease post chemotherapy Beta lactam rash Plan Continue Vancomycin Need to check level today Critical care time spent with patient today including discussion with neurosurgery Fritz DIAZ
--- NOTE | 2016-11-06 07:41 | PN ---
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
[2016-11-06] MEDS: VANCOMYCIN 1,500 MG in DEXTROSE 5%-WATER - 500 ML IVPB SCH (09:31)
[2016-11-06] MEDS: HEPARIN NA (PORCINE) 5,000 UNITS/ML 1ML VIAL SQ SCH ×2 (09:31→22:23)
[2016-11-06] MEDS: LYTES/YERBA SANTA 240 ML BOTTLE MM SCH (09:31)
[2016-11-06] MEDS: POLYETHYLENE GLYCOL 3350 119 GM BTL PO SCH ×2 (09:32→22:23)
[2016-11-06] MEDS ORDERED: POTASSIUM CHLORIDE ORAL LIQUID 20 MEQ/15 ML PO ONE (10:15)
--- NOTE | 2016-11-06 12:29 | PN ---
Teaching Attending Note Name of Resident: Zhang Altamirano ATTENDING PHYSICIAN STATEMENT I saw and evaluated the patient. I reviewed the resident's note and discussed the case with the resident. I agree with the resident's findings and plan as documented. SUBJECTIVE: Pt seen and examined in the ICU. Remained on BiPAP yesterday, saturating better today. Denies shortness of breath or chest pain. No fevers or chills. OBJECTIVE: Last Vital Signs Temp Pulse Resp BP Pulse Ox 97.9 F 86 20 107/55 100 11/06/16 10:23 11/06/16 10:23 11/06/16 10:23 11/06/16 10:23 11/06/16 03:31 Intake & Output 11/03/16 11/04/16 11/05/16 11/06/16 23:59 23:59 23:59 23:59 Intake Total 1850 2050 1200 Output Total 1150 2900 1600 400 Balance 700 -850 -400 -400 Weight 264 lb 4 oz 263 lb 1.6 oz 262 lb 4.8 oz 261 lb 11.019 oz Gen: less tachypneic Heart: RRR Lung: scattered rhonchi Abd: soft, nontender Ext: no edema CBC, BMP 11/06/16 05:00 11/06/16 05:00 Active Medications Acetaminophen (Tylenol -) 650 mg PO Q4H PRN PRN Reason: FEVER OR PAIN Albuterol/Ipratropium (Duoneb -) 1 amp NEB QIDR [facility] Last Admin: 11/06/16 11:46 Dose: 1 amp Amiodarone HCl (Cordarone -) 400 mg PO TID [facility] Stop: 11/06/16 21:59 Last Admin: 11/06/16 05:38 Dose: 400 mg Bisacodyl (Dulcolax Suppository -) 10 mg RC DAILY PRN PRN Reason: CONSTIPATION Diazepam (Valium -) 5 mg PO TID [facility] Last Admin: 11/06/16 05:38 Dose: 5 mg Docusate Sodium (Colace -) 100 mg PO TID [facility] Last Admin: 11/06/16 05:37 Dose: Not Given Furosemide (Lasix Injection -) 40 mg IVPUSH BID@0600,1400 [facility] Last Admin: 11/06/16 05:38 Dose: 40 mg Heparin Sodium (Porcine) (Heparin -) 5,000 unit SQ BID [facility] Last Admin: 11/06/16 09:31 Dose: 5,000 unit Vancomycin HCl 1,500 mg/ (Dextrose) 500 mls @ 250 mls/hr IVPB DAILY [facility] Last Admin: 11/06/16 09:31 Dose: 250 mls/hr Ondansetron HCl (Zofran Injection) 4 mg IVPB Q6H PRN PRN Reason: NAUSEA AND/OR VOMITING Oxycodone HCl (Roxicodone -) 5 mg PO Q3H PRN PRN Reason: MODERATE PAIN Last Admin: 11/05/16 05:27 Dose: 5 mg Oxycodone HCl (Roxicodone -) 10 mg PO Q3H PRN PRN Reason: SEVERE PAIN Last Admin: 11/05/16 16:54 Dose: 10 mg Polyethylene Glycol (Miralax (For Daily Use) -) 17 gm PO BID [facility] Last Admin: 11/06/16 09:32 Dose: Not Given Saliva Substitute (Mouthkote Solution -) 1 applic MM DAILY [facility] Last Admin: 11/06/16 09:31 Dose: 1 applic Senna (Senna -) 2 tab PO HS PRN PRN Reason: CONSTIPATION ASSESSMENT AND PLAN: Acute Hypoxic Respiratory Failure Atelectasis Strep Bacteremia Lower Extremity Paralysis Epidural Abscess with Cord Compression s/p Hemilaminectomy Hodgkin's Lymphoma h/o DVT Right Pleural Effusion - O2 to keep SpO2 >90% - BiPAP as needed for hypoxia - rate/rhythm control - continue antibiotics per ID - neuro checks - pain control - incentive spirometry - DVT prophylaxis - rehab/PT - continue ICU monitoring critical care time spent in reviewing chart, evaluating patient and formulating plan 35 min
[2016-11-06] MEDS: oxyCODONE HCL 5 MG TABLET PO PRN (13:21)
--- NOTE | 2016-11-06 13:57 | PN ---
Physical Exam: SUBJECTIVE: Patient seen and examined tolerated bipap overnight with improved saturation on non-rebreather this morning. discussed with Dr. Tariq from [facility], updated her on Mr. Mayer condition , he had recently missed a follow-up at her office. He had required IgG transfusions in the past due to low levels, received 8 in total most recent 2015. discussed chemoport: it can be removed, no contraindication from primary oncology team for its removal. OBJECTIVE: Vital Signs Period Temp Pulse Resp BP Sys/Lloyd Pulse Ox Last 24 Hr 97.9 F-99.2 F 73-94 18-22 86-122/52-60 91-100 EYES: PERRL, extraocular movements intact, sclera anicteric, conjunctiva clear. ENT: oropharynx clear without exudates, moist mucous membranes. NECK: Trachea midline, full range of motion, supple. LUNGS: scattered rhonchi, quiet at bases, no wheezes, improved air entry HEART: distant heart sounds, S1, S2 ABDOMEN: obese, Soft, nondistended, normoactive bowel sounds Laboratory Results - last 24 hr 11/06/16 11/06/16 05:00 05:00 WBC 8.8 D RBC 3.37 L Hgb 9.8 L Hct 30.0 L MCV 88.9 MCHC 32.7 RDW 17.3 H Plt Count 252 MPV 7.1 L Neutrophils % 78.5 Lymphocytes % 14.2 D Monocytes % 4.9 D Eosinophils % 2.2 Basophils % 0.2 Sodium 134 L Potassium 3.2 L Chloride 88 L Carbon Dioxide 36 H Anion Gap 10 BUN 23 H Creatinine 0.9 Random Glucose 110 H Calcium 8.1 L Phosphorus 3.4 Magnesium 1.9 Active Medications Generic Name Dose Route Start Last Admin Trade Name Freq PRN Reason Stop Dose Admin Acetaminophen 650 mg 11/04/16 06:25 Tylenol - PO Q4H PRN FEVER OR PAIN Albuterol/Ipratropium 1 amp 11/04/16 12:00 11/06/16 11:46 Duoneb - NEB 1 amp QIDR [facility] Administration Amiodarone HCl 400 mg 11/02/16 08:07 11/06/16 13:38 Cordarone - PO 11/06/16 21:59 400 mg TID [facility] Administration Bisacodyl 10 mg 11/04/16 06:25 Dulcolax Suppository - RC DAILY PRN CONSTIPATION Diazepam 5 mg 11/04/16 14:00 11/06/16 13:38 Valium - PO 5 mg TID [facility] Administration Docusate Sodium 100 mg 11/04/16 14:00 11/06/16 13:39 Colace - PO Not Given TID [facility] Furosemide 40 mg 11/04/16 14:00 11/06/16 13:38 Lasix Injection - IVPUSH 40 mg BID@0600,1400 [facility] Administration Heparin Sodium (Porcine) 5,000 unit 11/04/16 10:00 11/06/16 09:31 Heparin - SQ 5,000 unit BID [facility] Administration Vancomycin HCl 1,500 mg/ 500 mls @ 250 mls/hr 11/05/16 10:00 11/06/16 09:31 Dextrose IVPB 250 mls/hr DAILY [facility] Administration Ondansetron HCl 4 mg 11/04/16 06:25 Zofran Injection IVPB Q6H PRN NAUSEA AND/OR VOMITING Oxycodone HCl 5 mg 11/04/16 06:25 11/05/16 05:27 Roxicodone - PO 5 mg Q3H PRN Administration MODERATE PAIN Oxycodone HCl 10 mg 11/04/16 06:25 11/06/16 13:21 Roxicodone - PO 10 mg Q3H PRN Administration SEVERE PAIN Polyethylene Glycol 17 gm 11/04/16 10:00 11/06/16 09:32 Miralax (For Daily Use) - PO Not Given BID [facility] Saliva Substitute 1 applic 11/05/16 17:15 11/06/16 09:31 Mouthkote Solution - MM 1 applic DAILY [facility] Administration Senna 2 tab 11/04/16 06:25 Senna - PO HS PRN CONSTIPATION ASSESSMENT/PLAN: 70 yr old man with anemia, HTN, hx of hodgkins lymphoma, hx of DVT (1 year ago ) not on anti-coagulation presents with lower extremity weakness found to have posterior epidural abscess with cord compression with complete motor paraplegia , s/p laminectomy (10/25), now with respiratory distress Respiratory Hypoxic hypercapnic respiratory distress - caused by atelectasis due to prolonged immobility, pleural effusion increased seen on cxy or CHF seen with elevated BNP(recent echo with normal LVFxn) - placed on bipap with improvement, maintain on bipap prn, 8/4/100%/12. - concern for PE, recent duplex and CTA on wednesday were negative. repeat duplex was negative, patient unstable for transport for CTA and likely will not tolerate laying flat. - chest PT with caution to avoid incision site and spine - lasix to duirese effusions, 40mg BID lasix IVPUSH Neurological - epidural abscess laminectomy (10/25) - neuro checks - Physical therapy - to train with resistance bands to increase upper arm strength pain control - oxycodone consult: Dr. Marcano consult: Dr. Wills consult: Dr. malagon Infectious disease strep pneumon and Strep mitis in bld cx and epidural abscess - Vancomycin 1,500mg IVPB daily consult: Dr. Brewer Cardiovascular currently in NSR, paraoxysmal Afib -- amiodarone 400mg TID for 5 days, initiated 6/4 PM then daily -- amdiodarone 400mg TID ends 11/06, start daily on 11/07 - avoid beta sameer given COPD hx - heparin for dvt prophylaxis is okay CHF - (BNP elevated with trend down) - duirese with lasix consult: Hematological hx of DVT - no acute DVT seen on vascular study, repeat vascular study negative for DVT, chest CTA negative for PE Dr. Cheney consulted regarding chemotherapy - port will require fluoroscopic eval to determine patency if it needs to be accessed. 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 the port will not be used and they are okay with removing it - defer at this time given hypoxic respiratory failure Renal monitor urine output, lim in place for I&O lasix GI colace po TID given opiates zofran prn for nausea q6h prn prophylaxis DVT: heparin BID 5000 unit SQ Diet: regular Dispo - pt to remain in ICU until respiratory distress resolved Visit type - Emergency Visit Emergency Visit: No - New Patient This patient is new to me today: No - Critical Care Critical Care patient: Yes Total Critical Care Time (in minutes): 36 Critical Care Statement: The care of this patient involved high complexity decision making to prevent further life threatening deterioration of the patient 's condition and/or to evalute & treat vital organ system(s) failure or risk of failure.
[2016-11-07] MEDS: ALBUTEROL SO4 2.5/IPRATROPIUM 0.5 INH SOL 3 ML VIAL.NEB. NEB SCH ×5 (00:52→23:07)
[2016-11-07] MEDS: DOCUSATE SODIUM 100 MG CAPSULE (FP) PO SCH ×4 (05:37→21:51)
[2016-11-07] MEDS: diazePAM 5 MG TABLET PO SCH ×3 (05:37→21:51)
[2016-11-07] MEDS: FUROSEMIDE 40 MG/4 ML INJECTABLE VIAL IVPUSH SCH ×2 (05:37→14:39)
[2016-11-07] MEDS: VANCOMYCIN 1,500 MG in DEXTROSE 5%-WATER - 500 ML IVPB SCH (09:18)
[2016-11-07] MEDS: HEPARIN NA (PORCINE) 5,000 UNITS/ML 1ML VIAL SQ SCH ×2 (09:18→21:51)
[2016-11-07] MEDS: LYTES/YERBA SANTA 240 ML BOTTLE MM SCH (09:20)
[2016-11-07] MEDS: POLYETHYLENE GLYCOL 3350 119 GM BTL PO SCH ×2 (09:20→21:51)
--- NOTE | 2016-11-07 09:20 | PN ---
Progress Note (short form) - Note Progress Note: rash improved, alert resting comfortably, moist cough Vital Signs Period Temp Pulse Resp BP Sys/Lloyd Pulse Ox Last 24 Hr 97.8 F-98.2 F 74-90 15-24 97-115/48-68 92-99 cor-rrr llungs bilateral rhonchi abd soft,nt ext no edema rash improved sensation unchanged, motor function unchanged (cannot more legs0 CBC, BMP 11/06/16 05:00 11/06/16 05:00 Microbiology 10/28/16 06:16 Blood - Peripheral Venous Blood Culture - Final NO GROWTH AFTER 5 DAYS INCUBATION 10/28/16 05:50 Blood - Peripheral Venous Blood Culture - Final NO GROWTH AFTER 5 DAYS INCUBATION 10/24/16 11:46 Blood - Peripheral Venous Blood Culture - Final Streptococcus Pneumoniae Streptococcus Pneumoniae#2 10/25/16 13:25 Blood - Peripheral Venous Blood Culture - Final NO GROWTH AFTER 5 DAYS INCUBATION 10/25/16 13:10 Blood - Peripheral Venous Blood Culture - Final NO GROWTH AFTER 5 DAYS INCUBATION 10/25/16 21:43 Abscess Gram Stain - Final 10/25/16 21:43 Abscess Wound Culture - Final Streptococcus Pneumoniae 10/25/16 13:10 Blood - Peripheral Venous TB Test (QFT) (TABITHA) - Final 10/25/16 21:43 Abscess AFB Smear Concentration - Final 10/25/16 21:43 Abscess Mycobacterial Culture - Preliminary 10/24/16 11:46 Blood - Peripheral Venous Blood Culture - Final Streptococcus Mitis 10/25/16 21:03 Urine - Urine Kuhn Urine Culture - Final NO GROWTH OBTAINED 10/26/16 14:00 Urine - Urine Kuhn Legionella Antigen - Final 10/26/16 14:00 Urine - Urine Kuhn Streptococcus pneumoniae Antigen (M - Final 10/25/16 21:43 Abscess SALVADOR Preparation - Preliminary 10/25/16 21:43 Abscess Fungal Culture - Preliminary 10/25/16 20:00 Urine For Antigen Detection Legionella Antigen - Final Current Medications Acetaminophen (Tylenol -) 650 mg PO Q4H PRN PRN Reason: FEVER OR PAIN Albuterol/Ipratropium (Duoneb -) 1 amp NEB QIDR [facility] Last Admin: 11/07/16 06:57 Dose: 1 amp Bisacodyl (Dulcolax Suppository -) 10 mg RC DAILY PRN PRN Reason: CONSTIPATION Diazepam (Valium -) 5 mg PO TID [facility] BEDS AT [facility] Last Admin: 11/07/16 05:37 Dose: 5 mg Docusate Sodium (Colace -) 100 mg PO TID [facility] 234 B[facility]S AT [facility] Last Admin: 11/07/16 06:06 Dose: Not Given Furosemide (Lasix Injection -) 40 mg IVPUSH BID@0600,1400 [facility] 234 [facility]S AT [facility] Last Admin: 11/07/16 05:37 Dose: 40 mg Heparin Sodium (Porcine) (Heparin -) 5,000 unit SQ BID [facility] 234 BEDS AT [facility] Last Admin: 11/07/16 09:18 Dose: 5,000 unit Vancomycin HCl 1,500 mg/ (Dextrose) 500 mls @ 250 mls/hr IVPB DAILY [facility] 234 BEDS AT [facility] Last Admin: 11/07/16 09:18 Dose: 250 mls/hr Ondansetron HCl (Zofran Injection) 4 mg IVPB Q6H PRN PRN Reason: NAUSEA AND/OR VOMITING Oxycodone HCl (Roxicodone -) 5 mg PO Q3H PRN PRN Reason: MODERATE PAIN Last Admin: 11/05/16 05:27 Dose: 5 mg Oxycodone HCl (Roxicodone -) 10 mg PO Q3H PRN PRN Reason: SEVERE PAIN Last Admin: 11/06/16 13:21 Dose: 10 mg Polyethylene Glycol (Miralax (For Daily Use) -) 17 gm PO BID [facility]S [facility] 234 BEDS AT [facility] Last Admin: 11/07/16 09:20 Dose: Not Given Saliva Substitute (Mouthkote Solution -) 1 applic MM DAILY [facility]S [facility]CLUDE 234 BEDS AT [facility] Last Admin: 11/07/16 09:20 Dose: 1 applic Senna (Senna -) 2 tab PO HS PRN PRN Reason: CONSTIPATION a/p strep bacteremia= pneumoniae and mitis- on vancomycin no levels in computer called chem, labs being faxed to ICU s/p drainage of epidural abscess with cord compression-POD #13 still unable to move his legs history of Hodgkins Lymphoma- off chemo and RT for last 6 months beta lactam rash- resolving vancomycin trough 16.6 on 11/06/16 will repeat on Wednesday
--- NOTE | 2016-11-07 10:14 | PN ---
Progress Note (short form) - Note Progress Note: PULMONARY/CCM Pt seen and examined in the ICU. Saturating well on 50% ventimask. States breathing is improving. Used BiPAP overnight. No fevers or chills. Last Vital Signs Temp Pulse Resp BP Pulse Ox 98.2 F 76 15 107/51 94 L 11/07/16 06:00 11/07/16 06:00 11/07/16 06:00 11/07/16 06:00 11/07/16 06:00 Intake & Output 11/04/16 11/05/16 11/06/16 11/07/16 23:59 23:59 23:59 23:59 Intake Total 2050 1200 1100 75 Output Total 2900 1600 2600 250 Balance -850 -400 -1500 -175 Weight 263 lb 1.6 oz 262 lb 4.8 oz 261 lb 11.019 oz 261 lb Gen: less tachypneic Heart: RRR Lung: scattered rhonchi Abd: soft, nontender Ext: no edema CBC, BMP 11/06/16 05:00 11/06/16 05:00 Active Medications Acetaminophen (Tylenol -) 650 mg PO Q4H PRN PRN Reason: FEVER OR PAIN Albuterol/Ipratropium (Duoneb -) 1 amp NEB QIDR [facility] Last Admin: 11/07/16 06:57 Dose: 1 amp Bisacodyl (Dulcolax Suppository -) 10 mg RC DAILY PRN PRN Reason: CONSTIPATION Diazepam (Valium -) 5 mg PO TID [facility] Last Admin: 11/07/16 05:37 Dose: 5 mg Docusate Sodium (Colace -) 100 mg PO TID [facility] Last Admin: 11/07/16 06:06 Dose: Not Given Furosemide (Lasix Injection -) 40 mg IVPUSH BID@0600,1400 [facility] Last Admin: 11/07/16 05:37 Dose: 40 mg Heparin Sodium (Porcine) (Heparin -) 5,000 unit SQ BID [facility] Last Admin: 11/07/16 09:18 Dose: 5,000 unit Vancomycin HCl 1,500 mg/ (Dextrose) 500 mls @ 250 mls/hr IVPB DAILY [facility] Last Admin: 11/07/16 09:18 Dose: 250 mls/hr Ondansetron HCl (Zofran Injection) 4 mg IVPB Q6H PRN PRN Reason: NAUSEA AND/OR VOMITING Oxycodone HCl (Roxicodone -) 5 mg PO Q3H PRN PRN Reason: MODERATE PAIN Last Admin: 11/05/16 05:27 Dose: 5 mg Oxycodone HCl (Roxicodone -) 10 mg PO Q3H PRN PRN Reason: SEVERE PAIN Last Admin: 11/06/16 13:21 Dose: 10 mg Polyethylene Glycol (Miralax (For Daily Use) -) 17 gm PO BID [facility] Last Admin: 11/07/16 09:20 Dose: Not Given Saliva Substitute (Mouthkote Solution -) 1 applic MM DAILY [facility] Last Admin: 11/07/16 09:20 Dose: 1 applic Senna (Senna -) 2 tab PO HS PRN PRN Reason: CONSTIPATION A/P Acute Hypoxic Respiratory Failure Atelectasis Strep Bacteremia Lower Extremity Paralysis Epidural Abscess with Cord Compression s/p Hemilaminectomy Hodgkin's Lymphoma h/o DVT Right Pleural Effusion - O2 to keep SpO2 >90% - BiPAP as needed for hypoxia - rate/rhythm control - continue antibiotics per ID - replete lytes - neuro checks - pain control - incentive spirometry - DVT prophylaxis - rehab/PT - continue ICU monitoring critical care time spent in reviewing chart, evaluating patient and formulating plan 35 min
[2016-11-07] MEDS: POTASSIUM CHLORIDE TABS 20 MEQ TABLET.ER (FP) PO SCH ×2 (10:44→14:48)
--- NOTE | 2016-11-07 11:37 | PN ---
Progress Note (short form) - Note Progress Note: Patient seen and examined Frustrated Cough with inability to bring secretions up Using BIPAP, tolerating h.s. No chest pains, SOB Had diarrhea previously- incontinent of stool and has lim catheter with clear urine Sensation LE appreciated, but still no motor function Last Vital Signs Temp Pulse Resp BP Pulse Ox 98.1 F 88 18 93/48 94 L 11/07/16 10:00 11/07/16 10:00 11/07/16 10:00 11/07/16 10:00 11/07/16 06:00 HEENT: SAGAR, EOM Intact Oropharynx: No thrush, No mucositis Neck: Supple Cor: RSR, No murmurs, No gallops Lungs: diminished breath sounds bilaterally Abd: Soft, Normal bowel sounds, No organomegaly Ext:No significant edema, SCD Skin: Integument intact CBC, BMP 11/06/16 05:00 11/06/16 05:00 Current Medications Generic Name Dose Route Start Last Admin Trade Name Freq PRN Reason Stop Dose Admin Acetaminophen 650 mg 11/04/16 06:25 Tylenol - PO Q4H PRN FEVER OR PAIN Albuterol/Ipratropium 1 amp 11/04/16 12:00 11/07/16 06:57 Duoneb - NEB 1 amp QIDR DAMIAN Administration Bisacodyl 10 mg 11/04/16 06:25 Dulcolax Suppository - RC DAILY PRN CONSTIPATION Diazepam 5 mg 11/04/16 14:00 11/07/16 05:37 Valium - PO 5 mg TID DAMIAN Administration Docusate Sodium 100 mg 11/04/16 14:00 11/07/16 06:06 Colace - PO Not Given TID DAMIAN Furosemide 40 mg 11/04/16 14:00 11/07/16 05:37 Lasix Injection - IVPUSH 40 mg BID@0600,1400 DAMIAN Administration Heparin Sodium (Porcine) 5,000 unit 11/04/16 10:00 11/07/16 09:18 Heparin - SQ 5,000 unit BID DAMIAN Administration Vancomycin HCl 1,500 mg/ 500 mls @ 250 mls/hr 11/05/16 10:00 11/07/16 09:18 Dextrose IVPB 250 mls/hr DAILY DAMIAN Administration Ondansetron HCl 4 mg 11/04/16 06:25 Zofran Injection IVPB Q6H PRN NAUSEA AND/OR VOMITING Oxycodone HCl 5 mg 11/04/16 06:25 11/05/16 05:27 Roxicodone - PO 5 mg Q3H PRN Administration MODERATE PAIN Oxycodone HCl 10 mg 11/04/16 06:25 11/06/16 13:21 Roxicodone - PO 10 mg Q3H PRN Administration SEVERE PAIN Polyethylene Glycol 17 gm 11/04/16 10:00 11/07/16 09:20 Miralax (For Daily Use) - PO Not Given BID DAMIAN Potassium Chloride 40 meq 11/07/16 10:15 11/07/16 10:44 K-Dur - PO 11/07/16 14:16 40 meq Q4H DAMIAN Administration Saliva Substitute 1 applic 11/05/16 17:15 11/07/16 09:20 Mouthkote Solution - MM 1 applic DAILY DAMIAN Administration Senna 2 tab 11/04/16 06:25 Senna - PO HS PRN CONSTIPATION Impression: Epidural abscess-s/p drainage laminectomy H/O Hodgkins Disease - with pituitary involvement S/P ABVD-SCAR chemotherpy completed > 6 months ago Strep pneumonia and bacteremia Plegia LE's Plan: Continuation of vancomycin per I.D. P.T. Electrolyte correction Removal of port which is partially occluded without use x > 6 months in future.
--- NOTE | 2016-11-07 17:36 | PN ---
Progress Note, Physician Chief Complaint: AWAKE ON 02 SUPPORT 50%NRB BREATHING BETTER - Current Medication List Current Medications: Active Medications Acetaminophen (Tylenol -) 650 mg PO Q4H PRN PRN Reason: FEVER OR PAIN Albuterol/Ipratropium (Duoneb -) 1 amp NEB QIDR [facility] Last Admin: 11/07/16 11:45 Dose: 1 amp Bisacodyl (Dulcolax Suppository -) 10 mg RC DAILY PRN PRN Reason: CONSTIPATION Diazepam (Valium -) 5 mg PO TID [facility] Last Admin: 11/07/16 14:39 Dose: 5 mg Docusate Sodium (Colace -) 100 mg PO TID [facility] Last Admin: 11/07/16 14:39 Dose: Not Given Furosemide (Lasix Injection -) 40 mg IVPUSH BID@0600,1400 [facility] Last Admin: 11/07/16 14:39 Dose: 40 mg Heparin Sodium (Porcine) (Heparin -) 5,000 unit SQ BID [facility] Last Admin: 11/07/16 09:18 Dose: 5,000 unit Vancomycin HCl 1,500 mg/ (Dextrose) 500 mls @ 250 mls/hr IVPB DAILY [facility] Last Admin: 11/07/16 09:18 Dose: 250 mls/hr Ondansetron HCl (Zofran Injection) 4 mg IVPB Q6H PRN PRN Reason: NAUSEA AND/OR VOMITING Oxycodone HCl (Roxicodone -) 5 mg PO Q3H PRN PRN Reason: MODERATE PAIN Last Admin: 11/05/16 05:27 Dose: 5 mg Oxycodone HCl (Roxicodone -) 10 mg PO Q3H PRN PRN Reason: SEVERE PAIN Last Admin: 11/06/16 13:21 Dose: 10 mg Polyethylene Glycol (Miralax (For Daily Use) -) 17 gm PO BID [facility] Last Admin: 11/07/16 09:20 Dose: Not Given Saliva Substitute (Mouthkote Solution -) 1 applic MM DAILY [facility] Last Admin: 11/07/16 09:20 Dose: 1 applic Senna (Senna -) 2 tab PO HS PRN PRN Reason: CONSTIPATION - Objective Vital Signs: Vital Signs Temperature 98.1 F 11/07/16 10:00 Pulse Rate 82 11/07/16 14:00 Respiratory Rate 18 11/07/16 14:00 Blood Pressure 108/58 11/07/16 14:00 O2 Sat by Pulse Oximetry (%) 95 11/07/16 16:30 Constitutional: Yes: Mild Distress Eyes: Yes: WNL HENT: Yes: WNL Neck: Yes: WNL Cardiovascular: Yes: WNL Respiratory: Yes: On Venti-Mask, SOB Gastrointestinal: Yes: WNL Genitourinary: Yes: Incontinence Musculoskeletal: Yes: Muscle Weakness Extremities: Yes: WNL Edema: No Peripheral Pulses WNL: Yes Integumentary: Yes: Rash Wound/Incision: Yes: Dressing Dry and Intact Neurological: Yes: Weakness ...Motor Strength: LLE, RLE Psychiatric: Yes: Other Labs: CBC, BMP 11/06/16 05:00 11/06/16 05:00 INR, PTT INR 1.32 (0.82-1.09) H 10/25/16 23:00 Problem List - Problems (1) Afib Code(s): I48.91 - UNSPECIFIED ATRIAL FIBRILLATION Qualifiers: Atrial fibrillation type: paroxysmal Qualified Code(s): I48.0 - Paroxysmal atrial fibrillation (2) Bronchitis Code(s): J40 - BRONCHITIS, NOT SPECIFIED ACUTE OR CHRONIC (3) Chest pain Code(s): R07.9 - CHEST PAIN, UNSPECIFIED (4) Epidural abscess Code(s): G06.2 - EXTRADURAL AND SUBDURAL ABSCESS, UNSPECIFIED (5) Hypoxia Code(s): R09.02 - HYPOXEMIA (6) Pneumococcal bacteremia Code(s): R78.81 - BACTEREMIA Assessment/Plan IV ABX 02 SUPPORT NEURO SX EVAL APPRECIATED PT EVAL SNF ONCOLOGY F/U OUTLINE PLAN OF TREATMENT
[2016-11-07] MEDS: oxyCODONE HCL 5 MG TABLET PO PRN (21:52)
[2016-11-08 06:29] LABS: BASOPHIL 0.5 % (0-2.0); EOSINOPHIL 3.7 % (0-4.5); MCH 28.8 pg (25.7-33.7); MCHC 32.6 g/dl (32.0-35.9); MEAN CELL VOLUME 88.4 fl (80-96); MEAN PLT VOLUME 6.8 fl (7.5-11.1); NEUTROPHILS 63.4 % (42.8-82.8); PLATELET COUNT 236 K/MM3 (134-434); RDW 17.8 % (11.9-15.9)
[2016-11-08 06:52] LABS: ANION GAP 9 (8-16); CALCIUM 8.5 mg/dL (8.5-10.1); CO2 38 mmol/L (21-32); COCKROFT - GAULT 113.45; GLUCOSE,RANDOM 100 mg/dL (74-106); MAGNESIUM 2.1 mg/dL (1.8-2.4); PHOSPHOROUS 3.6 mg/dL (2.5-4.9); SGOT/AST 33 U/L (15-37); SGPT/ALT 24 U/L (12-78)
[2016-11-08 06:54] LABS: ALK PHOS 104 U/L (45-117); BILIRUBIN,TOTAL 0.6 mg/dL (0.2-1.0); TOT PROT 6.5 g/dl (6.4-8.2)
[2016-11-08] MEDS: ALBUTEROL SO4 2.5/IPRATROPIUM 0.5 INH SOL 3 ML VIAL.NEB. NEB SCH ×4 (06:59→23:29)
[2016-11-08] MEDS: DOCUSATE SODIUM 100 MG CAPSULE (FP) PO SCH ×3 (07:09→23:00)
[2016-11-08] MEDS: FUROSEMIDE 40 MG/4 ML INJECTABLE VIAL IVPUSH SCH ×2 (07:09→14:33)
[2016-11-08] MEDS: diazePAM 5 MG TABLET PO SCH ×3 (07:09→23:00)
[2016-11-08] MEDS ORDERED: PT OWN MED DRAWER 7, Y5N ONE (09:10)
[2016-11-08] MEDS: POLYETHYLENE GLYCOL 3350 119 GM BTL PO SCH ×2 (09:45→23:01)
[2016-11-08] MEDS: HEPARIN NA (PORCINE) 5,000 UNITS/ML 1ML VIAL SQ SCH ×2 (09:47→23:03)
[2016-11-08] MEDS: VANCOMYCIN 1,500 MG in DEXTROSE 5%-WATER - 500 ML IVPB SCH (10:00)
[2016-11-08] MEDS: LYTES/YERBA SANTA 240 ML BOTTLE MM SCH (10:01)
--- NOTE | 2016-11-08 10:45 | PN ---
Progress Note (short form) - Note Progress Note: PULMONARY/CCM Pt seen and examined in the ICU. Saturating well on 40% ventimask. States breathing continues to improve. No fevers or chills. Last Vital Signs Temp Pulse Resp BP Pulse Ox 98 F 78 18 129/86 97 11/08/16 02:00 11/08/16 07:00 11/08/16 06:00 11/08/16 06:00 11/08/16 07:00 Intake & Output 11/05/16 11/06/16 11/07/16 11/08/16 23:59 23:59 23:59 23:59 Intake Total 1200 1100 1955 Output Total 1600 2600 1250 900 Balance -400 -1500 705 -900 Weight 262 lb 4.8 oz 261 lb 11.019 oz 261 lb 262 lb 5.601 oz Gen: less tachypneic Heart: RRR Lung: scattered rhonchi Abd: soft, nontender Ext: no edema CBC, BMP 11/08/16 05:20 11/08/16 05:20 Active Medications Acetaminophen (Tylenol -) 650 mg PO Q4H PRN PRN Reason: FEVER OR PAIN Albuterol/Ipratropium (Duoneb -) 1 amp NEB QIDR [facility] Last Admin: 11/08/16 06:59 Dose: 1 amp Bisacodyl (Dulcolax Suppository -) 10 mg RC DAILY PRN PRN Reason: CONSTIPATION Diazepam (Valium -) 5 mg PO TID [facility] Last Admin: 11/08/16 07:09 Dose: 5 mg Docusate Sodium (Colace -) 100 mg PO TID [facility] Last Admin: 11/08/16 07:09 Dose: Not Given Furosemide (Lasix Injection -) 40 mg IVPUSH BID@0600,1400 [facility] Last Admin: 11/08/16 07:09 Dose: 40 mg Heparin Sodium (Porcine) (Heparin -) 5,000 unit SQ BID [facility] Last Admin: 11/08/16 09:47 Dose: 5,000 unit Vancomycin HCl 1,500 mg/ (Dextrose) 500 mls @ 250 mls/hr IVPB DAILY [facility] Last Admin: 11/08/16 10:00 Dose: 250 mls/hr Ondansetron HCl (Zofran Injection) 4 mg IVPB Q6H PRN PRN Reason: NAUSEA AND/OR VOMITING Oxycodone HCl (Roxicodone -) 5 mg PO Q3H PRN PRN Reason: MODERATE PAIN Last Admin: 11/05/16 05:27 Dose: 5 mg Oxycodone HCl (Roxicodone -) 10 mg PO Q3H PRN PRN Reason: SEVERE PAIN Last Admin: 11/07/16 21:52 Dose: 10 mg Polyethylene Glycol (Miralax (For Daily Use) -) 17 gm PO BID [facility] Last Admin: 11/08/16 09:45 Dose: Not Given Saliva Substitute (Mouthkote Solution -) 1 applic MM DAILY [facility] Last Admin: 11/08/16 10:01 Dose: 1 applic Senna (Senna -) 2 tab PO HS PRN PRN Reason: CONSTIPATION A/P Acute Hypoxic Respiratory Failure improving Atelectasis Strep Bacteremia Lower Extremity Paralysis Epidural Abscess with Cord Compression s/p Hemilaminectomy Hodgkin's Lymphoma h/o DVT Right Pleural Effusion - O2 to keep SpO2 >90% - BiPAP as needed - rate/rhythm control - continue antibiotics per ID - replete lytes - neuro checks - pain control - incentive spirometry - DVT prophylaxis - rehab/PT - can monitor on floor critical care time spent in reviewing chart, evaluating patient and formulating plan 35 min
--- NOTE | 2016-11-08 12:05 | PN ---
Progress Note, Physician Chief Complaint: AWAKE ALERT ON 45% 02 STILL HAS PHLEGM GREEN/YELLOW COUGH - Current Medication List Current Medications: Active Medications Acetaminophen (Tylenol -) 650 mg PO Q4H PRN PRN Reason: FEVER OR PAIN Albuterol/Ipratropium (Duoneb -) 1 amp NEB QIDR [facility] Last Admin: 11/08/16 11:10 Dose: 1 amp Bisacodyl (Dulcolax Suppository -) 10 mg RC DAILY PRN PRN Reason: CONSTIPATION Diazepam (Valium -) 5 mg PO TID [facility] Last Admin: 11/08/16 07:09 Dose: 5 mg Docusate Sodium (Colace -) 100 mg PO TID [facility] Last Admin: 11/08/16 07:09 Dose: Not Given Furosemide (Lasix Injection -) 40 mg IVPUSH BID@0600,1400 [facility] Last Admin: 11/08/16 07:09 Dose: 40 mg Heparin Sodium (Porcine) (Heparin -) 5,000 unit SQ BID [facility] Last Admin: 11/08/16 09:47 Dose: 5,000 unit Vancomycin HCl 1,500 mg/ (Dextrose) 500 mls @ 250 mls/hr IVPB DAILY [facility] Last Admin: 11/08/16 10:00 Dose: 250 mls/hr Ondansetron HCl (Zofran Injection) 4 mg IVPB Q6H PRN PRN Reason: NAUSEA AND/OR VOMITING Oxycodone HCl (Roxicodone -) 5 mg PO Q3H PRN PRN Reason: MODERATE PAIN Last Admin: 11/05/16 05:27 Dose: 5 mg Oxycodone HCl (Roxicodone -) 10 mg PO Q3H PRN PRN Reason: SEVERE PAIN Last Admin: 11/07/16 21:52 Dose: 10 mg Polyethylene Glycol (Miralax (For Daily Use) -) 17 gm PO BID [facility] Last Admin: 11/08/16 09:45 Dose: Not Given Saliva Substitute (Mouthkote Solution -) 1 applic MM DAILY [facility] Last Admin: 11/08/16 10:01 Dose: 1 applic Senna (Senna -) 2 tab PO HS PRN PRN Reason: CONSTIPATION - Objective Vital Signs: Vital Signs Temperature 98 F 11/08/16 02:00 Pulse Rate 78 11/08/16 07:00 Respiratory Rate 18 11/08/16 06:00 Blood Pressure 129/86 11/08/16 06:00 O2 Sat by Pulse Oximetry (%) 97 11/08/16 07:00 Constitutional: Yes: Mild Distress Eyes: Yes: WNL HENT: Yes: WNL Neck: Yes: WNL Cardiovascular: Yes: WNL Respiratory: Yes: Cough, On Venti-Mask, SOB Gastrointestinal: Yes: WNL Genitourinary: Yes: Incontinence Musculoskeletal: Yes: Muscle Weakness Extremities: Yes: Other Edema: Yes Edema: LLE: 1+, RLE: 1+ Peripheral Pulses WNL: Yes Integumentary: Yes: Other Wound/Incision: Yes: Dressing Dry and Intact Neurological: Yes: Loss of Sensation, Numbness, Paresthesia, Pre-Existing Deficit, Unsteady Gait, Weakness ...Motor Strength: LLE, RLE Psychiatric: Yes: Other Labs: CBC, BMP 11/08/16 05:20 11/08/16 05:20 INR, PTT INR 1.32 (0.82-1.09) H 10/25/16 23:00 Problem List - Problems (1) Afib Code(s): I48.91 - UNSPECIFIED ATRIAL FIBRILLATION Qualifiers: Atrial fibrillation type: paroxysmal Qualified Code(s): I48.0 - Paroxysmal atrial fibrillation (2) Bronchitis Code(s): J40 - BRONCHITIS, NOT SPECIFIED ACUTE OR CHRONIC (3) Chest pain Code(s): R07.9 - CHEST PAIN, UNSPECIFIED (4) Epidural abscess Code(s): G06.2 - EXTRADURAL AND SUBDURAL ABSCESS, UNSPECIFIED (5) Hypoxia Code(s): R09.02 - HYPOXEMIA (6) Pneumococcal bacteremia Code(s): R78.81 - BACTEREMIA Assessment/Plan IV ABX NEBS 02 SUPPORT NEUROSX F/U APPRECIATED 00B TO CHAIR BEDSIDE PT
[2016-11-08] MEDS: oxyCODONE HCL 5 MG TABLET PO PRN ×2 (13:33→23:01)
--- NOTE | 2016-11-08 13:43 | PN ---
Progress Note (short form) - Note Progress Note: Patient seen and examined Breathing improved LE sensation mildly improved No improvement in incontinence or motor strength LE's Last Vital Signs Temp Pulse Resp BP Pulse Ox 98.2 F 105 H 23 118/62 97 11/08/16 08:00 11/08/16 12:00 11/08/16 12:00 11/08/16 12:00 11/08/16 09:00 HEENT: SAGAR, EOM Intact Oropharynx: No thrush, No mucositis Cor: RSR, No murmurs, No gallops Lungs: diminished breath sounds bilaterally Abd: Soft, Normal bowel sounds, No organomegaly Ext: LE edema, SCD Skin: No rashes, Integument intact CBC, BMP 11/08/16 05:20 11/08/16 05:20 Current Medications Generic Name Dose Route Start Last Admin Trade Name Freq PRN Reason Stop Dose Admin Acetaminophen 650 mg 11/04/16 06:25 Tylenol - PO Q4H PRN FEVER OR PAIN Albuterol/Ipratropium 1 amp 11/04/16 12:00 11/08/16 11:10 Duoneb - NEB 1 amp QIDR DAMIAN Administration Bisacodyl 10 mg 11/04/16 06:25 Dulcolax Suppository - RC DAILY PRN CONSTIPATION Diazepam 5 mg 11/04/16 14:00 11/08/16 07:09 Valium - PO 5 mg TID DAMIAN Administration Docusate Sodium 100 mg 11/04/16 14:00 11/08/16 07:09 Colace - PO Not Given TID DAMIAN Furosemide 40 mg 11/04/16 14:00 11/08/16 07:09 Lasix Injection - IVPUSH 40 mg BID@0600,1400 DAMIAN Administration Heparin Sodium (Porcine) 5,000 unit 11/04/16 10:00 11/08/16 09:47 Heparin - SQ 5,000 unit BID DAMIAN Administration Vancomycin HCl 1,500 mg/ 500 mls @ 250 mls/hr 11/05/16 10:00 11/08/16 10:00 Dextrose IVPB 250 mls/hr DAILY DAMIAN Administration Ondansetron HCl 4 mg 11/04/16 06:25 Zofran Injection IVPB Q6H PRN NAUSEA AND/OR VOMITING Oxycodone HCl 5 mg 11/04/16 06:25 11/05/16 05:27 Roxicodone - PO 5 mg Q3H PRN Administration MODERATE PAIN Oxycodone HCl 10 mg 11/04/16 06:25 11/07/16 21:52 Roxicodone - PO 10 mg Q3H PRN Administration SEVERE PAIN Polyethylene Glycol 17 gm 11/04/16 10:00 11/08/16 09:45 Miralax (For Daily Use) - PO Not Given BID DAMIAN Saliva Substitute 1 applic 11/05/16 17:15 11/08/16 10:01 Mouthkote Solution - MM 1 applic DAILY DAMIAN Administration Senna 2 tab 11/04/16 06:25 Senna - PO HS PRN CONSTIPATION Impression: Acute hypoxic respiratory Failure- improved Pneumonia Strep bacteremia Epidural abscess S/P drainage and kely-laminectomy H/O DVT H/O Hodgkins Disease s/p ABVD-SCAR chemotherpay completed 6 months earlier LE plegia and incontinence PlaN Primary pulmonary team Removal of partially occluded port in future PT.
--- NOTE | 2016-11-08 13:50 | PN ---
Progress Note (short form) - Note Progress Note: rash improved, alert resting comfortably,breathing improved Vital Signs Period Temp Pulse Resp BP Sys/Lloyd Pulse Ox Last 24 Hr 98 F-98.2 F 76-105 14-23 106-138/55-86 93-97 cor-rrr llungs decreased bs at base abd soft,nt ext trace edema +lim CBC, BMP 11/08/16 05:20 11/08/16 05:20 a/p strep bacteremia= pneumoniae and mitis- on vancomycin vanco level 16.6, will repeat on Wednesday, continue same dose- LEVEL NOT IN COMPUTER s/p drainage of epidural abscess with cord compression-POD #13 still unable to move his legs history of Hodgkins Lymphoma- off chemo and RT for last 6 months beta lactam rash- resolving d//w at bedside
[2016-11-08] MEDS ORDERED: oxyCODONE HCL 5 MG TABLET PO PRN (22:46)
[2016-11-09] MEDS ORDERED: ONDANSETRON 4 MG/2 ML VIAL IVPB PRN (01:47)
[2016-11-09] MEDS ORDERED: SENNOSIDES 8.6MG TABLET (FP) PO PRN (01:47)
[2016-11-09] MEDS ORDERED: BISACODYL 10 MG SUPP.RECT RC PRN (01:47)
[2016-11-09] MEDS: FUROSEMIDE 40 MG/4 ML INJECTABLE VIAL IVPUSH SCH ×2 (05:51→14:33)
[2016-11-09] MEDS: DOCUSATE SODIUM 100 MG CAPSULE (FP) PO SCH ×3 (05:51→22:03)
[2016-11-09] MEDS: diazePAM 5 MG TABLET PO SCH ×3 (05:51→22:03)
[2016-11-09] MEDS: ALBUTEROL SO4 2.5/IPRATROPIUM 0.5 INH SOL 3 ML VIAL.NEB. NEB SCH ×4 (06:00→23:11)
[2016-11-09] MEDS: oxyCODONE HCL 5 MG TABLET PO PRN ×2 (06:40→10:32)
[2016-11-09 07:50] LABS: ALBUMIN 2.1 g/dl (3.4-5.0); ALK PHOS 107 U/L (45-117); ANION GAP 9 (8-16); BILIRUBIN,TOTAL 0.3 mg/dL (0.2-1.0); CALCIUM 8.5 mg/dL (8.5-10.1); CO2 38 mmol/L (21-32); COCKROFT - GAULT 104.87; CREATININE 1.1 mg/dL (0.7-1.3); GLUCOSE,RANDOM 121 mg/dL (74-106); MAGNESIUM 2.1 mg/dL (1.8-2.4); PHOSPHOROUS 3.9 mg/dL (2.5-4.9); SGOT/AST 31 U/L (15-37); SGPT/ALT 23 U/L (12-78); TOT PROT 6.7 g/dl (6.4-8.2)
[2016-11-09 08:05] LABS: MCH 29.2 pg (25.7-33.7); MCHC 32.9 g/dl (32.0-35.9); MEAN CELL VOLUME 88.9 fl (80-96); MEAN PLT VOLUME 6.6 fl (7.5-11.1); PLATELET COUNT 231 K/MM3 (134-434); RDW 17.3 % (11.9-15.9)
--- NOTE | 2016-11-09 08:36 | PN ---
Progress Note, Physician History of Present Illness: S/P EMERGENCY LAMINECTOMY UNABLE TO MOVE LEGS NO CHEST PAIN NO SOB ON OXYGEN C/O COUGH - Current Medication List Current Medications: Active Medications Acetaminophen (Tylenol -) 650 mg PO Q4H PRN PRN Reason: FEVER OR PAIN Albuterol/Ipratropium (Duoneb -) 1 amp NEB QIDR [facility] Last Admin: 11/09/16 06:00 Dose: 1 amp Bisacodyl (Dulcolax Suppository -) 10 mg RC DAILY PRN PRN Reason: CONSTIPATION Diazepam (Valium -) 5 mg PO TID [facility] Last Admin: 11/09/16 05:51 Dose: 5 mg Docusate Sodium (Colace -) 100 mg PO TID [facility] Last Admin: 11/09/16 05:51 Dose: 100 mg Furosemide (Lasix Injection -) 40 mg IVPUSH BID@0600,1400 [facility] Last Admin: 11/09/16 05:51 Dose: 40 mg Heparin Sodium (Porcine) (Heparin -) 5,000 unit SQ BID [facility] Vancomycin HCl 1,500 mg/ (Dextrose) 500 mls @ 250 mls/hr IVPB DAILY [facility] Ondansetron HCl (Zofran Injection) 4 mg IVPB Q6H PRN PRN Reason: NAUSEA AND/OR VOMITING Oxycodone HCl (Roxicodone -) 5 mg PO Q3H PRN PRN Reason: MODERATE PAIN Last Admin: 11/09/16 06:40 Dose: 5 mg Oxycodone HCl (Roxicodone -) 10 mg PO Q3H PRN PRN Reason: SEVERE PAIN Polyethylene Glycol (Miralax (For Daily Use) -) 17 gm PO BID [facility] Saliva Substitute (Mouthkote Solution -) 1 applic MM DAILY [facility] Senna (Senna -) 2 tab PO HS PRN PRN Reason: CONSTIPATION - Objective Vital Signs: Vital Signs Temperature 98 F 11/09/16 06:00 Pulse Rate 94 H 11/09/16 06:00 Respiratory Rate 18 11/09/16 06:00 Blood Pressure 110/64 11/09/16 06:00 O2 Sat by Pulse Oximetry (%) 95 11/08/16 21:00 Cardiovascular: Yes: Regular Rate and Rhythm Respiratory: Yes: Regular, CTA Bilaterally Gastrointestinal: Yes: Normal Bowel Sounds, Soft Edema: No Neurological: Yes: Weakness (OF LE) Labs: CBC, BMP 11/09/16 06:00 11/09/16 06:00 INR, PTT INR 1.32 (0.82-1.09) H 10/25/16 23:00 Problem List - Problems (1) Epidural abscess Assessment/Plan: abx per id--on ceftriaxone ON sq heparin continue with iv abx Code(s): G06.2 - EXTRADURAL AND SUBDURAL ABSCESS, UNSPECIFIED (2) Positive blood culture Assessment/Plan: abx per dr llamas repeat cultures echo noted-- Microbiology 10/24/16 11:46 Blood - Peripheral Venous Blood Culture - Final Streptococcus Pneumoniae Streptococcus Pneumoniae#2 10/24/16 11:46 Blood - Peripheral Venous Blood Culture - Final Streptococcus Mitis 10/28/16 06:16 Blood - Peripheral Venous Blood Culture - Preliminary NO GROWTH OBTAINED AFTER 72 HOURS, INCUBATION TO CONTINUE FOR 2 DAYS. 10/28/16 05:50 Blood - Peripheral Venous Blood Culture - Preliminary NO GROWTH OBTAINED AFTER 72 HOURS, INCUBATION TO CONTINUE FOR 2 DAYS. Code(s): R78.81 - BACTEREMIA (3) Acute on chronic renal insufficiency Code(s): N28.9 - DISORDER OF KIDNEY AND URETER, UNSPECIFIED N18.9 - CHRONIC KIDNEY DISEASE, UNSPECIFIED (4) CHF exacerbation Code(s): I50.9 - HEART FAILURE, UNSPECIFIED Qualifiers: Congestive heart failure type: diastolic Qualified Code(s): I50.33 - Acute on chronic diastolic (congestive) heart failure (5) Lymphoma Assessment/Plan: in remission oncology consult Code(s): C85.90 - NON-HODGKIN LYMPHOMA, UNSPECIFIED, UNSPECIFIED SITE (6) Weakness of both lower extremities Assessment/Plan: as above due abscess---abx ct of ls spine neuro and ns consult Code(s): R29.898 - OTH SYMPTOMS AND SIGNS INVOLVING THE MUSCULOSKELETAL SYSTEM (7) Afib Assessment/Plan: follow labs no ac due to spinal surgery on amiodorone Code(s): I48.91 - UNSPECIFIED ATRIAL FIBRILLATION Qualifiers: Atrial fibrillation type: paroxysmal Qualified Code(s): I48.0 - Paroxysmal atrial fibrillation (8) Chest pain Code(s): R07.9 - CHEST PAIN, UNSPECIFIED (9) Pressure ulcer Assessment/Plan: PER SURGERY Code(s): L89.90 - PRESSURE ULCER OF UNSPECIFIED SITE, UNSPECIFIED STAGE
[2016-11-09] MEDS ORDERED: VANCOMYCIN 1,500 MG in DEXTROSE 5%-WATER - 500 ML IVPB SCH (10:00)
[2016-11-09 10:26] LABS: PLATELET ESTIMATE ADEQUATE (NORMAL)
[2016-11-09] MEDS ORDERED: PT OWN MED DRAWER 7, Y5N ONE (10:26)
[2016-11-09] MEDS: POLYETHYLENE GLYCOL 3350 119 GM BTL PO SCH ×2 (10:31→22:03)
[2016-11-09] MEDS: HEPARIN NA (PORCINE) 5,000 UNITS/ML 1ML VIAL SQ SCH ×2 (10:31→22:04)
[2016-11-09] MEDS: VANCOMYCIN 1,500 MG in DEXTROSE 5%-WATER - 500 ML IVPB SCH (10:31)
--- NOTE | 2016-11-09 11:10 | PN ---
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
--- NOTE | 2016-11-09 11:51 | PN ---
Progress Note, Physician Chief Complaint: ID Vancomycin continues - Current Medication List Current Medications: Active Medications Acetaminophen (Tylenol -) 650 mg PO Q4H PRN PRN Reason: FEVER OR PAIN Albuterol/Ipratropium (Duoneb -) 1 amp NEB QIDR [facility] Last Admin: 11/09/16 06:00 Dose: 1 amp Bisacodyl (Dulcolax Suppository -) 10 mg RC DAILY PRN PRN Reason: CONSTIPATION Diazepam (Valium -) 5 mg PO TID [facility] Last Admin: 11/09/16 05:51 Dose: 5 mg Docusate Sodium (Colace -) 100 mg PO TID [facility] Last Admin: 11/09/16 05:51 Dose: 100 mg Furosemide (Lasix Injection -) 40 mg IVPUSH BID@0600,1400 [facility] Last Admin: 11/09/16 05:51 Dose: 40 mg Heparin Sodium (Porcine) (Heparin -) 5,000 unit SQ BID [facility] Last Admin: 11/09/16 10:31 Dose: 5,000 unit Vancomycin HCl 1,500 mg/ (Dextrose) 500 mls @ 250 mls/hr IVPB DAILY [facility] Last Admin: 11/09/16 10:31 Dose: 250 mls/hr Ondansetron HCl (Zofran Injection) 4 mg IVPB Q6H PRN PRN Reason: NAUSEA AND/OR VOMITING Oxycodone HCl (Roxicodone -) 5 mg PO Q3H PRN PRN Reason: MODERATE PAIN Last Admin: 11/09/16 10:32 Dose: 5 mg Oxycodone HCl (Roxicodone -) 10 mg PO Q3H PRN PRN Reason: SEVERE PAIN Polyethylene Glycol (Miralax (For Daily Use) -) 17 gm PO BID [facility] Last Admin: 11/09/16 10:31 Dose: Not Given Saliva Substitute (Mouthkote Solution -) 1 applic MM DAILY [facility] Senna (Senna -) 2 tab PO HS PRN PRN Reason: CONSTIPATION - Objective Vital Signs: Vital Signs Temperature 98.8 F 11/09/16 09:05 Pulse Rate 101 H 11/09/16 09:05 Respiratory Rate 18 11/09/16 09:05 Blood Pressure 105/60 11/09/16 09:05 O2 Sat by Pulse Oximetry (%) 95 11/08/16 21:00 Constitutional: Yes: Mild Distress, Obese Neck: Yes: WNL, Supple Cardiovascular: Yes: S1, S2 Respiratory: Yes: Diminished, Tachypnea Gastrointestinal: Yes: Soft Edema: No Labs: CBC, BMP 11/09/16 06:00 11/09/16 06:00 INR, PTT INR 1.32 (0.82-1.09) H 10/25/16 23:00 Problem List - Problems (1) Epidural abscess Code(s): G06.2 - EXTRADURAL AND SUBDURAL ABSCESS, UNSPECIFIED (2) Weakness of both lower extremities Code(s): R29.898 - OTH SYMPTOMS AND SIGNS INVOLVING THE MUSCULOSKELETAL SYSTEM (3) Pneumococcal bacteremia Code(s): R78.81 - BACTEREMIA Assessment/Plan Microbiology 10/25/16 21:43 Abscess Gram Stain - Final 10/25/16 21:43 Abscess Wound Culture - Final Streptococcus Pneumoniae 10/24/16 11:46 Blood - Peripheral Venous Blood Culture - Final Streptococcus Pneumoniae Streptococcus Pneumoniae#2 10/24/16 11:46 Blood - Peripheral Venous Blood Culture - Final Streptococcus Mitis Laboratory Tests 11/09/16 11/09/16 06:00 06:00 WBC 6.0 Hgb 10.5 L Hct 31.8 L Plt Count 231 BUN 28 H Creatinine 1.1 Assessment Epidural abscess with bacteremia Strep pneumo Vanco level 17 Plan Will continue current antibiotic treatment CRP coming down Fritz DIAZ
--- NOTE | 2016-11-09 12:24 | PN ---
Progress Note (short form) - Note Progress Note: Reports feeling overall better. Breathing is non-labored on 3 L NC. Did not require/use NIPPV last night. Intake & Output 11/06/16 11/07/16 11/08/16 11/09/16 23:59 23:59 23:59 23:59 Intake Total 1100 1955 1400 300 Output Total 2600 1250 2900 Balance -1500 705 -1500 300 Weight 261 lb 11.019 oz 261 lb 262 lb 5.601 oz 265 lb 6.4 oz Last Vital Signs Temp Pulse Resp BP Pulse Ox 98.8 F 101 H 18 105/60 95 11/09/16 09:05 11/09/16 09:05 11/09/16 09:05 11/09/16 09:05 11/08/16 21:00 Laboratory Results - last 24 hr 11/04/16 11/06/16 11/09/16 08:30 07:55 06:00 WBC 6.0 RBC 3.58 L Hgb 10.5 L Hct 31.8 L MCV 88.9 MCHC 32.9 RDW 17.3 H Plt Count 231 MPV 6.6 L Neutrophils % 62.0 Lymphocytes % 13.0 D Monocytes % 8.0 Eosinophils % 3.0 Basophils % 0.0 Band Neutrophils 9.0 D Myelocytes 5 H D Differential Comment Manual diff done Platelet Estimate Adequate Sodium Potassium Chloride Carbon Dioxide Anion Gap BUN Creatinine Creat Clearance w eGFR Random Glucose Calcium Phosphorus Magnesium Total Bilirubin AST ALT Alkaline Phosphatase Total Protein Albumin Vancomycin Pre-Dose 19.937 H* 16.684 H* D 11/09/16 11/09/16 06:00 09:05 WBC RBC Hgb Hct MCV MCHC RDW Plt Count MPV Neutrophils % Lymphocytes % Monocytes % Eosinophils % Basophils % Band Neutrophils Myelocytes Differential Comment Platelet Estimate Sodium 137 Potassium 3.5 Chloride 90 L Carbon Dioxide 38 H Anion Gap 9 BUN 28 H Creatinine 1.1 Creat Clearance w eGFR > 60 Random Glucose 121 H D Calcium 8.5 Phosphorus 3.9 Magnesium 2.1 Total Bilirubin 0.3 D AST 31 ALT 23 Alkaline Phosphatase 107 Total Protein 6.7 Albumin 2.1 L Vancomycin Pre-Dose 17.209 H* D Gen: Awake and alert Heart: S1S2 Lung: bilateral rhonchi Abd: soft, obese, nontender Ext: (+) edema Skin: Improving rash Laboratory Results - last 24 hr 11/04/16 11/06/16 11/09/16 08:30 07:55 06:00 WBC 6.0 RBC 3.58 L Hgb 10.5 L Hct 31.8 L MCV 88.9 MCHC 32.9 RDW 17.3 H Plt Count 231 MPV 6.6 L Neutrophils % 62.0 Lymphocytes % 13.0 D Monocytes % 8.0 Eosinophils % 3.0 Basophils % 0.0 Band Neutrophils 9.0 D Myelocytes 5 H D Differential Comment Manual diff done Platelet Estimate Adequate Sodium Potassium Chloride Carbon Dioxide Anion Gap BUN Creatinine Creat Clearance w eGFR Random Glucose Calcium Phosphorus Magnesium Total Bilirubin AST ALT Alkaline Phosphatase Total Protein Albumin Vancomycin Pre-Dose 19.937 H* 16.684 H* D 11/09/16 11/09/16 06:00 09:05 WBC RBC Hgb Hct MCV MCHC RDW Plt Count MPV Neutrophils % Lymphocytes % Monocytes % Eosinophils % Basophils % Band Neutrophils Myelocytes Differential Comment Platelet Estimate Sodium 137 Potassium 3.5 Chloride 90 L Carbon Dioxide 38 H Anion Gap 9 BUN 28 H Creatinine 1.1 Creat Clearance w eGFR > 60 Random Glucose 121 H D Calcium 8.5 Phosphorus 3.9 Magnesium 2.1 Total Bilirubin 0.3 D AST 31 ALT 23 Alkaline Phosphatase 107 Total Protein 6.7 Albumin 2.1 L Vancomycin Pre-Dose 17.209 H* D Problem List - Problems (1) Bronchitis Code(s): J40 - BRONCHITIS, NOT SPECIFIED ACUTE OR CHRONIC (2) Positive blood culture Code(s): R78.81 - BACTEREMIA (3) Weakness Code(s): R53.1 - WEAKNESS (4) Weakness of both lower extremities Code(s): R29.898 - OT SYMPTOMS AND SIGNS INVOLVING THE MUSCULOSKELETAL SYSTEM (5) Diabetes Code(s): E11.9 - TYPE 2 DIABETES MELLITUS WITHOUT COMPLICATIONS (6) Dyspnea Code(s): R06.00 - DYSPNEA, UNSPECIFIED (7) Left leg DVT Code(s): I82.402 - ACUTE EMBOLISM AND THOMBOS UNSP DEEP VEINS OF L LOW EXTREM Qualifiers: Qualified Code(s): I82.412 - Acute embolism and thrombosis of left femoral vein (8) Lymphoma Code(s): C85.90 - NON-HODGKIN LYMPHOMA, UNSPECIFIED, UNSPECIFIED SITE (9) Pneumonia Code(s): J18.9 - PNEUMONIA, UNSPECIFIED ORGANISM Qualifiers: Qualified Code(s): J18.1 - Lobar pneumonia, unspecified organism ASSESSMENT AND PLAN: Strep Bacteremia Lower Extremity Paralysis Epidural Abscess with Cord Compression s/p Hemilaminectomy Hodgkin's Lymphoma h/o DVT Right Pleural Effusion / vascular congestion - O2 as needed - NIPPV support QHS and PRN as patient is willing - Lasix - ABX per ID - pain control - incentive spirometry - DVT prophylaxis - PT/Rehab Dr Garcia Problem List - Problems (1) Bronchitis Code(s): J40 - BRONCHITIS, NOT SPECIFIED ACUTE OR CHRONIC (2) Positive blood culture Code(s): R78.81 - BACTEREMIA (3) Weakness Code(s): R53.1 - WEAKNESS (4) Weakness of both lower extremities Code(s): R29.898 - OTH SYMPTOMS AND SIGNS INVOLVING THE MUSCULOSKELETAL SYSTEM (5) Diabetes Code(s): E11.9 - TYPE 2 DIABETES MELLITUS WITHOUT COMPLICATIONS (6) Dyspnea Code(s): R06.00 - DYSPNEA, UNSPECIFIED (7) Left leg DVT Code(s): I82.402 - ACUTE EMBOLISM AND THOMBOS UNSP DEEP VEINS OF L LOW EXTREM Qualifiers: Affected thrombotic vein of extremity: femoral Chronicity: acute Qualified Code(s): I82.412 - Acute embolism and thrombosis of left femoral vein (8) Lymphoma Code(s): C85.90 - NON-HODGKIN LYMPHOMA, UNSPECIFIED, UNSPECIFIED SITE (9) Pneumonia Code(s): J18.9 - PNEUMONIA, UNSPECIFIED ORGANISM Qualifiers: Pneumonia type: due to unspecified organism Laterality: left Lung location: lower lobe of lung Qualified Code(s): J18.1 - Lobar pneumonia, unspecified organism
[2016-11-09] MEDS: LYTES/YERBA SANTA 240 ML BOTTLE MM SCH (14:33)
--- NOTE | 2016-11-09 15:27 | PN ---
Progress Note, Physician Chief Complaint: legs immobile, numbness improving. History of Present Illness: 70M history of anemia, hypertension, hodgkins lymphoma, DVT (1 year ago) not on AC, admitted 10/24/16 with shortness of breath, wheezing, and a productive cough also leg weakness and numbness. Being seen by neurology to rule out GB syndrome. Also noted with mildly elevated bnp. No orthopnea pnd or edema. No chest pain. Found with thoracic epidural abcess, seen by neurosurgery underwent drainage and placement of catheter 10/26/16. Tele 10/26/16 with atrial fib new onset with RVR spontaneously converted to nsr. Bcx positive for S. Mitis. - Current Medication List Current Medications: Active Medications Acetaminophen (Tylenol -) 650 mg PO Q4H PRN PRN Reason: FEVER OR PAIN Albuterol/Ipratropium (Duoneb -) 1 amp NEB QIDR [facility] Last Admin: 11/09/16 06:00 Dose: 1 amp Bisacodyl (Dulcolax Suppository -) 10 mg RC DAILY PRN PRN Reason: CONSTIPATION Diazepam (Valium -) 5 mg PO TID [facility] Last Admin: 11/09/16 14:34 Dose: 5 mg Docusate Sodium (Colace -) 100 mg PO TID [facility] Last Admin: 11/09/16 14:33 Dose: Not Given Furosemide (Lasix Injection -) 40 mg IVPUSH BID@0600,1400 [facility] Last Admin: 11/09/16 14:33 Dose: 40 mg Heparin Sodium (Porcine) (Heparin -) 5,000 unit SQ BID [facility] Last Admin: 11/09/16 10:31 Dose: 5,000 unit Vancomycin HCl 1,500 mg/ (Dextrose) 500 mls @ 250 mls/hr IVPB DAILY [facility] Last Admin: 11/09/16 10:31 Dose: 250 mls/hr Ondansetron HCl (Zofran Injection) 4 mg IVPB Q6H PRN PRN Reason: NAUSEA AND/OR VOMITING Oxycodone HCl (Roxicodone -) 5 mg PO Q3H PRN PRN Reason: MODERATE PAIN Last Admin: 11/09/16 10:32 Dose: 5 mg Oxycodone HCl (Roxicodone -) 10 mg PO Q3H PRN PRN Reason: SEVERE PAIN Polyethylene Glycol (Miralax (For Daily Use) -) 17 gm PO BID [facility] Last Admin: 11/09/16 10:31 Dose: Not Given Saliva Substitute (Mouthkote Solution -) 1 applic MM DAILY [facility] Last Admin: 11/09/16 14:33 Dose: 1 applic Senna (Senna -) 2 tab PO HS PRN PRN Reason: CONSTIPATION - Objective Vital Signs: Vital Signs Temperature 97.8 F 11/09/16 15:01 Pulse Rate 93 H 11/09/16 15:01 Respiratory Rate 20 11/09/16 15:01 Blood Pressure 116/65 11/09/16 15:01 O2 Sat by Pulse Oximetry (%) 95 11/08/16 21:00 Constitutional: Yes: No Distress, Calm, Obese Eyes: Yes: EOM Intact HENT: Yes: Atraumatic, Normocephalic Neck: Yes: Supple, Trachea Midline Cardiovascular: Yes: Regular Rate and Rhythm Respiratory: Yes: CTA Bilaterally Gastrointestinal: Yes: Normal Bowel Sounds Edema: No Peripheral Pulses WNL: Yes Labs: CBC, BMP 11/09/16 06:00 11/09/16 06:00 INR, PTT INR 1.32 (0.82-1.09) H 10/25/16 23:00 Problem List - Problems (1) CHF exacerbation Assessment/Plan: stable and euvolemic. ABX per ID. Echo TDS normal EF. Code(s): I50.9 - HEART FAILURE, UNSPECIFIED Qualifiers: Congestive heart failure type: diastolic Qualified Code(s): I50.33 - Acute on chronic diastolic (congestive) heart failure (2) PAF (paroxysmal atrial fibrillation) Assessment/Plan: ECG with AF/RVR LAD/RBBB converted to nsr. Alternans was also seen. Echo is unremarkable. No evidence of pericarditis. Not a candidate for AC until spinal issues are completely resolved, likely at least 6 weeks as the risk of further compression from bleeding is significant. I have explained to the patient and family that there is a small risk of stroke but that the risk of bleeding outweigh this at present. Code(s): I48.0 - PAROXYSMAL ATRIAL FIBRILLATION
[2016-11-10] MEDS: DOCUSATE SODIUM 100 MG CAPSULE (FP) PO SCH ×3 (05:58→21:11)
[2016-11-10] MEDS: FUROSEMIDE 40 MG/4 ML INJECTABLE VIAL IVPUSH SCH ×2 (05:58→15:12)
[2016-11-10] MEDS: diazePAM 5 MG TABLET PO SCH ×3 (05:59→21:11)
[2016-11-10] MEDS: ALBUTEROL SO4 2.5/IPRATROPIUM 0.5 INH SOL 3 ML VIAL.NEB. NEB SCH ×4 (06:56→23:30)
--- NOTE | 2016-11-10 07:47 | PN ---
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
[2016-11-10] MEDS ORDERED: PT OWN MED DRAWER 7, Y5N ONE (10:37)
[2016-11-10] MEDS: HEPARIN NA (PORCINE) 5,000 UNITS/ML 1ML VIAL SQ SCH ×2 (10:39→21:11)
[2016-11-10] MEDS: LYTES/YERBA SANTA 240 ML BOTTLE MM SCH (10:39)
[2016-11-10] MEDS: VANCOMYCIN 1,500 MG in DEXTROSE 5%-WATER - 500 ML IVPB SCH (10:39)
[2016-11-10] MEDS: POLYETHYLENE GLYCOL 3350 119 GM BTL PO SCH ×2 (10:40→21:11)
--- NOTE | 2016-11-10 10:46 | PN ---
Progress Note (short form) - Note Progress Note: Breathing is non-labored on 3 L NC. Did not require/use NIPPV last night. Intake & Output 11/07/16 11/08/16 11/09/16 11/10/16 23:59 23:59 23:59 23:59 Intake Total 1955 1400 1300 100 Output Total 1250 2900 2200 Balance 705 -1500 -900 100 Weight 261 lb 262 lb 5.601 oz 265 lb 6.4 oz 265 lb 12.8 oz Last Vital Signs Temp Pulse Resp BP Pulse Ox 99 F 92 H 20 105/55 96 11/10/16 05:00 11/10/16 10:37 11/10/16 05:00 11/10/16 05:00 11/10/16 10:37 Active Medications Acetaminophen (Tylenol -) 650 mg PO Q4H PRN PRN Reason: FEVER OR PAIN Albuterol/Ipratropium (Duoneb -) 1 amp NEB QIDR [facility] Last Admin: 11/10/16 06:56 Dose: 1 amp Bisacodyl (Dulcolax Suppository -) 10 mg RC DAILY PRN PRN Reason: CONSTIPATION Diazepam (Valium -) 5 mg PO TID [facility] Last Admin: 11/10/16 05:59 Dose: 5 mg Docusate Sodium (Colace -) 100 mg PO TID [facility] Last Admin: 11/10/16 05:58 Dose: Not Given Furosemide (Lasix Injection -) 40 mg IVPUSH BID@0600,1400 [facility] Last Admin: 11/10/16 05:58 Dose: 40 mg Heparin Sodium (Porcine) (Heparin -) 5,000 unit SQ BID [facility] Last Admin: 11/10/16 10:39 Dose: 5,000 unit Vancomycin HCl 1,500 mg/ (Dextrose) 500 mls @ 250 mls/hr IVPB DAILY [facility] Last Admin: 11/10/16 10:39 Dose: 250 mls/hr Ondansetron HCl (Zofran Injection) 4 mg IVPB Q6H PRN PRN Reason: NAUSEA AND/OR VOMITING Oxycodone HCl (Roxicodone -) 5 mg PO Q3H PRN PRN Reason: MODERATE PAIN Last Admin: 11/09/16 10:32 Dose: 5 mg Oxycodone HCl (Roxicodone -) 10 mg PO Q3H PRN PRN Reason: SEVERE PAIN Polyethylene Glycol (Miralax (For Daily Use) -) 17 gm PO BID [facility] Last Admin: 11/10/16 10:40 Dose: Not Given Saliva Substitute (Mouthkote Solution -) 1 applic MM DAILY [facility] Last Admin: 11/10/16 10:39 Dose: 1 applic Senna (Senna -) 2 tab PO HS PRN PRN Reason: CONSTIPATION Gen: Awake and alert Heart: S1S2 Lung: bilateral rhonchi Abd: soft, obese, nontender Ext: (+) edema Skin: Improving rash Laboratory Results - last 24 hr 11/04/16 11/06/16 11/09/16 08:30 07:55 09:05 Vancomycin Pre-Dose 19.937 H* 16.684 H* D 17.209 H* D Problem List - Problems (1) Bronchitis Code(s): J40 - BRONCHITIS, NOT SPECIFIED ACUTE OR CHRONIC (2) Positive blood culture Code(s): R78.81 - BACTEREMIA (3) Weakness Code(s): R53.1 - WEAKNESS (4) Weakness of both lower extremities Code(s): R29.898 - OTH SYMPTOMS AND SIGNS INVOLVING THE MUSCULOSKELETAL SYSTEM (5) Diabetes Code(s): E11.9 - TYPE 2 DIABETES MELLITUS WITHOUT COMPLICATIONS (6) Dyspnea Code(s): R06.00 - DYSPNEA, UNSPECIFIED (7) Left leg DVT Code(s): I82.402 - ACUTE EMBOLISM AND THOMBOS UNSP DEEP VEINS OF L LOW EXTREM Qualifiers: Qualified Code(s): I82.412 - Acute embolism and thrombosis of left femoral vein (8) Lymphoma Code(s): C85.90 - NON-HODGKIN LYMPHOMA, UNSPECIFIED, UNSPECIFIED SITE (9) Pneumonia Code(s): J18.9 - PNEUMONIA, UNSPECIFIED ORGANISM Qualifiers: Qualified Code(s): J18.1 - Lobar pneumonia, unspecified organism ASSESSMENT AND PLAN: Strep Bacteremia Lower Extremity Paralysis Epidural Abscess with Cord Compression s/p Hemilaminectomy Hodgkin's Lymphoma h/o DVT Right Pleural Effusion / vascular congestion - O2 as needed - NIPPV support QHS and PRN as patient is willing - Lasix - ABX per ID - pain control - incentive spirometry - DVT prophylaxis - PT/Rehab Dr Garcia Problem List - Problems (1) Bronchitis Code(s): J40 - BRONCHITIS, NOT SPECIFIED ACUTE OR CHRONIC (2) Positive blood culture Code(s): R78.81 - BACTEREMIA (3) Weakness Code(s): R53.1 - WEAKNESS (4) Weakness of both lower extremities Code(s): R29.898 - OTH SYMPTOMS AND SIGNS INVOLVING THE MUSCULOSKELETAL SYSTEM (5) Diabetes Code(s): E11.9 - TYPE 2 DIABETES MELLITUS WITHOUT COMPLICATIONS (6) Dyspnea Code(s): R06.00 - DYSPNEA, UNSPECIFIED (7) Left leg DVT Code(s): I82.402 - ACUTE EMBOLISM AND THOMBOS UNSP DEEP VEINS OF L LOW EXTREM Qualifiers: Affected thrombotic vein of extremity: femoral Chronicity: acute Qualified Code(s): I82.412 - Acute embolism and thrombosis of left femoral vein (8) Lymphoma Code(s): C85.90 - NON-HODGKIN LYMPHOMA, UNSPECIFIED, UNSPECIFIED SITE (9) Pneumonia Code(s): J18.9 - PNEUMONIA, UNSPECIFIED ORGANISM Qualifiers: Pneumonia type: due to unspecified organism Laterality: left Lung location: lower lobe of lung Qualified Code(s): J18.1 - Lobar pneumonia, unspecified organism
--- NOTE | 2016-11-10 17:51 | PN ---
Progress Note, Physician History of Present Illness: Awake and alert Sitting up in bed No c/o pain No fever/ chills - Current Medication List Current Medications: Active Medications Acetaminophen (Tylenol -) 650 mg PO Q4H PRN PRN Reason: FEVER OR PAIN Albuterol/Ipratropium (Duoneb -) 1 amp NEB QIDR [facility] Last Admin: 11/10/16 17:10 Dose: 1 amp Bisacodyl (Dulcolax Suppository -) 10 mg RC DAILY PRN PRN Reason: CONSTIPATION Diazepam (Valium -) 5 mg PO TID [facility] Last Admin: 11/10/16 15:12 Dose: 5 mg Docusate Sodium (Colace -) 100 mg PO TID [facility] Last Admin: 11/10/16 15:16 Dose: Not Given Furosemide (Lasix Injection -) 40 mg IVPUSH BID@0600,1400 [facility] Last Admin: 11/10/16 15:12 Dose: 40 mg Heparin Sodium (Porcine) (Heparin -) 5,000 unit SQ BID [facility] Last Admin: 11/10/16 10:39 Dose: 5,000 unit Vancomycin HCl 1,500 mg/ (Dextrose) 500 mls @ 250 mls/hr IVPB DAILY [facility] Last Admin: 11/10/16 10:39 Dose: 250 mls/hr Ondansetron HCl (Zofran Injection) 4 mg IVPB Q6H PRN PRN Reason: NAUSEA AND/OR VOMITING Oxycodone HCl (Roxicodone -) 5 mg PO Q3H PRN PRN Reason: MODERATE PAIN Last Admin: 11/09/16 10:32 Dose: 5 mg Oxycodone HCl (Roxicodone -) 10 mg PO Q3H PRN PRN Reason: SEVERE PAIN Polyethylene Glycol (Miralax (For Daily Use) -) 17 gm PO BID [facility] Last Admin: 11/10/16 10:40 Dose: Not Given Saliva Substitute (Mouthkote Solution -) 1 applic MM DAILY [facility] Last Admin: 11/10/16 10:39 Dose: 1 applic Senna (Senna -) 2 tab PO HS PRN PRN Reason: CONSTIPATION - Objective Vital Signs: Vital Signs Temperature 99.1 F 11/10/16 14:08 Pulse Rate 99 H 11/10/16 14:08 Respiratory Rate 20 11/10/16 14:08 Blood Pressure 99/54 11/10/16 14:08 O2 Sat by Pulse Oximetry (%) 96 11/10/16 10:37 Constitutional: Yes: No Distress, Obese Cardiovascular: Yes: Regular Rate and Rhythm, S1, S2 Respiratory: Yes: CTA Bilaterally Gastrointestinal: Yes: Normal Bowel Sounds, Soft, Abdomen, Obese. No: Tenderness Edema: Yes Labs: CBC, BMP 11/09/16 06:00 11/09/16 06:00 INR, PTT INR 1.32 (0.82-1.09) H 10/25/16 23:00 Assessment/Plan Polymicrobial bacteremia Epidural abscess s/p laminectomy Paraplegia Hx Hodgkin's lymphoma ? Cephalosporin allergy Continue vancomycin 1500mg daily
--- NOTE | 2016-11-10 18:58 | PN ---
Progress Note, Physician Chief Complaint: Spinal Abscess History of Present Illness: Comfortable in bed, did not need to use BIPAP overnight. - Current Medication List Current Medications: Active Medications Acetaminophen (Tylenol -) 650 mg PO Q4H PRN PRN Reason: FEVER OR PAIN Albuterol/Ipratropium (Duoneb -) 1 amp NEB QIDR [facility] Last Admin: 11/10/16 17:10 Dose: 1 amp Bisacodyl (Dulcolax Suppository -) 10 mg RC DAILY PRN PRN Reason: CONSTIPATION Diazepam (Valium -) 5 mg PO TID [facility] Last Admin: 11/10/16 15:12 Dose: 5 mg Docusate Sodium (Colace -) 100 mg PO TID [facility] Last Admin: 11/10/16 15:16 Dose: Not Given Furosemide (Lasix Injection -) 40 mg IVPUSH BID@0600,1400 [facility] Last Admin: 11/10/16 15:12 Dose: 40 mg Heparin Sodium (Porcine) (Heparin -) 5,000 unit SQ BID [facility] Last Admin: 11/10/16 10:39 Dose: 5,000 unit Vancomycin HCl 1,500 mg/ (Dextrose) 500 mls @ 250 mls/hr IVPB DAILY [facility] Last Admin: 11/10/16 10:39 Dose: 250 mls/hr Ondansetron HCl (Zofran Injection) 4 mg IVPB Q6H PRN PRN Reason: NAUSEA AND/OR VOMITING Oxycodone HCl (Roxicodone -) 5 mg PO Q3H PRN PRN Reason: MODERATE PAIN Last Admin: 11/09/16 10:32 Dose: 5 mg Oxycodone HCl (Roxicodone -) 10 mg PO Q3H PRN PRN Reason: SEVERE PAIN Polyethylene Glycol (Miralax (For Daily Use) -) 17 gm PO BID [facility] Last Admin: 11/10/16 10:40 Dose: Not Given Saliva Substitute (Mouthkote Solution -) 1 applic MM DAILY [facility] Last Admin: 11/10/16 10:39 Dose: 1 applic Senna (Senna -) 2 tab PO HS PRN PRN Reason: CONSTIPATION - Objective Vital Signs: Vital Signs Temperature 100 F H 11/10/16 18:00 Pulse Rate 102 H 11/10/16 18:00 Respiratory Rate 20 11/10/16 18:00 Blood Pressure 108/66 11/10/16 18:00 O2 Sat by Pulse Oximetry (%) 96 11/10/16 10:37 Constitutional: Yes: Well Nourished, No Distress, Calm Cardiovascular: Yes: Regular Rate and Rhythm Respiratory: Yes: Regular Gastrointestinal: Yes: Normal Bowel Sounds Musculoskeletal: Yes: Other (BLLE paralysis, sensation intact) Edema: Yes Edema: LLE: Trace, RLE: Trace Peripheral Pulses WNL: Yes ...Motor Strength: LUE, RUE Psychiatric: Yes: Alert, Oriented Labs: CBC, BMP 11/09/16 06:00 11/09/16 06:00 INR, PTT INR 1.32 (0.82-1.09) H 10/25/16 23:00 Problem List - Problems (1) Afib Assessment/Plan: CHRONIC, CONTROLLED ON HEPARIN FOR AC Code(s): I48.91 - UNSPECIFIED ATRIAL FIBRILLATION Qualifiers: Atrial fibrillation type: paroxysmal Qualified Code(s): I48.0 - Paroxysmal atrial fibrillation (2) Epidural abscess Code(s): G06.2 - EXTRADURAL AND SUBDURAL ABSCESS, UNSPECIFIED (3) Pleural effusion Assessment/Plan: STILL HAS BL PLEURAL EFFUSIONS, LEFT>RIGHT Code(s): J90 - PLEURAL EFFUSION, NOT ELSEWHERE CLASSIFIED (4) Weakness of both lower extremities Code(s): R29.898 - OTH SYMPTOMS AND SIGNS INVOLVING THE MUSCULOSKELETAL SYSTEM (5) Diabetes mellitus, insulin dependent (IDDM), uncontrolled Assessment/Plan: BETTER CONTROLLED Code(s): E10.65 - TYPE 1 DIABETES MELLITUS WITH HYPERGLYCEMIA (6) Pneumonia Code(s): J18.9 - PNEUMONIA, UNSPECIFIED ORGANISM Qualifiers: Pneumonia type: due to unspecified organism Laterality: left Lung location: lower lobe of lung Qualified Code(s): J18.1 - Lobar pneumonia, unspecified organism Assessment/Plan PLAN REHAB ONCE STABLE, PHYSICAL THERAPY. PAIN MANAGEMENT IV ABX
[2016-11-10] MEDS: oxyCODONE HCL 5 MG TABLET PO PRN (20:22)
[2016-11-11] MEDS: FUROSEMIDE 40 MG/4 ML INJECTABLE VIAL IVPUSH SCH ×2 (06:04→18:15)
[2016-11-11] MEDS: DOCUSATE SODIUM 100 MG CAPSULE (FP) PO SCH ×3 (06:04→21:17)
[2016-11-11] MEDS: diazePAM 5 MG TABLET PO SCH ×3 (06:04→21:17)
[2016-11-11] MEDS: ALBUTEROL SO4 2.5/IPRATROPIUM 0.5 INH SOL 3 ML VIAL.NEB. NEB SCH ×2 (06:55→18:45)
--- NOTE | 2016-11-11 07:27 | PN ---
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
[2016-11-11] MEDS: HEPARIN NA (PORCINE) 5,000 UNITS/ML 1ML VIAL SQ SCH ×2 (11:00→21:17)
[2016-11-11] MEDS ORDERED: PT OWN MED DRAWER 7, Y5N ONE (11:18)
[2016-11-11] MEDS: LYTES/YERBA SANTA 240 ML BOTTLE MM SCH (11:38)
[2016-11-11] MEDS: POLYETHYLENE GLYCOL 3350 119 GM BTL PO SCH ×2 (11:41→21:18)
--- NOTE | 2016-11-11 15:07 | PN ---
Progress Note, Physician History of Present Illness: pulmonary alert,nad,resp distress - Current Medication List Current Medications: Active Medications Acetaminophen (Tylenol -) 650 mg PO Q4H PRN PRN Reason: FEVER OR PAIN Albuterol/Ipratropium (Duoneb -) 1 amp NEB QIDR [facility] Last Admin: 11/11/16 06:55 Dose: 1 amp Bisacodyl (Dulcolax Suppository -) 10 mg RC DAILY PRN PRN Reason: CONSTIPATION Diazepam (Valium -) 5 mg PO TID [facility] Last Admin: 11/11/16 06:04 Dose: 5 mg Docusate Sodium (Colace -) 100 mg PO TID [facility] Last Admin: 11/11/16 06:04 Dose: Not Given Furosemide (Lasix Injection -) 40 mg IVPUSH BID@0600,1400 [facility] Last Admin: 11/11/16 06:04 Dose: 40 mg Heparin Sodium (Porcine) (Heparin -) 5,000 unit SQ BID [facility] Last Admin: 11/11/16 11:00 Dose: 5,000 unit Vancomycin HCl 1,500 mg/ (Dextrose) 500 mls @ 250 mls/hr IVPB DAILY [facility] Last Admin: 11/10/16 10:39 Dose: 250 mls/hr Ondansetron HCl (Zofran Injection) 4 mg IVPB Q6H PRN PRN Reason: NAUSEA AND/OR VOMITING Oxycodone HCl (Roxicodone -) 5 mg PO Q3H PRN PRN Reason: MODERATE PAIN Last Admin: 11/10/16 20:22 Dose: 5 mg Oxycodone HCl (Roxicodone -) 10 mg PO Q3H PRN PRN Reason: SEVERE PAIN Polyethylene Glycol (Miralax (For Daily Use) -) 17 gm PO BID [facility] Last Admin: 11/11/16 11:41 Dose: 17 gm Saliva Substitute (Mouthkote Solution -) 1 applic MM DAILY [facility] Last Admin: 11/11/16 11:38 Dose: 1 applic Senna (Senna -) 2 tab PO HS PRN PRN Reason: CONSTIPATION - Objective Vital Signs: Vital Signs Temperature 98.4 F 11/11/16 10:00 Pulse Rate 91 H 11/11/16 10:35 Respiratory Rate 20 11/11/16 10:00 Blood Pressure 123/67 11/11/16 10:00 O2 Sat by Pulse Oximetry (%) 98 11/11/16 10:35 Constitutional: Yes: Well Nourished, Obese Eyes: Yes: WNL HENT: Yes: WNL Neck: Yes: WNL Cardiovascular: Yes: Regular Rate and Rhythm, S1, S2 Respiratory: Yes: Diminished Gastrointestinal: Yes: Normal Bowel Sounds, Soft Extremities: Yes: WNL Edema: Yes Labs: CBC, BMP Problem List - Problems (1) Afib Code(s): I48.91 - UNSPECIFIED ATRIAL FIBRILLATION Qualifiers: Atrial fibrillation type: paroxysmal Qualified Code(s): I48.0 - Paroxysmal atrial fibrillation (2) Chest pain Code(s): R07.9 - CHEST PAIN, UNSPECIFIED (3) Epidural abscess Code(s): G06.2 - EXTRADURAL AND SUBDURAL ABSCESS, UNSPECIFIED (4) Hypoxia Code(s): R09.02 - HYPOXEMIA (5) PAF (paroxysmal atrial fibrillation) Code(s): I48.0 - PAROXYSMAL ATRIAL FIBRILLATION (6) Pleural effusion Code(s): J90 - PLEURAL EFFUSION, NOT ELSEWHERE CLASSIFIED (7) Pneumococcal bacteremia Code(s): R78.81 - BACTEREMIA (8) Positive blood culture Code(s): R78.81 - BACTEREMIA (9) Weakness of both lower extremities Code(s): R29.898 - OTH SYMPTOMS AND SIGNS INVOLVING THE MUSCULOSKELETAL SYSTEM (10) Diabetes Code(s): E11.9 - TYPE 2 DIABETES MELLITUS WITHOUT COMPLICATIONS Assessment/Plan A/P Acute Hypoxic Respiratory Failure improved Atelectasis Strep Bacteremia Lower Extremity Paralysis Epidural Abscess with Cord Compression s/p Hemilaminectomy Hodgkin's Lymphoma h/o DVT Right Pleural Effusion - O2 to keep SpO2 >90% - BiPAP as needed - continue antibiotics per ID - neuro checks - pain control - incentive spirometry - DVT prophylaxis - rehab/PT DR MARTINEZ
[2016-11-11] MEDS: VANCOMYCIN 1,500 MG in DEXTROSE 5%-WATER - 500 ML IVPB SCH (18:15)
[2016-11-11] MEDS: oxyCODONE HCL 5 MG TABLET PO PRN (18:58)
[2016-11-11] MEDS ORDERED: oxyCODONE HCL 5 MG TABLET PO PRN (20:11)
--- NOTE | 2016-11-11 20:29 | PN ---
Progress Note, Physician Chief Complaint: Spinal Abscess History of Present Illness: Comfortable in bed, did not need to use BIPAP overnight. - Current Medication List Current Medications: Active Medications Acetaminophen (Tylenol -) 650 mg PO Q4H PRN PRN Reason: FEVER OR PAIN Albuterol/Ipratropium (Duoneb -) 1 amp NEB QIDR [facility] Last Admin: 11/11/16 06:55 Dose: 1 amp Bisacodyl (Dulcolax Suppository -) 10 mg RC DAILY PRN PRN Reason: CONSTIPATION Diazepam (Valium -) 5 mg PO TID [facility] Last Admin: 11/11/16 18:15 Dose: 5 mg Docusate Sodium (Colace -) 100 mg PO TID [facility] Last Admin: 11/11/16 18:15 Dose: 100 mg Furosemide (Lasix Injection -) 40 mg IVPUSH BID@0600,1400 [facility] Last Admin: 11/11/16 18:15 Dose: 40 mg Heparin Sodium (Porcine) (Heparin -) 5,000 unit SQ BID [facility] Last Admin: 11/11/16 11:00 Dose: 5,000 unit Vancomycin HCl 1,500 mg/ (Dextrose) 500 mls @ 250 mls/hr IVPB DAILY [facility] Last Admin: 11/11/16 18:15 Dose: 250 mls/hr Ondansetron HCl (Zofran Injection) 4 mg IVPB Q6H PRN PRN Reason: NAUSEA AND/OR VOMITING Oxycodone HCl (Roxicodone -) 5 mg PO Q3H PRN PRN Reason: MODERATE PAIN Oxycodone HCl (Roxicodone -) 10 mg PO Q3H PRN PRN Reason: SEVERE PAIN Polyethylene Glycol (Miralax (For Daily Use) -) 17 gm PO BID [facility] Last Admin: 11/11/16 11:41 Dose: 17 gm Saliva Substitute (Mouthkote Solution -) 1 applic MM DAILY [facility] Last Admin: 11/11/16 11:38 Dose: 1 applic Senna (Senna -) 2 tab PO HS PRN PRN Reason: CONSTIPATION - Objective Vital Signs: Vital Signs Temperature 97.6 F 11/11/16 18:00 Pulse Rate 85 11/11/16 18:00 Respiratory Rate 20 11/11/16 18:00 Blood Pressure 133/60 11/11/16 18:00 O2 Sat by Pulse Oximetry (%) 98 11/11/16 10:35 Constitutional: Yes: Well Nourished, No Distress, Calm Cardiovascular: Yes: Pulse Irregular Respiratory: Yes: Regular Gastrointestinal: Yes: Normal Bowel Sounds Musculoskeletal: Yes: Muscle Weakness (BLLE) Edema: LLE: Trace, RLE: Trace Peripheral Pulses WNL: Yes Neurological: Yes: Alert, Oriented Labs: CBC, BMP 11/09/16 06:00 11/09/16 06:00 INR, PTT INR 1.32 (0.82-1.09) H 10/25/16 23:00 Problem List - Problems (1) Afib Assessment/Plan: CHRONIC, CONTROLLED ON HEPARIN FOR AC Code(s): I48.91 - UNSPECIFIED ATRIAL FIBRILLATION Qualifiers: Atrial fibrillation type: paroxysmal Qualified Code(s): I48.0 - Paroxysmal atrial fibrillation (2) Epidural abscess Assessment/Plan: LOWER EXTREMITY WEAKNESS, LOSS OF CONTROL. CANDIDATE FOR REHAB, D/C ONCE STABLE Code(s): G06.2 - EXTRADURAL AND SUBDURAL ABSCESS, UNSPECIFIED (3) Pleural effusion Assessment/Plan: STILL HAS BL PLEURAL EFFUSIONS, LEFT>RIGHT Code(s): J90 - PLEURAL EFFUSION, NOT ELSEWHERE CLASSIFIED (4) Weakness of both lower extremities Code(s): R29.898 - OTH SYMPTOMS AND SIGNS INVOLVING THE MUSCULOSKELETAL SYSTEM (5) Diabetes mellitus, insulin dependent (IDDM), uncontrolled Assessment/Plan: BETTER CONTROLLED Code(s): E10.65 - TYPE 1 DIABETES MELLITUS WITH HYPERGLYCEMIA (6) Pneumonia Code(s): J18.9 - PNEUMONIA, UNSPECIFIED ORGANISM Qualifiers: Pneumonia type: due to unspecified organism Laterality: left Lung location: lower lobe of lung Qualified Code(s): J18.1 - Lobar pneumonia, unspecified organism Assessment/Plan PLAN REHAB ONCE STABLE, PHYSICAL THERAPY. PAIN MANAGEMENT IV ABX
[2016-11-12] MEDS: ALBUTEROL SO4 2.5/IPRATROPIUM 0.5 INH SOL 3 ML VIAL.NEB. NEB SCH ×5 (00:05→23:07)
[2016-11-12] MEDS: FUROSEMIDE 40 MG/4 ML INJECTABLE VIAL IVPUSH SCH ×2 (05:55→14:17)
[2016-11-12] MEDS: diazePAM 5 MG TABLET PO SCH ×3 (05:55→21:22)
[2016-11-12] MEDS: DOCUSATE SODIUM 100 MG CAPSULE (FP) PO SCH ×3 (05:55→21:22)
--- NOTE | 2016-11-12 09:25 | PN ---
Progress Note (short form) - Note Progress Note: Reports breathing feels OK on NC O2. Has not been using/requiring NIPPV at night. No CP or SOB. Intake & Output 11/09/16 11/10/16 11/11/16 11/12/16 23:59 23:59 23:59 23:59 Intake Total 1300 300 950 100 Output Total 2200 2300 3300 900 Balance -900 -2000 -2350 -800 Weight 265 lb 6.4 oz 265 lb 12.8 oz Last Vital Signs Temp Pulse Resp BP Pulse Ox 98.4 F 97 H 20 95/56 94 L 11/12/16 05:39 11/12/16 05:39 11/12/16 05:39 11/12/16 05:39 11/11/16 20:51 Active Medications Acetaminophen (Tylenol -) 650 mg PO Q4H PRN PRN Reason: FEVER OR PAIN Albuterol/Ipratropium (Duoneb -) 1 amp NEB QIDR [facility] Last Admin: 11/12/16 06:34 Dose: 1 amp Bisacodyl (Dulcolax Suppository -) 10 mg RC DAILY PRN PRN Reason: CONSTIPATION Diazepam (Valium -) 5 mg PO TID [facility] Last Admin: 11/12/16 05:55 Dose: 5 mg Docusate Sodium (Colace -) 100 mg PO TID [facility] Last Admin: 11/12/16 05:55 Dose: 100 mg Furosemide (Lasix Injection -) 40 mg IVPUSH BID@0600,1400 [facility] Last Admin: 11/12/16 05:55 Dose: 40 mg Heparin Sodium (Porcine) (Heparin -) 5,000 unit SQ BID [facility] Last Admin: 11/11/16 21:17 Dose: 5,000 unit Vancomycin HCl 1,500 mg/ (Dextrose) 500 mls @ 250 mls/hr IVPB DAILY [facility] Last Admin: 11/11/16 18:15 Dose: 250 mls/hr Ondansetron HCl (Zofran Injection) 4 mg IVPB Q6H PRN PRN Reason: NAUSEA AND/OR VOMITING Oxycodone HCl (Roxicodone -) 5 mg PO Q3H PRN PRN Reason: MODERATE PAIN Oxycodone HCl (Roxicodone -) 10 mg PO Q3H PRN PRN Reason: SEVERE PAIN Polyethylene Glycol (Miralax (For Daily Use) -) 17 gm PO BID [facility] Last Admin: 11/11/16 21:18 Dose: 17 gm Saliva Substitute (Mouthkote Solution -) 1 applic MM DAILY [facility] Last Admin: 11/11/16 11:38 Dose: 1 applic Senna (Senna -) 2 tab PO HS PRN PRN Reason: CONSTIPATION Gen: Awake and alert Heart: S1S2 Lung: bilateral rhonchi Abd: soft, obese, nontender Ext: (+) edema Skin: Improving rash Problem List - Problems (1) Bronchitis Code(s): J40 - BRONCHITIS, NOT SPECIFIED ACUTE OR CHRONIC (2) Positive blood culture Code(s): R78.81 - BACTEREMIA (3) Weakness Code(s): R53.1 - WEAKNESS (4) Weakness of both lower extremities Code(s): R29.898 - OTH SYMPTOMS AND SIGNS INVOLVING THE MUSCULOSKELETAL SYSTEM (5) Diabetes Code(s): E11.9 - TYPE 2 DIABETES MELLITUS WITHOUT COMPLICATIONS (6) Dyspnea Code(s): R06.00 - DYSPNEA, UNSPECIFIED (7) Left leg DVT Code(s): I82.402 - ACUTE EMBOLISM AND THOMBOS UNSP DEEP VEINS OF L LOW EXTREM Qualifiers: Qualified Code(s): I82.412 - Acute embolism and thrombosis of left femoral vein (8) Lymphoma Code(s): C85.90 - NON-HODGKIN LYMPHOMA, UNSPECIFIED, UNSPECIFIED SITE (9) Pneumonia Code(s): J18.9 - PNEUMONIA, UNSPECIFIED ORGANISM Qualifiers: Qualified Code(s): J18.1 - Lobar pneumonia, unspecified organism ASSESSMENT AND PLAN: Strep Bacteremia Lower Extremity Paralysis Epidural Abscess with Cord Compression s/p Hemilaminectomy Hodgkin's Lymphoma h/o DVT Right Pleural Effusion / vascular congestion - O2 as needed - D/C NIPPV - Lasix - ABX per ID - incentive spirometry - DVT prophylaxis - D/C planning to PT/Rehab Dr Garcia Problem List - Problems (1) Bronchitis Code(s): J40 - BRONCHITIS, NOT SPECIFIED ACUTE OR CHRONIC (2) Positive blood culture Code(s): R78.81 - BACTEREMIA (3) Weakness Code(s): R53.1 - WEAKNESS (4) Weakness of both lower extremities Code(s): R29.898 - OTH SYMPTOMS AND SIGNS INVOLVING THE MUSCULOSKELETAL SYSTEM (5) Diabetes Code(s): E11.9 - TYPE 2 DIABETES MELLITUS WITHOUT COMPLICATIONS (6) Dyspnea Code(s): R06.00 - DYSPNEA, UNSPECIFIED (7) Left leg DVT Code(s): I82.402 - ACUTE EMBOLISM AND THOMBOS UNSP DEEP VEINS OF L LOW EXTREM Qualifiers: Affected thrombotic vein of extremity: femoral Chronicity: acute Qualified Code(s): I82.412 - Acute embolism and thrombosis of left femoral vein (8) Lymphoma Code(s): C85.90 - NON-HODGKIN LYMPHOMA, UNSPECIFIED, UNSPECIFIED SITE (9) Pneumonia Code(s): J18.9 - PNEUMONIA, UNSPECIFIED ORGANISM Qualifiers: Pneumonia type: due to unspecified organism Laterality: left Lung location: lower lobe of lung Qualified Code(s): J18.1 - Lobar pneumonia, unspecified organism
[2016-11-12] MEDS ORDERED: PT OWN MED DRAWER 7, Y5N ONE (10:02)
[2016-11-12] MEDS: VANCOMYCIN 1,500 MG in DEXTROSE 5%-WATER - 500 ML IVPB SCH (10:07)
[2016-11-12] MEDS: HEPARIN NA (PORCINE) 5,000 UNITS/ML 1ML VIAL SQ SCH ×2 (10:10→21:24)
[2016-11-12] MEDS: LYTES/YERBA SANTA 240 ML BOTTLE MM SCH (10:10)
[2016-11-12] MEDS: POLYETHYLENE GLYCOL 3350 119 GM BTL PO SCH ×2 (10:12→21:32)
--- NOTE | 2016-11-12 12:00 | PN ---
Progress Note, Physician Chief Complaint: awake alert on NC not using NIPPV - Current Medication List Current Medications: Active Medications Acetaminophen (Tylenol -) 650 mg PO Q4H PRN PRN Reason: FEVER OR PAIN Albuterol/Ipratropium (Duoneb -) 1 amp NEB QIDR [facility] Last Admin: 11/12/16 06:34 Dose: 1 amp Bisacodyl (Dulcolax Suppository -) 10 mg RC DAILY PRN PRN Reason: CONSTIPATION Diazepam (Valium -) 5 mg PO TID [facility] Last Admin: 11/12/16 05:55 Dose: 5 mg Docusate Sodium (Colace -) 100 mg PO TID [facility] Last Admin: 11/12/16 05:55 Dose: 100 mg Furosemide (Lasix Injection -) 40 mg IVPUSH BID@0600,1400 [facility] Last Admin: 11/12/16 05:55 Dose: 40 mg Heparin Sodium (Porcine) (Heparin -) 5,000 unit SQ BID [facility] Last Admin: 11/12/16 10:10 Dose: 5,000 unit Vancomycin HCl 1,500 mg/ (Dextrose) 500 mls @ 250 mls/hr IVPB DAILY [facility] Last Admin: 11/12/16 10:07 Dose: 250 mls/hr Ondansetron HCl (Zofran Injection) 4 mg IVPB Q6H PRN PRN Reason: NAUSEA AND/OR VOMITING Oxycodone HCl (Roxicodone -) 5 mg PO Q3H PRN PRN Reason: MODERATE PAIN Oxycodone HCl (Roxicodone -) 10 mg PO Q3H PRN PRN Reason: SEVERE PAIN Polyethylene Glycol (Miralax (For Daily Use) -) 17 gm PO BID [facility] Last Admin: 11/12/16 10:12 Dose: 17 gm Saliva Substitute (Mouthkote Solution -) 1 applic MM DAILY [facility] Last Admin: 11/12/16 10:10 Dose: 1 applic Senna (Senna -) 2 tab PO HS PRN PRN Reason: CONSTIPATION - Objective Vital Signs: Vital Signs Temperature 98.4 F 11/12/16 05:39 Pulse Rate 97 H 11/12/16 05:39 Respiratory Rate 20 11/12/16 05:39 Blood Pressure 95/56 11/12/16 05:39 O2 Sat by Pulse Oximetry (%) 94 L 11/11/16 20:51 Constitutional: Yes: Calm Cardiovascular: Yes: Regular Rate and Rhythm, S1, S2 Respiratory: Yes: CTA Bilaterally, On Nasal O2 Gastrointestinal: Yes: Normal Bowel Sounds, Soft Genitourinary: Yes: Kuhn Present Neurological: Yes: Alert, Oriented, Other (0/5 strenght BLE) Labs: CBC, BMP 11/09/16 06:00 11/09/16 06:00 INR, PTT INR 1.32 (0.82-1.09) H 10/25/16 23:00 Problem List - Problems (1) Weakness of both lower extremities Assessment/Plan: emma came today to evalute the patient awaiting recommendation needs acute rehab Code(s): R29.898 - OTH SYMPTOMS AND SIGNS INVOLVING THE MUSCULOSKELETAL SYSTEM (2) Afib Assessment/Plan: now in NSR po amiodarone stopped not a candidate for AC given neurosurgical issue cardio follow up to assess need for amiodarone Code(s): I48.91 - UNSPECIFIED ATRIAL FIBRILLATION Qualifiers: Atrial fibrillation type: paroxysmal Qualified Code(s): I48.0 - Paroxysmal atrial fibrillation (3) Epidural abscess Assessment/Plan: strep pneeumonia abscess s/p emergent laminectomies for cord compression iv abx for strept bacteremia- vancomycin Code(s): G06.2 - EXTRADURAL AND SUBDURAL ABSCESS, UNSPECIFIED (4) Pneumococcal bacteremia Assessment/Plan: continue iv abx Code(s): R78.81 - BACTEREMIA (5) Lymphoma Assessment/Plan: heme consult appreciated in remission Code(s): C85.90 - NON-HODGKIN LYMPHOMA, UNSPECIFIED, UNSPECIFIED SITE (6) Pleural effusion Assessment/Plan: iv lasix bid for effusion Code(s): J90 - PLEURAL EFFUSION, NOT ELSEWHERE CLASSIFIED (7) Hypoxia Assessment/Plan: improving Code(s): R09.02 - HYPOXEMIA
[2016-11-12] MEDS: oxyCODONE HCL 5 MG TABLET PO PRN ×2 (15:33→21:21)
--- NOTE | 2016-11-12 16:39 | PN ---
Progress Note (short form) - Note Progress Note: rash resolved, alert resting comfortably Vital Signs Period Temp Pulse Resp BP Sys/Lloyd Pulse Ox Last 24 Hr 97.6 F-99.2 F 85-103 20-20 95-133/53-72 94 cor-rrr llungs clear abd soft,nt ext trace edema CBC, BMP 11/09/16 06:00 11/09/16 06:00 a/p strep bacteremia= pneumoniae and mitis- on vancomycin repeat vancomycin level in am s/p drainage of epidural abscess with cord compression-POD #18 still unable to move his legs history of Hodgkins Lymphoma- off chemo and RT for last 6 months beta lactam rash- resolved d//w at bedside d/w patient
[2016-11-13] MEDS: FUROSEMIDE 40 MG/4 ML INJECTABLE VIAL IVPUSH SCH ×2 (05:47→17:34)
[2016-11-13] MEDS: DOCUSATE SODIUM 100 MG CAPSULE (FP) PO SCH ×3 (05:47→21:13)
[2016-11-13] MEDS: diazePAM 5 MG TABLET PO SCH ×3 (05:47→21:14)
[2016-11-13] MEDS: ALBUTEROL SO4 2.5/IPRATROPIUM 0.5 INH SOL 3 ML VIAL.NEB. NEB SCH ×3 (06:40→17:23)
[2016-11-13 07:26] LABS: ALBUMIN 2.1 g/dl (3.4-5.0); ANION GAP 9 (8-16); CALCIUM 8.1 mg/dL (8.5-10.1); CO2 40 mmol/L (21-32); GLUCOSE,RANDOM 134 mg/dL (74-106); SGOT/AST 35 U/L (15-37); SGPT/ALT 20 U/L (12-78)
[2016-11-13 07:27] LABS: ALK PHOS 104 U/L (45-117); BILIRUBIN,TOTAL 0.6 mg/dL (0.2-1.0); TOT PROT 6.6 g/dl (6.4-8.2)
[2016-11-13] MEDS ORDERED: PT OWN MED DRAWER 7, Y5N ONE (08:45)
[2016-11-13 08:59] LABS: C-REACTIVE PROTEIN 10.6 MG/DL (0.00-0.3)
[2016-11-13] MEDS: HEPARIN NA (PORCINE) 5,000 UNITS/ML 1ML VIAL SQ SCH ×2 (09:01→21:13)
[2016-11-13] MEDS: POLYETHYLENE GLYCOL 3350 119 GM BTL PO SCH ×2 (10:00→21:14)
[2016-11-13] MEDS: VANCOMYCIN 1,500 MG in DEXTROSE 5%-WATER - 500 ML IVPB SCH (10:02)
[2016-11-13] MEDS ORDERED: PICC LINE 8 ML FLUSH PROTOCOL IVPUSH PRN ×2 (11:40→20:30)
--- NOTE | 2016-11-13 12:18 | PN ---
Progress Note (short form) - Note Progress Note: rash resolved, alert resting comfortably Vital Signs Period Temp Pulse Resp BP Sys/Lloyd Pulse Ox Last 24 Hr 97.6 F-99.4 F 95-103 20-20 102-119/50-72 96-96 cor-rrr lungs clear abd soft,nt ext trace edema CBC, BMP 11/09/16 06:00 11/13/16 05:35 Laboratory Tests 11/13/16 09:20 Vancomycin Pre-Dose 18.793 H* D a/p strep bacteremia= pneumoniae and mitis- on vancomycin decrease vancomycin to 1250 daily with f/u vancomycin trough in 3 days needs total of 8 weeks of treatment since last positive culture d/w Dr Venegas s/p drainage of epidural abscess with cord compression-POD #19 still unable to move his legs history of Hodgkins Lymphoma- off chemo and RT for last 6 months beta lactam rash- resolved d/w patient
--- NOTE | 2016-11-13 12:43 | DS ---
Physical Examination Vital Signs: Vital Signs Temperature 99.4 F 11/13/16 08:53 Pulse Rate 102 H 11/13/16 08:53 Respiratory Rate 20 11/13/16 08:53 Blood Pressure 119/64 11/13/16 08:53 O2 Sat by Pulse Oximetry (%) 96 11/13/16 09:00 Constitutional: Yes: Calm Neck: Yes: Trachea Midline Cardiovascular: Yes: Regular Rate and Rhythm, S1, S2 Respiratory: Yes: CTA Bilaterally, On Nasal O2 Gastrointestinal: Yes: Normal Bowel Sounds, Soft Renal/: Yes: Lim Present Edema: No Neurological: Yes: Alert, Oriented, Other (LE paraplegia) Labs: CBC, BMP 11/09/16 06:00 11/13/16 05:35 Discharge Summary Reason For Visit: BRONCHITIS Current Active Problems Afib (Acute) Bronchitis (Acute) Chest pain (Acute) Epidural abscess (Acute) Hypoxia (Acute) PAF (paroxysmal atrial fibrillation) (Acute) Pleural effusion (Acute) Pneumococcal bacteremia (Acute) Positive blood culture (Acute) Pressure ulcer (Acute) Weakness (Acute) Weakness of both lower extremities (Acute) Hospital Course: - Admission History of Present Illness: 70 year old male with a significant past medical history of anemia, hypertension , hodgkins lymphoma, DVT (1 year ago) not currently on blood thinners, presenting to the Emergency Department with shortness of breath, wheezing, and a productive cough. The patient reports that he saw an Urgent Care center about two weeks ago and was diagnosed with bronchitis and pneumonia, and was prescribed amoxicillin and prednisone. He admits that he finished both prescriptions one week ago though he still has wheezing, a cough producing white phlegm, nausea, and decreased appetite. He also admits to chest pain at the right side exacerbated with coughing, and back pain exacerbated by coughing. He admits to having DVT about one year ago, and admits to chronic left leg swelling. this am pt c/o weakness of the lower extremities with increasing difficulty in moving the legs he ststes he was feeling weak for 2 weeks requiring a walker but was able to move around--as of last night loosing sensation below the waist and unable to move his legs abdominal wall pain from moving sob better with oxygen - Past Medical History Cardiovascular: Yes: CHF (Diastolic (nl EF on echo and MUGA from 2014) with hx of SARAH and lasix treatment up to 1 month ago), HTN, Hyperlipdemia Pulmonary: Yes: COPD Hepatobiliary: Yes: Other (hepatosplenomegaly) Heme/Onc: Yes: Anemia, Cancer (lymphoma), Hypercoaguable State (h/o dvt). No: B12 Deficiency Rheumatology: Yes: Other (spinal stenosis) Endocrine: Yes: Hyperthyroidism - Smoking History Smoking history: Former smoker Have you smoked in the past 12 months: No Aproximately how many cigarettes per day: 40 If you are a former smoker, when did you quit?: 15 YRS AGO Operative Note - Note: Operative Date: 10/25/16 Pre-Operative Diagnosis: Thoracic posterior epidural abscess with cord compression; complete motor paraplegia Operation: Partial T2 and T5, and complete T3 and T4 L hemilaminectomies for decompression and drainage of abscess; cultures, microdissection, L T4-5 allograft Findings: Epidural purulent material with cord compression Implants: graft-on 1cc Post-Operative Diagnosis: Same as Pre-op Surgeon: Jose Guadalupe Wills Anesthesiologist/FOXPRO DEVELOPER: Felix Diaz Anesthesia: General Specimens Removed: epidural abscess, tissue; fluid for gram stain, bacterial aerobic and ananerobic culture, fungal, AFB Estimated Blood Loss (mls): 250 Drains & Tubes with Location: 10 flat GUILHERME to bulb epidural Drains, Volume Out (mls): 1 Blood Volume Replaced (mls): 2 (FFP) Operative Report Dictated: Yes Microbiology 10/25/16 21:43 Abscess Gram Stain - Final 10/25/16 21:43 Abscess Wound Culture - Final Streptococcus Pneumoniae 10/25/16 21:43 Abscess Gram Stain - Final 10/24/16 11:46 Blood - Peripheral Venous Blood Culture - Final Streptococcus Pneumoniae Streptococcus Pneumoniae#2 10/24/16 11:46 Blood - Peripheral Venous Blood Culture - Final Streptococcus Mitis 10/25/16 21:43 Abscess Wound Culture - Preliminary Streptococcus Pneumonia was in icu till respiratory status improved then transferred to the floor on nasal oxygen not using NIPPV patient to get mcfp abx via the picc line till december 28 partially occulded port needs to be removed later on lymphoma s/p chemo and RT motor paraplegia _ lim cath, acute rehab needed patient to go to [facility] Condition: Guarded - Instructions Diet, Activity, Other Instructions: check vanco trough MWF level btw 10-15 cotnue iv vancomycin 1250mg iv via picc line till december 28 lasix 40mg po daily k dur 20meq daily continue lim cath check BMP weekly Disposition: TRANSFER ACUTE CARE/OTHER HOSP - Home Medications Comprehensive Discharge Medication List: Ambulatory Orders Cyanocobalamin (Vitamin B-12) [B-12] 500 mcg PO DAILY 10/24/16 Furosemide 20 mg PO DAILY 10/24/16
[2016-11-13] MEDS ORDERED: POTASSIUM CHLORIDE TABS 20 MEQ TABLET.ER (FP) PO ONE (17:30)
[2016-11-13] MEDS: POTASSIUM CHLORIDE TABS 20 MEQ TABLET.ER (FP) PO ONE ×2 (17:33→17:54)
[2016-11-13] MEDS: LYTES/YERBA SANTA 240 ML BOTTLE MM SCH (17:50)
[2016-11-14] MEDS: ALBUTEROL SO4 2.5/IPRATROPIUM 0.5 INH SOL 3 ML VIAL.NEB. NEB SCH ×3 (00:11→19:11)
[2016-11-14] MEDS: oxyCODONE HCL 5 MG TABLET PO PRN (01:17)
[2016-11-14] MEDS ORDERED: ALBUTEROL SO4 2.5/IPRATROPIUM 0.5 INH SOL 3 ML VIAL.NEB. NEB ONE (06:20)
[2016-11-14] MEDS: DOCUSATE SODIUM 100 MG CAPSULE (FP) PO SCH ×3 (06:47→21:57)
[2016-11-14] MEDS: diazePAM 5 MG TABLET PO SCH ×3 (06:47→21:56)
[2016-11-14] MEDS ORDERED: PT OWN MED DRAWER 7, Y5N ONE (09:58)
[2016-11-14] MEDS: HEPARIN NA (PORCINE) 5,000 UNITS/ML 1ML VIAL SQ SCH ×2 (10:00→21:57)
[2016-11-14] MEDS: POTASSIUM CHLORIDE TABS 20 MEQ TABLET.ER (FP) PO SCH (10:00)
[2016-11-14] MEDS: LYTES/YERBA SANTA 240 ML BOTTLE MM SCH (10:02)
[2016-11-14] MEDS: POLYETHYLENE GLYCOL 3350 119 GM BTL PO SCH ×2 (10:02→21:57)
[2016-11-14] MEDS: FUROSEMIDE 40 MG TABLET (FP) PO SCH (10:07)
[2016-11-14] MEDS: VANCOMYCIN 1,250 MG in DEXTROSE 5%-WATER - 250 ML IVPB SCH (11:50)
--- NOTE | 2016-11-14 15:43 | PN ---
Progress Note, Physician Chief Complaint: Spinal Abscess History of Present Illness: Comfortable in bed, did not need to use BIPAP overnight. - Current Medication List Current Medications: Active Medications Acetaminophen (Tylenol -) 650 mg PO Q4H PRN PRN Reason: FEVER OR PAIN Bisacodyl (Dulcolax Suppository -) 10 mg RC DAILY PRN PRN Reason: CONSTIPATION Diazepam (Valium -) 5 mg PO TID [facility] Last Admin: 11/14/16 14:03 Dose: 5 mg Docusate Sodium (Colace -) 100 mg PO TID [facility] Last Admin: 11/14/16 14:03 Dose: 100 mg Furosemide (Lasix -) 40 mg PO DAILY [facility] Last Admin: 11/14/16 10:07 Dose: 40 mg Heparin Sodium (Porcine) (Heparin -) 5,000 unit SQ BID [facility] Last Admin: 11/14/16 10:00 Dose: 5,000 unit IV Flush (Picc Line Flush) 8 ml IVPUSH PRN PRN PRN Reason: Protocol IV Flush (Picc Line Flush) 8 ml IVPUSH PRN PRN Vancomycin HCl 1,250 mg/ (Dextrose) 250 mls @ 250 mls/hr IVPB DAILY [facility] PRN Reason: Protocol Last Admin: 11/14/16 11:50 Dose: 250 mls/hr Ondansetron HCl (Zofran Injection) 4 mg IVPB Q6H PRN PRN Reason: NAUSEA AND/OR VOMITING Last Admin: 11/13/16 09:01 Dose: 4 mg Oxycodone HCl (Roxicodone -) 5 mg PO Q3H PRN PRN Reason: MODERATE PAIN Last Admin: 11/14/16 01:17 Dose: 5 mg Oxycodone HCl (Roxicodone -) 10 mg PO Q3H PRN PRN Reason: SEVERE PAIN Polyethylene Glycol (Miralax (For Daily Use) -) 17 gm PO BID [facility] Last Admin: 11/14/16 10:02 Dose: 17 gm Potassium Chloride (K-Dur -) 20 meq PO DAILY [facility] Last Admin: 11/14/16 10:00 Dose: 20 meq Saliva Substitute (Mouthkote Solution -) 1 applic MM DAILY [facility] Last Admin: 11/14/16 10:02 Dose: 1 applic Senna (Senna -) 2 tab PO HS PRN PRN Reason: CONSTIPATION - Objective Vital Signs: Vital Signs Temperature 98.4 F 11/14/16 15:16 Pulse Rate 101 H 11/14/16 15:16 Respiratory Rate 20 11/14/16 15:16 Blood Pressure 104/54 11/14/16 15:16 O2 Sat by Pulse Oximetry (%) 93 L 11/14/16 11:17 Constitutional: Yes: Well Nourished, No Distress, Calm Cardiovascular: Yes: Regular Rate and Rhythm Respiratory: Yes: Regular Gastrointestinal: Yes: Normal Bowel Sounds Edema: Yes Edema: LLE: 1+, RLE: 1+ Peripheral Pulses WNL: Yes Labs: CBC, BMP 11/09/16 06:00 11/13/16 05:35 INR, PTT INR 1.32 (0.82-1.09) H 10/25/16 23:00 Problem List - Problems (1) Afib Assessment/Plan: CHRONIC, CONTROLLED ON HEPARIN FOR AC Code(s): I48.91 - UNSPECIFIED ATRIAL FIBRILLATION Qualifiers: Atrial fibrillation type: paroxysmal Qualified Code(s): I48.0 - Paroxysmal atrial fibrillation (2) Epidural abscess Assessment/Plan: LOWER EXTREMITY WEAKNESS, LOSS OF CONTROL. CANDIDATE FOR REHAB, READY TO BE DISCHARGED. Code(s): G06.2 - EXTRADURAL AND SUBDURAL ABSCESS, UNSPECIFIED (3) Pleural effusion Assessment/Plan: LEFT PLEURAL EFFUSION RESOLVES, MILD RIGHT PLEURAL EFFUSION, STABLE AT THIS TIME. Code(s): J90 - PLEURAL EFFUSION, NOT ELSEWHERE CLASSIFIED (4) Weakness of both lower extremities Code(s): R29.898 - OTH SYMPTOMS AND SIGNS INVOLVING THE MUSCULOSKELETAL SYSTEM (5) Diabetes mellitus, insulin dependent (IDDM), uncontrolled Assessment/Plan: BETTER CONTROLLED Code(s): E10.65 - TYPE 1 DIABETES MELLITUS WITH HYPERGLYCEMIA (6) Pneumonia Code(s): J18.9 - PNEUMONIA, UNSPECIFIED ORGANISM Qualifiers: Pneumonia type: due to unspecified organism Laterality: left Lung location: lower lobe of lung Qualified Code(s): J18.1 - Lobar pneumonia, unspecified organism Assessment/Plan REHAB PHYSICAL THERAPY. PAIN MANAGEMENT
[2016-11-14] MEDS: ACETAMINOPHEN 325 MG TABLET (FP) PO PRN (21:55)
[2016-11-15] MEDS: ALBUTEROL SO4 2.5/IPRATROPIUM 0.5 INH SOL 3 ML VIAL.NEB. NEB SCH ×5 (00:15→23:08)
[2016-11-15] MEDS: DOCUSATE SODIUM 100 MG CAPSULE (FP) PO SCH ×3 (07:24→22:00)
[2016-11-15] MEDS: diazePAM 5 MG TABLET PO SCH ×3 (07:24→22:00)
[2016-11-15] MEDS ORDERED: PT OWN MED DRAWER 7, Y5N ONE (09:02)
[2016-11-15] MEDS: HEPARIN NA (PORCINE) 5,000 UNITS/ML 1ML VIAL SQ SCH ×2 (09:05→22:00)
[2016-11-15] MEDS: POTASSIUM CHLORIDE TABS 20 MEQ TABLET.ER (FP) PO SCH (09:05)
[2016-11-15] MEDS: FUROSEMIDE 40 MG TABLET (FP) PO SCH (09:05)
[2016-11-15] MEDS: LYTES/YERBA SANTA 240 ML BOTTLE MM SCH (09:05)
[2016-11-15] MEDS: POLYETHYLENE GLYCOL 3350 119 GM BTL PO SCH ×2 (11:03→22:01)
[2016-11-15] MEDS: VANCOMYCIN 1,250 MG in DEXTROSE 5%-WATER - 250 ML IVPB SCH (11:33)
--- NOTE | 2016-11-15 18:33 | PN ---
Progress Note, Physician Chief Complaint: Spinal Abscess History of Present Illness: Comfortable in bed, did not need to use BIPAP overnight. - Current Medication List Current Medications: Active Medications Acetaminophen (Tylenol -) 650 mg PO Q4H PRN PRN Reason: FEVER OR PAIN Last Admin: 11/14/16 21:55 Dose: 650 mg Albuterol/Ipratropium (Duoneb -) 1 amp NEB QIDR [facility] Last Admin: 11/15/16 17:39 Dose: 1 amp Bisacodyl (Dulcolax Suppository -) 10 mg RC DAILY PRN PRN Reason: CONSTIPATION Diazepam (Valium -) 5 mg PO TID [facility] Last Admin: 11/15/16 14:19 Dose: 5 mg Docusate Sodium (Colace -) 100 mg PO TID [facility] Last Admin: 11/15/16 14:19 Dose: 100 mg Furosemide (Lasix -) 40 mg PO DAILY [facility] Last Admin: 11/15/16 09:05 Dose: 40 mg Heparin Sodium (Porcine) (Heparin -) 5,000 unit SQ BID [facility] Last Admin: 11/15/16 09:05 Dose: 5,000 unit IV Flush (Picc Line Flush) 8 ml IVPUSH PRN PRN PRN Reason: Protocol IV Flush (Picc Line Flush) 8 ml IVPUSH PRN PRN Vancomycin HCl 1,250 mg/ (Dextrose) 250 mls @ 250 mls/hr IVPB DAILY [facility] PRN Reason: Protocol Last Admin: 11/15/16 11:33 Dose: 250 mls/hr Ondansetron HCl (Zofran Injection) 4 mg IVPB Q6H PRN PRN Reason: NAUSEA AND/OR VOMITING Last Admin: 11/13/16 09:01 Dose: 4 mg Oxycodone HCl (Roxicodone -) 5 mg PO Q3H PRN PRN Reason: MODERATE PAIN Last Admin: 11/14/16 01:17 Dose: 5 mg Polyethylene Glycol (Miralax (For Daily Use) -) 17 gm PO BID [facility] Last Admin: 11/15/16 11:03 Dose: Not Given Potassium Chloride (K-Dur -) 20 meq PO DAILY [facility] Last Admin: 11/15/16 09:05 Dose: 20 meq Saliva Substitute (Mouthkote Solution -) 1 applic MM DAILY [facility] Last Admin: 11/15/16 09:05 Dose: 1 applic Senna (Senna -) 2 tab PO HS PRN PRN Reason: CONSTIPATION - Objective Vital Signs: Vital Signs Temperature 98.8 F 11/15/16 18:28 Pulse Rate 104 H 11/15/16 18:28 Respiratory Rate 18 11/15/16 18:28 Blood Pressure 128/68 11/15/16 18:28 O2 Sat by Pulse Oximetry (%) 93 L 11/14/16 21:00 Constitutional: Yes: Well Nourished, No Distress, Calm Cardiovascular: Yes: Regular Rate and Rhythm Respiratory: Yes: Regular Gastrointestinal: Yes: Normal Bowel Sounds Edema: Yes Edema: LLE: Trace, RLE: Trace Peripheral Pulses WNL: Yes Labs: CBC, BMP 11/09/16 06:00 11/13/16 05:35 INR, PTT INR 1.32 (0.82-1.09) H 10/25/16 23:00 Problem List - Problems (1) Afib Assessment/Plan: CHRONIC, CONTROLLED ON HEPARIN FOR AC Code(s): I48.91 - UNSPECIFIED ATRIAL FIBRILLATION Qualifiers: Atrial fibrillation type: paroxysmal Qualified Code(s): I48.0 - Paroxysmal atrial fibrillation (2) Epidural abscess Assessment/Plan: LOWER EXTREMITY WEAKNESS, LOSS OF CONTROL. CANDIDATE FOR REHAB, READY TO BE DISCHARGED. Code(s): G06.2 - EXTRADURAL AND SUBDURAL ABSCESS, UNSPECIFIED (3) Pleural effusion Assessment/Plan: LEFT PLEURAL EFFUSION RESOLVES, MILD RIGHT PLEURAL EFFUSION, STABLE AT THIS TIME. Code(s): J90 - PLEURAL EFFUSION, NOT ELSEWHERE CLASSIFIED (4) Weakness of both lower extremities Code(s): R29.898 - OTH SYMPTOMS AND SIGNS INVOLVING THE MUSCULOSKELETAL SYSTEM (5) Diabetes mellitus, insulin dependent (IDDM), uncontrolled Assessment/Plan: BETTER CONTROLLED Code(s): E10.65 - TYPE 1 DIABETES MELLITUS WITH HYPERGLYCEMIA (6) Pneumonia Code(s): J18.9 - PNEUMONIA, UNSPECIFIED ORGANISM Qualifiers: Pneumonia type: due to unspecified organism Laterality: left Lung location: lower lobe of lung Qualified Code(s): J18.1 - Lobar pneumonia, unspecified organism Assessment/Plan AWAITING FOR BED AT [facility] PAIN MANAGEMENT
[2016-11-15] MEDS: oxyCODONE HCL 5 MG TABLET PO PRN (20:28)
[2016-11-15] MEDS: ACETAMINOPHEN 325 MG TABLET (FP) PO PRN (20:28)
[2016-11-16] MEDS ORDERED: diazePAM 5 MG TABLET ONE (06:37)
[2016-11-16] MEDS: DOCUSATE SODIUM 100 MG CAPSULE (FP) PO SCH (06:38)
[2016-11-16] MEDS: diazePAM 5 MG TABLET PO SCH (06:38)
[2016-11-16] MEDS: ALBUTEROL SO4 2.5/IPRATROPIUM 0.5 INH SOL 3 ML VIAL.NEB. NEB SCH ×2 (06:53→11:05)
--- NOTE | 2016-11-16 07:52 | PN ---
Progress Note, Physician History of Present Illness: S/P EMERGENCY LAMINECTOMY UNABLE TO MOVE LEGS NO CHEST PAIN NO SOB ON OXYGEN C/O COUGH - Current Medication List Current Medications: Active Medications Acetaminophen (Tylenol -) 650 mg PO Q4H PRN PRN Reason: FEVER OR PAIN Last Admin: 11/15/16 20:28 Dose: 650 mg Albuterol/Ipratropium (Duoneb -) 1 amp NEB QIDR [facility] Last Admin: 11/16/16 06:53 Dose: 1 amp Bisacodyl (Dulcolax Suppository -) 10 mg RC DAILY PRN PRN Reason: CONSTIPATION Docusate Sodium (Colace -) 100 mg PO TID [facility] Last Admin: 11/16/16 06:38 Dose: 100 mg Furosemide (Lasix -) 40 mg PO DAILY [facility] Last Admin: 11/15/16 09:05 Dose: 40 mg Heparin Sodium (Porcine) (Heparin -) 5,000 unit SQ BID [facility] Last Admin: 11/15/16 22:00 Dose: 5,000 unit IV Flush (Picc Line Flush) 8 ml IVPUSH PRN PRN PRN Reason: Protocol IV Flush (Picc Line Flush) 8 ml IVPUSH PRN PRN Vancomycin HCl 1,250 mg/ (Dextrose) 250 mls @ 250 mls/hr IVPB DAILY [facility] PRN Reason: Protocol Last Admin: 11/15/16 11:33 Dose: 250 mls/hr Ondansetron HCl (Zofran Injection) 4 mg IVPB Q6H PRN PRN Reason: NAUSEA AND/OR VOMITING Last Admin: 11/13/16 09:01 Dose: 4 mg Oxycodone HCl (Roxicodone -) 5 mg PO Q3H PRN PRN Reason: MODERATE PAIN Last Admin: 11/15/16 20:28 Dose: 5 mg Polyethylene Glycol (Miralax (For Daily Use) -) 17 gm PO BID [facility] Last Admin: 11/15/16 22:01 Dose: 17 gm Potassium Chloride (K-Dur -) 20 meq PO DAILY [facility] Last Admin: 11/15/16 09:05 Dose: 20 meq Saliva Substitute (Mouthkote Solution -) 1 applic MM DAILY [facility] Last Admin: 11/15/16 09:05 Dose: 1 applic Senna (Senna -) 2 tab PO HS PRN PRN Reason: CONSTIPATION - Objective Vital Signs: Vital Signs Temperature 99 F 11/16/16 06:00 Pulse Rate 94 H 11/16/16 06:00 Respiratory Rate 20 11/16/16 06:00 Blood Pressure 97/56 11/16/16 06:00 O2 Sat by Pulse Oximetry (%) 93 L 11/15/16 21:00 Cardiovascular: Yes: Regular Rate and Rhythm Respiratory: Yes: Regular, CTA Bilaterally Gastrointestinal: Yes: Normal Bowel Sounds, Soft Extremities: Yes: Other (weak) Edema: No Wound/Incision: Yes: Dressing Removed, Other (sacral decubitti) Labs: CBC, BMP 11/09/16 06:00 11/13/16 05:35 INR, PTT INR 1.32 (0.82-1.09) H 10/25/16 23:00 Problem List - Problems (1) Epidural abscess Assessment/Plan: abx per id--on ceftriaxone ON sq heparin continue with iv abx Code(s): G06.2 - EXTRADURAL AND SUBDURAL ABSCESS, UNSPECIFIED (2) Positive blood culture Assessment/Plan: abx per dr llamas repeat cultures echo noted-- Microbiology 10/24/16 11:46 Blood - Peripheral Venous Blood Culture - Final Streptococcus Pneumoniae Streptococcus Pneumoniae#2 10/24/16 11:46 Blood - Peripheral Venous Blood Culture - Final Streptococcus Mitis 10/28/16 06:16 Blood - Peripheral Venous Blood Culture - Preliminary NO GROWTH OBTAINED AFTER 72 HOURS, INCUBATION TO CONTINUE FOR 2 DAYS. 10/28/16 05:50 Blood - Peripheral Venous Blood Culture - Preliminary NO GROWTH OBTAINED AFTER 72 HOURS, INCUBATION TO CONTINUE FOR 2 DAYS. Code(s): R78.81 - BACTEREMIA (3) Acute on chronic renal insufficiency Code(s): N28.9 - DISORDER OF KIDNEY AND URETER, UNSPECIFIED N18.9 - CHRONIC KIDNEY DISEASE, UNSPECIFIED (4) CHF exacerbation Code(s): I50.9 - HEART FAILURE, UNSPECIFIED Qualifiers: Congestive heart failure type: diastolic Qualified Code(s): I50.33 - Acute on chronic diastolic (congestive) heart failure (5) Lymphoma Assessment/Plan: in remission oncology consult Code(s): C85.90 - NON-HODGKIN LYMPHOMA, UNSPECIFIED, UNSPECIFIED SITE (6) Weakness of both lower extremities Assessment/Plan: as above due abscess---abx neuro and ns consult noted---pt Code(s): R29.898 - OTH SYMPTOMS AND SIGNS INVOLVING THE MUSCULOSKELETAL SYSTEM (7) Afib Assessment/Plan: follow labs no ac due to spinal surgery on amiodorone Code(s): I48.91 - UNSPECIFIED ATRIAL FIBRILLATION Qualifiers: Atrial fibrillation type: paroxysmal Qualified Code(s): I48.0 - Paroxysmal atrial fibrillation (8) Chest pain Code(s): R07.9 - CHEST PAIN, UNSPECIFIED (9) Pressure ulcer Assessment/Plan: PER SURGERY DR ALANIS WILL SEE Code(s): L89.90 - PRESSURE ULCER OF UNSPECIFIED SITE, UNSPECIFIED STAGE
[2016-11-16 09:03] LABS: BASOPHIL 0.5 % (0-2.0); EOSINOPHIL 1.4 % (0-4.5); MCH 29.2 pg (25.7-33.7); MCHC 32.7 g/dl (32.0-35.9); MEAN CELL VOLUME 89.2 fl (80-96); MEAN PLT VOLUME 6.3 fl (7.5-11.1); NEUTROPHILS 72.2 % (42.8-82.8); PLATELET COUNT 200 K/MM3 (134-434); RDW 18.5 % (11.9-15.9); WHITE BLOOD COUNT 7.3 K/mm3 (4.0-10.0)
[2016-11-16] MEDS ORDERED: PT OWN MED DRAWER 7, Y5N ONE (09:30)
[2016-11-16 09:32] LABS: ALBUMIN 2.3 g/dl (3.4-5.0); ALK PHOS 90 U/L (45-117); ANION GAP 7 (8-16); BILIRUBIN,TOTAL 0.5 mg/dL (0.2-1.0); CALCIUM 8.7 mg/dL (8.5-10.1); CO2 41 mmol/L (21-32); GLUCOSE,RANDOM 122 mg/dL (74-106); SGOT/AST 23 U/L (15-37); SGPT/ALT 17 U/L (12-78)
[2016-11-16] MEDS: HEPARIN NA (PORCINE) 5,000 UNITS/ML 1ML VIAL SQ SCH (09:39)
[2016-11-16] MEDS: FUROSEMIDE 40 MG TABLET (FP) PO SCH (09:39)
[2016-11-16] MEDS: POTASSIUM CHLORIDE TABS 20 MEQ TABLET.ER (FP) PO SCH (09:39)
[2016-11-16] MEDS: POLYETHYLENE GLYCOL 3350 119 GM BTL PO SCH (09:40)
[2016-11-16] MEDS: VANCOMYCIN 1,250 MG in DEXTROSE 5%-WATER - 250 ML IVPB SCH (09:40)
[2016-11-16] MEDS: LYTES/YERBA SANTA 240 ML BOTTLE MM SCH (09:47)
[2016-11-16] MEDS ORDERED: COLLAGENASE CLOSTRIDIUM HIST. 30 GRAMS TUBE TP SCH (14:30)
[2016-11-16 14:50] VITALS: BP 107/55; PULSE 103; TEMP 98.7
== END 2016-11-16 15:46 | DRG 28 ==
LOC: JER 09:22 → JERBED 13:36 → J6S 15:47 → JICU 10-25 13:59 → J7W 11-08 22:35
PROVIDERS: ADMIT Family Medicine; ATTEND Family Medicine
PROC: 0RG60Z1 (ICD-10-PCS; 2016-10-25)
PROC: 30233L1 Transfusion of Nonautologous Fresh Plasma into Peripheral Vein, Percutaneous Approach (ICD-10-PCS; 2016-10-25)
PROC: 30233K1 Transfusion of Nonautologous Frozen Plasma into Peripheral Vein, Percutaneous Approach (ICD-10-PCS; 2016-10-25)
PROC: 009U3ZX Drainage of Spinal Canal, Percutaneous Approach, Diagnostic (ICD-10-PCS; 2016-10-25)
PROC: B01BYZZ Fluoroscopy of Spinal Cord using Other Contrast (ICD-10-PCS; 2016-10-25)
PROC: 00NX0ZZ Release Thoracic Spinal Cord, Open Approach (ICD-10-PCS; principal; 2016-10-25 18:30)
PROC: 30233N1 Transfusion of Nonautologous Red Blood Cells into Peripheral Vein, Percutaneous Approach (ICD-10-PCS; 2016-10-26)
PROC: 5A09557 Assistance with Respiratory Ventilation, Greater than 96 Consecutive Hours, Continuous Positive Airway Pressure (ICD-10-PCS; 2016-11-07)
PROC: 02HV33Z Insertion of Infusion Device into Superior Vena Cava, Percutaneous Approach (ICD-10-PCS; 2016-11-13)
DX: G06.1 Intraspinal abscess and granuloma (principal); J18.9 Pneumonia, unspecified organism; J96.01 Acute respiratory failure with hypoxia; I50.33 Acute on chronic diastolic (congestive) heart failure; C85.90 Non-Hodgkin lymphoma, unspecified, unspecified site; J90 Pleural effusion, not elsewhere classified; R78.81 Bacteremia; J98.11 Atelectasis; G82.21 Paraplegia, complete; G95.29 Other cord compression; I48.0 Paroxysmal atrial fibrillation; J20.9 Acute bronchitis, unspecified; E10.65 Type 1 diabetes mellitus with hyperglycemia; Z87.891 Personal history of nicotine dependence; R53.1 Weakness; R07.9 Chest pain, unspecified; I11.0 Hypertensive heart disease with heart failure; E66.9 Obesity, unspecified; Z68.39 Body mass index [BMI] 39.0-39.9, adult; J44.9 Chronic obstructive pulmonary disease, unspecified; Z86.718 Personal history of other venous thrombosis and embolism; D64.9 Anemia, unspecified
CPT/HCPCS: 36415; 36430; 36569; 36590; 36600; 70450-TC; 71010-TC; 71020-TC; 71275-TC; 72131-TC; 72157-TC; 76000-TC; 76937-TC; 77001-TC; 80048; 80053; 82436; 82550; 82553; 82784; 82803; 83605; 83735; 83880; 84100; 84133; 84155; 84165; 84300; 84443; 84484; 85025; 85027; 85379; 85610; 85651; 85730; 86038; 86140; 86480; 86618; 87040; 87070; 87086; 87102; 87116; 87186; 87205; 87206; 87210; 87899; 88304-TC; 90670; 93005; 93010; 93306-TC; 93970-TC; 94010; 94640; 94660; 97116-GP; 97162-GP; 99284-25; A9576; C1751; G0480; J1644; P9017; P9038; P9058